=== PATIENT | female | born 1955 | race Caucasian/White ===

== ENCOUNTER 2019-01-30 21:20 | Emergency (ER) | payer MEDICARE, MEDICAID, SELFPAY ==
[2019-01-30 21:21] VITALS: BP 103/55; PULSE 100; RESP 16; TEMP 36.2; O2SAT 99; BMI 27.4
--- NOTE | 2019-01-30 21:40 | RAD_ITS ---
STUDY: X-RAY - RIGHT FOOT CLINICAL: Female, 63 years old. Pain TECHNIQUE: 3 view(s) of the foot. COMPARISON: None. FINDINGS: Normal talus, calcaneus, and tarsal bones. Normal visualized subtalar, talonavicular, tarsal and tarsometatarsal articulations. Surgical fusion at the calcaneocuboid articulation Normal metatarsi. Normal metatarsophalangeal joint of the great toe. Normal tibial and fibular sesamoid bones. Normal interphalangeal joint of the great toe. Normal phalanges of the great toe. Normal second through fifth metatarsophalangeal joints. Normal interphalangeal joints and phalanges of the lesser toes. Mild dorsal soft tissue edema. RAD/Foot min 3 Views IMPRESSION: No acute bony injury of the foot. Electronically Signed: Charles Aviles DO at 21:57 EDT Tel [phone], Service support ,
--- NOTE | 2019-01-30 22:24 | ED.VIS.GEN ---
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 - Past Medical History (1) Atrial fibrillation Status: Chronic (2) Hypothyroidism Status: Chronic Past Medical History - Allergies and Home Meds Allergies/Adverse Reactions: Allergies Penicillins Allergy (Verified 01/30/19 21:31) Unknown Sulfa (Sulfonamide Antibiotics) Allergy (Verified 01/30/19 21:31) Unknown Primary Care Physician: Richard Maynard DO [Primary Care Provider] - Smoking Status: Never smoker Review of Systems ROS: Unable to Obtain Musculoskeletal: Reports: Extremity Pain Skin: Reports: Wounds Hematologic: Reports: Easy bruising, Easy bleeding Physical Exam Vital Signs/Narrative: Vital Signs Temp Pulse Resp BP Pulse Ox 01/30/19 21:21 97.2 F L 100 16 103/55 L 99 Inital Vital Signs reviewed: Yes General: Well nourished, Well developed, No Acute Distress Head: Normocephalic, Atraumatic Extremities: Tenderness - Right fifth toe. No deformity. Rest of foot atraumatic and nontender. 2+/4 dorsalis pedis pulse. Skin: Trauma - Ecchymotic right fifth toe. No lacerations or bleeding. Neurological: Alert, Cranial nerves II-XII grossly intact, Normal Strength, Normal Sensation Diagnostic/Tx/Re-eval Clinical Impression(s) from Imaging Studies Foot X-Ray 01/30/19 21:40 IMPRESSION: No acute bony injury of the foot. Electronically Signed: Charles Aviles DO at 21:57 EDT Tel [phone], Service support , - Medical Decision Making X-ray shows no acute fracture. Likely minor trauma, she is on Eliquis, making it easier for her to bruise. Reassured and discharged home with supportive care instructions. ED Disposition - Plan for ED Patient: Disposition: Home or Assisted Living Diagnosis: Contusion of toe of right foot Instructions: ED Contusion Foot Referrals: Richard Maynard DO [Primary Care Provider] - As Needed
--- NOTE | 2019-01-30 22:28 | ED.DCSUM_ITS ---
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 manager contract states it was seen this morning and normal, but this evening staff saw it and it was black and blue on her right fifth toe so they present for evaluation. - Past Medical History (1) Atrial fibrillation Status: Chronic (2) Hypothyroidism Status: Chronic Past Medical History - Allergies and Home Meds Allergies/Adverse Reactions: Allergies Penicillins Allergy (Verified 01/30/19 21:31) Unknown Sulfa (Sulfonamide Antibiotics) Allergy (Verified 01/30/19 21:31) Unknown Primary Care Physician: Richard Maynard DO [Primary Care Provider] - Smoking Status: Never smoker Review of Systems ROS: Unable to Obtain Musculoskeletal: Reports: Extremity Pain Skin: Reports: Wounds Hematologic: Reports: Easy bruising, Easy bleeding Physical Exam Vital Signs/Narrative: Vital Signs Temp Pulse Resp BP Pulse Ox 01/30/19 21:21 97.2 F L 100 16 103/55 L 99 Inital Vital Signs reviewed: Yes General: Well nourished, Well developed, No Acute Distress Head: Normocephalic, Atraumatic Extremities: Tenderness - Right fifth toe. No deformity. Rest of foot atraumatic and nontender. 2+/4 dorsalis pedis pulse. Skin: Trauma - Ecchymotic right fifth toe. No lacerations or bleeding. Neurological: Alert, Cranial nerves II-XII grossly intact, Normal Strength, Normal Sensation Diagnostic/Tx/Re-eval Clinical Impression(s) from Imaging Studies Foot X-Ray 01/30/19 21:40 IMPRESSION: No acute bony injury of the foot. Electronically Signed: Charles Aviles DO at 21:57 EDT Tel [phone], Service support , - Medical Decision Making X-ray shows no acute fracture. Likely minor trauma, she is on Eliquis, making it easier for her to bruise. Reassured and discharged home with supportive care instructions. ED Disposition - Plan for ED Patient: Disposition: Home or Assisted Living Diagnosis: Contusion of toe of right foot Instructions: ED Contusion Foot Referrals: Richard Maynard DO [Primary Care Provider] - As Needed
[2019-01-30 22:35] VITALS: RESP 16
--- NOTE | 2019-01-30 22:36 | ED.RN ---
REVIEWED D/C INSTRUCTIONS, FOLLOW UP CARE, AND S/S THAT WOULD WARRANT A RETURN TO THE ED WITH PT'S CAREGIVER. CAREGIVER VERBALIZED AN UNDERSTANDING AND DENIES FURTHER QUESTIONS FOR THIS RN. PT SKIN P/W/D, RESP EVEN AND UNLABORED, NO DISTRESS NOTED. PT ASSISTED OUT OF ED IN PERSONAL WHEELCHAIR.
== END 2019-01-30 22:37 | disposition home or self-care (01) ==
PROVIDERS: Emergency Provider Emergency Medicine; Family Provider Family Medicine; PCP Preventive Medicine Occupational Medicine
DX: S90.121A Contusion of right lesser toe(s) without damage to nail, initial encounter (principal); X58.XXXA Exposure to other specified factors, initial encounter; Y93.9 Activity, unspecified; Y92.9 Unspecified place or not applicable; F79 Unspecified intellectual disabilities; I48.91 Unspecified atrial fibrillation; E03.9 Hypothyroidism, unspecified; Z79.01 Long term (current) use of anticoagulants; Z79.899 Other long term (current) drug therapy
CPT/HCPCS: 73630; 99282

== ENCOUNTER → 2019-04-25 | Outpatient (CLI) | payer MEDICARE, MEDICAID, SELFPAY ==
[2019-02-28 07:43] VITALS: BMI 22.6
--- NOTE | 2019-04-25 14:27 | BI_ITS ---
MAMMOGRAPHY - BILATERAL SCREENING REASON FOR EXAM: Female, 63 years old. Routine annual screening examination. PERTINENT HISTORY: Non-contributory. TECHNIQUE: Digital bilateral breast sander (3D mammographic acquisition) in the CC and MLO projections. 2-D mediolateral oblique (MLO) and craniocaudad (CC) views of both breasts were obtained. CAD: Full Field Digital Mammography with Computer Added Detection was performed. COMPARISON: Comparison is made with prior study dated March 19, 2017 and November 24, 2013. FINDINGS: Breast Composition: There are scattered areas of fibroglandular density. There are no dominant masses or suspicious calcifications. No other significant abnormalities are identified. There has been no significant change since the prior study. BI/SCREEN MAMM (CAD) W/SANDER BILAT IMPRESSION: Stable bilateral screening mammogram. Yearly follow-up mammogram recommended. (A) ASSESSMENT CATEGORY: BIRADS Category 1: Negative. A letter regarding these results will be sent to the patient by the facility within 30 days. Approximately 10% of breast cancers are not detected by mammography. A normal mammogram should not delay biopsy of a clinically suspicious abnormality. [id number] Electronically Signed: Sg Garza, at 10:20 EDT , Service support ,
--- NOTE | 2019-04-25 14:29 | BD_ITS ---
STUDY: DUAL ENERGY X-RAY ABSORPTIOMETRY / DXA REASON FOR EXAM: Female, 63 years old. The patient is postmenopausal. Loss of height TECHNIQUE: Bone Mineral Density (BMD) measurements of lumbar spine and bilateral hips were obtained. COMPARISON: Comparison is made with prior study dated October 06, 2012. FINDINGS: Lumbar Spine (L1-L4): g/cm2 (1.011) / T-score (-1.4) / Z-score (-0.1) Findings are suggestive of osteopenia with a low fracture risk. Left Femur Total: g/cm2 (0.748) / T-score (-2.1) / Z-score (-1.0) Left Femoral Neck: g/cm2 (0.791) / T-score (-1.8) / Z-score (-0.5) Right Femur Total: g/cm2 (0.748) / T-score (-2.1) / Z-score (-1.0) Right Femoral Neck: g/cm2 (0.757) / T-score (-2.0) / Z-score (-0.7) The T-Scores on the most recent prior examination were: Lumbar Spine (L1-L4): There has been worsening of bone density since the previous examination. Left Femur Total: which represents a worsening of 8.8%. Right Femur Total: which represents a worsening of 3.2%. BD/Dexa Bone Density Study IMPRESSION: The patient is considered osteopenic as outlined below according to World Dario Organization (WHO) criteria with a high fracture risk. There has been worsening of bone density since the previous examination. Reference Information: The T-score is the number of standard deviations above or below the standard which is normal for young adults at their peak bone mineral density. The World Health Organization (WHO) interprets the T-scores as follows: Above -1 Normal bone density Between -1 and -2.5 Osteopenia Equal to / or below -2.5 Osteoporosis As a practical clinical guideline, osteopenia may be graded as follows: Mild -1 through -1.5 Moderate -1.6 through -2.0 Severe -2.1 through -2.4 The Z-score is the number of standard deviations above or below age-matched controls. A Z-score of less than -1.5 would be considered abnormal. References: 1. NIH Osteoporosis and Related Bone Diseases http://www.osteo.org 2. International Society for Clinical Densitometry http://www.iscd.org 3. National Osteoporosis Foundation http://www.nof.org Electronically Signed: Sg Garza, at 15:20 EDT , Service support ,
== END | disposition home or self-care (01) ==
PROVIDERS: Family Provider Family Medicine; PCP Preventive Medicine Occupational Medicine; Visit Provider Preventive Medicine Occupational Medicine
DX: Z12.31 Encounter for screening mammogram for malignant neoplasm of breast (principal); Z78.0 Asymptomatic menopausal state
CPT/HCPCS: 77063; 77067; 77080

== ENCOUNTER → 2021-03-12 15:30 | Outpatient (CLI) | payer MEDICARE, MEDICAID, SELFPAY ==
[2020-03-05 09:09] VITALS: BMI 22.6
[2021-03-12 17:37] LABS: Hematocrit 42.2 % (37-47); Hemoglobin 13.3 g/dL (12.0-15.0); Mean Corp Hgb Conc 31.5 g/dL (32-36); Mean Corpuscular Volume 91.9 fL (81-99); Mean Platelet Vol. 11.2 fl (6.2-12.0); Platelet Count 239 K/mm3 (150-450); RBC Distribution Width CV 13.4 % (11.6-14.6); RBC Distribution Width SD 46.1 fl (35.1-43.9); Red Blood Count 4.59 M/mm3 (4.2-5.4); White Blood Count 7.4 K/mm3 (4.4-11.0)
[2021-03-12 17:54] LABS: Vitamin D,25 Hydroxy 43.4 ng/mL
[2021-03-12 18:02] LABS: Anion Gap 6 (5-15); BUN 14 mg/dL (7-18); BUN/Creat Ratio 20.6 RATIO (10-20); Calcium,Total 8.7 mg/dL (8.5-10.1); Chloride 108 mmol/L (98-107); Creatinine, Serum 0.68 mg/dL (0.55-1.02); EST Glomerular Filtration Rate 93 mL/min (>60); Est Glom Filt Rate - Afr Amer 112 mL/min (>60); Glucose 86 mg/dL (74-106); Potassium 4.5 mmol/L (3.5-5.1); Sodium Level 141 mmol/L (136-145); Thyroid Stim Hormone (TSH) 0.13 uIU/mL (0.358-3.74)
== END ==
PROVIDERS: PCP Preventive Medicine Occupational Medicine; Referring Provider Preventive Medicine Occupational Medicine; Visit Provider Preventive Medicine Occupational Medicine
DX: I48.91 Unspecified atrial fibrillation (principal); E03.9 Hypothyroidism, unspecified; E55.9 Vitamin D deficiency, unspecified
CPT/HCPCS: 36415; 80048; 82306; 84443; 85027

== ENCOUNTER → 2022-04-13 | Outpatient (CLI) | payer MEDICARE, MEDICAID, OTHER, SELFPAY ==
[2022-04-13 18:39] LABS: ALB/GLOB Ratio 0.9 RATIO (0.9-2.4); AST(SGOT) 21 U/L (15-37); Alanine Aminotransfer ALT/SGPT 18 U/L (13-56); Albumin, Serum 3.4 g/dL (3.2-5.0); Alkaline Phosphatase 101 U/L (45-117); Anion Gap 7 (5-15); BUN 17 mg/dL (7-18); BUN/Creat Ratio 24.4 RATIO (10-20); Calcium,Total 9.1 mg/dL (8.5-10.1); Chloride 106 mmol/L (98-107); Cholesterol 149 mg/dL (200); EST Glomerular Filtration Rate 90 mL/min (>60); Est Glom Filt Rate - Afr Amer 109 mL/min (>60); Globulin 3.8 g/dL (2.2-4.2); Glucose 82 mg/dL (74-106); High Density Lipoprotein 65 mg/dL; Potassium 4.1 mmol/L (3.5-5.1); Protein, Total 7.2 g/dL (6.4-8.2); Sodium Level 140 mmol/L (136-145); Thyroid Stim Hormone (TSH) 2.15 uIU/mL (0.358-3.74); Triglycerides 109 mg/dL; Very Low Density Lipoprotein 22 mg/dL (5-40)
== END | disposition home or self-care (01) ==
PROVIDERS: PCP Preventive Medicine Occupational Medicine; Visit Provider Internal Medicine Cardiovascular Disease
DX: I48.11 Longstanding persistent atrial fibrillation (principal); E03.9 Hypothyroidism, unspecified; E78.00 Pure hypercholesterolemia, unspecified
CPT/HCPCS: 36415; 80053; 80061; 84443

== ENCOUNTER → 2022-04-27 | Outpatient (CLI) | payer MEDICARE, MEDICAID, OTHER, SELFPAY ==
--- NOTE | 2022-04-27 13:45 | ECHOD_ITS ---
Reason For Study: AFIB/FLUTTER Procedure This was a 2D Doppler, Color Flow transthoracic echocardiogram. The study was technically difficult. Exam performed in department. Left Ventricle Normal LV size. Left ventricular systolic function is normal. The estimated ejection fraction is 60 %. Unable to assess diastolic dysfunction due to arrhythmia. No regional wall motion abnormalities noted. Right Ventricle Normal RV size. Normal systolic function. Atria Normal left atrium. Normal right atrium. Mitral Valve Normal mitral valve. Tricuspid Valve Normal tricuspid valve. Aortic Valve Trisinus/trileaflet aortic valve. Pulmonic Valve Normal pulmonic valve. Great Vessels Normal aortic root. The pulmonary artery is normal size. Normal inferior vena cava. Pericardium/Pleural No pericardial effusion. MMode/2D Measurements & Calculations LVIDd: 4.3 cm IVSd: 0.92 cm Ao root diam: 3.4 cm LVIDs: 3.2 cm LVPWd: 0.96 cm LA dimension: 3.8 cm RVDd: 2.4 cm FS: 24.5 % LAV(MOD-bp): 43.7 ml LA A4 area: 15.3 cm2 RA A4 area: 13.5 cm2 LAV(MOD-bp) Indexed: 30.0 ml/m2 LAV(MOD-sp2): 48.8 ml LAV(MOD-sp4): 37.3 ml Doppler Measurements & Calculations MV E max dorys: 107.0 cm/sec Ao V2 max: 117.7 cm/sec LV V1 max: 59.1 cm/sec Ao max P.5 mmHg LV V1 max P.4 mmHg PA V2 max: 143.4 cm/sec ECHO/Echo Complete Interpretation Summary Normal LV size. Left ventricular systolic function is normal. The estimated ejection fraction is 60 %. Unable to assess diastolic dysfunction due to arrhythmia. Ordering Physician: Raghav Pitts Referring Physician: Richard Grijalva Performed By: Rachell Kingston, YESENIA, RVT
== END | disposition home or self-care (01) ==
LOC: CVS 13:43
PROVIDERS: PCP Preventive Medicine Occupational Medicine; Visit Provider Internal Medicine Cardiovascular Disease
DX: I48.11 Longstanding persistent atrial fibrillation (principal)
CPT/HCPCS: 93306

== ENCOUNTER → 2022-05-19 | Outpatient (CLI) | payer MEDICARE, MEDICAID, OTHER, SELFPAY ==
--- NOTE | 2022-05-19 12:00 | PCM.PN.BLA ---
Progress Note Procedure cancelled. Patient unable to hold still for the procedure. Patient to return to her PCP for alternatives.
== END | disposition home or self-care (01) ==
LOC: BIRAD 11:14
PROVIDERS: PCP Preventive Medicine Occupational Medicine; Visit Provider Surgery
DX: R92.8 Other abnormal and inconclusive findings on diagnostic imaging of breast (principal)

== ENCOUNTER 2022-08-25 11:06 | Inpatient (IN) | payer MEDICARE, OTHER, MEDICAID, SELFPAY ==
[2022-08-25] VITALS (11 sets, daily range): BP systolic 108–137; BP diastolic 65–96; PULSE 91–160; RESP 13–18; TEMP 36.4–36.9; O2SAT 95–100; BMI 20.7; BMI 18.3
--- NOTE | 2022-08-25 12:04 | CT_ITS ---
STUDY: CT BRAIN WITHOUT CONTRAST REASON FOR EXAM: Female, 67 years old. History of fall. Patient has a history of cerebral palsy. Patient is nonverbal. RADIATION DOSAGE (If Supplied By Facility): CTDIvol = ( 44.99 ) mGy, DLP = ( 846.73 ) mGycm TECHNIQUE: Transaxial CT imaging of the brain was performed without administration of intravenous contrast material. Individualized dose optimization techniques were used for this CT. COMPARISON: No relevant priors. FINDINGS: Normal soft tissue structures. There is hyperostosis frontalis internus. There is mild cerebral atrophy with widening of the extra-axial spaces and ventricular dilatation. Normal white matter tracts of the cerebral hemispheres. Normal basal ganglia and thalami. Normal brainstem. Normal cerebellum. There is no intracranial hemorrhage. There are no findings of an acute ischemic infarction. Normal visualized paranasal sinuses. CT/Brain/Head without Contrast IMPRESSION: Chronic involutional changes of the brain. Electronically Signed: Sg Garza MD at 13:03 EST ,
--- NOTE | 2022-08-25 12:04 | CT_ITS ---
STUDY: CT CERVICAL SPINE WITHOUT CONTRAST REASON FOR EXAM: Female, 67 years old. Neck pain following a fall. RADIATION DOSAGE (If Supplied By Facility): CTDIvol = ( 12.66 ) mGy, DLP = ( 263.16 ) mGycm TECHNIQUE: High resolution transaxial imaging was performed without contrast material. Sagittal and coronal images were reconstructed. Individualized dose optimization techniques were used for this CT. COMPARISON: None FINDINGS: Normal craniovertebral junction. Normal anterior atlantoaxial articulation. Normal odontoid process. Normal cervical lordosis. Normal vertebral bodies and posterior osseous elements. C2-3: Normal endplates. Normal disc height and morphology. Normal central canal and intervertebral neuroforamina. C3-4: Facet joint osteoarthritis and hypertrophy. No significant neural foraminal stenosis seen. C4-5: Facet joint osteoarthritis and hypertrophy on the right side. Mild degree of right neural foraminal stenosis. C5-6: Moderate degree of disc space narrowing and spondylosis. C6-7: Mild degree of disc space narrowing and spondylosis. C7-T1: Normal endplates. Normal disc height and morphology. Normal central canal and intervertebral neuroforamina. Calcification of the carotid bifurcations bilaterally. CT/Spine Cervical without Contras IMPRESSION: Multilevel degenerative changes, as described above. Calcification of the carotid bifurcations bilaterally. Electronically Signed: Sg Garza MD at 13:05 EST ,
--- NOTE | 2022-08-25 12:13 | ED.VIS.FALL ---
HPI <SUSAN Lares - Last Filed: 08/25/22 15:25> HPI - Fall History of Present Illness Chief Complaint: Fall Narrative Narrative: Patient presents today after falling on the floor. She is brought here today by the group director where she resides and is unable to provide me any details about what happened due to being mentally handicapped. The broadcast operations manager states she was only on the floor for a minute and is unsure if she hit her head. She states the patient did not lose consciousness and was able to walk around afterwards. Patient is on blood thinners and last took them this morning. [facility] <SUSAN Lares - Last Filed: 08/25/22 15:25> [facility] Medical History (Updated 08/25/22 @ 15:25 by SUSAN Lares) Cataract Cerebral palsy Developmental disability Glaucoma Hypothyroidism Longstanding persistent atrial fibrillation Schizophrenia Home Medications acetaminophen 500 mg tablet 500 - 1,000 mg PO Q6H PRN PRN Pain 4 days 10/16/14 [Rx Last Taken Unknown] levothyroxine 88 mcg tablet 88 mcg PO DAILY thyroid 10/16/14 [History Last Taken 08/25/22] lorazepam 0.5 mg tablet 0.5 mg PO TID mood 03/11/18 [History Last Taken 08/25/22] cholecalciferol (vitamin D3) 25 mcg (1,000 unit) capsule 1,000 unit PO QDAY supplement 03/17/18 [History Last Taken 08/25/22] multivitamin (Daily Multi-Vitamin tablet) 1 tab PO QAM supplement 03/17/18 [History Last Taken 08/25/22] polyethylene glycol 3350 8.5 gram oral powder packet 17 g PO QDAY constipation 03/17/18 [History Last Taken 08/24/22] vitamin A 2,400 mcg capsule 8,000 unit PO QDAY supplement 03/17/18 [History Last Taken 08/25/22] alendronate 35 mg tablet 35 mg PO QWEEK bone health 03/05/20 [History Last Taken 08/19/22] carbamide peroxide 6.5 % ear drops (Debrox) 5 drp otic (ear) .QOD ears 03/05/20 [History Last Taken 08/24/22] risperidone 0.5 mg tablet 0.5 mg PO TID mood 03/05/20 [History Last Taken 08/24/22] fluvoxamine 50 mg tablet 50 mg PO TID mood 04/11/21 [History Last Taken 08/25/22] brinzolamide 1 %-brimonidine 0.2 % eye drops,suspension (Simbrinza) 1 drp ophthalmic (eye) TID eye 04/13/22 [History Last Taken 08/25/22] prednisolone acetate 1 % eye drops,suspension 1 drp ophthalmic (eye) BID eyes 04/13/22 [History Last Taken 08/24/22] apixaban 5 mg tablet 5 mg PO BID a fib 08/25/22 [History Last Taken 08/25/22] Allergy/AdvReac Type Severity Reaction Status Date / Time Penicillins Allergy Unknown Verified 04/13/22 12:47 Sulfa (Sulfonamide Allergy Unknown Verified 04/13/22 12:47 Antibiotics) Family History (Updated 08/25/22 @ 14:[address] Cheryl Juarez MD) Father Cancer Mother Heart disease Surgical History (Updated 08/25/22 @ 15:[address] Cheryl Juarez MD) History of Achilles tendon repair History of cataract surgery (02/2022) Social History (Updated 08/25/22 @ 14:[address] Cheryl Juarez MD) household members: other details: [employer]. Smoking Status: Never smoker alcohol intake: never substance use type: does not use ROS <SUSAN Lares - Last Filed: 08/25/22 15:25> ROS ED Review of Systems ROS Unobtainable: due to mental condition Constitutional Constitutional ED: Denies chills or fever(s) ENT ENT ED: Denies rhinorrhea or sore throat Respiratory/Chest Respiratory/Chest: Denies cough or dyspnea Gastrointestinal Gastrointestinal: Denies nausea or vomiting Musculoskeletal Musculoskeletal: Denies back pain or neck pain Integumentary Denies Abrasions or rash Neurologic Neurologic: Denies weakness EXAM <SUSAN Lares - Last Filed: 08/25/22 15:25> Physical Exam Const Vital Signs: 08/25/22 11:08 08/25/22 11:13 08/25/22 14:05 Temperature 97.5 F L Temperature Source Oral Pulse Rate 91 107 H Respiratory Rate 18 13 Respiratory Effort Normal Respiratory Depth Normal Respiratory Pattern Normal Blood Pressure 118/87 H 108/67 Blood Pressure Mean 97 80 Pulse Ox 98 98 Oxygen Delivery Method Room Air Room Air Room Air Positive well nourished and well developed General Appearance ED: well developed HEENT Reports normocephalic atraumatic; Negative for contusion, hematoma or tenderness Eyes PERRL and EOMs intact bilaterally Eyes Narrative: Patient is blind in her left eye. Neck full ROM and supple General: Negative for tenderness Chest Wall inspection of chest normal and palpation of chest normal Resp normal respiratory effort, no retractions and clear to auscultation bilaterally Cardio regular rate, regular rhythm and no murmurs GI non-tender, non-distended and no masses Back/Spine Back/Spine Narrative: Patient has full range of motion in her back and neck. General Back: Negative for erythema, ecchymosis, swelling or tenderness Neuro moves all extremities, no focal motor deficits and no sensory deficits noted Sensorium / Orientation: alert Motor Exam: Negative for general weakness Psych Attitude: No agitated Mood & Affect: Negative for anxious or tearful Skin Lesions: no lesions Rashes: no rashes Trauma: Negative for abrasion <Pelon Daly MD - Last Filed: 08/25/22 14:35> Physical Exam Const Vital Signs: 08/25/22 11:08 08/25/22 11:13 08/25/22 14:05 Temperature 97.5 F L Temperature Source Oral Pulse Rate 91 107 H Respiratory Rate 18 13 Respiratory Effort Normal Respiratory Depth Normal Respiratory Pattern Normal Blood Pressure 118/87 H 108/67 Blood Pressure Mean 97 80 Pulse Ox 98 98 Oxygen Delivery Method Room Air Room Air Room Air [facility] <SUSAN Lares - Last Filed: 08/25/22 15:25> [facility] Narrative Medical decision making narrative: CT of the brain and C-spine has been obtained. X-rays of the hips bilaterally have been obtained. Patient is lying comfortably in the bed, her vital signs are within normal limits and have remained stable. Radiography Diagnostic Testing: Clinical Impression(s) from Imaging Studies Brain CT 08/25/22 12:04 IMPRESSION: Chronic involutional changes of the brain. Electronically Signed: Sg Garza MD at 13:03 EST , Cervical Spine CT 08/25/22 12:04 IMPRESSION: Multilevel degenerative changes, as described above. Calcification of the carotid bifurcations bilaterally. Electronically Signed: Sg Garza MD at 13:05 EST , Hip/Pelvis X-Ray 08/25/22 12:45 IMPRESSION: There is a comminuted nondisplaced intertrochanteric fracture of the proximal left femur with cephalic migration of the distal fracture fragment. Electronically Signed: Sg Garza MD at 13:06 EST , CT of the brain and cervical spine negative for any acute processes. comminuted nondisplaced intertrochanteric fracture of the proximal left femur with cephalic migration of the distal fracture fragment. I agree with radiologist impressions. These have also been reviewed by attending ED physician. EKG Initial EKG: Attestation: I personally reviewed and interpreted this EKG as follows: Comments: 156 bpm. Atrial fibrillation with RVR. This EKG has also been reviewed by attending ED physician. No ST elevation, no signs of cardiac ischemia. <Pelon Daly MD - Last Filed: 08/25/22 14:35> [facility] MDM Narrative Medical decision making narrative: CT of the brain and C-spine has been obtained. X-rays of the hips bilaterally have been obtained. Patient is lying comfortably in the bed, her vital signs are within normal limits and have remained stable. ER physician interpretation of x-ray shows a comminuted fracture that is intertrochanteric. EKG interpreted by ED physician shows atrial fibrillation with rapid ventricular response at [address] changes. No STEMI. She was administered Lopressor. She last took her apixaban this morning. Given her comminuted left hip fracture, patient was discussed with Dr. Roman who would like her placed in Massey's traction. He would also like her admitted to internal medicine. Medical screening labs were obtained and are pending. Patient was discussed with Dr. Juarez for admission to the PCU given her atrial fibrillation with rapid ventricular response. Disposition is admit in stable condition. I have personally performed a face to face assessment of the patient and have reviewed the NAV Note. I performed a substantive portion of the visit including all aspects of the following. My gilman findings include: History is found on floor after suspected fall. History and physical limited secondary to patient's IDD Exam is GCS 15. ABCs intact. Mild tenderness to palpation left hip, positive pain with rolling of left femur. Medical Decision Making check CT brain. Check CT C-spine. X-rays of the left hip and pelvis interpreted by myself shows a comminuted nondisplaced intertrochanteric fracture of the proximal left femur. Discussed with orthopedics. Discussed with hospitalist. Presurgical screening labs. Admit. Other additions or changes: [None] Radiography Diagnostic Testing: Clinical Impression(s) from Imaging Studies Brain CT 08/25/22 12:04 IMPRESSION: Chronic involutional changes of the brain. Electronically Signed: Sg Garza MD at 13:03 EST , Cervical Spine CT 08/25/22 12:04 IMPRESSION: Multilevel degenerative changes, as described above. Calcification of the carotid bifurcations bilaterally. Electronically Signed: Sg Garza MD at 13:05 EST , Hip/Pelvis X-Ray 08/25/22 12:45 IMPRESSION: There is a comminuted nondisplaced intertrochanteric fracture of the proximal left femur with cephalic migration of the distal fracture fragment. Electronically Signed: Sg Garza MD at 13:06 EST , Discharge Plan Dx/Rx/DC Orders Clinical Impression: Atrial fibrillation with RVR, Hip fracture, Developmental disability Disposition Disposition: Acute Care Hospital [facility] Discharge Date/Time: 08/25/22 15:06
--- NOTE | 2022-08-25 12:45 | RAD_ITS ---
STUDY: X-RAY - PELVIS AND BILATERAL HIPS REASON FOR EXAM: Female, 67 years old. Left hip pain following a fall. TECHNIQUE: AP view of the pelvis.? 2 views of the right hip, and 2 views of the left hip were obtained. COMPARISON: None. FINDINGS: There is a non-specific bowel gas pattern. There are multiple calcified phleboliths. Normal bilateral iliac wings, sacroiliac joints and visualized sacrum. Normal bilateral superior and inferior pubic rami. Normal pubic symphysis. Normal bilateral ischial tuberosities. Normal visualized right femoral head. Normal right acetabulum. There is mild articular joint space narrowing of the right hip. There is a comminuted nondisplaced intertrochanteric fracture of the proximal left femur with cephalic migration of the distal fracture fragment. Normal left acetabulum. There is mild articular joint space narrowing of the left hip. RAD/Hips B/L min 2 views w/ Pelvis IMPRESSION: There is a comminuted nondisplaced intertrochanteric fracture of the proximal left femur with cephalic migration of the distal fracture fragment. Electronically Signed: Sg Garza MD at 13:06 EST ,
--- NOTE | 2022-08-25 14:07 | RAD_ITS ---
STUDY: X-RAY - LEFT FEMUR REASON FOR STUDY: Female, 67 years old. Fracture. TECHNIQUE: AP and lateral view(s) of the femur. COMPARISON: Pelvis and bilateral hips, August 25, 2022. FINDINGS: Again seen is a displaced intertrochanteric fracture of the left femur unchanged from the earlier examination. There is no dislocation. The femur is otherwise intact. Mild degenerative changes of the knee. Normal visualized soft tissue structure. RAD/Femur Min 2 Views IMPRESSION: No change in position of the intertrochanteric fracture when compared to an earlier study. Electronically Signed: Tyrel Presley DO at 18:58 EST ,
--- NOTE | 2022-08-25 14:12 | PCM.HP.STD ---
HPI - General General Date of Admission: 08/25/22 Date of Service: 08/25/22 Chief Complaint: Fall, L hip pain HPI Narrative The patient is a 67 y/o M w/ PMHx: Schizophrenia, Chronic atrial fibrillation, Hypothyroidism, Cerebral palsy with developmental debility who presents to the [facility] ED on 08/25/22 with history of onset mechanical fall at her [place] [facility] with ongoing L hip pain and debility prompting eventual ED transition. From discussion with family she is able to feed herself and eats minced food and normal texture liquids. The family also notes that when she has had surgery prior or has been in pain her heart rate has raised notably. Work-up in the ED included T97.5, heart rate 91, BP 118/87, respiratory rate 18, 98% on room air, CT with chronic involutional change of the brain, CT cervical spine with multilevel degenerative changes with calcification of the carotid bifurcations bilaterally, Plain film pelvis and bilateral hips with a comminuted nondisplaced intertrochanteric fracture of the proximal left femur with cephalic migration of the distal fracture fragment, EKG with atrial fibrillation with RVR. Pending CBC, CMP, coags as discussed with ED staff. In the ED patient HR upon evaluation notably elevated 140-180s, requested morphine 2 mg IV x 1 be administered as well as lopressor 5 mg IV x 1 and her HR decreased to 90-105 thus suspect likely pain component but patient unable to relay her pain complicating her presentation. ED discussed case with orthopedic surgery Dr. Roman who given the type of fracture would preferentially like to take her to the OR in the morning given concerns and understands that she did receive 08/25/2020 2 AM dosing of her Eliquis which family did again confirmed. [facility] Medical History (Updated 08/25/22 @ 15:[address] Cheryl Juarez MD) Cataract Cerebral palsy Developmental disability Glaucoma Hypothyroidism Longstanding persistent atrial fibrillation Schizophrenia Home Medications acetaminophen 500 mg tablet 500 - 1,000 mg PO Q6H PRN PRN Pain 4 days 10/16/14 [Rx Last Taken Unknown] levothyroxine 88 mcg tablet 88 mcg PO DAILY thyroid 10/16/14 [History Last Taken 08/25/22] lorazepam 0.5 mg tablet 0.5 mg PO TID mood 03/11/18 [History Last Taken 08/25/22] cholecalciferol (vitamin D3) 25 mcg (1,000 unit) capsule 1,000 unit PO QDAY supplement 03/17/18 [History Last Taken 08/25/22] multivitamin (Daily Multi-Vitamin tablet) 1 tab PO QAM supplement 03/17/18 [History Last Taken 08/25/22] polyethylene glycol 3350 8.5 gram oral powder packet 17 g PO QDAY constipation 03/17/18 [History Last Taken 08/24/22] vitamin A 2,400 mcg capsule 8,000 unit PO QDAY supplement 03/17/18 [History Last Taken 08/25/22] alendronate 35 mg tablet 35 mg PO QWEEK bone health 03/05/20 [History Last Taken 08/19/22] carbamide peroxide 6.5 % ear drops (Debrox) 5 drp otic (ear) .QOD ears 03/05/20 [History Last Taken 08/24/22] risperidone 0.5 mg tablet 0.5 mg PO TID mood 03/05/20 [History Last Taken 08/24/22] fluvoxamine 50 mg tablet 50 mg PO TID mood 04/11/21 [History Last Taken 08/25/22] brinzolamide 1 %-brimonidine 0.2 % eye drops,suspension (Simbrinza) 1 drp ophthalmic (eye) TID eye 04/13/22 [History Last Taken 08/25/22] prednisolone acetate 1 % eye drops,suspension 1 drp ophthalmic (eye) BID eyes 04/13/22 [History Last Taken 08/24/22] apixaban 5 mg tablet 5 mg PO BID a fib 08/25/22 [History Last Taken 08/25/22] Allergy/AdvReac Type Severity Reaction Status Date / Time Penicillins Allergy Unknown Verified 04/13/22 12:47 Sulfa (Sulfonamide Allergy Unknown Verified 04/13/22 12:47 Antibiotics) Family History (Updated 08/25/22 @ 14:[address] Cheryl Juarez MD) Father Cancer Mother Heart disease Surgical History (Updated 08/25/22 @ 15:[address] Cheryl Juarez MD) History of Achilles tendon repair History of cataract surgery (02/2022) Social History (Updated 08/25/22 @ 14:[address] Cheryl Juarez MD) household members: other details: jail. Smoking Status: Never smoker alcohol intake: never substance use type: does not use ROS Review of Systems ROS Unobtainable: due to mental condition and due to mental status Vital Signs Vital Signs Vital Signs: 08/25/22 11:08 08/25/22 11:13 Temperature 97.5 F L Temperature Source Oral Pulse Rate 91 Respiratory Rate 18 Respiratory Effort Normal Respiratory Depth Normal Respiratory Pattern Normal Blood Pressure 118/87 H Blood Pressure Mean 97 Pulse Ox 98 Oxygen Delivery Method Room Air Room Air Weight Weight: 124 lb 12.506 oz Body Mass Index (BMI) 20.7 Physical Exam Narrative Physical Examination: General: Patient awake, appears alert but difficult assessment given underlying cerebral palsy with debility, moving her tongue and sticking in and out and moving her upper extremities, nonverbal currently, unable to answer orientation questions. Skin: Normal color, normal turgor, no icterus, no cyanosis except for occasional staged ecchymoses. HEENT: AT/NC, EOM unable to be assessed well given acute presentation and underlying mental debility, PERRLA, dry MM, no carotid bruits or JVD noted. Lungs: Mildly diminished, greater bases, decreased effort but unable to follow exam requested by, no rales, ronchi or wheezing. Heart: Irregular irregular; no gallop, rub audible. Abdomen: Soft, thin habitus, NTTP, ND, distant normal BS, no HSM. Extremities: No cyanosis, no clubbing, left lower extremity with significant upper thigh swelling status post fall with left hip fracture, complicated, peripheral pulses intact Neurological: Patient awake, appears alert but difficult assessment given underlying cerebral palsy with debility, moving her tongue and sticking in and out and moving her upper extremities, nonverbal currently, unable to answer orientation questions, cognitive decreased baseline with underlying CP with debility/MRDD; pupils equally reactive to light and accommodation, cranial nerves difficult to assess but appear grossly normal, moving extremities except expected limitation left lower extremity given fall with fracture, some contractures noted to the feet and hand regions, strength accordingly severely globally decreased. Psychiatric: Affect appears flat, complicated given underlying MRDD CP status, does have underlying anxiety and depression as well as schizophrenia, do suspect patient is in pain and she responded so well to more seen but outwardly does not appear distressed, no acute evidence of depressive or anxiety feelings. Results Lab / Micro Data Result Diagrams: 08/25/22 14:30 08/25/22 14:[address] 08/25/22 12:04 IMPRESSION: Chronic involutional changes of the brain. Electronically Signed: Sg Garza MD at 13:03 EST , Cervical Spine CT 08/25/22 12:04 IMPRESSION: Multilevel degenerative changes, as described above. Calcification of the carotid bifurcations bilaterally. Electronically Signed: Sg Garza MD at 13:05 EST , Hip/Pelvis X-Ray 08/25/22 12:45 IMPRESSION: There is a comminuted nondisplaced intertrochanteric fracture of the proximal left femur with cephalic migration of the distal fracture fragment. Electronically Signed: Sg Garza MD at 13:06 EST , Assessment & Plan Assessment/Plan (1) Hip fracture: PLAN: Plan The patient is a 67 y/o M w/ PMHx: Schizophrenia, Chronic atrial fibrillation, Hypothyroidism, Cerebral palsy with developmental debility who presents to the [facility] ED on 08/25/22 with history of onset mechanical fall at her [place] [facility] with ongoing L hip pain and debility prompting eventual ED transition. #1. General debility, L hip pain s/p mechanical fall w/ comminuted nondisplaced intertrochanteric fracture proximal left femur with cephalic migration distal fracture fragment: Plain film pelvis and bilateral hips with a comminuted nondisplaced intertrochanteric fracture of the proximal left femur with cephalic migration of the distal fracture fragment. Orthopedic surgery consulted from ED. Will admit to PCU given #2 although did significantly improved with minimal pain regimen and Lopressor x1 thus suspect more pain related, maintain NPO per bone order set protocol, continue gentle IVFs, brown placement, monitor I/Os, frequent positioning, fall precautions, pain, anti-emetic regimen. PT/OT following operative intervention. CM consulted for discharge planning. Per NSQIP given patient age, appropriate renal function, activity level, chronically debilitated state would certainly be at least moderate risk however patient has had recent cardiology evaluation with no concerns at that time as well as an unremarkable echocardiogram. Patient did present as noted with atrial fibrillation with RVR however suspect this was pain related as it very quickly subsided with low-dose morphine 2 mg IV x1 and Lopressor 5 IV x1 which family confirmed has occurred before with pain and surgical intervention. We will continue to closely monitor and if patient remains appropriate as far as her rate is concerned then would plan to progress to the OR in the a.m. per discussion with orthopedic surgery as patient is high risk given type of fracture and family understands that there certainly is a risk given she would only be 24 hours out from last dose of apixaban but that the benefit would outweigh the risk which they are amenable to. If patient does unfortunately have recurrent atrial fibrillation with RVR or requires a drip then would request cardiology evaluation. #2. Chronic atrial fibrillation with RVR: Suspect its primarily pain related, rate in the ED had been significantly elevated 1 40-1 80s during evaluation and her EKG demonstrated atrial fibrillation with RVR however she very quickly responded to low-dose 2 mg morphine x1 and Lopressor 5 mg IV x1 with heart rate improving to 90-105. Family does confirm that she in the past has had significant tachycardia associated with pain and surgical interventions. TSH, magnesium level requested. Recent echocardiogram and visit with cardiology with no discerns noted at that time. 04/27/2022 echo with normal LV size, normal LV systolic function, EF 60%, performed while patient in atrial fibrillation. #3. Cerebral palsy with developmental debility: Complicates presentation, maintain on fall and aspiration precautions, as discussed with family patient does use minced texture diet and regular liquids when she is appropriate for oral intake as currently with pain and required positioning unsafe oral intake until improved, continue patient Ativan as well as chronic bowel regimen. PT and OT as well as case management will be consulted to assist with transition. #4. Schizophrenia/Depression and anxiety: We will psych regimen including fluvoxamine, Ativan, risperidone. #5. Hypothyroidism: We will continue patient on levothyroxine regimen, TSH requested given significant A. fib RVR upon presentation but again as noted suspect likely pain as this improved quickly. #6. DVT prophylaxis: SCDs, holding apixaban as noted above. #7. CODE status: Patient JOSE DE JESUS is the patient's legal guardian Monica Robbins and living will is currently in place per her report. Discussed CODE status at length including difference between FULL code, DNR-CCA and DNR-CC status. Following discussions about the differences in these status, requested Full Code noting that because her age is not significantly advanced. Advanced Care Planning Face to Face Time: 16 minutes. Charges/Coding Visit Charges Inpatient E&M: 93343 Init Hosp L3 Procedures Hospitalists Procedures: 07071 Advncd Care Plan 30 Min
[2022-08-25] MEDS: Metoprolol Tartrate 5 MG/5 ML Vial IV (14:26)
[2022-08-25] MEDS: Morphine 2 MG/ML Syringe IV ×3 (14:36→20:09)
--- NOTE | 2022-08-25 14:40 | NURSING ---
PCU WHITE HIP FRACTURE
[2022-08-25 14:45] LABS: Absolute Lymphocyte Count 0.77 X10^3/uL (0.83-4.51); Absolute Neutrophil Count 16.5 X10^3/uL (2.0-7.7); Basophil# 0.06 X10^3/uL; Basophil% 0.3 % (0-1); Eosinophil# 0.01 X10^3/uL; Eosinophils% 0.1 % (0-5); Hematocrit 36.8 % (37-47); Hemoglobin 11.9 g/dL (12.0-15.0); Lymphocyte # 0.77 X10^3/ul (0.83-4.51); Mean Corp Hgb Conc 32.3 g/dL (32-36); Mean Corpuscular Hgb 29.6 pg (27.0-32.0); Mean Corpuscular Volume 91.5 fL (81-99); Mean Platelet Vol. 10.7 fl (6.2-12.0); Monocyte# 2.08 X10^3/uL; Monocyte% 10.7 % (0-10); NRBC Flagged by Analyzer 0 % (0-5); Neutrophil # 16.46 X10^3/uL (2.7-7.7); Neutrophil % 84.4 % (47-70); POSITIVE DIFFERENTIAL YES; Platelet Count 292 K/mm3 (150-450); RBC Distribution Width CV 13.6 % (11.6-14.6); RBC Distribution Width SD 45.8 fl (35.1-43.9); Red Blood Count 4.02 M/mm3 (4.2-5.4); White Blood Count 19.5 K/mm3 (4.4-11.0)
[2022-08-25 14:46] LABS: Differential Indicated SCAN CRITERIA MET
[2022-08-25 15:01] LABS: ALB/GLOB Ratio 0.9 RATIO (0.9-2.4); AST(SGOT) 19 U/L (15-37); Alanine Aminotransfer ALT/SGPT 20 U/L (13-56); Albumin, Serum 3.5 g/dL (3.2-5.0); Alkaline Phosphatase 81 U/L (45-117); Anion Gap 4 (5-15); BUN 18 mg/dL (7-18); BUN/Creat Ratio 27.2 RATIO (10-20); Chloride 104 mmol/L (98-107); Creatinine, Serum 0.66 mg/dL (0.55-1.02); EST Glomerular Filtration Rate 95 mL/min (>60); Est Glom Filt Rate - Afr Amer 115 mL/min (>60); Estimated Creatinine Clearance 75.93 ml/min; Globulin 3.7 g/dL (2.2-4.2); Glucose 130 mg/dL (74-106); Magnesium 2.6 mg/dL (1.6-2.6); Protein, Total 7.2 g/dL (6.4-8.2); Sodium Level 139 mmol/L (136-145)
[2022-08-25] MEDS: 0.9% Normal Saline 1,000 ML 100 ML IV (15:20)
--- NOTE | 2022-08-25 16:31 | CON.PCM_ITS ---
Assessment & Plan Assessment/Plan (1) Atrial fibrillation with RVR: (2) Hip fracture: PLAN: Plan Comminuted left intertrochanteric hip fracture shortened and displaced Placed 7 pounds Massey's traction x-ray entire left femur for planned cephalomedullary fixation Considering half-life Eliquis 6 to 12 hours we will find out when exactly her a.m. dose was and we will proceed accordingly either tomorrow or the following day. She is tentatively scheduled for surgery 08/26/2022 at 2:30 PM. HPI Consult Data Date of Consult: 08/25/22 HPI Narrative HPI Narrative: FIDENCIO SANDHU, is a 67 F cerebral palsy patient with history of atrial fibrillation on Eliquis 5 mg twice daily who does live at a nursing home and does walk independently she is nonverbal and had a ground-level fall in the kitchen that was unwitnessed immediately had pain in left hip which was brought to the emergency room and x-rays demonstrated a comminuted left intertrochanteric fracture displaced. Last dose of Eliquis was early 11:29 AM we are in the process of calling to find out exact time. [facility] Medical History (Updated 08/25/22 @ 15:25 by SUSAN Lares) Cataract Cerebral palsy Developmental disability Glaucoma Hypothyroidism Longstanding persistent atrial fibrillation Schizophrenia Home Medications acetaminophen 500 mg tablet 500 - 1,000 mg PO Q6H PRN PRN Pain 4 days 10/16/14 [Rx Last Taken Unknown] levothyroxine 88 mcg tablet 88 mcg PO DAILY thyroid 10/16/14 [History Last Taken 08/25/22] lorazepam 0.5 mg tablet 0.5 mg PO TID mood 03/11/18 [History Last Taken 08/25/22] cholecalciferol (vitamin D3) 25 mcg (1,000 unit) capsule 1,000 unit PO QDAY supplement 03/17/18 [History Last Taken 08/25/22] multivitamin (Daily Multi-Vitamin tablet) 1 tab PO QAM supplement 03/17/18 [History Last Taken 08/25/22] polyethylene glycol 3350 8.5 gram oral powder packet 17 g PO QDAY constipation 03/17/18 [History Last Taken 08/24/22] vitamin A 2,400 mcg capsule 8,000 unit PO QDAY supplement 03/17/18 [History Last Taken 08/25/22] alendronate 35 mg tablet 35 mg PO QWEEK bone health 03/05/20 [History Last Taken 08/19/22] risperidone 0.5 mg tablet 0.5 mg PO TID mood 03/05/20 [History Last Taken 08/24/22] fluvoxamine 50 mg tablet 50 mg PO TID mood 04/11/21 [History Last Taken 08/25/22] prednisolone acetate 1 % eye drops,suspension 1 drp ophthalmic (eye) BID eyes 04/13/22 [History Last Taken 08/24/22] apixaban 5 mg tablet 5 mg PO BID a fib 08/25/22 [History Last Taken 08/25/22] Allergy/AdvReac Type Severity Reaction Status Date / Time Penicillins Allergy Unknown Verified 04/13/22 12:47 Sulfa (Sulfonamide Allergy Unknown Verified 04/13/22 12:47 Antibiotics) Family History (Updated 08/25/22 @ 14:[address] Cheryl Juarez MD) Father Cancer Mother Heart disease Surgical History (Updated 08/25/22 @ 15:[address] Cheryl Juarez MD) History of Achilles tendon repair History of cataract surgery (02/2022) Social History (Updated 08/25/22 @ 14:[address] Cheryl Juarez MD) household members: other details: [facility]. Smoking Status: Never smoker alcohol intake: never substance use type: does not use Physical Exam Const Negative for healthy appearing Constitutional Narrative: Nonverbal, appears comfortable as long as we do not move her. Unable to follow commands. Extremity Extremity Narrative: 1 out of 4 pedal pulses direct mild swelling over the hip no ecchymosis compartments soft Lab / Micro Data Result Diagrams: 08/25/22 14:30 08/25/22 14:30 Labs: Laboratory Results - last 24 hr 08/25/22 14:30: WBC 19.5 H, RBC 4.02 L, Hgb 11.9 L, Hct 36.8 L, MCV 91.5, MCH 29.6, MCHC 32.3, RDW Std Deviation 45.8 H, RDW Coeff of Zoila 13.6, Plt Count 292, MPV 10.7, Immature Gran % (Auto) 0.500, Neut % (Auto) 84.4 H, Lymph % (Auto) 4.0 L, [place] % (Auto) 10.7 H, Eos % (Auto) 0.1, Baso % (Auto) 0.3, Absolute Neuts (auto) 16.5 H, Absolute Lymphs (auto) 0.77 L, Nucleated RBC % 0, Differential Comment COMMENT, Diff Path Review May 08/25/22 14:30: Sodium 139, Potassium 4.0, Chloride 104, Carbon Dioxide 31.0, Anion Gap 4 L, BUN 18, Creatinine 0.66, Estim Creat Clear Calc 75.93, Est GFR (MDRD) Af Amer 115, Est GFR (MDRD) Non-Af 95, BUN/Creatinine Ratio 27.2 H, Glucose 130 H, Calcium 9.0, Magnesium 2.6, Total Bilirubin 0.40, AST 19, ALT 20, Alkaline Phosphatase 81, Total Protein 7.2, Albumin 3.5, Globulin 3.7, Albumin/Globulin Ratio 0.[address] 08/25/22 12:04 IMPRESSION: Chronic involutional changes of the brain. Electronically Signed: Sg Garza MD at 13:03 EST , Cervical Spine CT 08/25/22 12:04 IMPRESSION: Multilevel degenerative changes, as described above. Calcification of the carotid bifurcations bilaterally. Electronically Signed: Sg Garza MD at 13:05 EST , Hip/Pelvis X-Ray 08/25/22 12:45 IMPRESSION: There is a comminuted nondisplaced intertrochanteric fracture of the proximal left femur with cephalic migration of the distal fracture fragment. Electronically Signed: Sg Garza MD at 13:06 EST ,
--- NOTE | 2022-08-25 18:20 | RAD_ITS ---
STUDY: X-RAY CHEST REASON FOR EXAM: Female, 67 years old. Medical clearance. TECHNIQUE: Single AP portable view of the chest. COMPARISON: None. FINDINGS: The lungs are clear and expanded. There is no demonstrated pleural abnormality. Normal size heart. Normal mediastinum and kannan. Normal visualized pulmonary arteries. There is atherosclerotic calcification of the aortic arch with tortuosity. Normal visualized thoracic spine. Normal visualized ribs, clavicles, and shoulders. There is no demonstrated abnormality of the visualized soft tissue structures of the upper abdomen. RAD/Chest 1 View (Portable) IMPRESSION: No acute cardiopulmonary disease. Electronically Signed: Tyrel Presley DO at 18:57 EST ,
[2022-08-25] MEDS: fluvoxaMINE Maleate 50 MG Tablet PO (22:21)
[2022-08-25] MEDS: prednisoLONE eye drops (5 mL) 1 DROP OPTH.BTL 1 DRP LEFT EYE (22:21)
[2022-08-25] MEDS: MELATONIN 3 MG TABLET PO (22:22)
[2022-08-25] MEDS: LORazepam 0.5 MG Tablet PO (22:22)
[2022-08-25] MEDS: RisperiDONE 0.5 MG Tablet PO (22:26)
[2022-08-25] MEDS: Senna/Docusate Sodium 1 Tablet 2 TABLET PO (22:26)
[2022-08-26] VITALS (20 sets, daily range): BP systolic 90–144; BP diastolic 51–95; PULSE 79–146; RESP 14–18; TEMP 36.6–37.5; O2SAT 94–98; BMI 19.3
[2022-08-26] MEDS: Morphine 4 MG/ML Syringe IV
--- NOTE | 2022-08-26 01:12 | NURSING ---
dr camp notified of the pts afib rvr, cardizem ordered. hr 130-170s
[2022-08-26] MEDS: dilTIAZem 25 MG/5 ML Vial 10 MG IV BOLUS (01:24)
[2022-08-26] MEDS: 0.9% Normal Saline 1,000 ML 100 ML IV ×3 (01:24→16:50)
--- NOTE | 2022-08-26 01:31 | NURSING ---
cardizem effective, hr now 79 remains in afib
[2022-08-26] MEDS: Morphine 2 MG/ML Syringe IV ×2 (04:19→09:23)
[2022-08-26 05:26] LABS: Absolute Lymphocyte Count 0.95 X10^3/uL (0.83-4.51); Absolute Neutrophil Count 6.4 X10^3/uL (2.0-7.7); Basophil# 0.03 X10^3/uL; Basophil% 0.3 % (0-1); Hematocrit 30.1 % (37-47); Hemoglobin 9.5 g/dL (12.0-15.0); Lymphocyte # 0.95 X10^3/ul (0.83-4.51); Lymphocyte % 9.7 % (19-41); Mean Corp Hgb Conc 31.6 g/dL (32-36); Mean Corpuscular Hgb 28.7 pg (27.0-32.0); Mean Corpuscular Volume 90.9 fL (81-99); Mean Platelet Vol. 10.1 fl (6.2-12.0); Monocyte# 2.33 X10^3/uL; Monocyte% 23.8 % (0-10); NRBC Flagged by Analyzer 0 % (0-5); Neutrophil # 6.44 X10^3/uL (2.7-7.7); Neutrophil % 65.9 % (47-70); POSITIVE DIFFERENTIAL YES; Platelet Count 229 K/mm3 (150-450); RBC Distribution Width CV 13.7 % (11.6-14.6); RBC Distribution Width SD 46.3 fl (35.1-43.9); Red Blood Count 3.31 M/mm3 (4.2-5.4); White Blood Count 9.8 K/mm3 (4.4-11.0)
[2022-08-26 05:45] LABS: Differential Indicated SCAN CRITERIA MET
[2022-08-26] MEDS: Levothyroxine 88 MCG Tablet PO (06:02)
[2022-08-26] MEDS: fluvoxaMINE Maleate 50 MG Tablet PO ×2 (06:02→22:07)
[2022-08-26] MEDS: RisperiDONE 0.5 MG Tablet PO ×2 (06:02→22:07)
[2022-08-26] MEDS: LORazepam 0.5 MG Tablet PO ×3 (06:02→22:12)
[2022-08-26 06:09] LABS: AST(SGOT) 28 U/L (15-37); Alanine Aminotransfer ALT/SGPT 19 U/L (13-56); Albumin, Serum 2.9 g/dL (3.2-5.0); Alkaline Phosphatase 63 U/L (45-117); Anion Gap 5 (5-15); BUN 18 mg/dL (7-18); BUN/Creat Ratio 37.1 RATIO (10-20); Calcium,Total 8.1 mg/dL (8.5-10.1); Chloride 109 mmol/L (98-107); Creatinine, Serum 0.48 mg/dL (0.55-1.02); EST Glomerular Filtration Rate 136 mL/min (>60); Est Glom Filt Rate - Afr Amer 165 mL/min (>60); Estimated Creatinine Clearance 92.42 ml/min; Glucose 118 mg/dL (74-106); Potassium 4.2 mmol/L (3.5-5.1); Protein, Total 5.9 g/dL (6.4-8.2); Sodium Level 140 mmol/L (136-145); Thyroid Stim Hormone (TSH) 2.75 uIU/mL (0.358-3.74)
--- NOTE | 2022-08-26 09:37 | NURSING ---
hr up to 187 on monitor. pt awake and restless now in bed appears more painful. pt alert and vitals taken. morphine given and ekg called. dr. diaz will be updated
[2022-08-26] MEDS: Metoprolol Tartrate 25 MG Tablet PO ×2 (10:18→12:14)
[2022-08-26] MEDS: prednisoLONE eye drops (5 mL) 1 DROP OPTH.BTL 1 DRP LEFT EYE ×2 (10:19→22:07)
--- NOTE | 2022-08-26 10:19 | CASEMGMT ---
ANTON called Monica who is listed as patient's legal guardian on patient's demographics sheet. Monica confirmed she is patient's guardian. ANTON asked Monica if she could bring in a copy of the documents and she said she could when she comes in today. ANTON thanked her and mentioned to her that SW will assist with discharge planning. Monica feels that the [facility] will be [facility] to care for patient. ANTON let her know we can see how she does with therapy. Sagrario Yarbrough SECONDARY SCHOOL TEACHERArun BRADY
--- NOTE | 2022-08-26 12:14 | CHAPLAIN ---
Type of Pastoral Visit _x__ Initial Visit ___ Follow-up Visit ___ On-call Visit ___ General Patient Visit ___ Spiritual Assessment ___ Family Conference ___ Bereavement ___ Rapid Response ___ Code Blue ___ Other (describe below) Pastoral Care Referral From ___ Patient ___ Family ___ Nurse ___ Physician ___ Taker Off ___ Tire Setter _x__ Other (describe below) Sacrament/Intervention ___ Active listening ___ Anointing ___ Congregation ___ Bereavement ___ Communion ___ Angelica exploration ___ ___ Life review ___ Prayer ___ Reconciliation ___ Sacrament of Sick ___ Supportive presence ___ Wedding ___ Other (describe below) Pastoral Comments patient is sleeping and does not awaken to her name; left a calling card at bedside
[2022-08-26 12:20] LABS: Pathologist Review Reviewed
--- NOTE | 2022-08-26 12:40 | PCM.PN.HOSP ---
Subjective Subjective Patient was seen and examined today, she is lethargic and awakens to painful stimuli for this examiner, she does not carry on a conversation. Patient's heart rate has been a little bit on the high side today with pulse rates in the 120s and 130s at times, I have elected to place her on oral metoprolol, I gave her dose of 25 mg of metoprolol earlier this morning and repeated the dose about half an hour ago. Patient is due to have surgery for repair of the left intertrochanteric hip fracture. Objective Data Objective Data Vital Signs: Vital Signs Temp Pulse Resp BP Pulse Ox O2 Del Method 97.8 F 103 H 16 103/60 98 Room Air 08/26/22 12:31 08/26/22 12:31 08/26/22 12:31 08/26/22 12:31 08/26/22 12:31 08/26/22 12:31 Oxygen Delivery Method Room Air Weight: 52.6 kg Body Mass Index (BMI) 19.3 Intake & Output: Intake and Output for Last 24 Hours 08/24/22 08/25/22 08/26/22 23:59 23:59 23:59 Intake Total 2088.33 / 2088.33 Output Total 350 / 350 800 / 800 Balance -350 / -300 1288.33 / 1288.33 Lab / Micro Data Result Diagrams: 08/26/22 05:17 08/26/22 05:17 Labs: Laboratory Results - last 24 hr 08/25/22 14:30: WBC 19.5 H, RBC 4.02 L, Hgb 11.9 L, Hct 36.8 L, MCV 91.5, MCH 29.6, MCHC 32.3, RDW Std Deviation 45.8 H, RDW Coeff of Zoila 13.6, Plt Count 292, MPV 10.7, Immature Gran % (Auto) 0.500, Neut % (Auto) 84.4 H, Lymph % (Auto) 4.0 L, [place] % (Auto) 10.7 H, Eos % (Auto) 0.1, Baso % (Auto) 0.3, Absolute Neuts (auto) 16.5 H, Absolute Lymphs (auto) 0.77 L, Nucleated RBC % 0, Differential Comment COMMENT, Diff Path Review Reviewed 08/25/22 14:30: Sodium 139, Potassium 4.0, Chloride 104, Carbon Dioxide 31.0, Anion Gap 4 L, BUN 18, Creatinine 0.66, Estim Creat Clear Calc 75.93, Est GFR (MDRD) Af Amer 115, Est GFR (MDRD) Non-Af 95, BUN/Creatinine Ratio 27.2 H, Glucose 130 H, Calcium 9.0, Magnesium 2.6, Total Bilirubin 0.40, AST 19, ALT 20, Alkaline Phosphatase 81, Total Protein 7.2, Albumin 3.5, Globulin 3.7, Albumin/Globulin Ratio 0.9 08/25/22 14:30: Blood Type TNP, Antibody Screen TNP 08/25/22 14:30: Blood Type O POSITIVE, Antibody Screen NEGATIVE 08/26/22 05:17: WBC 9.8, RBC 3.31 L, Hgb 9.5 L, Hct 30.1 L, MCV 90.9, MCH 28.7, MCHC 31.6 L, RDW Std Deviation 46.3 H, RDW Coeff of Zoila 13.7, Plt Count 229, MPV 10.1, Immature Gran % (Auto) 0.300, Neut % (Auto) 65.9, Lymph % (Auto) 9.7 L, [place] % (Auto) 23.8 H, Eos % (Auto) 0.0, Baso % (Auto) 0.3, Absolute Neuts (auto) 6.4, Absolute Lymphs (auto) 0.95, Nucleated RBC % 0 08/26/22 05:17: Sodium 140, Potassium 4.2, Chloride 109 H, Carbon Dioxide 26.0, Anion Gap 5, BUN 18, Creatinine 0.48 L, Estim Creat Clear Calc 92.42, Est GFR (MDRD) Af Amer 165, Est GFR (MDRD) Non-Af 136, BUN/Creatinine Ratio 37.1 H, Glucose 118 H, Calcium 8.1 L, Total Bilirubin 0.60, AST 28, ALT 19, Alkaline Phosphatase 63, Total Protein 5.9 L, Albumin 2.9 L, Globulin 3.0, Albumin/Globulin Ratio 1.0, TSH 2.75 Radiography Diagnostic Testing: Radiology Impression Brain CT 08/25/22 12:04 IMPRESSION: Chronic involutional changes of the brain. Electronically Signed: Sg Garza MD at 13:03 EST , Cervical Spine CT 08/25/22 12:04 IMPRESSION: Multilevel degenerative changes, as described above. Calcification of the carotid bifurcations bilaterally. Electronically Signed: Sg Garza MD at 13:05 EST , Hip/Pelvis X-Ray 08/25/22 12:45 IMPRESSION: There is a comminuted nondisplaced intertrochanteric fracture of the proximal left femur with cephalic migration of the distal fracture fragment. Electronically Signed: Sg Garza MD at 13:06 EST , Femur X-Ray 08/25/22 14:07 IMPRESSION: No change in position of the intertrochanteric fracture when compared to an earlier study. Electronically Signed: Tyrel Presley DO at 18:58 EST Reading Location ID and State: [facility] / [place] Tel [phone], Service support , Chest X-Ray 08/25/22 18:20 IMPRESSION: No acute cardiopulmonary disease. Electronically Signed: Tyrel Presley DO at 18:57 EST , Physical Exam Const no apparent distress Constitutional Narrative: Patient is somnolent and lethargic, she responds to painful stimuli but does not carry on a conversation with this examiner HEENT normocephalic, head/scalp atraumatic and moist oral mucous membranes Eyes PERRL, EOMs intact bilaterally and conjunctivae normal Neck supple, no JVD, thyroid normal and no carotid bruits General: trachea midline Resp normal respiratory effort, no retractions, no use of accessory muscles and clear to auscultation bilaterally Auscultation: Negative for rales, rhonchi or wheezes Cardio S1 normal heart sound, S2 normal heart sound, no murmurs, no rub and no gallops Cardio Narrative: Heart rate and rhythm is irregular GI normal to inspection, nondistended, normoactive bowel sounds, soft to palpation, non-tender and non-distended Extremity no clubbing, cyanosis or edema Skin no rashes or lesions noted General Skin Exam: no breakdown Neuro CN's II-XII intact bilaterally Psych Psych Narrative: Patient has evidence of cognitive impairment Assessment & Plan Assessment/Plan (1) Hip fracture: PLAN: Plan 1. Left intertrochanteric hip fracture secondary to osteoporosis-patient will undergo surgery today for repair of the fracture, PT and OT will continue to see the patient, she may have to go to an extended care facility for inpatient rehab services. Patient currently lives in a [place] [facility]. Patient appears stable for surgery at this time. #2 developmental disability-chronic cognitive impairment-complicates care, recovery, management, and prognosis #3 hypothyroidism-patient is on Synthroid #4 permanent atrial fibrillation-again I have placed the patient on rate control medications, she is already on Eliquis which is being held because of her surgery. #5 osteoporosis-patient is currently on Fosamax and calcium Charges/Coding Visit Charges Inpatient E&M: 94802 Subs Hosp L2
--- NOTE | 2022-08-26 13:32 | NURSING ---
aunt here to visit and surgery transport here to take down to or. pt hr down to 95 now. traction removed to fit pt in evelvators for transfer. iv application security specialist atb sent with pt. chart with surgery techs. pt off unit with aunt and number left on surgery checklist if any questions.
[2022-08-26] MEDS: Cefazolin 2 GM in 0.9% Normal Saline 100 ML IV (15:05)
--- NOTE | 2022-08-26 15:35 | RAD_ITS ---
INDICATION: Hip fracture fixation EXAMINATION/TECHNIQUE: X-RAY - LEFT XR Hip Unilateral with Pelvis when performed; 1 View 4 VIEWS COMPARISON: 08/25/2022 FINDINGS: 4 intraoperative fluoroscopic spot films show placement of intramedullary nail with fixation of the intertrochanteric left femur in near anatomic alignment. Total fluoroscopic time 77.3 seconds RAD/Hip 1 view with Pelvis IMPRESSION: Status post ORIF left intratrochanteric femur fracture. Electronically Signed: Tez Negrete MD at 17:40 EST ,
[2022-08-26] MEDS: Lidocaine 2% /Epi 1:100 (20ml) 20 ML VIAL (16:44)
--- NOTE | 2022-08-26 17:02 | OP.PCM_ITS ---
Operative Report Date of Procedure: 08/26/22 Preoperative diagnosis: [Left] hip [intertrochanteric femur fracture with subtrochanteric extension comminution of greater and lesser trochanter] Postoperative diagnosis: Same Procedure: Cephalo-medullary fixation [left] hip Implants: Synthes long nail [11 mmx 360], 85 mm helical blade, 44 mm screw Anesthesia: General EBL: 75 Complications: None Condition: Stable to PACU Indication for procedure: 67-year-old female with cerebral palsy patient who is a community ambulator with walker who had a ground-level fall in her kitchen unwitnessed she is nonverbal she was found by her caregiver. fracture demonstrated [intertrochanteric femur fracture with subtrochanteric extension significant comminution], risk benefits and alternatives were reviewed including risk of bleeding infection nerve, artery, bone, tissue damage, blood clot, RSD need for further surgery and continued pain. Procedure: Patient met in the preoperative holding area once again the operative extremity was identified by both patient and physician and was marked. Patient was met by anesthesia and IV was started she was brought back to the to the operating room anesthesia was started. She was then positioned on the fracture table all bony prominences were well-padded. She was then positioned with adduction internal rotation and traction and fluoroscopy was brought in to ensure that an adequate reduction could be performed. Patient was then prepped and draped in usual sterile fashion and timeout was called to ensure the proper patient procedure and extremity were being contemplated. Fluoroscopy was used to dhara the tip of the greater trochanter and a 3 fingerbreadth incision was made 2 finger breaths proximal to the tip of the greater trochanter. Was carried carried down through the skin and subcutaneous tissue as well as the gluteal fascia. A guide pin was then inserted through the tip of the greater trochanter directed towards the level of lesser trochanter this was checked in both AP and lateral projections. An opening reamer was performed. A guide pin was bent and placed down the femoral canal to the level of the superior patella then measured this and placed the corresponding length nail after flexible reamers were used to achieve cortical chatter and achieving 1.5 mm greater than the nail was chosen . following this was the insertion of the nail the appropriate height jig was used and a triple trocar sleeve was advanced to the skin and a stab incision was made at the trocar was inserted to the level of the bone and a guidepin was placed into the femoral neck and head checked on both AP and lateral projections. This was then measured and appropriately sized helical blade was inserted the nail was locked proximally to allow dynamic compression, the fracture was compressed and a locking screw was placed distally using perfect quechan technique. This was then drilled and measured under fluoroscopy and the appropriate size screw was inserted. Final AP and lateral projections were saved to the PACS system of the entire construct. the wounds were thoroughly irrigated the fascia was closed with #1 [id number] Vicryls followed by 2-0 Vicryl in the subcutaneous tissues followed by jose in the skin. 0.5% Marcaine with epinephrine was injected into the subcutaneous tissues dressing was applied form of Xeroform 4 x 4 ABD and Ioban tape. Patient tolerated procedure well there is no intraoperative complications she was brought back to the PACU in stable condition.
[2022-08-26] MEDS: Lactated Ringers 1,000 ML 125 ML IV (18:47)
[2022-08-26] MEDS: Metoprolol Tartrate 50 MG Tablet PO (18:47)
[2022-08-26] MEDS: Senna/Docusate Sodium 1 Tablet 2 TABLET PO (22:07)
[2022-08-26] MEDS: oxyCODONE 5 MG Tablet PO (22:12)
[2022-08-27] VITALS (13 sets, daily range): BP systolic 85–119; BP diastolic 51–66; PULSE 106–159; RESP 14–18; TEMP 36.7–37; O2SAT 96–98
[2022-08-27] MEDS: Lactated Ringers 1,000 ML 125 ML IV (02:29)
[2022-08-27] MEDS: Morphine 4 MG/ML Syringe IV ×2 (02:34→05:35)
[2022-08-27] MEDS: Levothyroxine 88 MCG Tablet PO (05:40)
[2022-08-27] MEDS: RisperiDONE 0.5 MG Tablet PO ×3 (05:40→22:04)
[2022-08-27] MEDS: fluvoxaMINE Maleate 50 MG Tablet PO ×3 (05:40→22:03)
[2022-08-27] MEDS: LORazepam 0.5 MG Tablet PO ×2 (05:40→22:00)
[2022-08-27] MEDS: Lactated Ringers 1,000 ML 999 ML IV (06:28)
[2022-08-27 06:54] LABS: Hematocrit 23.6 % (37-47); Hemoglobin 7.4 g/dL (12.0-15.0); Mean Corp Hgb Conc 31.4 g/dL (32-36); Mean Corpuscular Hgb 29.4 pg (27.0-32.0); Mean Corpuscular Volume 93.7 fL (81-99); Mean Platelet Vol. 11.1 fl (6.2-12.0); Platelet Count 175 K/mm3 (150-450); RBC Distribution Width CV 13.9 % (11.6-14.6); RBC Distribution Width SD 47.5 fl (35.1-43.9); Red Blood Count 2.52 M/mm3 (4.2-5.4); White Blood Count 10.1 K/mm3 (4.4-11.0)
[2022-08-27 07:12] LABS: Anion Gap 4 (5-15); BUN 14 mg/dL (7-18); BUN/Creat Ratio 35.2 RATIO (10-20); Calcium,Total 7.8 mg/dL (8.5-10.1); Chloride 110 mmol/L (98-107); EST Glomerular Filtration Rate 171 mL/min (>60); Est Glom Filt Rate - Afr Amer 207 mL/min (>60); Estimated Creatinine Clearance 120.64 ml/min; Glucose 89 mg/dL (74-106); Potassium 3.7 mmol/L (3.5-5.1); Sodium Level 139 mmol/L (136-145)
--- NOTE | 2022-08-27 08:12 | PCM.PN.ORT ---
Subjective Subjective Patient seen and examined. Unchanged from baseline Objective Data Objective Data Vital Signs: Vital Signs Temp Pulse Resp BP Pulse Ox O2 Del Method 98.2 F 155 H 18 85/66 L 97 Room Air 08/27/22 05:13 08/27/22 07:00 08/27/22 05:13 08/27/22 05:51 08/27/22 07:03 08/27/22 07:03 Oxygen Delivery Method Room Air Weight: 120 lb 2.431 oz Body Mass Index (BMI) 19.3 Intake & Output: Intake and Output for Last 24 Hours 08/25/22 08/26/22 08/27/22 23:59 23:59 23:59 Intake Total 3425.00 / 3425.00 2520.42 / 2520.42 Output Total 350 / 350 1150 / 1150 200 / 200 Balance -350 / -300 2275.00 / 2275.00 2320.42 / 2320.42 Lab / Micro Data Result Diagrams: 08/27/22 06:15 08/27/22 06:15 Labs: Laboratory Results - last 24 hr 08/25/22 14:30: Diff Path Review Reviewed 08/27/22 06:15: WBC 10.1, RBC 2.52 L, Hgb 7.4 L, Hct 23.6 L, MCV 93.7, MCH 29.4, MCHC 31.4 L, RDW Std Deviation 47.5 H, RDW Coeff of Zoila 13.9, Plt Count 175, MPV 11.1 08/27/22 06:15: Sodium 139, Potassium 3.7, Chloride 110 H, Carbon Dioxide 25.0, Anion Gap 4 L, BUN 14, Creatinine 0.40 L, Estim Creat Clear Calc 120.64, Est GFR (MDRD) Af Amer 207, Est GFR (MDRD) Non-Af 171, BUN/Creatinine Ratio 35.2 H, Glucose 89, Calcium 7.8 L Radiography Diagnostic Testing: Radiology Impression Hip/Pelvis X-Ray 08/26/22 15:35 IMPRESSION: Status post ORIF left intratrochanteric femur fracture. Electronically Signed: Tez Negrete MD at 17:40 EST , Physical Exam Const no apparent distress General Appearance: Negative for cooperative Extremity Extremity Narrative: Left hip dressing is clean dry and intact. Compartments soft. Palpable pedal pulses. Patient unable to comply with neurologic testing. Assessment & Plan Assessment/Plan (1) Hip fracture: PLAN: Plan Postop day #1 left hip long cephalomedullary fixation for comminuted intertrochanteric fracture Of Eliquis this afternoon PT OT weightbearing as tolerated Dressing should be left on until 08/31/2022 then may be removed prior to first shower if unable to shower patient should at this point have incision cleaned daily with antibacterial soap and warm water and have a dry dressing placed daily until 2-week follow-up for staple removal. Follow-up 2 weeks for wound check and staple removal.
[2022-08-27] MEDS: oxyCODONE 5 MG Tablet PO (08:42)
[2022-08-27] MEDS: Metoprolol Tartrate 50 MG Tablet PO ×2 (08:42→14:39)
[2022-08-27] MEDS: Senna/Docusate Sodium 1 Tablet 2 TABLET PO ×2 (10:43→22:02)
[2022-08-27] MEDS: prednisoLONE eye drops (5 mL) 1 DROP OPTH.BTL 1 DRP LEFT EYE ×2 (10:43→21:59)
[2022-08-27] MEDS: Polyethylene Glycol 3350 17 GM PACKET PO (10:45)
--- NOTE | 2022-08-27 10:57 | CASEMGMT ---
ANTON called Melly, one of patient's caregivers listed on her demographics sheet. Melly said they are more concerned with patient's incision than they are her ability to get around. They would prefer patient go to [facility] TCU or rehab rather than a halfway. They are able to help patient and they feel patient will do more for them than she will for a halfway. ANTON let her know SW can see what is available in TCU. Sagrario Yarbrough MACHINING MANAGER CAITLYN
--- NOTE | 2022-08-27 12:11 | CHAPLAIN ---
Type of Pastoral Visit _x__ Initial Visit ___ Follow-up Visit ___ On-call Visit ___ General Patient Visit ___ Spiritual Assessment ___ Family Conference ___ Bereavement ___ Rapid Response ___ Code Blue ___ Other (describe below) Pastoral Care Referral From ___ Patient ___ Family ___ Nurse ___ Physician ___ Blood Bank Laboratory Technician ___ Truck Car And Bus Cleaner __x_ Other (describe below) Sacrament/Intervention ___ Active listening ___ Anointing ___ Faith ___ Bereavement ___ Communion ___ Angelica exploration ___ ___ Life review _x__ Prayer ___ Reconciliation ___ Sacrament of Sick _x__ Supportive presence ___ Wedding ___ Other (describe below) Pastoral Comments patient only opens eyes during this visit; caregiver is in the room and answers questions and gives brief summary of pt needs; offer of support and presence; caregiver states a prayer would be fine;
--- NOTE | 2022-08-27 13:10 | CASEMGMT ---
ANTON spoke with Helga two of patient's caregivers who have known patient for over 30 years. They said patient cannot go home in her current state. Patient received Oxycodone and she is out of it. They ask that patient not get strong pain meds like this on day of d/c. They still plan on taking patient home with home health. Sagrario Yarbrough SENIOR TECHNICAL ANALYST CAITLYN
--- NOTE | 2022-08-27 14:09 | PN.HOSP_ITS ---
Subjective Subjective Seen and examined today, patient's caregivers at her assisted requested the patient be taken off oxycodone-they stated the patient did not tolerate medication well in the past, I have stopped the medication as she received Tylenol for pain. Patient still has significant tachycardia-she remains in A. fib, I decided to increase her beta-adarsh, give her an extra dose this afternoon. Her caregivers at the assisted requested the patient go there rather than to a prison facility, they stated that due to the patient's developmental disability, she would not do well at a [facility]-an environment that she is not familiar with. I do not have a problem with this. Objective Data Objective Data Vital Signs: Vital Signs Temp Pulse Resp BP Pulse Ox O2 Del Method 98.2 F 126 H 18 119/51 L 97 Room Air 08/27/22 05:13 08/27/22 14:06 08/27/22 05:13 08/27/22 08:42 08/27/22 07:03 08/27/22 07:03 Oxygen Delivery Method Room Air Weight: 54.5 kg Body Mass Index (BMI) 19.3 Intake & Output: Intake and Output for Last 24 Hours 08/25/22 08/26/22 08/27/22 23:59 23:59 23:59 Intake Total 3425.00 / 3425.00 2905.84 / 2905.84 Output Total 350 / 350 1150 / 1150 200 / 200 Balance -350 / -300 2275.00 / 2275.00 2705.84 / 2705.84 Lab / Micro Data Result Diagrams: 08/27/22 06:15 08/27/22 06:15 Labs: Laboratory Results - last 24 hr 08/27/22 06:15: WBC 10.1, RBC 2.52 L, Hgb 7.4 L, Hct 23.6 L, MCV 93.7, MCH 29.4, MCHC 31.4 L, RDW Std Deviation 47.5 H, RDW Coeff of Zoila 13.9, Plt Count 175, MPV 11.1 08/27/22 06:15: Sodium 139, Potassium 3.7, Chloride 110 H, Carbon Dioxide 25.0, Anion Gap 4 L, BUN 14, Creatinine 0.40 L, Estim Creat Clear Calc 120.64, Est GFR (MDRD) Af Amer 207, Est GFR (MDRD) Non-Af 171, BUN/Creatinine Ratio 35.2 H, Glucose 89, Calcium 7.8 L Radiography Diagnostic Testing: Radiology Impression Hip/Pelvis X-Ray 08/26/22 15:35 IMPRESSION: Status post ORIF left intratrochanteric femur fracture. Electronically Signed: Tez Negrete MD at 17:40 EST Reading Location ID and State: [facility] / [place] Tel , Service support , Physical Exam Const Constitutional Narrative: Patient is somnolent, she resists efforts to listen to her heart and lungs by pushing this examiner back with her hand, she is nonverbal HEENT normocephalic, head/scalp atraumatic and moist oral mucous membranes Eyes PERRL, EOMs intact bilaterally and conjunctivae normal Neck supple, no JVD and thyroid normal General: trachea midline Resp normal respiratory effort, no retractions, no use of accessory muscles and clear to auscultation bilaterally Auscultation: Negative for rales, rhonchi or wheezes Cardio regular rate, regular rhythm, S1 normal heart sound, S2 normal heart sound, no murmurs, no rub and no gallops GI normal to inspection, nondistended, normoactive bowel sounds, soft to palpation, non-tender and non-distended Extremity no clubbing, cyanosis or edema Skin no rashes or lesions noted General Skin Exam: no breakdown Neuro CN's II-XII intact bilaterally Neuro Narrative: Patient is somnolent, she resists efforts to perform physical exam Psych Psych Narrative: Patient is somnolent, she appears mildly agitated when examined Assessment & Plan Assessment/Plan (1) Hip fracture: PLAN: Plan 1. Left intertrochanteric hip fracture secondary to osteoporosis-postop day #1 insertion of left hip cephalo- medullary nail, continue PT and OT, patient's pain medications will be discontinued due to concerns of lethargy with these medications. #2 developmental disability-chronic cognitive impairment-complicates care, recovery, management, and prognosis #3 hypothyroidism-patient is on Synthroid #4 permanent atrial fibrillation-again I have adjusted the patient's rate control medication (metoprolol) #5 osteoporosis-patient is currently on Fosamax and calcium Charges/Coding Visit Charges Inpatient E&M: 13684 Subs Hosp L2
[2022-08-27] MEDS: Lactated Ringers 1,000 ML 75 ML IV (14:39)
[2022-08-27] MEDS: Acetaminophen 325 MG Tablet 650 MG PO ×2 (14:41→22:02)
[2022-08-27] MEDS: APIXABAN 5 MG TABLET PO ×2 (14:48→22:01)
[2022-08-28] VITALS (19 sets, daily range): BP systolic 81–116; BP diastolic 47–61; PULSE 102–130; RESP 14–18; TEMP 36.6–37.6; O2SAT 98–100
[2022-08-28] MEDS: Lactated Ringers 1,000 ML 75 ML IV (04:07)
[2022-08-28] MEDS: RisperiDONE 0.5 MG Tablet PO ×3 (05:43→22:37)
[2022-08-28] MEDS: Acetaminophen 325 MG Tablet 650 MG PO ×2 (05:43→10:15)
[2022-08-28] MEDS: LORazepam 0.5 MG Tablet PO ×3 (05:43→23:04)
[2022-08-28] MEDS: fluvoxaMINE Maleate 50 MG Tablet PO ×3 (05:43→22:36)
[2022-08-28] MEDS: Levothyroxine 88 MCG Tablet PO (05:43)
[2022-08-28 07:06] LABS: Hematocrit 21.2 % (37-47); Hemoglobin 6.7 g/dL (12.0-15.0); Mean Corp Hgb Conc 31.6 g/dL (32-36); Mean Corpuscular Hgb 29.5 pg (27.0-32.0); Mean Corpuscular Volume 93.4 fL (81-99); Mean Platelet Vol. 11.2 fl (6.2-12.0); Platelet Count 148 K/mm3 (150-450); RBC Distribution Width CV 13.7 % (11.6-14.6); RBC Distribution Width SD 46.9 fl (35.1-43.9); Red Blood Count 2.27 M/mm3 (4.2-5.4); White Blood Count 7.9 K/mm3 (4.4-11.0)
[2022-08-28] MEDS: APIXABAN 5 MG TABLET PO ×2 (10:09→22:36)
[2022-08-28] MEDS: Polyethylene Glycol 3350 17 GM PACKET PO (10:10)
[2022-08-28] MEDS: prednisoLONE eye drops (5 mL) 1 DROP OPTH.BTL 1 DRP LEFT EYE ×2 (10:10→22:37)
[2022-08-28] MEDS: Metoprolol Tartrate 25 MG Tablet 75 MG PO ×2 (10:10→22:37)
[2022-08-28] MEDS: Senna/Docusate Sodium 1 Tablet 2 TABLET PO ×2 (10:11→22:37)
--- NOTE | 2022-08-28 12:13 | CASEMGMT ---
ANTON called patient's caregiver Melly. Melly said patient's other caregiver Lesia was present when therapy worked with patient. Patient was much more awake today and things went better. Melly said Speech therapy is supposed to see patient. Therapy asked that Lesia come back again tomorrow around 1130 for therapy. Melly said they would need a script for a walker and a wheelchair. ANTON asked her about home health and if they would like a list of agencies. Melly said they have no preference, whomever will take patient is fine. Melly was fine with [facility]. ANTON did make a referral to Brianda at [facility]. ANTON also called patient's guardian, but she was unavailable until after 2p. ANTON will try her again later. Sagrario Yarbrough RECORDING CLERK CAITLYN
--- NOTE | 2022-08-28 14:26 | CASEMGMT ---
ANTON spoke with patient's guardian and she was in agreement with [facility] and was fine with [facility] for equipment. She declined a list for either. ANTON let her know SW will get things arranged for patient for possible discharge tomorrow. ANTON had made a referral to [facility] and they can take patient. ANTON called Melly, one of patient's caregivers and she is aware [facility] can take patient. Wander was fine with [facility] also. She preferred to fill the script for the wheelchair and they will just take the prescription for the wheeled walker. ANTON spoke with RN MONICA Gonzalez and she is assisting SW with obtaining the wheelchair. Plan: Home with [facility] Retirement, PT, and OT as well as a wheelchair from [facility]. Sagrario BRADY
--- NOTE | 2022-08-28 15:39 | PCM.PN.HOSP ---
Subjective Subjective Patient was seen and examined today, she is still lethargic, hemoglobin this morning was 6.7-I ordered 3 units of packed red blood cells to be transfused. Again, patient's detention caregivers wants to take the patient home after her hospitalization rather than the patient going to rehab facility. Objective Data Objective Data Vital Signs: Vital Signs Temp Pulse Resp BP Pulse Ox O2 Del Method 98.1 F 103 H 16 90/51 L 98 Room Air 08/28/22 14:40 08/28/22 14:40 08/28/22 14:40 08/28/22 14:40 08/28/22 14:40 08/28/22 14:40 Oxygen Delivery Method Room Air Weight: 56 kg Body Mass Index (BMI) 19.3 Intake & Output: Intake and Output for Last 24 Hours 08/26/22 08/27/22 08/28/22 23:59 23:59 23:59 Intake Total 3425.00 / 3425.00 3363.59 / 3363.59 1815 / 1815 Output Total 1150 / 1150 1350 / 1350 200 / 200 Balance 2275.00 / 2275.00 / 59 1615 / 1615 Lab / Micro Data Result Diagrams: 08/28/22 05:45 08/27/22 06:15 Labs: Laboratory Results - last 24 hr 08/28/22 05:45: WBC 7.9, RBC 2.27 L, Hgb 6.7 L, Hct 21.2 L, MCV 93.4, MCH 29.5, MCHC 31.6 L, RDW Std Deviation 46.9 H, RDW Coeff of Zoila 13.7, Plt Count 148 L, MPV 11.2 08/28/22 09:50: Blood Type O POSITIVE, Antibody Screen NEGATIVE, Crossmatch See Detail Physical Exam Narrative no apparent distress Constitutional Narrative: Patient is somnolent and lethargic, she responds to painful stimuli but does not carry on a conversation with this examiner HEENT normocephalic, head/scalp atraumatic and moist oral mucous membranes Eyes PERRL, EOMs intact bilaterally and conjunctivae normal Neck supple, no JVD, thyroid normal and no carotid bruits General: trachea midline Resp normal respiratory effort, no retractions, no use of accessory muscles and clear to auscultation bilaterally Auscultation: Negative for rales, rhonchi or wheezes Cardio S1 normal heart sound, S2 normal heart sound, no murmurs, no rub and no gallops Cardio Narrative: Heart rate and rhythm is irregular GI normal to inspection, nondistended, normoactive bowel sounds, soft to palpation, non-tender and non-distended Extremity no clubbing, cyanosis or edema Skin no rashes or lesions noted General Skin Exam: no breakdown Neuro CN's II-XII intact bilaterally Psych Psych Narrative: Patient has evidence of cognitive impairment Assessment & Plan Assessment/Plan (1) Hip fracture: PLAN: Plan 1. Left intertrochanteric hip fracture secondary to osteoporosis-postop day #2 insertion of left hip cephalo- medullary nail, continue PT and OT #2 developmental disability-chronic cognitive impairment-complicates care, recovery, management, and prognosis #3 hypothyroidism-patient is on Synthroid #4 permanent atrial fibrillation-patient's rate appears under better control at this time #5 osteoporosis-patient is currently on Fosamax and calcium #6 acute on chronic anemia-has an expected consequence of left hip fracture, patient will receive 3 units of packed red blood cells, H&H will be rechecked tonight and CBC will be rechecked tomorrow Charges/Coding Visit Charges Inpatient E&M: 12775 Subs Hosp L2
--- NOTE | 2022-08-28 16:57 | CASEMGMT ---
LILLIAN CM NOTE: Per Judy @ [facility], transport chair has been delivered to pt's room. Alex FERRERAN RN CM
[2022-08-28] MEDS: 0.9% Saline Lock 10 ML Syringe IV (22:53)
[2022-08-29] VITALS (8 sets, daily range): BP systolic 83–122; BP diastolic 43–65; PULSE 98–148; RESP 16–18; TEMP 36.6–37.2; O2SAT 95–100
[2022-08-29] MEDS: Lactated Ringers 1,000 ML 75 ML IV (01:52)
[2022-08-29] MEDS: LORazepam 0.5 MG Tablet PO ×2 (05:37→14:23)
[2022-08-29] MEDS: RisperiDONE 0.5 MG Tablet PO ×2 (05:38→14:24)
[2022-08-29] MEDS: fluvoxaMINE Maleate 50 MG Tablet PO ×2 (05:38→14:23)
[2022-08-29] MEDS: Levothyroxine 88 MCG Tablet PO (05:39)
[2022-08-29 06:55] LABS: Hematocrit 31.6 % (37-47); Hemoglobin 10.4 g/dL (12.0-15.0); Mean Corp Hgb Conc 32.9 g/dL (32-36); Mean Corpuscular Hgb 29.2 pg (27.0-32.0); Mean Corpuscular Volume 88.8 fL (81-99); Mean Platelet Vol. 10.9 fl (6.2-12.0); Platelet Count 170 K/mm3 (150-450); RBC Distribution Width SD 45.4 fl (35.1-43.9); Red Blood Count 3.56 M/mm3 (4.2-5.4); White Blood Count 10.5 K/mm3 (4.4-11.0)
--- NOTE | 2022-08-29 07:37 | NURSING ---
Documentation reviewed with Nora SNYDER.
[2022-08-29] MEDS: APIXABAN 5 MG TABLET PO (09:59)
[2022-08-29] MEDS: Metoprolol Tartrate 25 MG Tablet 75 MG PO (09:59)
[2022-08-29] MEDS: prednisoLONE eye drops (5 mL) 1 DROP OPTH.BTL 1 DRP LEFT EYE (10:00)
[2022-08-29] MEDS: Polyethylene Glycol 3350 17 GM PACKET PO (10:00)
[2022-08-29] MEDS: Senna/Docusate Sodium 1 Tablet 2 TABLET PO (10:01)
--- NOTE | 2022-08-29 11:44 | DCINST_ITS ---
Discharge Instructions Diet Discharge Diet: - (minced and moist meats, no straws, feeding assistance, oral care after meals) Activity Discharge Activity: Return to Normal Activity Weight Bearing Status: Weight bearing as tolerated Dressing / Incision Call your doctor if your incision/area has: - (Dressing should be left on until 08/31/2022 then may be removed prior to first shower, if unable to shower, patient should at this point have incision clean daily with antibacterial soap and water and have a dry dressing placed daily until 2-week follow-up for staple removal) Follow Up Care Test Results: Test results from this visit will be discussed in further detail at your follow- up appointment, if applicable. Discharge Plan Admission Admit Date/Time: 08/25/22 14:12 Primary Reason for Your Visit: Left hip fracture Attending Provider: Kamari Elias Primary Care Provider: Richard Maynard Consulting Providers: Aguila Roman ; Cheryl Juarez Discharge Orders/Prescriptions Prescriptions: New Eliquis 5 mg Tablet 5 mg PO BID Qty: 15 0RF Rx Instructions: use for two weeks, then stop metoprolol tartrate 100 mg tablet 100 mg PO BID Qty: 60 0RF Continued multivitamin [Daily Multi-Vitamin] tablet 1 tab PO QAM polyethylene glycol 3350 8.5 gram oral powder packet 8.5 gram powder in packet 17 g PO QDAY vitamin A 8,000 unit capsule 8,000 unit PO QDAY cholecalciferol (vitamin D3) 1,000 unit capsule 1,000 unit PO QDAY lorazepam 0.5 mg tablet 0.5 mg PO TID risperidone 0.5 mg tablet 0.5 mg PO TID alendronate 35 mg tablet 35 mg PO QWEEK prednisolone acetate 1 % drops,suspension 1 drp ophthalmic (eye) BID levothyroxine 88 MCG tablet 88 mcg PO DAILY acetaminophen 500 MG tablet 500 - 1,000 mg PO Q6H PRN PRN (Reason: Pain) 4 Days 0RF Rx Instructions: fluvoxamine 50 mg tablet 50 mg PO TID apixaban 5 mg tablet 5 mg PO BID Referrals / Follow Up: Aguila Roman DO [Med Staff - Active Staff] - See Referral Note (in two weeks- call for appointment) Richard Maynard DO [Primary Care Provider] - See Referral Note (within 2-3 weeks) Disposition Disposition (needs filled in before D/C Order can be placed): Home, Self Care
--- NOTE | 2022-08-29 11:53 | PCM.DC.SUM ---
Providers Date of Admission: 08/25/22 Date of Discharge: 08/29/22 Primary Care Physician: Dr. Richard Maynard DO Consultations 08/25/22 15:04 Consult: Orthopedics Routine Consulting Provider: Aguila Roman Reason for Consult: Fall, L hip fracture EMERGENT Consult: No MD Notified: Yes Date Notified: 08/25/22 Time Notified: 14:14 Method of Notification: ED Physician Initiated Reason For Visit: L HIP FRACTURE, FALL Diagnosis Discharge Diagnosis (1) Hip fracture: Status: Acute Code(s): S72.009A - Fracture of unspecified part of neck of unspecified femur, initial encounter for closed fracture Plan 1. Left intertrochanteric hip fracture secondary to osteoporosis-postop day #2 insertion of left hip cephalo- medullary nail, continue PT and OT #2 developmental disability-chronic cognitive impairment-complicates care, recovery, management, and prognosis #3 hypothyroidism-patient is on Synthroid #4 permanent atrial fibrillation-patient's rate appears under better control at this time #5 osteoporosis-patient is currently on Fosamax and calcium #6 acute on chronic anemia-has an expected consequence of left hip fracture-requiring blood transfusion, patient will receive 3 units of packed red blood cells, H&H will be rechecked tonight and CBC will be rechecked tomorrow Medications at Discharge Home Medications acetaminophen 500 mg tablet 500 - 1,000 mg PO Q6H PRN PRN Pain 4 days 10/16/14 levothyroxine 88 mcg tablet 88 mcg PO DAILY thyroid 10/16/14 lorazepam 0.5 mg tablet 0.5 mg PO TID mood 03/11/18 cholecalciferol (vitamin D3) 25 mcg (1,000 unit) capsule 1,000 unit PO QDAY supplement 03/17/18 multivitamin (Daily Multi-Vitamin tablet) 1 tab PO QAM supplement 03/17/18 polyethylene glycol 3350 8.5 gram oral powder packet 17 g PO QDAY constipation 03/17/18 vitamin A 2,400 mcg capsule 8,000 unit PO QDAY supplement 03/17/18 alendronate 35 mg tablet 35 mg PO QWEEK bone health 03/05/20 risperidone 0.5 mg tablet 0.5 mg PO TID mood 03/05/20 fluvoxamine 50 mg tablet 50 mg PO TID mood 07/16/21 prednisolone acetate 1 % eye drops,suspension 1 drp ophthalmic (eye) BID eyes 04/13/22 apixaban 5 mg tablet 5 mg PO BID a fib 08/25/22 apixaban 5 mg tablet (Eliquis) 5 mg PO BID #15 tabs 08/29/22 metoprolol tartrate 100 mg tablet 100 mg PO BID #60 tabs 08/29/22 Hospital Course Operations - (Left hip cephalo- medullary nail insertion) Procedures Blood transfusion Summary of Care Provided Minutes Spent on Discharge: 31 Hospital Course: This 67-year-old white female was seen in the emergency room at [facility] after sustaining a fall at the [facility] where she resides. Patient has developmental disability and [facility] Imaging studies in the emergency room showed a comminuted nondisplaced intertrochanteric fracture of the proximal left femur, CT of the brain was performed which showed no acute process, cervical spine CT showed no acute process. Labs revealed a hemoglobin of 11.9, patient's chemistry panel was unremarkable. Patient was admitted to PCU, she was seen in consultation by orthopedic surgery, she underwent insertion of a left hip cephalo- medullary nail, there were no complications during her surgery. Postop the patient had an increased heart rate and was placed on rate limiting medications for rate control. She was also noted to be anemic and was given 2 units of packed red blood cells. Patient was seen by PT and OT, conversations were carried out with the patient's caretakers at the [facility] and they felt that the patient would do better with physical therapy if she went back to the [facility] rather than to a prison facility. On 08/29/2022, patient was seen and examined:no apparent distress Constitutional Narrative: Patient is somnolent and lethargic, she responds to painful stimuli but does not carry on a conversation with this examiner HEENT normocephalic, head/scalp atraumatic and moist oral mucous membranes Eyes PERRL, EOMs intact bilaterally and conjunctivae normal Neck supple, no JVD, thyroid normal and no carotid bruits General: trachea midline Resp normal respiratory effort, no retractions, no use of accessory muscles and clear to auscultation bilaterally Auscultation: Negative for rales, rhonchi or wheezes Cardio S1 normal heart sound, S2 normal heart sound, no murmurs, no rub and no gallops Cardio Narrative: Heart rate and rhythm is irregular GI normal to inspection, nondistended, normoactive bowel sounds, soft to palpation, non-tender and non-distended Extremity no clubbing, cyanosis or edema Skin no rashes or lesions noted General Skin Exam: no breakdown Neuro CN's II-XII intact bilaterally Psych Psych Narrative: Patient has evidence of cognitive impairment Patient was discharged in stable condition on 08/29/2022 Weight / BMI Weight Weight: 60.9 kg Body Mass Index (BMI) 19.3 ABG / Lab / Microbiology Data Result Diagrams: 08/29/22 06:31 08/27/22 06:15 Laboratory: Laboratory Results - last 24 hr 08/28/22 09:50: Blood Type O POSITIVE, Antibody Screen NEGATIVE, Crossmatch See Detail 08/29/22 06:31: WBC 10.5, RBC 3.56 L, Hgb 10.4 L, Hct 31.6 L, MCV 88.8, MCH 29.2, MCHC 32.9, RDW Std Deviation 45.4 H, RDW Coeff of Zoila 14.0, Plt Count 170, MPV 10.9 D/C Instructions Discharge Diet: - (minced and moist meats, no straws, feeding assistance, oral care after meals) Weight Bearing Status: Weight bearing as tolerated Call your doctor if your incision/area has: - (Dressing should be left on until 08/31/2022 then may be removed prior to first shower, if unable to shower, patient should at this point have incision clean daily with antibacterial soap and water and have a dry dressing placed daily until 2-week follow-up for staple removal) Meaningful Use Info Meaningful Use Diagnoses (Choose all that apply): None applicable Discharge Plan Admission Admit Date/Time: 08/25/22 14:12 Primary Reason for Your Visit: Left hip fracture Attending Provider: Kamari Elias Primary Care Provider: Richard Maynard Consulting Providers: Aguila Roman ; Cheryl Juarez Discharge Orders/Prescriptions Prescriptions: New Eliquis 5 mg Tablet 5 mg PO BID Qty: 15 0RF Rx Instructions: use for two weeks, then stop metoprolol tartrate 100 mg tablet 100 mg PO BID Qty: 60 0RF Continued multivitamin [Daily Multi-Vitamin] tablet 1 tab PO QAM polyethylene glycol 3350 8.5 gram oral powder packet 8.5 gram powder in packet 17 g PO QDAY vitamin A 8,000 unit capsule 8,000 unit PO QDAY cholecalciferol (vitamin D3) 1,000 unit capsule 1,000 unit PO QDAY lorazepam 0.5 mg tablet 0.5 mg PO TID risperidone 0.5 mg tablet 0.5 mg PO TID alendronate 35 mg tablet 35 mg PO QWEEK prednisolone acetate 1 % drops,suspension 1 drp ophthalmic (eye) BID levothyroxine 88 MCG tablet 88 mcg PO DAILY acetaminophen 500 MG tablet 500 - 1,000 mg PO Q6H PRN PRN (Reason: Pain) 4 Days 0RF Rx Instructions: fluvoxamine 50 mg tablet 50 mg PO TID apixaban 5 mg tablet 5 mg PO BID Referrals / Follow Up: Aguila Roman DO [Med Staff - Active Staff] - See Referral Note (in two weeks-call for appointment) Richard Maynard DO [Primary Care Provider] - See Referral Note (within 2-3 weeks) Disposition Disposition (needs filled in before D/C Order can be placed): Home, Self Care Charges/Coding Visit Charges Inpatient E&M: [id number] Disch Hosp
--- NOTE | 2022-08-29 19:27 | NURSING ---
1800 victorina here from [facility]. assisted pt in dressing. pt up to [facility] with assist x2. victorina reports. i hope she can do it with one person coral thats all i have at the home. all belongings sent with pt to home. dc instructions gone over and given with no questions.
== END 2022-08-29 18:10 | disposition home health service (06) | DRG 481 ==
LOC: ED 14:33 → PCU 15:33
PROVIDERS: Orthopaedic Surgery; Physician Assistant; Admitting Provider Family Medicine; Emergency Provider Emergency Medicine; PCP Preventive Medicine Occupational Medicine; Visit Provider Internal Medicine
PROC: 0QS706Z Reposition Left Upper Femur with Intramedullary Internal Fixation Device, Open Approach (ICD-10-PCS; principal; 2022-08-26 14:25)
DX: M80.852A Other osteoporosis with current pathological fracture, left femur, initial encounter for fracture (principal); I48.11 Longstanding persistent atrial fibrillation; G80.9 Cerebral palsy, unspecified; E03.9 Hypothyroidism, unspecified; D64.89 Other specified anemias; F20.9 Schizophrenia, unspecified; W19.XXXA Unspecified fall, initial encounter; F41.8 Other specified anxiety disorders; Z79.01 Long term (current) use of anticoagulants; Z79.83 Long term (current) use of bisphosphonates; Z79.890 Hormone replacement therapy; Z79.899 Other long term (current) drug therapy; F79 Unspecified intellectual disabilities; Y92.000 Kitchen of unspecified non-institutional (private) residence as the place of occurrence of the external cause
CPT/HCPCS: 36415; 70450; 71045; 72125; 73501; 73521; 73552; 76000; 80048; 80053; 83735; 84443; 85025; 85027; 86850; 86900; 86901; 86920; 86922; 92610; 93005; 97110; 97162; 97166; 97530; 97535; 97802; 99285; C1776; J7030; J7040; J7120; P9016; A4216; J2405

== ENCOUNTER 2023-10-13 11:18 | Emergency (ER) | payer MEDICARE, OTHER, MEDICAID, SELFPAY ==
[2023-10-13 11:19] VITALS: BP 109/68; PULSE 92; RESP 18; TEMP 35.6; O2SAT 98
--- NOTE | 2023-10-13 13:09 | ED.RN ---
PHONE CONSENT OBTAINED BY KELSEY RN AND Azeb FLORES RN FROM [facility] AT [phone]
--- OUTSIDE RECORDS SUMMARY | 2023-10-13 13:16 | XMS RPT_ITS | CCD ---
Author Name Unknown Address [address] [facility] [address] [place] [address] Organization [facility] Care Team Providers Care Refuse Collector Supervisor Name Role Phone Eri SNYDER, Marjorie Green Unavailable Unavailable Kendell Jefferson Unavailable Unavailable Callie Medina CMA K Unavailable Unavailable Coni Jc Unavailable Marjorie Hwang RN Unavailable Unavailable Marjorie Hwang RN Unavailable Unavailable Unavailable Primary Care Provider [facility] Dionne Maynard Primary Care Provider DIONNE MAYNARD DO Primary Care Physician Dionne Maynard Primary Care Provider Dionne Maynard DO Primary Care Provider DIONNE MAYNARD DO Attending Unavailable DIONNE MAYNARD DO Primary Care Unavailable DIONNE MAYNARD DO Primary Care Unavailable DIONNE MAYNARD DO Attending Unavailable ANTHONY MARQUEZ Attending Unavailable ANTHONY MARQUEZ Referring Unavailable DIONNE MAYNARD Primary Care Unavailable ANTHONY MARQUEZ Attending Unavailable DIONNE MAYNARD Primary Care Unavailable Allergies Allergy Classification Reported Allergen(s) Allergy Type Date of Onset Reaction(s) Facility (6 sources) penicillin g drug allergy 7 [facility] Work Phone: (6 sources) Sulfonamides (Antibiotic) drug allergy 7 [facility] Work Phone: (12 sources) Penicillins; Translations: [penicillins] Propensity to adverse reactions 5 Unknown [facility] Work Phone: (18 sources) Sulfonamides (Antibiotic); Translations: [sulfa drugs] Propensity to adverse reactions 5 Unknown [facility] Work Phone: (6 sources) Penicillins Propensity to adverse reactions 5 [facility] Work Phone: Medications Current Medications Medication Drug Class(es) Dates Sig (Normalized) Sig (Original) acetaminophen 500 mg oral tablet (19 sources) Start: 01-29-2017 Tylenol Extra Strength 500 mg oral tablet Dose : 1,000 mg = 2 tab(s), Oral, q4h, PRN as needed for pain, # 120 tab(s), 0 Refill(s) Start Date: 09/01/19 Status: Ordered Completed/Discontinued Medications Medication Drug Class(es) Dates Sig (Normalized) Sig (Original) acetaZOLAMIDE 250 mg oral tablet (7 sources) Carbonic Anhydrase Inhibitor Start: 02-10-2022 End: 03-05-2022 take 1 tablet by mouth three times daily acetaZOLAMIDE (DIAMOX) 250 mg tablet Take 1 tablet by mouth three times daily. 4 tablet 1 03/05/2022 Active Problems Active Problems Problem Classification Problem Date Documented Da te Episodic/Chronic Allergic reactions (1 source) Inflammatory dermatosis; Translations: [Dermatitis, unspecified] Episodic Anxiety disorders (12 sources) Mixed anxiety and depressive disorder; Translations: [Anxiety disorder, unspecified] Onset: 02-18-2022 Chronic Cardiac dysrhythmias (20 sources) Atrial fibrillation; Translations: [Unspecified atrial fibrillation] Onset: 03-02-2018 03-16-2017 Chronic Cataract (17 sources) Nuclear senile cataract; Translations: [Age-related nuclear cataract, right eye] Onset: 02-18-2022 Chronic Genitourinary symptoms and ill-defined conditions (15 sources) Urinary incontinence; Translations: [Unspecified urinary incontinence] Onset: 05-27-2010 05-27-2010 Chronic Glaucoma (19 sources) Acute angle-closure glaucoma of right eye; Translations: [Acute angle-closure glaucoma, right eye] Onset: 02-18-2022 Chronic Inflammation; infection of eye (except that caused by tuberculosis or sexually transmitteddisease) (3 sources) Bilateral chronic conjunctivitis of eyes 09-04-2020 Chronic Inflammation; infection of eye (except that caused by tuberculosis or sexually transmitteddisease) (3 sources) Eczematous dermatitis of eyelid 03-04-2020 Episodic Nutritional deficiencies (3 sources) Vitamin D deficiency 09-01-2019 Chronic Nutritional deficiencies (3 sources) Vitamin A deficiency 09-01-2019 Episodic Other aftercare (3 sources) Surgical follow-up; Translations: [Encounter for follow-up examination after completed treatment for conditions other than malignant neoplasm] Episodic Other aftercare (1 source) Patient encounter status; Translations: [long-term (current) use of antithrombotics/anti platelets] Episodic Other bone disease and musculoskeletal deformities (3 sources) Osteopenia 03-11-2022 Episodic Other inflammatory condition of skin (3 sources) Psoriasis 09-01-2019 Chronic Other injuries and conditions due to external causes (1 source) H/O: hip fracture 09-09-2022 Episodic Other screening for suspected conditions (not mental disorders or infectious disease) (2 sources) Mammography abnormal; Translations: [Other abnormal and inconclusive findings on diagnostic imaging of breast] Episodic Other upper respiratory disease (3 sources) Seasonal allergy 02-05-2022 Chronic Paralysis (12 sources) Cerebral palsy; Translations: [Cerebral palsy, unspecified] Onset: 02-18-2022 Chronic Schizophrenia and other psychotic disorders (15 sources) Schizophrenia; Translations: [Schizophrenia, unspecified] Onset: 02-18-2022 Chronic Thyroid disorders (20 sources) Hypothyroidism; Translations: [Hypothyroidism, unspecified] 03-16-2017 Chronic Unclassified (3 sources) Intellectual disability 08-29-2019 Unclassified (3 sources) Patient encounter status 03-11-2022 Unclassified (1 source) History of repair of hip joint 09-01-2022 Past or Other Problems Problem Classification Problem Date Documented Date Episodic/Chronic Other screening for suspected conditions (not mental disorders or infectious disease) (3 sources) Electrocardiogram abnormal; Translations: [Abnormal electrocardiogram [ECG] [EKG]] Onset: 03-22-2017 03-22-2017 Episodic Results Test Name Value Interpretation Reference Range Facil ity Vital Signs Date Time Vital Sign Value Performing Clinician Facility 04-29-2022 15:19-0400 Body height 162.6 cm Brinda Garcia MD Work Phone: [facility] 04-29-2022 15:19-0400 Body temperature 97.7 [degF] Brinda Garcia MD Work Phone: [facility] 04-29-2022 15:19-0400 Body weight 48.44 kg Brinda Garcia MD Work Phone: [facility] 04-29-2022 15:19-0400 Diastolic blood pressure 68 mm[Hg] Brinda Garcia MD Work Phone: [facility] 04-29-2022 15:19-0400 Heart rate 95 /min Brinda Garcia MD Work Phone: [facility] 04-29-2022 15:19-0400 SaO2% (BldA) [Mass fraction] 97 % Brinda Garcia MD Work Phone: [facility] 04-29-2022 15:19-0400 Systolic blood pressure 100 mm[Hg] Brinda Garcia MD Work Phone: [facility] 02-18-2022 13:33-0400 Body temperature 97.81 [degF] Pacc 1 Work Phone: [facility] 02-18-2022 13:33-0400 Body weight 47.17 kg Pacc 1 Work Phone: [facility] 02-18-2022 13:33-0400 Diastolic blood pressure 54 mm[Hg] Pacc 1 Work Phone: [facility] 02-18-2022 13:33-0400 Heart rate 77 /min Pacc 1 Work Phone: [facility] 02-18-2022 13:33-0400 Respiratory rate 14 /min Pacc 1 Work Phone: [facility] 02-18-2022 13:33-0400 SaO2% (BldA) [Mass fraction] 100 % Pacc 1 Work Phone: [facility] 02-18-2022 13:33-0400 Systolic blood pressure 84 mm[Hg] Pacc 1 Work Phone: [facility] 03-17-2017 15:03-0400 BMI (Body Mass Index) 23 kg/m2 [facility] Work Phone: 03-17-2017 15:03-0400 BP Diastolic 60 mm[Hg] [facility] Work Phone: 03-17-2017 15:03-0400 BP Systolic 100 mm[Hg] [facility] Work Phone: 03-17-2017 15:03-0400 Height 162.56 cm [facility] Work Phone: 03-17-2017 15:03-0400 Pulse (Heart Rate) 84 /min [facility] Work Phone: 03-17-2017 15:03-0400 Respiratory Rate 20 /min [facility] Work Phone: 03-17-2017 15:03-0400 Weight 60.78 kg [facility] Work Phone: Encounters Encounter Date Encounter Type Care Provider Facility Start: 10-06-2023 End: 10-06-2023 ambulatory ANTHONY MARQUEZ Facility:[facility] Start: 09-29-2023 ambulatory DIONNE MAYNARD DO Facil ity:B Start: 04-14-2023 End: 04-15-2023 ambulatory [facility] Facility:B Start: 04-14-2023 End: 04-14-2023 Patient encounter procedure DIONNE MAYNARD DO [facility] Start: 04-02-2023 End: 04-02-2023 ambulatory ANTHONY MARQUEZ Facility:[facility] Start: 04-02-2023 End: 04-02-2023 Patient encounter procedure Anthony Marquez MD Work Phone: Ophthalmology Procedures Date Procedure Procedure Detail Performing Clinician Start: 02-10-2022 Ophthalmic ultrasoun d dx b-scan w/wo a-scan Thomas Cook MD Work Phone: Start: 02-10-2022 IOL BIOMETRY W/ IOL CALC OU (BOTH EYES) Thomas Cook MD Work Phone: Start: 03-17-2017 End: 04-27-2017 Echocardiography Raghav Pitts MD Start: 03-17-2017 End: 03-17-2017 Follow Up Appt 1 year Raghav Pitts MD Start: 03-17-2017 End: 03-17-2017 MMM Raghav Pitts MD Structure of yue s tendon (body structure) DIONNE MAYNARD DO Plan of Treatment Date Care Activity Detail Author Start: 05-28-2023 Influenza vaccination INFLUENZA (#1) [facility] Start: 09-27-2022 ADVANCE DIRECTIVE DISCUSSION ADVANCE DIRECTIVE DISCUSSION [facility] Start: 2022 BONE DENSITY BONE DENSITY [facility] Start: 2022 PNEUMOCOCCAL: 65+ (1 - PCV) PNEUMOCOCCAL: 65+ (1 - PCV) [facility] Start: 05-28-2022 Influenza vaccination [facility] Start: 01-21-2022 COVID-19 VACCINE (4 - Booster for Moderna series) COVID-19 VACCINE (4 - Booster for Moderna series) [facility] Start: 11-17-2021 COVID-19 VACCINE (4 - Booster for Moderna series) COVID-19 VACCINE (4 - Booster for Moderna series) [facility] Start: 03-17-2018 End: 03-17-2018 Appointment Appointment [facility] Work Phone: Start: 03-17-2017 End: 03-17-2017 Appointment Appointment [facility] Work Phone: Start: 03-17-2017 End: 03-17-2017 Echocardiography Echocardiogram (complete) [facility] Work Phone: Start: 03-17-2017 End: 03-17-2017 Follow Up Appt 1 year Follow Up Appt 1 year [facility] Work Phone: Start: 03-17-2017 End: 03-17-2017 MMM [facility] Work Phone: Start: 2007 SHINGRIX VACCINE (1 of 2) SHINGRIX VACCINE (1 of 2) [facility] Start: 2002 COLOGUARD (FIT-DNA) COLOGUARD (FIT-DNA) [facility] Start: 2002 Colonoscopy COLONOSCOPY [facility] Start: 2002 COLORECTAL CANCER SCREENING COLORECTAL CANCER SCREENING [facility] Start: [address] COLONOGRAPHY [facility] Start: 2002 DIABETES SCREEN DIABETES SCREEN [facility] Start: 2002 FECAL OCCULT BLOOD FECAL OCCULT BLOOD [facility] Start: 2002 LIPID SCREEN LIPID SCREEN [facility] Start: 2002 SIGMOIDOSCOPY SIGMOIDOSCOPY [facility] Start: 1997 Mammography MAMMOGRAM [facility] Start: 1987 HPV TESTING HPV TESTING [facility] Start: 1978 PAP TESTING PAP TESTING [facility] Start: 1976 Urine microalbumin profile DTAP,TDAP,TD (1 - Tdap) [facility] Start: 1975 ANNUAL PCP TEAM CHRONIC DISEASE VISIT ANNUAL PCP TEAM CHRONIC DISEASE VISIT [facility] Start: 1975 HEPATITIS C SCREENING HEPATITIS C SCREENING [facility] Start: 1975 HIV SCREENING HIV SCREENING [facility] Start: 1969 Adult depression screening assessment DEPRESSION SCREENING [facility] Immunizations Immunization Date Immunization Notes Care Provider Fa cilidebbie 09-22-2021 SARS-CoV-2 (COVID-19 ) mRNA-1273 vaccine DIONNE MAYNARD DO [facility] [place] 12-04-2020 SARS-CoV-2 (COVID-19 ) mRNA-1273 vaccine DIONNE MAYNARD DO [facility] [place] Payers Date Payer Category Payer Unknown FOR LIFE [id number] 2020-Present [phone] [address] [place] [address] Indemnity [id number] 2019 Unknown FOR LIFE [id number] 2019-Present [phone] [address] [place] [address] Indemnity [id number] 2018 Medicaid MEDICAID [facility] MEDICAID [id number] 2018-Present [phone] [address] [place] [address] Medicaid [id number] 2018 Medicaid MEDICAID [facility] MEDICAID [id number] 2018-Present [phone] [address] [place] [address] Medicaid [id number] 2018 Medicaid [id number] 2017 [employer] ([employer]O and others) [id number] 1977 Medicare MEDICARE MEDICAR E A AND B [id number] 1977-Present [phone] [address] [address] [place] [address] Medicare [id number] 1977 Medicare MEDICARE MEDICAR E A AND B [id number] 1977-Present [phone] [place] [address] Medicare [id number] 1977 Medicare [id number] 1955 Unknown [id number] 1957 Unknown [id number] Social History Date Type Detail Facility Start: 08-16-2018 End: 08-29-2019 Tobacco smoking status CTIS Never smoked tobacco [facility] Work Phone: Start: 02-10-2022 End: 04-02-2023 Alcohol intake Current non-drinker of alcohol (finding) [facility] Start: 1955 Sex Assigned At Not on file C [facility] Start: 01-30-2022 End: 05-25-2022 Exposure to SARS-CoV-2 (event) Not sure [facility] Sex Assigned At Female [facility] Start: 08-16-2018 Tobacco use and exposure Smokeless tobacco non-user [facility] Medical Equipment Procedure Code Equipment Code Equipment Origin al Text Equipment Identifier Dates Lens Iol 0d +27 Belén Uv Abs - [id number] Start: 03-06-2022 Clinical Notes 02-10-2022 to 10-06-2023 Patient InstructionsAnthony Marquez MD - 04/02/2023 2:39 PM EDTPatient Kaci Marquez MD - 05/25/2022 11:39 AM EDTPatient Kaci Marquez MD - 05/04/2022 11:31 AM EDTPatient InstructionsLaboratory Note Date & Type Note Facility 10-06-2023 Note HNO ID: [id number] Author: ANTHONY MARQUEZ MD Service: ? Author Type: Physician Type: Progress Notes Filed: 10/06/2023 14:09 Note Text: MARCELINO White (aunt) Tmax 54(acute angle closure), 51(in chronic angle closure) Pachy -, - Past Ocular Surgical/Laser History OD: 03/06/22 CEIOL + goniosynechiolysis + KDB + Dextenza for PACG OS: - Medication Intolerance/Inefficacy/Barriers Timolol, Simbrinza (dermatitis) Now on no drops HVF unable due to mental status OCT RNFL/GCL - cannot position or follow directions to image OD - OS - B-Scan 02/10/22 1. Dense anterior lens echo Both eyes 2. Mild Vitreous opacities Left eye >Right eye 3. No Retinal detachment / Retinal tear 4. Macula flat 5. Peripapillary thickening Right eye PACG both eyes severe -non-verbal patient limited by developmental disability and cerebral palsy -seen at [facility], unable to perform LPI due to cooperation/positioning at slit lamp -IOP responded very nicely to max drops +DMX -s/p CEIOL + goniosynechiolysis + KDB + Dextenza right eye 03/06/22 -long discussion regarding whether or not to operate on left eye, caregiver reports that she had very poor vision left eye years even before onset of cataract. Caregiver / POA will think about phacoemulsification + KDB left eye and let me know - will treat for comfort left eye, able to function well with right eye vision - follow 1 year, dilate CACG OS Mature Cataract OS -caregivers are unsure of visual potential in this eye but they think patient was primarily using OD -comfort given history of low vision History of hyphema left eye With keratitic precipitates no Anterior chamber cell -with neovascularization of the iris -unknown vision potential, no blink to light and apparent afferent pupillary defect Dry eye syndrome, both eyes - AT QID PRN - warm compresses and lid scrubs I have confirmed and edited as necessary the relevant ophthalmic history, ROS, and the neuro exam findings as obtained by others. I have seen and examined Millicent Valiente. I have discussed the case and the management of this patient's care with the Resident/Fellow, if applicable. I also have reviewed and agree with the assessment and plan as stated above and agree with all of its relevant components. Anthony Marquez MD [facility] 04-02-2023 Note HNO ID: [id number] Author: Anthony Marquez MD Service: ? Author Type: Physician Type: Progress Notes Filed: 04/02/2023 2:41 PM Note Text: MARCELINO White (aunt) Tmax 54(acute angle closure), 51(in chronic angle closure) Pachy -, - Past Ocular Surgical/Laser History OD: 03/06/22 CEIOL + goniosynechiolysis + KDB + Dextenza for PACG OS: - Medication Intolerance/Inefficacy/Barriers Timolol, Simbrinza (dermatitis) Now on no drops HVF unable due to mental status OCT RNFL/GCL - cannot position or follow directions to image OD - OS - B-Scan 02/10/22 1. Dense anterior lens echo Both eyes 2. Mild Vitreous opacities Left eye >Right eye 3. No Retinal detachment / Retinal tear 4. Macula flat 5. Peripapillary thickening Right eye PACG both eyes severe -non-verbal patient limited by developmental disability and cerebral palsy -seen at [facility], unable to perform LPI due to cooperation/positioning at slit lamp -IOP responded very nicely to max drops +DMX -s/p CEIOL + goniosynechiolysis + KDB + Dextenza right eye 03/06/22 -dermatitis resolved after stopping simbrinza -long discussion regarding whether or not to operate on left eye, caregiver reports that she had very poor vision left eye years even before onset of cataract. Caregiver / POA will think about phacoemulsification + KDB left eye and let me know - will treat for comfort left eye for now, able to function well with right eye vision - great intraocular pressure without drops! - follow 6 months, dilate CACG OS Mature Cataract OS -caregivers are unsure of visual potential in this eye but they think patient was primarily using OD -comfort given history of low vision History of hyphema left eye With keratitic precipitates no Anterior chamber cell -with neovascularization of the iris -unknown vision potential, no blink to light and apparent afferent pupillary defect I have confirmed and edited as necessary the relevant ophthalmic history, ROS, and the neuro exam findings as obtained by others. I have seen and examined Millicent Valiente. I have discussed the case and the management of this patient's care with the Resident/Fellow, if applicable. I also have reviewed and agree with the assessment and plan as stated above and agree with all of its relevant components. Anthony Marquez MD [facility] 04-02-2023 Instructions Anthony Marquez MD - 04/02/2023 2:41 PM EDT You will be dilated on your next visit. This will likely make your vision blurry for several hours, and you should strongly consider bringing a milk truck driver. documented in this encounter [facility] 04-02-2023 History of Present illness Narrative MARCELINO White (aunt) Tmax 54(acute angle closure), 51(in chronic angle closure) Pachy -, - Past Ocular Surgical/Laser History OD: 03/06/22 CEIOL + goniosynechiolysis + KDB + Dextenza for PACG OS: - Medication Intolerance/Inefficacy/Barriers Timolol, Simbrinza (dermatitis) Now on no drops HVF unable due to mental status OCT RNFL/GCL - cannot position or follow directions to image OD - OS - B-Scan 02/10/22 1. Dense anterior lens echo Both eyes 2. Mild Vitreous opacities Left eye >Right eye 3. No Retinal detachment / Retinal tear 4. Macula flat 5. Peripapillary thickening Right eye PACG both eyes severe -non-verbal patient limited by developmental disability and cerebral palsy -seen at [facility], unable to perform LPI due to cooperation/positioning at slit lamp -IOP responded very nicely to max drops +DMX -s/p CEIOL + goniosynechiolysis + KDB + Dextenza right eye 03/06/22 -dermatitis resolved after stopping simbrinza -long discussion regarding whether or not to operate on left eye, caregiver reports that she had very poor vision left eye years even before onset of cataract. Caregiver / POA will think about phacoemulsification + KDB left eye and let me know - will treat for comfort left eye for now, able to function well with right eye vision - great intraocular pressure without drops! - follow 6 months, dilate CACG OS Mature Cataract OS -caregivers are unsure of visual potential in this eye but they think patient was primarily using OD -comfort given history of low vision History of hyphema left eye With keratitic precipitates no Anterior chamber cell -with neovascularization of the iris -unknown vision potential, no blink to light and apparent afferent pupillary defect I have confirmed and edited as necessary the relevant ophthalmic history, ROS, and the neuro exam findings as obtained by others. I have seen and examined [facility]. I have discussed the case and the management of this patient's care with the Resident/Fellow, if applicable. I also have reviewed and agree with the assessment and plan as stated above and agree with all of its relevant components. Anthony Marquez MD documented in this encounter [facility] 05-25-2022 Instructions Anthony Marquez MD - 05/25/2022 11:51 AM EDT You will be dilated on your next visit. This will likely make your vision blurry for several hours, and you should strongly consider bringing a milk truck driver. documented in this encounter [facility] 05-25-2022 History of Present illness Narrative POA Jocy White (aunt) Tmax 54(acute angle closure), 51(in chronic angle closure) Pachy -, - Past Ocular Surgical/Laser History OD: 03/06/22 CEIOL + goniosynechiolysis + KDB + Dextenza for PACG OS: - Medication Intolerance/Inefficacy/Barriers Timolol, Simbrinza (dermatitis) Now on Predforte 0/2 Next on Predforte 0/1 HVF - OD: - OS: - OCT RNFL/GCL - OD - OS - B-Scan 02/10/22 1. Dense anterior lens echo Both eyes 2. Mild Vitreous opacities Left eye >Right eye 3. No Retinal detachment / Retinal tear 4. Macula flat 5. Peripapillary thickening Right eye PACG both eyes severe -non-verbal patient limited by developmental disability and cerebral palsy -seen at [facility], unable to perform LPI due to cooperation/positioning at slit lamp -IOP responded very nicely to max drops +DMX -s/p CEIOL + goniosynechiolysis + KDB + Dextenza right eye 03/06/22 -dermatitis resolved after stopping simbrinza -long discussion regarding whether or not to operate on left eye, caregiver reports that she had very poor vision left eye years even before onset of cataract. Caregiver / POA will think about phacoemulsification + KDB left eye and let me know - will treat for comfort left eye for now, able to function well with right eye vision CACG OS Mature Cataract OS -caregivers are unsure of visual potential in this eye but they think patient was primarily using OD -IOP responded very nicely to drops -has dermaitis today still despite stopping timolol, stop simbrinza -comfort given history of low vision History of hyphema left eye With keratitic precipitates no Anterior chamber cell -with neovascularization of the iris -unknown vision potential, no blink to light and apparent afferent pupillary defect -continue Predforte once a day I have confirmed and edited as necessary the relevant ophthalmic history, ROS, and the neuro exam findings as obtained by others. I have seen and examined Millicent Valiente. I have discussed the case and the management of this patient's care with the Resident/Fellow, if applicable. I also have reviewed and agree with the assessment and plan as stated above and agree with all of its relevant components. Anthony Marquez MD documented in this encounter [facility] 05-04-2022 Instructions Anthony Marquez MD - 05/04/2022 11:39 AM EDT Medication Eye # times daily Simbrinza (light green cap) STOP 2x daily Prednisolone (pink or white cap) LEFT 2x daily *please remember to wait at least 3 minutes between different drops in the same eye. documented in this encounter [facility] 05-04-2022 History of Present illness Narrative MARCELINO White (aunt) Tmax 54(acute angle closure), 51(in chronic angle closure) Pachy -, - Past Ocular Surgical/Laser History OD: 03/06/22 CEIOL + goniosynechiolysis + KDB + Dextenza for PACG OS: - Medication Intolerance/Inefficacy/Barriers - Now on simbrinza 0/2, Predforte 1/0 Next on Predforte 0/2 HVF - OD: - OS: - OCT RNFL/GCL - OD - OS - B-Scan 02/10/22 1. Dense anterior lens echo Both eyes 2. Mild Vitreous opacities Left eye >Right eye 3. No Retinal detachment / Retinal tear 4. Macula flat 5. Peripapillary thickening Right eye PACG OD Cataract OD -non-verbal patient limited by developmental disability and cerebral palsy -seen at [facility], unable to perform LPI due to cooperation/positioning at slit lamp -IOP responded very nicely to max drops +DMX -s/p CEIOL + goniosynechiolysis + KDB + Dextenza right eye 03/06/22 - stop Predforte right eye, start Predforte twice a day left eye - follow 2 weeks CACG OS Mature Cataract OS -caregivers are unsure of visual potential in this eye but they think patient was primarily using OD -IOP responded very nicely to drops -has dermaitis today still despite stopping timolol, stop simbrinza -comfort given history of low vision History of hyphema left eye With keratitic precipitates' today, no Anterior chamber cell -with neovascularization of the iris -unknown vision potential, no blink to light and apparent afferent pupillary defect -start Predforte twice a day I have confirmed and edited as necessary the relevant ophthalmic history, ROS, and the neuro exam findings as obtained by others. I have seen and examined Millicent Valiente. I have discussed the case and the management of this patient's care with the Resident/Fellow, if applicable. I also have reviewed and agree with the assessment and plan as stated above and agree with all of its relevant components. Anthony Marquez MD documented in this encounter [facility] 04-30-2022 History of Present illness Narrative HISTORY AND PHYSICAL Millicent Valiente 1955 REFERRING PHYSICIAN: Dionne Maynard DO CHIEF COMPLAINT: Consult (abnormal mammogram) HPI: The patient is a 66 year old female presents with abnormal left breast radiographs. 04/13/2022 Mammograms report - 2.8 cm area of left breast with punctate calcifications at 3:00 middle depth of left breast. She has cerebral palsy and is non verbal. She is here with her POA - her aunt, and a product trainer. Her sister had breast cancer. Her aunt had breast cancer. No ovarian cancer known in family. She has had no previous breast surgeries. She has had previous examinations with no findings of breast masses or nipple discharge. She will need to hold eliquis for three days prior to procedure. She is on Eliquis for chronic atrial fibrillation. Her product trainer states that a recent ECHO was OK . She did not bring any films to review - from [facility] Her gynecological history as follows: menarche onset not known, nulliparous, no exogenous hormones PAST MEDICAL HISTORY Diagnosis Date Cerebral palsy (HCC) Developmental disability Hypothyroidism Longstanding persistent atrial fibrillation (HCC) Schizophrenia (HCC) Trochanteric fracture of right femur (HCC) Unspecified hypothyroidism PAST SURGICAL HISTORY Procedure Laterality Date CATARACT EXTRACTION W/ INTRAOCULAR LENS IMPLANT HX Right 03/06/2022 CEIOL + goniosynechiolysis + KDB + Dextenza OD 03/06/22 NONE Glaucoma surgery Foot surgery in youth Tonsillectomy Current Outpatient Medications Medication Sig brinzolamide-brimonidine (SIMBRINZA) 1%-0.2 % Ophth Susp Use 1 Drop in the left eye twice daily. prednisoLONE acetate (PRED FORTE, ECONOPRED PLUS) 1 % ophthalmic suspension Use 1 Drop in the right eye once daily. alendronate (FOSAMAX) 35 mg tablet Take by mouth. multivitamin with folic acid (DAILY-BRETT, WITH FOLIC ACID,) 400 mcg Take 1 tablet by mouth once daily. carbamide peroxide (DEBROX) 6.5 % otic solution Use 4 Drops in both ears twice daily. polyethylene glycol 3350 8.5 gram pwpk Take by mouth once daily. acetaminophen (TYLENOL EXTRA STRENGTH) 500 mg tablet Take 500 mg by mouth every 8 hours as needed. ibuprofen (MOTRIN) 200 mg tablet Take 2 tablets by mouth every 6 hours as needed for Pain (1-2 tabs q6hrs as needed for pain). fluvoxaMINE (LUVOX) 50 mg tablet FLUVOXAMINE MALEATE 50 MG TABS apixaban (ELIQUIS) 5 mg (74 tabs) DsPk Take by mouth. LORazepam (ATIVAN) 0.5 mg tab Take by mouth three times daily as needed. Vitamin A 8,000 unit capsule Take 8,000 Units by mouth once daily. Cholecalciferol, Vitamin D3, (VITAMIN D) 1,000 unit cap Take 1,000 Units by mouth once daily. docusate sodium(DOK 250 MG CAP) two times daily LEVOXYL 88 MCG TAB Take one(1) tablet daily. FLUVOXAMINE 50 MG TAB Take one(1) tablet two(2) times daily. RISPERDAL 0.25 MG TAB Take 0.5 mg by mouth. MULTIVITAMIN TAB Take one(1) tablet daily. ALLERGIES: Penicillins and Sulfa (Sulfonamide Antibiotics) PERSONAL HISTORY: Social History Tobacco Use Smoking status: Never Smoker Smokeless tobacco: Never Used Vaping Use Vaping Use: Never used Substance Use Topics Alcohol use: No Drug use: Never FAMILY HISTORY Problem Relation Age of Onset Glaucoma Mother Alzheimer's Disease Mother Cancer Maternal Aunt The review of systems data was entered by the nurse and reviewed by me Nursing Notes: Monica Grayson RN 04/29/2022 3:22 PM Signed REVIEW OF SYSTEMS: General: The patient denies fatigue, denies weight loss, denies weight gain, denies feeling hot, and denies feelings of cold. Eyes: The patient NOTES glaucoma, denies eye injury/surgery, does not wear glasses or contacts. Ear/Nose/Throat: The patient NOTES allergies, denies hayfever, denies ear infections, and denies bloody noses. Cardiovascular: The patient denies chest pain, denies heart disease, denies high blood pressure,denies cardiac stent, denies prior heart attack, NOTES irregular heart beat, denies high cholesterol, denies poor circulation, denies heart failure, other cardiac issues, denies claudication, denies cold feet, denies peripheral arterial stent. Respiratory: The patient denies tuberculosis, denies pneumonia, denies frequent cough, denies pulmonary embolism, denies shortness of breath, and denies coughing up blood. Gastrointestinal: The patient denies difficulty swallowing, denies acid reflux, denies ulcers, denies vomiting, denies jaundice/hepatitis, denies gallbladder problems, denies black or tarry stools, denies hemorrhoids, denies bleeding from rectum, denies diverticulitis, denies constipation, denies diarrhea, denies loss of stool control, and denies hernias. Kidney/Bladder: The patient denies kidney stones, denies urine infections, and denies bloody urine. Skin: The patient denies a history of skin cancer, denies bleeding/changing moles, and denies a history of skin rash. Neurologic: The patient denies a history of epilepsy/convulsions, denies headaches, denies head/spinal injuries, and denies stroke/TIA. Psychiatric: The patient NOTES psychiatric medications, denies depression, and denies voices, denies substance abuse. Endocrine: The patient NOTES thyroid disorders, denies diabetes, and denies hormonal problems. Hematologic: The patient denies a history of bruising, denies bleeding, and denies anemia, denies blood clots. Infections: The patient denies a history of measles and mumps, denies rheumatic fever, and denies sexually transmitted diseases. Musculoskeletal: The patient denies back pain/injury, denies back problems, denies sciatica, denies knee/foot trouble, denies arthritis, or denies gout. When was patient's last Mammogram screening? 2021 Last Colonoscopy: NONE Monica Grayson RN PHYSICAL EXAMINATION: General: The patient is 66 year old female, well nourished, well hydrated in no acute distress. The patient is oriented to time, place, and person. VITALS: Blood pressure 100/68, pulse 95, temperature 36.5 C (97.7 F), height 162.6 cm (5' 4 ), weight 48.4 kg (106 lb 12.8 oz), SpO2 97 %. Body mass index is 18.33 kg/m . Head - Normocephalic. Recent eye surgery with slight erythema. . Neck - supple with no jugular venous distention noted. Trachea is midline. No thyroid enlargement or thyroid nodules detected. No masses noted. Chest/breast - no asymmetry of breasts noted, no suspicious skin lesions noted, no nipple discharge and both nipples everted, no breast masses noted Lungs - clear to auscultation. Normal breath sounds. No rales/rhonchi/wheezing noted. No labored breathing noted, such as retractions. No cough heard. Heart - normal S1 and S2 auscultated. No rubs/clicks/murmurs noted. Regular rate. Abdomen - soft and benign. Extremities - no calf tenderness noted. No pitting edema noted. Skin - normal skin integrity. Lymph - no cervical adenopathy detected, no supraclavicular adenopathy detected, no axillary adenopathy detected Neurological - gait normal, no focal deficits noted Psych - calm and appropriate Assessment IMPRESSION: abnormal left breast radiographs PLAN: I have discussed the above with the patient. I have offered left stereotactic breast biopsy I have explained the procedure to the patient. I have counseled the patient as to the risks of the procedure, including but not limited to: infection, bleeding, injury to any blood vessels/nerves, scar tissue, wound infections, complications of anesthesia, etc. - the patient's caretakers understand. I have told them that she will need to be off Eliquis for three days prior to procedure. They acknowledge this. I have also told them that if patient cannot hold still for the procedure, then she may require an open biopsy via wire localization. They understand. The patient wishes to proceed. I have answered all questions to the patient s satisfaction and the patient has no further questions. I have confirmed and edited as necessary, the PFSH and ROS obtained by others. Consultation requested by Dr. Dionne Maynard for an opinion regarding patient's abnormal mammograms. My final recommendations will be communicated back to the requesting physician by way of shared Medical record or letter to requesting physician via US mail. . Diagnoses: (R92.8) Abnormal mammogram (primary encounter diagnosis) (Z79.02) long term (current) use of antithrombotics/antiplatelets Return to Clinic: The patient will be scheduled for left stereotactic breast biopsy at [facility]. Medical Decision Making: Problems: Moderate: New problem with uncertain prognosis Data: Unique test result(s) reviewed: 1 Risk: Low: Low risk from testing/treatment Medical Decision Making Level: 3 - Low Brinda Garcia MD documented in this encounter [facility] 04-29-2022 Nurse Note REVIEW OF SYSTEMS: General: The patient denies fatigue, denies weight loss, denies weight gain, denies feeling hot, and denies feelings of cold. Eyes: The patient NOTES glaucoma, denies eye injury/surgery, does not wear glasses or contacts. Ear/Nose/Throat: The patient NOTES allergies, denies hayfever, denies ear infections, and denies bloody noses. Cardiovascular: The patient denies chest pain, denies heart disease, denies high blood pressure,denies cardiac stent, denies prior heart attack, NOTES irregular heart beat, denies high cholesterol, denies poor circulation, denies heart failure, other cardiac issues, denies claudication, denies cold feet, denies peripheral arterial stent. Respiratory: The patient denies tuberculosis, denies pneumonia, denies frequent cough, denies pulmonary embolism, denies shortness of breath, and denies coughing up blood. Gastrointestinal: The patient denies difficulty swallowing, denies acid reflux, denies ulcers, denies vomiting, denies jaundice/hepatitis, denies gallbladder problems, denies black or tarry stools, denies hemorrhoids, denies bleeding from rectum, denies diverticulitis, denies constipation, denies diarrhea, denies loss of stool control, and denies hernias. Kidney/Bladder: The patient denies kidney stones, denies urine infections, and denies bloody urine. Skin: The patient denies a history of skin cancer, denies bleeding/changing moles, and denies a history of skin rash. Neurologic: The patient denies a history of epilepsy/convulsions, denies headaches, denies head/spinal injuries, and denies stroke/TIA. Psychiatric: The patient NOTES psychiatric medications, denies depression, and denies voices, denies substance abuse. Endocrine: The patient NOTES thyroid disorders, denies diabetes, and denies hormonal problems. Hematologic: The patient denies a history of bruising, denies bleeding, and denies anemia, denies blood clots. Infections: The patient denies a history of measles and mumps, denies rheumatic fever, and denies sexually transmitted diseases. Musculoskeletal: The patient denies back pain/injury, denies back problems, denies sciatica, denies knee/foot trouble, denies arthritis, or denies gout. When was patient's last Mammogram screening? 2021 Last Colonoscopy: NONE Monica Grayson RN documented in this encounter [facility] 04-17-2022 Note ORIGINAL FROM: [facility] [id number] [place], [place] [address] PROCEDURE FOR: MILLICENT VALIENTE [address] [place] [id number] Home: PID#: [id number] Exam#: [id number] : 1955 Age: 66 TO: DIONNE MAYNARD DO [address] [facility] [address] [place], [place] [address] Fax: NO FAX EXAMINATION: DIAGNOSTIC DIGITAL LEFT BREAST MAMMOGRAM WITH TOMOSYNTHESIS, 04/17/2022 2:06 pm TECHNIQUE: Diagnostic mammography of the left breast was performed with tomosynthesis. 2D standard and 3D tomosynthesis combination imaging performed through the left breast. Computer aided detection was utilized in the interpretation of this exam. Current study was also evaluated with a Computer Aided Detection (CAD) system. COMPARISON: Prior mammography dated 04/13/2022, 04/25/2019. HISTORY: ORDERING SYSTEM PROVIDED HISTORY: Reason for Exam: call back abnormal mammogram FINDINGS: BREAST DENSITY: Scattered fibroglandular tissue On magnification views there continues to be a 1.6 cm region of punctate calcifications within the left breast with a linear distribution seen at the 4 o'clock position. IMPRESSION: Persistence of a 1.6 cm region of punctate calcifications within the left breast without underlying mass lesion. A stereotactic biopsy is recommended BIRADS: BIRADS - CATEGORY 4 Suspicious Abnormality. Biopsy should be considered at this time. OVERALL ASSESSMENT - SUSPICIOUS A letter of notification will be sent to the patient regarding the results. A career services representative from the radiology department will be contacting your office and assisting the patient in getting appropriate follow-up. Interpreted by: Sandeep Larson MD Preliminary Report By: Sandeep Larson MD Electronically signed By Sandeep Larson MD Dictated Date: 04/17/2022 3:24:02 PM Prelim Date: 04/17/2022 3:36:15 PM Sign Date: 04/17/2022 3:36:15 PM Ordering Provider: DIONNE MAYNARD Rip/Mould Operator: HALINA Hall)(M) letter sent: Biopsy Recommended BI-RADS 4 and 5 Mammogram BI-RADS: 4 Suspicious for malignancy [facility] 04-17-2022 Note ORIGINAL FROM: [facility] [address] [place], [place] [address] PROCEDURE FOR: MILLICENT VALIENTE [address] [place] [id number] Home: PID#: [id number] Exam#: [id number] : 1955 Age: 66 TO: DIONNE MAYNARD DO [address] [facility] [address] [place], [place] [address] Fax: NO FAX EXAMINATION: DIAGNOSTIC DIGITAL LEFT BREAST MAMMOGRAM WITH TOMOSYNTHESIS, 04/17/2022 2:06 pm TECHNIQUE: Diagnostic mammography of the left breast was performed with tomosynthesis. 2D standard and 3D tomosynthesis combination imaging performed through the left breast. Computer aided detection was utilized in the interpretation of this exam. Current study was also evaluated with a Computer Aided Detection (CAD) system. COMPARISON: Prior mammography dated 04/13/2022, 04/25/2019. HISTORY: ORDERING SYSTEM PROVIDED HISTORY: Reason for Exam: call back abnormal mammogram FINDINGS: BREAST DENSITY: Scattered fibroglandular tissue On magnification views there continues to be a 1.6 cm region of punctate calcifications within the left breast with a linear distribution seen at the 4 o'clock position. IMPRESSION: Persistence of a 1.6 cm region of punctate calcifications within the left breast without underlying mass lesion. A stereotactic biopsy is recommended BIRADS: BIRADS - CATEGORY 4 Suspicious Abnormality. Biopsy should be considered at this time. OVERALL ASSESSMENT - SUSPICIOUS A letter of notification will be sent to the patient regarding the results. A career services representative from the radiology department will be contacting your office and assisting the patient in getting appropriate follow-up. Interpreted by: Sandeep Larson MD Preliminary Report By: Sandeep Larson MD Electronically signed By Sandeep Larson MD Dictated Date: 04/17/2022 3:24:02 PM Prelim Date: 04/17/2022 3:36:15 PM Sign Date: 04/17/2022 3:36:15 PM Ordering Provider: DIONNE MAYNARD Rip/Mould Operator: HALINA SAUCEDO (Lissy)(M) letter sent: Biopsy Recommended BI-RADS 4 and 5 Mammogram BI-RADS: 4 Suspicious for malignancy [facility] 04-13-2022 Note ORIGINAL EXAMINATION: BONE DENSITOMETRY04/13/2022 2:25 pm TECHNIQUE: Dual energy bone densitometry lumbar spine and left hip. COMPARISON: None HISTORY: Reason for Exam: History of osteopenia, on alendronate therapy Osteoporosis screening. FINDINGS: Total bone mineral density of the L1-L4 is 0.849 grams per square centimeters, and T-score being -1.8, indicating that this patient has osteopenia. Bone mineral density of the left femoral neck is 0.636 grams per square centimeters, and T-score being -1.9, indicating that this patient has osteopenia. Total bone mineral density of the left hip is 0.696 grams per square centimeters, and T-score being -2.0, indicating that this patient has osteopenia. IMPRESSION: Osteopenia. Interpreted by: Tristin Chen MD Preliminary Report By: Tristin Chen MD Electronically signed By Tristin Chen MD Dictated Date: 04/13/2022 2:49:05 PM Prelim Date: 04/13/2022 2:49:55 PM Sign Date: 04/13/2022 2:49:55 PM Ordering Provider: [facility] 04-13-2022 Note ORIGINAL EXAMINATION: BONE DENSITOMETRY04/13/2022 2:25 pm TECHNIQUE: Dual energy bone densitometry lumbar spine and left hip. COMPARISON: None HISTORY: Reason for Exam: History of osteopenia, on alendronate therapy Osteoporosis screening. FINDINGS: Total bone mineral density of the L1-L4 is 0.849 grams per square centimeters, and T-score being -1.8, indicating that this patient has osteopenia. Bone mineral density of the left femoral neck is 0.636 grams per square centimeters, and T-score being -1.9, indicating that this patient has osteopenia. Total bone mineral density of the left hip is 0.696 grams per square centimeters, and T-score being -2.0, indicating that this patient has osteopenia. IMPRESSION: Osteopenia. Interpreted by: Tristin Chen MD Preliminary Report By: Tristin Chen MD Electronically signed By Tristin Chen MD Dictated Date: 04/13/2022 2:49:05 PM Prelim Date: 04/13/2022 2:49:55 PM Sign Date: 04/13/2022 2:49:55 PM Ordering Provider: [facility] 04-07-2022 Miscellaneous Notes original script was wrong eye should be left eye twice daily documented in this encounter [facility] 04-07-2022 History of Present illness Narrative POA Buellah Ulman (aunt) Tmax 54(acute angle closure), 51(in chronic angle closure) Pachy -, - Past Ocular Surgical/Laser History OD: 03/06/22 CEIOL + goniosynechiolysis + KDB + Dextenza for PACG OS: - Medication Intolerance/Inefficacy/Barriers - Current Medications Betimol BID OS (start 02/10/22) Simbrinza TID OS (start 02/10/22) Prednisolone 1x/day right eye Next on simbrinza 0/2, Predforte 1/0 HVF - OD: - OS: - OCT RNFL/GCL - OD - OS - B-Scan 02/10/22 1. Dense anterior lens echo Both eyes 2. Mild Vitreous opacities Left eye >Right eye 3. No Retinal detachment / Retinal tear 4. Macula flat 5. Peripapillary thickening Right eye PACG OD Cataract OD -non-verbal patient limited by developmental disability and cerebral palsy -seen at [facility], unable to perform LPI due to cooperation/positioning at slit lamp -IOP responded very nicely to max drops +DMX -s/p CEIOL + goniosynechiolysis + KDB + Dextenza right eye 03/06/22 - POM1, hypotony but maintaining Anterior chamber and no choroidals, some D folds, keep Predforte once a day for now; decrease simbrinza to twice a day left eye - caregiver reports that she can see again to feed herself! And did some coloring yesterday! -return 1 month CACG OS Mature Cataract OS -caregivers are unsure of visual potential in this eye but they think patient was primarily using OD -IOP responded very nicely to drops -has dermaitis today, will stop timolol for now to see if it improves -comfort given history of low vision Hyphema OS -with neovascularization of the iris -unknown vision potential, no blink to light and apparent afferent pupillary defect -would not operate on for now -may need FINANCE CLERK for comfort, will reassess I have confirmed and edited as necessary the relevant ophthalmic history, ROS, and the neuro exam findings as obtained by others. I have seen and examined Millicent Valiente. I have discussed the case and the management of this patient's care with the Resident/Fellow, if applicable. I also have reviewed and agree with the assessment and plan as stated above and agree with all of its relevant components. Anthony Marquez MD documented in this encounter [facility] 03-05-2022 Miscellaneous Notes Pharmacy is accurate... pt. is scheduled for surgery tomorrow. documented in this encounter [facility] 02-19-2022 Miscellaneous Notes Called patient, spoke with caregiver, Gaby, made aware of order. Requested that impok message be sent as well. Verbalizes understanding. Kathleen Moreno LPN ----- Message from Raegan Malone APRN.JUNIOR QA ANALYST sent at 02/19/2022 12:44 PM EDT ----- Regarding: RE: Pre-op eliquis Okay thank you. I will have my nurses call and have her hold 3 days prior to surgery. ----- Message ----- From: Anthony Marquez MD Sent: 02/18/2022 2:49 PM EDT To: Raegan Malone APRN.CNP Subject: RE: Pre-op eliquis Hold eliquis if possible ----- Message ----- From: Raegan Malone APRN.JUNIOR QA ANALYST Sent: 02/18/2022 2:41 PM EDT To: Anthony Marquez MD Subject: Pre-op eliquis Pt is scheduled for a aqueous shunt and cataract surgery 03/06/2022 at [facility]. She takes eliquis for persistent afib. Would you want her to hold this or continue for upcoming surgery. documented in this encounter [facility] 02-18-2022 Miscellaneous Notes Telephone consent obtained today from Shanon Robbins, patients aunt and power of estate planning attorney. Devika Morel MD Glaucoma Fellow PGY5 Ophthalmology documented in this encounter [facility] 02-18-2022 History and physical note HISTORY AND PHYSICAL EXAMINATION SERVICE DATE: 02/18/2022 SERVICE TIME: 1:48 PM PRIMARY CARE PHYSICIAN: No primary care provider on file. REASON FOR VISIT: Millicent Valiente is a 66 year old female who is scheduled for Procedure(s): AQUEOUS SHUNT TO EXTRAOCULAR EQUATORIAL PLATE RESERVOIR EXTERNAL APPROACH W/GRAFT (Right) PHACOEMULSIFICATION CATARACT IMPLANT INTRAOCULAR LENS W/O ENDOSCOPIC CYCLOPHOTOCOAGULATION (Right) OPHTHALMIC BIOMETRY BY PARTIAL COHERENCE INTERFEROMETRY W/INTRAOCULAR LENS POWER CALCULATION (Right) INSJ RX ELUTING IMPLT PUNCTAL DILAT LAC CANAL EA (Right) GONIOTOMY (Right) at the request of Dr. Anthony Marquez for consultation. My final recommendation will be communicated back to the requesting physician by way of shared medical record or letter. Subjective The patient has the following: ACTIVE PROBLEM LIST Unspecified Hypothyroidism Unspecified Urinary Incontinence Atrial Fibrillation (Hcc) Cerebral Palsy (Hcc) Anxiety and Depression Schizophrenia (Hcc) Cataract Bilateral Chronic Angle-Closure Glaucoma, Indeterminate Stage COVID-19 Immunization Status Overdue - COVID-19 VACCINE (4 - Booster for Moderna series) Overdue since 01/21/2022 09/22/2021 Imm Admin: COVID-19 vaccine, full dose (MODERNA) 12/04/2020 Imm Admin: COVID-19 vaccine, full dose (MODERNA) 11/07/2020 Imm Admin: COVID-19 vaccine, full dose (MODERNA) CHIEF COMPLAINT: Pre-op exam HPI: CL is a 66 yo seen for PAC due to scheduled above surgery because of glaucoma. 02/10/2022 Dr. Alma White (aunt) Tmax 54(acute angle closure), 51(in chronic angle closure) Pachy -, - Past Ocular Surgical/Laser History OD: - OS: - Medication Intolerance/Inefficacy/Barriers - Current Medications Betimol (start today 02/10/22) Simbrinza (start today 02/10/22) DMX (500 mg IV this AM) HVF - OD: - OS: - OCT RNFL/GCL - OD - OS - B-Scan 02/10/22 1. Dense anterior lens echo Both eyes 2. Mild Vitreous opacities Left eye >Right eye 3. No Retinal detachment / Retinal tear 4. Macula flat 5. Peripapillary thickening Right eye PACG OD Cataract OD -non-verbal patient limited by developmental disability and cerebral palsy -seen at [facility], unable to perform LPI due to cooperation/positioning at slit lamp -IOP responded very nicely to max drops +DMX -recommend phaco but would hold off on performing urgently at this time to allow cornea to recover -calcs done, aim plano, AL 22 -preop Mannitol, Healon 5 -rec CEIOL + goniotomy +/- Ahmed + Dextenza right eye depending on angle anatomy that requires better gonioscopy at time of exam under anesthesia CACG OS Mature Cataract OS -caregivers are unsure of visual potential in this eye but they think patient was primarily using OD -IOP responded very nicely to max drops + DMX -with hyphema, suspect prior NVI -recommend phaco/ahmed simultaneous to above but guarded limited vision potential -calcs done, aim plano -preop Mannitol, Healon 5 Hyphema OS -with neovascularization of the iris -unknown vision potential, no blink to light and apparent afferent pupillary defect -would not operate on for now -may need FINANCE CLERK for comfort, will reassess Cataract Presurgical Documentation Cataract: Right eye (OD) Patient reported symptoms: Associated symptoms Positive for: Eye Redness, eye discharge Current Visual Acuity: Right Eye Distance SC BTL limited by non-verbal Left Eye Distance SC no BTL. limited by non-verbal Glare Testing: Visual Function: Millicent Valiente states that the decline in vision from the cataract impedes the ability to read as well as other activities of daily living. Millicent Valiente has confirmed that she is no longer able to function adequately on a day-to-day basis because of her current visual condition. Further, it is my medical opinion that the cataract is the primary cause, or at least a significantly contributory cause of her visual dysfunction. With uncomplicated cataract surgery and lens implantation, it is my expectation that her visual function and quality of life will improve, significantly. REVIEW OF SYSTEMS: General: No weight loss, malaise or fevers. Neurological: +cerebral palsy +non-verbal. No history of TIA's, stroke, BEHAVIORAL SCIENTIST tumor, impaired sensorium, hemiplegia, paraplegia or quadraplegia. No neurological symptoms or problems. Respiratory: No history of current cough or dyspnea, or pneumonia in the past 6 weeks. No history of respiratory/pulmonary symptoms or problems. Cardiovascular: Positive for: anticoagulation therapy (on rx) and atrial fibrillation (following [facility]) Negative for: arrhythmia, CAD, chest pain, CHF, congenital heart defect, DVT/PE, hyperlipidemia, hypertension, recent TN, murmur/valvular heart disease, open heart surgery and valve surgery. GI: No history of GI symptoms or problems. No history of esophageal varices, recent ascites, or ETOH greater than 2 drinks per day. : Positive for: urinary incontinence. Negative for: nephrolithiasis, renal failure and urinary tract infection. PLASTIC AND RECONSTRUCTIVE SURGEON: Negative for abnormal vaginal bleeding, abnormal vaginal discharge. Endocrine: Positive for: hypothyroidism (on rx). Negative for: diabetes mellitus. Hematology: Positive for: bruises/bleeds easily and chronic anti-coagulation/platelet meds. Patient is on anti-coagulation/platelet medication(s): DOAC. Negative for: anemia and transfusion of at least 4 units within 72 hours prior to surgery. Oncology: No history of CA metastasis, chemo within 30 days, or radiotherapy within 90 days. No history of oncological symptoms or problems. Psych: +schizophrenia, on rx Positive for: anxiety (on rx) and depression (on rx). Musculoskeletal: Negative for joint pain or swelling, back pain or muscle pain. Skin: +eczema. Negative for lesions, rash and itching. PAST MEDICAL HISTORY Diagnosis Date Cerebral palsy (HCC) Developmental disability Hypothyroidism Longstanding persistent atrial fibrillation (HCC) Schizophrenia (HCC) Trochanteric fracture of right femur (HCC) Unspecified hypothyroidism PAST SURGICAL HISTORY Procedure Laterality Date NONE FAMILY HISTORY Problem Relation Age of Onset Glaucoma Mother Alzheimer's Disease Mother Cancer Maternal Aunt Social History Tobacco Use Smoking status: Never Smoker Smokeless tobacco: Never Used Vaping Use Vaping Use: Never used Substance Use Topics Alcohol use: No Drug use: Never Prior to Admission medications as of 02/18/22 1344 Medication Sig Last Dose Taking alendronate (FOSAMAX) 35 mg tablet Take by mouth. Taking Yes timolol hemihydrate (BETIMOL) 0.5 % ophthalmic solution 1 Drop twice daily. Taking Yes multivitamin with folic acid (DAILY-BRETT, WITH FOLIC ACID,) 400 mcg Take 1 tablet by mouth once daily. Taking Yes carbamide peroxide (DEBROX) 6.5 % otic solution Use 4 Drops in both ears twice daily. Taking Yes polyethylene glycol 3350 8.5 gram pwpk Take by mouth once daily. Taking Yes brinzolamide-brimonidine (SIMBRINZA) 1%-0.2 % Ophth Susp Use 1 Drop in eyes. Taking Yes acetaminophen (TYLENOL EXTRA STRENGTH) 500 mg tablet Take 500 mg by mouth every 8 hours as needed. Taking Yes acetaZOLAMIDE (DIAMOX) 250 mg tablet Take 1 tablet by mouth three times daily. Taking Yes ibuprofen (MOTRIN) 200 mg tablet Take 2 tablets by mouth every 6 hours as needed for Pain (1-2 tabs q6hrs as needed for pain). Taking Yes fluvoxaMINE (LUVOX) 50 mg tablet FLUVOXAMINE MALEATE 50 MG TABS Taking Yes apixaban (ELIQUIS) 5 mg (74 tabs) DsPk Take by mouth. Taking Yes LORazepam (ATIVAN) 0.5 mg tab Take by mouth three times daily as needed. Taking Yes Vitamin A 8,000 unit capsule Take 8,000 Units by mouth once daily. Taking Yes Cholecalciferol, Vitamin D3, (VITAMIN D) 1,000 unit cap Take 1,000 Units by mouth once daily. Taking Yes docusate sodium(DOK 250 MG CAP) two times daily Taking Yes LEVOXYL 88 MCG TAB Take one(1) tablet daily. Taking Yes FLUVOXAMINE 50 MG TAB Take one(1) tablet two(2) times daily. Taking Yes RISPERDAL 0.25 MG TAB Take 0.5 mg by mouth. Taking Yes MULTIVITAMIN TAB Take one(1) tablet daily. Taking Yes Medication Comments documented by DEEPAK La on 02/10/2022 at 0815. Meds reviewed in ED, patient is non-verbal and verified current med list is not available ALLERGIES Allergen Reactions Penicillins Sulfa (Sulfonamide * Objective PHYSICAL EXAM: General: healthy appearance. +non-verbal, alert. Skin: normal color, no rash or lesions. HEENT: EOM intact and pupils equal round. Pertinent negatives noted - no carotid bruit. Cardiovascular: regular rate and rhythm, normal S1 and S2, no rub, murmurs, or gallop. Respiratory: normal breath sounds, no wheezes or crackles. No chest wall deformity or tenderness. Abdomen: soft. Pertinent negatives noted - not tender. Extremities: no deformity, no edema or tenderness, no joint swelling or clubbing. Neurological: normal cognition and motor skills. Gait normal. No weakness or sensory deficit. PAIN ASSESSMENT: VITALS: BP 84/54 Pulse 77 Temp (Src) 97.8 (Temporal) Resp 14 Wt 104 lb (47.2kg) SpO2 100% Diagnostic tests reviewed for today's visit: Lab Value Units Date High Low HB No results within date range. HCT No results within date range. WBC No results within date range. PLT No results within date range. NA No results within date range. K No results within date range. GLUC No results within date range. BUN No results within date range. CREAT No results within date range. PTSEC No results within date range. INR No results within date range. APTT No results within date range. ALT No results within date range. AST No results within date range. TBILI No results within date range. TSH No results within date range. Lab Value Units Date High Low HCGQT No results within date range. UHCG No results within date range. HCG, BODY* No results within date range. Lab Value Units Date High Low ABORHD No results within date range. ABSCREEN No results within date range. No results found for: HBA1C No results found for this or any previous visit (from the past 8760 hour(s)). No results found for this or any previous visit (from the past 16965 hour(s)). Assessment HYPOTHYROIDISM NOS Assessment: stable on rx Unspecified Urinary Incontinence Assessment: chronic, caregivers provide rafia-hygiene Atrial fibrillation (HCC) Assessment: chronic, on Eliquis, following [facility], last OV 03/2021. Last records requested Cerebral palsy (HCC) Assessment: chronic, non-verbal, here with caregiver Anxiety and depression Assessment: stable on rx Schizophrenia (HCC) Assessment: stable on rx per caregiver Holder Activity Status Index: METS: Walk indoors, such as around the house (1.75 METs) Do light work around the house, such as dusting or washing dishes (2.70 METs) DASI Score: 4.45 Patient denies any chest pain or undue shortness of breath with the above physical activity. Patient is partially dependent. Clinical Frailty Scale: 5. Mildly frail STOP-Bang Score: Patient over 50 years old Denies snoring loudly Denies feeling tired, fatigued, or sleepy during the daytime Has not been observed to stop breathing or choking/gasping during sleep Denies having high blood pressure BMI less than or equal to 35 kg/m^2 Does not have a large neck Non-male patient STOP-Bang Score: 1 [id number] Score: Age: <65 Sex: female CHF history: No Hypertension history: No Stroke/TIA/thromboembolism history: No Vascular disease history: No Diabetes history: No [id number] Score: 1 ARISCAT Score: Age: 51-80 Preoperative SpO2: >=96% Respiratory infection in the last month: No Preoperative anemia: No Surgical incision: peripheral Duration of surgery: <2 hrs Emergency procedure: No ARISCAT Score: 3 ASA Class: 3 ANESTHESIA FINDINGS: Intubation History: No history of difficult intubation Significant Anesthesia Considerations: none Airway History: No history of difficult airway I - PHYSICAL EVALUATION AIRWAY Tracheostomy tube not present TM distance: >3 FB. Neck ROM: full ROM without neurological symptoms. Short neck: no. Thick neck: no Additional comments: Unable to assess airway due to pt being uncooperative. DENTAL Dentures, upper: partial. II - ANESTHESIA PLAN ASA Score: 3 Anesthetic Plan: other Anesthetic plan additional comments: *PACC/TCI - anesthesia choice. Informed Consent Anesthetic risks, benefits, alternatives, personnel and consent discussed: yes. Patient / Responsible Democrat agrees to proceed: yes Patient / Surrogate agrees to blood products: blood products not planned Prepared for Surgery: optimally prepared for surgery. CONSULTS: Patient does not require consults for optimization at this time Planned Anesthetic: other anesthesia choice The Following Tests/Procedures Have Been Initiated: Orders Placed This Encounter alendronate (FOSAMAX) 35 mg tablet Sig: Take by mouth. timolol hemihydrate (BETIMOL) 0.5 % ophthalmic solution Si Drop twice daily. multivitamin with folic acid (DAILY-BRETT, WITH FOLIC ACID,) 400 mcg Sig: Take 1 tablet by mouth once daily. carbamide peroxide (DEBROX) 6.5 % otic solution Sig: Use 4 Drops in both ears twice daily. polyethylene glycol 3350 8.5 gram pwpk Sig: Take by mouth once daily. brinzolamide-brimonidine (SIMBRINZA) 1%-0.2 % Ophth Susp Sig: Use 1 Drop in eyes. acetaminophen (TYLENOL EXTRA STRENGTH) 500 mg tablet Sig: Take 500 mg by mouth every 8 hours as needed. Instructions Given to Patient: Instructions located in the after visit summary. Patient given verbal and written preop instructions and voices comprehension and compliance. SIGNATURE: Raegan Malone APRN.CNP PATIENT NAME: Millicent Valiente DATE: February 18, 2022 TIME: 1:48 PM PAGER/CONTACT #: documented in this encounter [facility] 02-18-2022 Instructions Raegan Malone APRN.CNP - 02/18/2022 1:44 PM EDT PATIENT PREOPERATIVE INSTRUCTIONS Anthony Marquez MD has scheduled you for your procedure at this surgery center: [facility]: [phone] --[facility] [place] [place] [id number]. Please read below carefully for your personalized instructions. Dietary Restrictions: - No solid food after midnight. - You may have 12 ounces of clear liquids (water, clear juices such as apple juice or gatorade, carbonated beverages, clear tea, black coffee, jello) until 2 hours before scheduled arrival at facility. No red/purple coloring and no creamer/sugar Medications: Unless instructed differently below, stay on all of your medications until your surgery. Approved medications to take the morning of surgery with a sip of water: Luvox, Levoxyl, Ativan, Risperdol If you start any new medications after today's visit, please contact the surgeon's office. Blood Thinning Medications: - Stop NSAIDS (Ibuprofen, Advil, Aleve, Motrin, Celebrex, Mobic, etc.) 7 days before surgery, as directed by your surgeon. - Stop Aspirin 7 days before surgery, as directed by your surgeon. - Stop Vitamin E, ALL multi-vitamins, herbals and dietary supplements 7 days before surgery. - You may take Tylenol (Acetaminophen) or any of your pain medications that do not contain aspirin or NSAIDS as needed. Important Reminders: - If you use CPAP/BIPAP, bring the machine with you to the surgery center. - If you are prescribed inhalers for breathing, continue using them. - Candy, mints, and tobacco products are NOT permitted the morning of surgery. - Hearing aids, dentures and glasses may be worn the morning of surgery. - NO jewelry, body piercings, makeup, hairpins or contacts are to be worn the day of surgery. If you develop symptoms such as a fever, cold, or flu, or have other changes to your health within TWO DAYS of scheduled surgery or the morning of surgery, please contact the surgery center above. Personal Belongings: -Please have photo ID and insurance cards. -If you do not have a copy of advance directives on file with us, please bring a copy with you on the day of surgery. - Leave ALL valuables and money at home or with family members. For Outpatient Procedures: - YOU MUST HAVE A RESPONSIBLE JEWELRY SALES ASSOCIATE TAKE YOU HOME. A METAL MIXER OR ELECTRICIAN RECTIFIER MAINTENANCE CANNOT BE MADE A RESPONSIBLE JEWELRY SALES ASSOCIATE. - We recommend that a responsible person stays with you overnight to take care of you. - You cannot stay in a hotel alone after outpatient surgery. You will not be permitted to have your surgery, if you do not have someone to take care of you. Arrival Time for Surgery: - The Surgery Center or hospital where you are having surgery will call the afternoon before surgery (or Wednesday for Wednesday surgery) with a scheduled arrival time. - If you have not heard by 4 pm, please contact the surgery center above. Please be aware that emergency situations arise, which may delay or change your surgical time. If this happens, we will notify you as soon as possible and regret any inconvenience. If you already have an Advance Directive, please fax a copy to [phone] or email to for it to be added to your chart. If you do not have an Advance Directive, you can find the appropriate form and more information at [email or web address]. We recommend that you complete the Advance Directive form found on the website and bring it with you the day of your surgery. It can be witnessed and scanned into your chart that day. Raegan Malone APRN.CNP documented in this encounter [facility] 02-10-2022 History of Present illness Narrative I had telephone encounter today with Kaylatonya Itzel who had confirmed for me that she is power of estate planning attorney for Millicent Penaloza. I explained patients condition as outlined in the note dated today authored by Dr. Marquez. I explained the plan to perform cataract surgery right eye and potentially additional glaucoma surgery if it is deemed necessary after intraoperative exam under anesthesia. I discussed risks including need for additional surgery, infection, bleeding, pain, loss of vision, or loss of eye. Jocy Robbins gave me her verbal understanding. I will plan to call again with a witness to review again the above and obtain a telephone consent document for Millicent Penaloza' planned surgery. Devika Morel MD Glaucoma Fellow PGY5 Ophthalmology POA Jocy White (aunt) Tmax 54(acute angle closure), 51(in chronic angle closure) Pachy -, - Past Ocular Surgical/Laser History OD: - OS: - Medication Intolerance/Inefficacy/Barriers - Current Medications Betimol (start today 02/10/22) Simbrinza (start today 02/10/22) DMX (500 mg IV this AM) HVF - OD: - OS: - OCT RNFL/GCL - OD - OS - B-Scan 02/10/22 1. Dense anterior lens echo Both eyes 2. Mild Vitreous opacities Left eye >Right eye 3. No Retinal detachment / Retinal tear 4. Macula flat 5. Peripapillary thickening Right eye PACG OD Cataract OD -non-verbal patient limited by developmental disability and cerebral palsy -seen at [facility], unable to perform LPI due to cooperation/positioning at slit lamp -IOP responded very nicely to max drops +DMX -recommend phaco but would hold off on performing urgently at this time to allow cornea to recover -calcs done, aim plano, AL 22 -preop Mannitol, Healon 5 -rec CEIOL + goniotomy +/- Ahmed + Dextenza right eye depending on angle anatomy that requires better gonioscopy at time of exam under anesthesia CACG OS Mature Cataract OS -caregivers are unsure of visual potential in this eye but they think patient was primarily using OD -IOP responded very nicely to max drops + DMX -with hyphema, suspect prior NVI -recommend phaco/ahmed simultaneous to above but guarded limited vision potential -calcs done, aim plano -preop Mannitol, Healon 5 Hyphema OS -with neovascularization of the iris -unknown vision potential, no blink to light and apparent afferent pupillary defect -would not operate on for now -may need FINANCE CLERK for comfort, will reassess Cataract Presurgical Documentation Cataract: Right eye (OD) Patient reported symptoms: Associated symptoms Positive for: Eye Redness, eye discharge Current Visual Acuity: Right Eye Distance SC BTL limited by non-verbal Left Eye Distance SC no BTL. limited by non-verbal Glare Testing: Visual Function: Millicent Valiente states that the decline in vision from the cataract impedes the ability to read as well as other activities of daily living. Millicent Valiente has confirmed that she is no longer able to function adequately on a day-to-day basis because of her current visual condition. Further, it is my medical opinion that the cataract is the primary cause, or at least a significantly contributory cause of her visual dysfunction. With uncomplicated cataract surgery and lens implantation, it is my expectation that her visual function and quality of life will improve, significantly. The risks, benefits, alternatives, personnel and complications of cataract surgery with lens implantation were discussed with Millicent Valiente in detail. she appeared to understand and asked that I proceed with plans for surgery. I have confirmed and edited as necessary the relevant ophthalmic history, ROS, and the neuro exam findings as obtained by others. I have seen and examined Millicent Valiente. I have discussed the case and the management of this patient's care with the Resident/Fellow, if applicable. I also have reviewed and agree with the assessment and plan as stated above and agree with all of its relevant components. Anthony Marquez MD documented in this encounter [facility] 02-10-2022 History of Present illness Narrative MARCELINO White (aunt) Tmax 54(acute angle closure), 51(in chronic angle closure) Pachy -, - Past Ocular Surgical/Laser History OD: - OS: - Medication Intolerance/Inefficacy/Barriers - Current Medications Betimol (start today 02/10/22) Simbrinza (start today 02/10/22) DMX (500 mg IV this AM) HVF - OD: - OS: - OCT RNFL/GCL - OD - OS - B-Scan 02/10/22 1. Dense anterior lens echo Both eyes 2. Mild Vitreous opacities Left eye >Right eye 3. No Retinal detachment / Retinal tear 4. Macula flat 5. Peripapillary thickening Right eye PACG OD Cataract OD -non-verbal patient limited by developmental disability and cerebral palsy -seen at [facility], unable to perform LPI due to cooperation/positioning at slit lamp -IOP responded very nicely to max drops +DMX -recommend phaco but would hold off on performing urgently at this time to allow cornea to recover -calcs done, aim plano, AL 22 -preop Mannitol, Healon 5 -rec CEIOL + goniotomy +/- Ahmed + Dextenza right eye depending on angle anatomy that requires better gonioscopy at time of exam under anesthesia CACG OS Mature Cataract OS -caregivers are unsure of visual potential in this eye but they think patient was primarily using OD -IOP responded very nicely to max drops + DMX -with hyphema, suspect prior NVI -recommend phaco/ahmed simultaneous to above but guarded limited vision potential -calcs done, aim plano -preop Mannitol, Healon 5 Hyphema OS -with neovascularization of the iris -unknown vision potential, no blink to light and apparent afferent pupillary defect -would not operate on for now -may need [facility] for comfort, will reassess Cataract Presurgical Documentation Cataract: Right eye (OD) Patient reported symptoms: Current Visual Acuity: Glare Testing: Visual Function: Millicent Valiente states that the decline in vision from the cataract impedes the ability to read as well as other activities of daily living. Millicent Valiente has confirmed that she is no longer able to function adequately on a day-to-day basis because of her current visual condition. Further, it is my medical opinion that the cataract is the primary cause, or at least a significantly contributory cause of her visual dysfunction. With uncomplicated cataract surgery and lens implantation, it is my expectation that her visual function and quality of life will improve, significantly. The risks, benefits, alternatives, personnel and complications of cataract surgery with lens implantation were discussed with Millicent Valiente in detail. she appeared to understand and asked that I proceed with plans for surgery. I have confirmed and edited as necessary the relevant ophthalmic history, ROS, and the neuro exam findings as obtained by others. I have seen and examined Millicent Valiente. I have discussed the case and the management of this patient's care with the Resident/Fellow, if applicable. I also have reviewed and agree with the assessment and plan as stated above and agree with all of its relevant components. Anthony Marquez MD documented in this encounter [facility] 02-10-2022 Instructions Devika Morel MD - 02/10/2022 10:17 AM EDT Images from the original note were not included. February 10, 2022 Medication Eye # times daily Betimol Both 2 Simbrinza Both 2 Diamox (acetazolamide) Oral 250 mg, 3x/day *please remember to wait at least 5 minutes between different drops in the same eye. Cataract surgery with intraocular lens implant, goniotomy, dextenza and possibly glaucoma tube shunt Call Kinga Denise (surgery center administrator): [phone] Dr. Anthony Marquez's office: [phone] if you have any questions. Dextenza is a preservative-free and dissolvable medicine insert that is placed in the tear duct of your eyelid at time of surgery. This medicine pillet will slowly dispense topical steroid onto your eye every time you blink over the span of 1 month after surgery. It will completely dissolve on itself own by the end of the month, and does not require any additional procedure to remove. This reduces the number of eye drops you will need to apply manually after surgery. What is an Ahmed tube-shunt? An Ahmed tube-shunt is a glaucoma drainage device that is surgically implanted to lower the pressure within the eye (intraocular pressure) for the treatment of glaucoma. It consists of a tube attached to a plate (Figure 1), which allows fluid to drain from the inside of the eye. The tube and plate are covered by your own tissues and by a donor tissue. The tube is permanent and successfully lowers the eye pressure in most people who have one. Figure 1. Ahmed Tube-shunt Why is this device implanted? A glaucoma tube-shunt is implanted when glaucoma eye drops and laser treatments have failed to effectively lower the intraocular pressure. The main goal of the implant is to allow fluid to leave the eye so that the intraocular pressure will decrease and, therefore, prevent further vision loss from glaucoma. How is the procedure done? Before the day of surgery You will have a brief physical examination that may include an electrocardiogram (a heart tracing) and blood work. This will be scheduled for you. If you are having cataract surgery at the same time, measurements of your eyes will be taken for calculating the correct power lens implant. Preparing for surgery On the day of surgery you will go to the surgical suite on the first floor of [place] [id number]. You will check in at the desk and the nurses will take you into the pre-op area. The nurse will begin an intravenous (IV) line in one of your veins. Some medication is given through the IV that will make you feel quite relaxed. You will be given both eye drops, local numbing medicine and relaxation medicine through your IV. These medicines will keep you comfortable but awake during the procedure, so you may hear talking among the surgeon and the OR staff. You will be encouraged to let us know if you are feeling anxiety, pain, or any other discomfort so we can work to keep you comfortable. In rare cases, we may put you totally asleep (general anesthesia) if you have claustrophobia or are very nervous about being awake during surgery. Usually, being awake is preferable because it is less stressful for the body than general anesthesia and the recovery is much quicker. Once the eye is numb, the entire area around the eye is carefully cleaned with a special soap. Drapes are placed over your face leaving the operative eye exposed (you won t be able to see much out of that eye due to the numbing medicine). Plenty of oxygen will be flowing underneath the drape and the anesthesiologist will be constantly monitoring the amount of air that you have to breathe, as well as your heart rhythm and blood pressure. If you are on blood thinners, it is generally ok to continue taking these medications, but do let your eye surgeon know. Although blood thinners can raise the risk of bleeding during or after surgery, in general we ask you stay on them to avoid blood clots that could cause you to have a heart attack or stroke. The surgery The operation is done with you lying on your back. We are looking through a microscope that is suspended over your face. The figure below shows a sketch of a tube surgery. We use a special eyelid clip to help you hold your eyelids open. We then make an incision in the conjunctiva, a clear, thin tissue that coats the surface of the white of the eye. Figure 2 A) The tube-shunt is placed under the surface tissue of the eye (conjunctiva). It is sutured into place. B) A patch graft of human sclera or cornea covers the tube. This may be visible as a fleshy or white fullness once the blood clears. The plate is fastened to the sclera, which is the white of the eye (Figure 2A). The tube is inserted in front of the iris, which is the colored part of the eye. A small piece of donor cornea (clear) or sclera (white) is then placed over the tube (Figure 2B). We use this tissue because it is very tough and very well tolerated. The conjunctiva is then put back into place to cover everything. How long is the surgery? The surgery usually takes about 40 to 60 min. When the surgery is completed we will placed some ointment in the eye and may put a patch over the eye. What do I do after surgery? If you have a patch there is nothing for you to do the day of surgery except continue any medications in your other (non-operative) eye. You should leave the patch in place. We want you to maintain a fairly normal level of activity but refrain from bending with your head below your heart, lifting more than 10-15 lbs., or straining. If you tend to be constipated it is good to take a stool softener to keep from straining on the toilet. Most eyes are very comfortable after surgery. Slight scratching from the sutures is common, but these sutures will dissolve. If you have discomfort you should take acetaminophen (Tylenol) and non-steroidal anti-inflammatory (NSAIDS) pain medicines such as ibuprofen or Aleve. What to expect after implant surgery An Ahmed implant has a valve to limit the outflow of fluid from the eye. It can, therefore, avoid the problems of having the eye pressure too low in the eye. The Ahmed often works immediately so your current glaucoma medications would be discontinued right after surgery. As a fibrous capsule forms around its plate, the pressure can rise, typically at about four to six weeks. At that time, additional glaucoma eye drops are usually add to help the tube implant lower the eye pressure. Postoperatively, you normally can't the tube in your eye when looking into the mirror because it is small and clear. We can see it easily during your examination (Figure 4). FIGURE 4. Tube in front of the iris inside the eye You may, however, notice a small white or clear fullness underneath your eyelid after the blood and inflammation have cleared (Figure 5). This is the donor tissue that is overlying your tube. FIGURE 5. Tissue covering tube The day after surgery On the morning after the surgery we will remove your patch, check your vision, check your pressure, and tube implant. You should expect your vision to be somewhat blurry for a while after surgery. We will then begin you on steroid and antibiotic eye drops, listed below. Medications Typically you will be given prednisolone acetate to be used 4 times a day while you are awake. This is a steroid drop that helps to prevent the eye from scarring shut the new drainage bleb that was just created. This will be gradually weaned as the eye heals. It is best to pick this medication up before surgery; the prescription should have been sent to your pharmacy. An antibiotic drop such as ofloxacin, is also used four times a day when you are awake. Typically this drop will be stopped after 7 days. We will give you this medication on the day of surgery. Eye protection The surgery is delicate, so you need to be gentle with the eye for the first few week or two. We want you to keep your eye protected at all times during the first week after surgery. You can wear glasses or sunglasses during the daytime and wear the metal shield that we provide at bedtime. Postoperative concerns We will be seeing you every one to two weeks for the first six weeks after surgery. We are happy to see you between appointments if you feel that sometime may be wrong with your eye. Please call us or send us an email if you feel that you are having a problem. What do the postoperative visits consist of? We measure your vision and eye pressure and make sure the eye is healing appropriately. We will discuss any adjustments in your medications. The eye pressure may be good, too high, or too low right after surgery. Over time we try to coax the healing process to produce a well-controlled eye pressure for you. What if the tube surgery fails? Some patients feel that surgery is the last resort and that, if it fails, they are out of options. This is certainly not true. Other glaucoma surgeries are available that can work even after tube implant fails. Are there any long-term lifestyle adjustments? Most people after a tube shunt lead a life that is no different than it was before the surgery. However, there are a few things for you to be aware of over the ferry terminal agent. First, and most important, people with tube implants should always avoid eye rubbing as it can cause the implant to damage the eye. If you ever get an eye infection or redness, discharge, or pain in the eye, it is important for you to be examined very soon by an eye doctor. Swimming Patients who have tube surgeries should not swim with their eyes open under water. Water in lakes and pools is not especially clean, and if you get an infection in your eye it can be very serious. Contact lenses We discourage people with tube implants from wearing contact lenses, especially soft contact lenses, after tube shunt placement. For people who need contact lenses, rigid gas permeable lenses are an option and should be fitted by an insulation manager with a knowledge of fitting contact lenses in eyes with tube implants. Are there any other complications? The most common problem is eye pressure not as low as we want it to be. Although high eye pressure commonly improves during the healing process, sometimes it can stay high. Much less commonly, the pressure go too low and stay too low. If the pressure stays too high, or if it is low causing blurring of the vision, additional measures will be required to increase the pressure. There is an increased risk of developing a cataract in the eye after surgery if you haven t already had cataract surgery. There is a small risk of damage to the cornea after years of having a tube, but often this can be caught early and repaired. After any eye surgery the eyelid can become droopier, or you may experience double vision. Serious complications are uncommon and consist of bleeding and infection. documented in this encounter [facility] 02-10-2022 Miscellaneous Notes Addended by: SORIN CLARK on: 02/10/2022 07:02 AM Modules accepted: Orders documented in this encounter [facility] Evaluation + Plan note Future Appointments Appointment Date:09/09/2022 02:00:00 PM Scheduled Provider:DIONNE MAYNARD DO Location:[facility] Appointment Type:PC OV Future Scheduled TestsBasic Metabolic Panel 03/11/22Thyroid Stimulating Hormone 03/11/22Thyroid Stimulating Hormone 04/25/21Complete Blood Count 03/11/22Vitamin D Level 03/11/22Vitamin A Level 03/11/22 [facility] Evaluation + Plan note Future Appointments Appointment Date:09/15/2023 02:30:00 PM Scheduled Provider:DIONNE MAYNARD DO Location:[facility] Appointment Type:PC OV Follow Up Future Scheduled TestsBasic Metabolic Panel 03/17/23Thyroid Stimulating Hormone 03/17/23Vitamin D Level 03/17/23Vitamin A Level 03/17/23 [facility] Diagnosis Nuclear sclerotic cataract of both eyes- Primary Senile nuclear sclerosis Total, mature senile cataract Total or mature senile cataract documented in this encounter [facility] note* Diagnosis Nuclear senile cataract of both eyes- Primary Bilateral chronic primary angle-closure glaucoma, indeterminate stage documented in this encounter [facility] note* Diagnosis Pre-operative examination- Primary Preoperative examination, unspecified Cataract, unspecified cataract type, unspecified laterality Bilateral chronic angle-closure glaucoma, indeterminate stage Chronic angle-closure glaucoma Unspecified hypothyroidism Urinary incontinence, unspecified type Atrial fibrillation, unspecified type (HCC) Cerebral palsy, unspecified type (HCC) Anxiety and depression Dysthymic disorder Schizophrenia, unspecified type (HCC) Bilateral chronic primary angle-closure glaucoma, indeterminate stage Nuclear senile cataract of both eyes documented in this encounter [facility] note* Diagnosis Postoperative follow-up- Primary Follow-up examination, following unspecified surgery documented in this encounter [facility] note* Diagnosis Abnormal mammogram- Primary Abnormal mammogram, unspecified long-term (current) use of antithrombotics/antiplatelets documented in this encounter [facility] note* Diagnosis Postoperative follow-up- Primary Follow-up examination, following unspecified surgery documented in this encounter [facility] note* Diagnosis Dermatitis- Primary Contact dermatitis and other eczema, due to unspecified cause Postoperative follow-up Follow-up examination, following unspecified surgery Bilateral chronic primary angle-closure glaucoma, indeterminate stage documented in this encounter [facility] note* Diagnosis Chronic primary angle-closure glaucoma of both eyes, severe stage- Primary documented in this encounter [facility] Narrative No data available for this section [facility] Discharge instructions No data available for this section [facility] Progress note No data available for this section [facility] Advance Directives No Advanced Directives Records FoundDocuments on File Type Date Recorded 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 Advance Directive(s) 02/10/2022 12:51 AM Documents on File Type Date Recorded 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 Advance Directive(s) 02/19/2022 12:02 PM Advance Directive(s) 02/10/2022 12:51 AM Summary Purpose Family History No Family History Records Found Additional Source Comments Source Comments (unrecognize d section and content) In the event this informatio n is protected by the Federal Confidentiality of Alcohol and Drug Abuse Patient Records regulations: The Federal rules restrict any use of the information to criminally investigate or prosecute any alcohol or drug abuse patient.[facility] the event this information is protected by the Federal Confidentiality of Alcohol and Drug Abuse Patient Records regulations: The Federal rules restrict any use of the information to criminally investigate or prosecute any alcohol or drug abuse patient.[facility] the event this information is protected by the Federal Confidentiality of Alcohol and Drug Abuse Patient Records regulations: The Federal rules restrict any use of the information to criminally investigate or prosecute any alcohol or drug abuse patient.[facility] the event this information is protected by the Federal Confidentiality of Alcohol and Drug Abuse Patient Records regulations: The Federal rules restrict any use of the information to criminally investigate or prosecute any alcohol or drug abuse patient.[facility] the event this information is protected by the Federal Confidentiality of Alcohol and Drug Abuse Patient Records regulations: The Federal rules restrict any use of the information to criminally investigate or prosecute any alcohol or drug abuse patient.[facility] the event this information is protected by the Federal Confidentiality of Alcohol and Drug Abuse Patient Records regulations: The Federal rules restrict any use of the information to criminally investigate or prosecute any alcohol or drug abuse patient.[facility] the event this information is protected by the Federal Confidentiality of Alcohol and Drug Abuse Patient Records regulations: The Federal rules restrict any use of the information to criminally investigate or prosecute any alcohol or drug abuse patient.[facility] the event this information is protected by the Federal Confidentiality of Alcohol and Drug Abuse Patient Records regulations: The Federal rules restrict any use of the information to criminally investigate or prosecute any alcohol or drug abuse patient.[facility] the event this information is protected by the Federal Confidentiality of Alcohol and Drug Abuse Patient Records regulations: The Federal rules restrict any use of the information to criminally investigate or prosecute any alcohol or drug abuse patient.[facility] the event this information is protected by the Federal Confidentiality of Alcohol and Drug Abuse Patient Records regulations: The Federal rules restrict any use of the information to criminally investigate or prosecute any alcohol or drug abuse patient.[facility] the event this information is protected by the Federal Confidentiality of Alcohol and Drug Abuse Patient Records regulations: The Federal rules restrict any use of the information to criminally investigate or prosecute any alcohol or drug abuse patient.[facility] the event this information is protected by the Federal Confidentiality of Alcohol and Drug Abuse Patient Records regulations: The Federal rules restrict any use of the information to criminally investigate or prosecute any alcohol or drug abuse patient.[facility] the event this information is protected by the Federal Confidentiality of Alcohol and Drug Abuse Patient Records regulations: The Federal rules restrict any use of the information to criminally investigate or prosecute any alcohol or drug abuse patient.[facility] the event this information is protected by the Federal Confidentiality of Alcohol and Drug Abuse Patient Records regulations: The Federal rules restrict any use of the information to criminally investigate or prosecute any alcohol or drug abuse patient.[facility] Reason for Visit (unrecogniz ed section and content) Reason Comments Glaucoma Evaluation patient coming from ED with elevated IOP Reason Comments 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 Reason Comments Orders Reason Onset Date Comments Refill Request 03/05/2022 Refill Request 03/06/2022 Refill Request 03/10/2022 Reason Comments Post-op (Ophthalmology) Right Eye Reason Onset Date Comments Refill Request 04/07/2022 Reason Comments Consult abnormal mammogram Reason Comments Red Eye Left Eye Reason Comments Follow Up For Surgery Of Eye Reason Comments 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 Care Teams (unrecognized sec tion and content) Refuse Collector Supervisor Relationship Specialty Start Date End Date Dionne Maynard [address] [place] [id number] PCP - General Family Practice 02/19/22 Refuse Collector Supervisor Relationship Specialty Start Date End Date Dionne Maynard [address] [place] [address] PCP - General Family Practice 02/19/22 Refuse Collector Supervisor Relationship Specialty Start Date End Date Dionne Maynard [address] [place] [address] PCP - General Family Practice 02/19/22 Refuse Collector Supervisor Relationship Specialty Start Date End Date Dionne Maynard [facility] [place] [address] PCP - General Family Practice 02/19/22 Refuse Collector Supervisor Relationship Specialty Start Date End Date Dionne Maynard [address] [place] [id number] PCP - General Family Practice 02/19/22 Refuse Collector Supervisor Relationship Specialty Start Date End Date Aleyda, Dionne Fareed [address] [place] [id number] PCP - General Family Practice 02/19/22 Refuse Collector Supervisor Relationship Specialty Start Date End Date Dionne Maynard DO PCP - General Family Medicine 02/19/22 Care Team (unrecognized sect ion and content) Care Team Personnel Name: DIONNE MAYNARD DO Position: P4 Physician - Primary Care Med Service: Active Provider Member Role: Primary Care Physician Address: Address: [address] [place] [address] Care Team Related Persons Name: GABY DELGADILLO Care Team Personnel Name: DIONNE MAYNARD DO Position: P4 Physician - Primary Care Med Service: Active Provider Member Role: Primary Care Physician Address: Address: [address] [place] [address] Care Team Related Persons Name: GABY DELGADILLO INFORMATION SOURCE (unrecogn ized section and content) DATE CREATED AUTHOR AUTHOR'S JOE ATION 10/08/2023 [facility] FOR RECORDS PERTAINING TO PATIENTS WHO ARE OR HAVE BEEN ENROLLED IN A CHEMICAL DEPENDENCY/SUBSTANCEABUSE PROGRAM, SOME INFORMATION MAY BE OMITTED. This clinical summary was aggregated from multiple sources. Caution should be exercised in using it in the provision of clinical care. This summary normalizes information from multiple sources, and as a consequence, information in this document may materially change the coding, format and clinical context of patient data. In addition, data may be omitted in some cases. CLINICAL DECISIONS SHOULD BE BASED ON THE PRIMARY CLINICAL RECORDS. [employer] provides no warranty or guarantee of the accuracy or completeness of information in this document.
--- NOTE | 2023-10-14 21:43 | EX.ED.DYSGE1 ---
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 Chavez. Dr Chavez Saw and evaluated this patient in the office this morning, patient was sent to the ER for a second opinion. ER physician Dr. Lyn took the phone call from Dr. Chavez. Patient caregiver is at bedside, she knows patient very well. Patient caregiver has been with this patient for many years. Patient caregiver stated that they were in the podiatry office today, for reevaluation, patient had a small scab to her right dorsal second toe, PIP joint, it was picked off, and patient is in the office for normal evaluation. Patient right foot looks much better in the ER today than it did this morning in the podiatry office. Patient is nonverbal at baseline. Patient has no fever or chills, nausea, vomiting, no infectious symptoms. A scab was picked off the PIP joint of the right second toe, no signs of infection. Patient caregiver stated they had a x-ray and Dr. Chavez office, the intake coordinator was uncertain if there may be a skin infection or not, No obvious bone infection, the right second toe is curled under itself, so patient was sent to the ER. Caregiver states the redness is significantly improved now than what it was in the podiatry office. Patient normally has red coloration to the dorsal aspect of her feet every morning, and caregiver believes this is what Dr. Chavez was seen in the office and was confused about normal redness versus infection. Patient was waiting in the ER for a lengthy amount of time secondary to other critical patients, patient caregiver very understanding. Patient's right foot looks much better than it did in the office this morning, and caregiver believes the redness to the dorsal aspect of the right foot was a normal redness the patient has every day, but it did look slightly more red on the right foot compared to left in the office today. Patient has no grimace or pain in the caregiver is aware of. No streaking, no other acute complaints. There is minimal redness of the dorsal aspect of bilateral feet at this time. The coloration of the right foot was toxic at 5-10 minutes and discussed with caregiver on the proper action needed in the ER during HPI. PFSH PFSH Medical History Atrial fibrillation with RVR Cataract Cerebral palsy Developmental disability Glaucoma Hypothyroidism Longstanding persistent atrial fibrillation Schizophrenia Home Medications acetaminophen 500 mg tablet 500 - 1,000 mg (1 - 2 x 500 mg) PO Q6H PRN PRN Pain 4 days 10/16/14 [Rx Last Taken Unknown] levothyroxine 88 mcg tablet 88 mcg PO DAILY thyroid 10/16/14 [History Last Taken 08/25/22] lorazepam 0.5 mg tablet 0.5 mg PO TID mood 03/11/18 [History Last Taken 08/25/22] cholecalciferol (vitamin D3) 25 mcg (1,000 unit) capsule 1,000 unit PO QDAY supplement 03/17/18 [History Last Taken 08/25/22] multivitamin (Daily Multi-Vitamin tablet) 1 tab PO QAM supplement 03/17/18 [History Last Taken 08/25/22] polyethylene glycol 3350 8.5 gram oral powder packet 17 g PO QDAY constipation 03/17/18 [History Last Taken 08/24/22] vitamin A 2,400 mcg capsule 8,000 unit PO QDAY supplement 03/17/18 [History Last Taken 08/25/22] alendronate 35 mg tablet 35 mg PO QWEEK bone health 03/05/20 [History Last Taken 08/19/22] risperidone 0.5 mg tablet 0.5 mg PO TID mood 03/05/20 [History Last Taken 08/24/22] fluvoxamine 50 mg tablet 50 mg PO TID mood 04/11/21 [History Last Taken 08/25/22] triamcinolone acetonide 0.025 % topical cream 1 applic topical BID PRN 12/30/22 [History Last Taken Unknown] metoprolol succinate 25 mg tablet,extended release 24 hr 12.5 mg (1/2 x 25 mg) PO DAILY #30 tabs 01/11/23 [Rx Last Taken Unknown] apixaban 5 mg tablet 5 mg PO BID a fib #60 tabs 09/06/23 [Rx Last Taken Unknown] cephalexin 500 mg capsule 500 mg PO 3XD 7 days #14 CAPSULES 10/13/23 [Rx Last Taken Unknown] mupirocin 2 % topical ointment 1 applic topical TID 14 days #1 tube 10/13/23 [Rx Last Taken Unknown] Allergy/AdvReac Type Severity Reaction Status Date / Time Penicillins Allergy Unknown Verified 10/13/23 11:19 Sulfa (Sulfonamide Allergy Unknown Verified 10/13/23 11:19 Antibiotics) Family History Father Cancer Mother Heart disease Surgical History History of Achilles tendon repair History of cataract surgery (02/2022) Social History household members: other details: [employer]. Smoking Status: Never smoker alcohol intake: never substance use type: does not use what type of physical activity do you participate in: other details: senior chair exercises ROS ROS ED ROS Narrative Limited review of systems, review of systems obtained from caregiver at bedside. See HPI for pertinent positives. EXAM Physical Exam Narrative Exam Narrative: vital signs reviewed and patient is not hypoxic. General: The patient appears well and in no apparent distress. Patient is resting comfortably on cart. Not toxic, lethargic, or listless. Patient is nonverbal at baseline. Caregiver does the talking for the patient, she is smiling, looks very pleasant. Skin: Warm, dry, no pallor noted. There is no rash noted. Patient has a minimal redness/pinkish color to the dorsal aspect of the right foot compared to left foot. Patient caregiver at bedside states this is significantly improved compared to this morning. No red streaking, no other acute signs of infection. No infection noted to the right second toe. Head: Normocephalic, atraumatic Eye: Normal conjunctiva, no drainage, EOMI. PERRL. Ears, Nose, Mouth, and Throat: oral mucosa is moist. Poor dentition, this is baseline, no other intraoral pathology that is new. Cardiovascular: Regular Rate and Rhythm, no murmurs, gallops, or rubs Respiratory: Patient is in no distress, no accessory muscle use, lungs are clear to auscultation, no wheezing, rales or rhonchi Musculoskeletal: The patient has full range of motion of all extremities and joints with no difficulty Patient has full range of motion of all right 5 toes, especially right second toe with passive range of motion with no grimace noted the patient's face, she smiled throughout the entire exam. No crepitus to the right foot dorsal or plantar aspect. There is approximately Irregular 3 cm area of very faint redness/pinkish coloration, very similar to left foot, skin marker was made to dhara the borders.Patient has no motor, no sensory deficits. Neurological: A&O, At baseline, patient is nonverbal, no new neurological deficits. Psychiatric: Cooperative MDM MDM MDM Narrative Medical decision making narrative: Last time was spent during exam and treatment plan and options. There is no acute indication for CT of the right foot, education in performing bone scan or MRI of the right foot to rule out osteal mellitus was discussed with caregiver as well. Patient has already had a x-ray and podiatry office that showed no obvious acute findings. The redness has significant improved to the dorsal aspect of the right foot per caregiver compared to this morning and podiatry office. Patient most likely does not need any type of antibiotics at this time, however with patient's presentation to podiatry office, patient being sent to the ER for second opinion/reevaluation, patient will be placed on Keflex and Bactroban prophylactically to air on the side of caution. Patient caregiver agrees to this. There is no acute indication for admission. No acute indication for lab tests or imaging at this time. Patient will follow up with podiatry next week for reevaluation. Discharge Plan Triage Chief Complaint: Wound ED Provider: Aiden Anderson Dx/Rx/DC Orders Clinical Impression: Cellulitis of right foot Instructions: Cellulitis Dc Prescriptions: New cephalexin [cephalexin] 500 mg capsule 500 mg PO 3XD 7 Days Qty: 14 0RF mupirocin [mupirocin] 2 % ointment 1 applic topical TID 14 Days Qty: 1 0RF No Action multivitamin [Daily Multi-Vitamin] tablet 1 tab PO QAM polyethylene glycol 3350 8.5 gram oral powder packet 8.5 gram powder in packet 17 g PO QDAY vitamin A 8,000 unit capsule 8,000 unit PO QDAY cholecalciferol (vitamin D3) 1,000 unit capsule 1,000 unit PO QDAY lorazepam 0.5 mg tablet 0.5 mg PO TID risperidone 0.5 mg tablet 0.5 mg PO TID alendronate 35 mg tablet 35 mg PO QWEEK triamcinolone acetonide 0.025 % cream 1 applic topical BID PRN levothyroxine 88 MCG tablet 88 mcg PO DAILY acetaminophen 500 MG tablet 500 - 1,000 mg PO Q6H PRN PRN (Reason: Pain) 4 Days 0RF Rx Instructions: fluvoxamine 50 mg tablet 50 mg PO TID metoprolol succinate 25 mg tablet extended release 24 hr 12.5 mg PO DAILY Qty: 30 11RF apixaban 5 mg tablet 5 mg PO BID Qty: 60 11RF Primary Care Provider: Richard Maynard Referrals: Aiden Chavez DPM [Med Staff - Active Staff] - Richard Maynard DO [Primary Care Provider] - Activity Restrictions/Additional Instructions: If the redness is 2 finger widths outside the line that we jolly on patient's foot, return to ER for further testing. Take antibiotic pill and use the ointment. Finish all of the antibiotic pills, use the ointment for the next 2 weeks if redness persists. Follow-up with Dr. Chavez if any other acute concerns. THank you for your time and patience today. Disposition Disposition: Home, Self Care Discharge Date/Time: 10/13/23 14:43 Capacity Legal Process Supervisor Reflex Medical hold order details:: IF a medical hold is selected below, a suggested order for a MEDICAL HOLD will reflex upon signing the document. Next of kin: [place] law dictates a PRIORITY LIST for identifying legal decision-maker/legal next of kin in the following order (LNOK): 1st: The patient?s legal guardian, if any 2nd: The patient's spouse (if status is questionable, consult Risk Management) 3rd: The patient?s adult child(vikas) (majority, if multiple children) 4th: The patient?s parents 5th: The patient?s adult siblings (majority, if multiple children siblings)
== END 2023-10-13 14:43 | disposition home or self-care (01) ==
PROVIDERS: Emergency Provider Emergency Medicine; PCP Preventive Medicine Occupational Medicine; Visit Provider Emergency Medicine
DX: L03.115 Cellulitis of right lower limb (principal); F20.9 Schizophrenia, unspecified; I48.19 Other persistent atrial fibrillation; E03.9 Hypothyroidism, unspecified; Z79.899 Other long term (current) drug therapy; Z79.01 Long term (current) use of anticoagulants
CPT/HCPCS: 99282

== ENCOUNTER 2023-11-20 11:40 | Emergency (ER) | payer MEDICARE, OTHER, MEDICAID, SELFPAY ==
[2023-11-20 11:40] VITALS: BP 92/60; PULSE 102; RESP 16; TEMP 36.9; O2SAT 100
--- NOTE | 2023-11-20 11:54 | RAD_ITS ---
HISTORY: Pain. TECHNIQUE: XR Femur Min 2 Views. COMPARISON: None. FINDINGS: BONES : No acute fracture identified. Greater trochanter osteophyte noted. JOINTS: No dislocation. Degenerative change of the hip in the. RAD/Femur Min 2 Views IMPRESSION: No acute fracture or dislocation identified in the right femur. Electronically Signed: Valarie Rowell MD at 12:46 EST ,
--- NOTE | 2023-11-20 11:54 | RAD_ITS ---
HISTORY: Pain. TECHNIQUE: XR Tibia/Fibula 2 Views. COMPARISON: None. FINDINGS: BONES : No acute fracture identified. Mild osteopenia. Fixation hardware in the hindfoot with subtalar fusion. JOINTS: No dislocation. Mild degenerative change. RAD/Tibia & Fibula 2 Views IMPRESSION: No acute fracture or dislocation identified in the right leg. Electronically Signed: Valarie Rowell MD at 12:48 EST ,
--- NOTE | 2023-11-20 11:54 | RAD_ITS ---
HISTORY: Pain. TECHNIQUE: XR Foot Min 3 Views. COMPARISON: None. FINDINGS: BONES : No acute fracture identified. Generalized osteopenia. JOINTS: No dislocation. Calcaneal cuboid fusion hardware with subtalar and calcaneal cuboid fusion. Degenerative change. Chronic medial deviation of the first distal phalanx and flexion of the second through fifth toes. Chronic pes cavus. SOFT TISSUES: Soft tissue swelling of the ankle and hindfoot. RAD/Foot min 3 Views IMPRESSION: Soft tissue swelling of the right foot. No acute osseous abnormality identified. Electronically Signed: Valarie Rowell MD at 12:49 EST ,
--- NOTE | 2023-11-20 11:55 | ED.VIS.LOWEX ---
HPI History of Present Illness Chief Complaint: Lower Extremity Injury Narrative Narrative: 68-year-old female past medical history of developmental delay, presents with her caregiver because of right leg pain. Her history and physical is limited secondary to her chronic condition. She does have history of bilateral hip fractures with reported right hip replacement. Care worker states that patient has been refusing to bear weight on her right leg for the past 4 days. It started Wednesday evening. She does tend to walk on her toes a little bit, but they think that she is having pain when she tries to get up and transfer to her chair. She has had previous toes that were infected on her right, but is not having any fever or drainage currently. They present her for evaluation of reported pain in her right leg. No recent reported trauma or falls. [facility] Medical History Atrial fibrillation with RVR Cataract Cerebral palsy Developmental disability Glaucoma Hypothyroidism Longstanding persistent atrial fibrillation Schizophrenia Home Medications acetaminophen 500 mg tablet 500 - 1,000 mg (1 - 2 x 500 mg) PO Q6H PRN PRN Pain 4 days 10/16/14 [Rx Last Taken Unknown] levothyroxine 88 mcg tablet 88 mcg PO .mon- sat thyroid 10/16/14 [History Last Taken 08/25/22] lorazepam 0.5 mg tablet 0.5 mg PO Q12H mood 03/11/18 [History Last Taken 08/25/22] cholecalciferol (vitamin D3) 25 mcg (1,000 unit) capsule 1,000 unit PO QDAY supplement 03/17/18 [History Last Taken 08/25/22] multivitamin (Daily Multi-Vitamin tablet) 1 tab PO QAM supplement 03/17/18 [History Last Taken 08/25/22] polyethylene glycol 3350 8.5 gram oral powder packet 17 g PO QDAY constipation 03/17/18 [History Last Taken 08/24/22] vitamin A 2,400 mcg capsule 8,000 unit PO QDAY supplement 03/17/18 [History Last Taken 08/25/22] alendronate 35 mg tablet 35 mg PO QWEEK bone health 03/05/20 [History Last Taken 08/19/22] risperidone 0.5 mg tablet 0.5 mg PO TID mood 03/05/20 [History Last Taken 08/24/22] fluvoxamine 50 mg tablet 50 mg PO TID mood 04/11/21 [History Last Taken 08/25/22] triamcinolone acetonide 0.025 % topical cream 1 applic topical BID PRN exzema 12/30/22 [History Last Taken Unknown] metoprolol succinate 25 mg tablet,extended release 24 hr 12.5 mg (1/2 x 25 mg) PO DAILY #30 tabs 01/11/23 [Rx Last Taken Unknown] apixaban 5 mg tablet 5 mg PO BID a fib #60 tabs 09/06/23 [Rx Last Taken Unknown] carbamide peroxide 6.5 % ear drops (Debrox) 4 drp EACH EAR .Q24hr 11/20/23 [History Last Taken Unknown] Allergy/AdvReac Type Severity Reaction Status Date / Time Penicillins Allergy Unknown Verified 11/20/23 11:40 Sulfa (Sulfonamide Allergy Unknown Verified 11/20/23 11:40 Antibiotics) Family History Father Cancer Mother Heart disease Surgical History History of Achilles tendon repair History of cataract surgery (02/2022) Social History household members: other details: [facility]. Smoking Status: Never smoker alcohol intake: never substance use type: does not use what type of physical activity do you participate in: other details: senior chair exercises ROS ROS ED ROS Narrative Limited secondary to patient's developmental delay/disability. Obtained through caregiver. Constitutional: No fever, no chills. Musculoskeletal: Right leg pain, refusal to bear weight on right leg. EXAM Physical Exam Narrative Exam Narrative: Afebrile. Vital signs noted. HEENT: Atraumatic. PERRL, EOMI. Neck soft and supple. No point tenderness or step off. Cardiovascular: Regular rate and rhythm with intermittent tachycardia no murmurs, rubs, or gallops appreciated. Respiratory: No tachypnea. Lungs clear to auscultation bilaterally. Gastrointestinal: Abdomen soft, nontender, with normoactive bowel sounds. No rebound or guarding. Neurological: Awake. Alert. Nonverbal at baseline. Skin: No rash. Normal color. No pallor. Musculoskeletal: No pedal edema. Positive contractures of bilateral feet. Const Vital Signs: 11/20/23 11:40 Temperature 98.4 F Temperature Source Temporal Pulse Rate 102 H Respiratory Rate 16 Blood Pressure 92/60 Blood Pressure Mean 70 Pulse Ox 100 Oxygen Delivery Method Room Air MDM MDM MDM Narrative Medical decision making narrative: Concern is for occult fracture versus contusion of foot as she tends to walk on her toes. X-rays were obtained of the right lower extremity including femur, tibia and fibula, and foot. I offered Tylenol for the patient, but caregiver refused. She states its only when the patient tries to bear weight that she is refusing. X-rays obtained were interpreted by myself independently, I see no evidence of fracture or dislocation in 2 views of the right femur. I also see no evidence of fracture in 2 views of the right tibia/fibula. 3 views of the x-rays show some soft tissue swelling that I think is more consistent with contusion but no evidence of an acute fracture. I reviewed the radiology reports which confirmed my independent interpretations. At this point in time, caregiver was reassured. She will be given Tylenol as needed and can be weightbearing as tolerated. I do not feel that she requires observation. Return instructions reviewed. Disposition is discharged home in stable condition. Radiography Diagnostic Testing: Clinical Impression(s) from Imaging Studies Femur X-Ray 11/20/23 11:54 IMPRESSION: No acute fracture or dislocation identified in the right femur. Electronically Signed: Valarie Rowell MD at 12:46 EST , Foot X-Ray 11/20/23 11:54 IMPRESSION: Soft tissue swelling of the right foot. No acute osseous abnormality identified. Electronically Signed: Valarie Rowell MD at 12:49 EST , Tibia/Fibula X-Ray 11/20/23 11:54 IMPRESSION: No acute fracture or dislocation identified in the right leg. Electronically Signed: Valarie Rowell MD at 12:48 EST , Discharge Plan Triage Chief Complaint: Lower Extremity Injury ED Provider: Pelon Daly Dx/Rx/DC Orders Clinical Impression: Foot swelling, Pain of right leg Instructions: ED Foot Contusion, ED Pain, Acute, Uncertain Cause Prescriptions: No Action multivitamin [Daily Multi-Vitamin] tablet 1 tab PO QAM polyethylene glycol 3350 8.5 gram oral powder packet 8.5 gram powder in packet 17 g PO QDAY vitamin A 8,000 unit capsule 8,000 unit PO QDAY cholecalciferol (vitamin D3) 1,000 unit capsule 1,000 unit PO QDAY lorazepam 0.5 mg tablet 0.5 mg PO Q12H risperidone 0.5 mg tablet 0.5 mg PO TID alendronate 35 mg tablet 35 mg PO QWEEK triamcinolone acetonide 0.025 % cream 1 applic topical BID PRN (Reason: exzema) levothyroxine 88 MCG tablet 88 mcg PO .mon- sat acetaminophen 500 MG tablet 500 - 1,000 mg PO Q6H PRN PRN (Reason: Pain) 4 Days 0RF Rx Instructions: fluvoxamine 50 mg tablet 50 mg PO TID Debrox 6.5 % drops 4 drp EACH EAR .Q24hr Rx Instructions: 4 drps into Each EAR; metoprolol succinate 25 mg tablet extended release 24 hr 12.5 mg PO DAILY Qty: 30 11RF apixaban 5 mg tablet 5 mg PO BID Qty: 60 11RF Primary Care Provider: Richard Maynard Referrals: Richard Maynard DO [Primary Care Provider] - As soon as possible Activity Restrictions/Additional Instructions: Tylenol as needed for pain. X-rays of the right leg were negative for fracture or dislocation today. Weightbearing as tolerated. Disposition Disposition: Home, Self Care
--- OUTSIDE RECORDS SUMMARY | 2023-11-20 12:47 | XMS RPT_ITS | CCD ---
Author Name Unknown Address [address] [facility] [address] [place] [address] Organization [facility] Care Team Providers Care Magnetic Prospecting Supervisor Name Role Phone Eri SNYDER, Marjorie Green Unavailable Unavailable Kendell Jefferson Unavailable Unavailable Callie Medina CMA K Unavailable Unavailable Coni Jc Y Unavailable Eri SNYDER, Marjorie Green Unavailable Unavailable Marjorie Hwang RN Unavailable Unavailable Unavailable Primary Care Provider Unavailabl e Dionne Maynard Primary Care Provider DIONNE MAYNARD DO Primary Care Physician Dionne Maynard Primary Care Provider Dionne Maynard DO Primary Care Provider ANTHONY MARQUEZ Attending Unavailable ANTHONY MARQUEZ Referring Unavailable DIONNE MAYNARD Primary Care Unavailable ANTHONY MARQUEZ Attending Unavailable DIONNE MAYNARD Primary Care Unavailable DIONNE MAYNARD DO Primary Care Unavailable DIONNE MAYNARD DO Attending Unavailable DIONNE MAYNARD DO Attending Unavailable DIONNE MAYNARD DO Primary Care Unavailable Allergies Allergy Classification Reported Allergen(s) Allergy Type Date of Onset Reaction(s) Facility (6 sources) penicillin g drug allergy 7 [facility] Work Phone: (6 sources) Sulfonamides (Antibiotic) drug allergy 7 [facility] Work Phone: (13 sources) Penicillins; Translations: [penicillins] Propensity to adverse reactions 5 Unknown [facility] Work Phone: (18 sources) Sulfonamides (Antibiotic); Translations: [sulfa drugs] Propensity to adverse reactions 5 Unknown [facility] Work Phone: (6 sources) Penicillins Propensity to adverse reactions 5 [facility] Work Phone: (1 source) Sulfonamide; Translations: [sulfa drugs] Drug allergy Unknown [facility] Medications Current Medications Medication Drug Class(es) Dates [...] urinary incontinence] Onset: 05-27-2010 05-27-2010 Chronic Glaucoma (20 sources) Acute angle-closure glaucoma of right eye; Translations: [Acute angle-closure glaucoma, right eye] Onset: 02-18-2022 Chronic Inflammation; infection of eye (except that caused by tuberculosis or sexually transmitteddisease) (4 sources) Bilateral chronic conjunctivitis of eyes 09-04-2020 Chronic Inflammation; infection of eye (except that caused by tuberculosis or sexually transmitteddisease) (4 sources) Eczematous dermatitis of eyelid 03-04-2020 Episodic Nutritional deficiencies (4 sources) Vitamin D deficiency 09-01-2019 Chronic Nutritional deficiencies (4 sources) Vitamin A deficiency 09-01-2019 Episodic Other aftercare (3 sources) Surgical follow-up; Translations: [Encounter for follow-up examination after completed treatment for conditions other than malignant neoplasm] Episodic Other aftercare (1 source) Patient encounter status; Translations: [snf (current) use of antithrombotics/anti platelets] Episodic Other bone disease and musculoskeletal deformities (4 sources) Osteopenia 03-11-2022 Episodic Other inflammatory condition of skin (4 sources) Psoriasis 09-01-2019 Chronic Other injuries and conditions due to external causes (2 sources) H/O: hip fracture 09-09-2022 Episodic Other screening for suspected conditions (not mental disorders or infectious disease) (3 sources) Mammography abnormal; Translations: [Other abnormal and inconclusive findings on diagnostic imaging of breast] Episodic Other upper respiratory disease (4 sources) Seasonal allergy 02-05-2022 Chronic Paralysis (12 sources) Cerebral palsy; Translations: [Cerebral palsy, unspecified] Onset: 02-18-2022 Chronic Schizophrenia and other psychotic disorders (16 sources) Schizophrenia; Translations: [Schizophrenia, unspecified] Onset: 02-18-2022 Chronic Thyroid disorders (20 sources) Hypothyroidism; Translations: [Hypothyroidism, unspecified] 03-16-2017 Chronic Unclassified (4 sources) Intellectual disability 08-29-2019 Unclassified (4 sources) Patient encounter status 03-11-2022 Unclassified (2 sources) History of repair of hip joint 09-01-2022 [...] 04-29-2022 15:19-0400 Body height 162.6 cm Brinda Garcai MD Work Phone: [facility] 04-29-2022 15:19-0400 Body temperature 97.7 [degF] Brinda Garcia MD Work Phone: [facility] 04-29-2022 15:19-0400 Body weight 48.44 kg Brinda Garcia MD Work Phone: [facility] 04-29-2022 15:19-0400 Diastolic blood pressure 68 mm[Hg] Brinda Garcia MD Work Phone: [facility] 04-29-2022 15:19-0400 Heart rate 95 /min Brinda Garcia MD Work Phone: [facility] 04-29-2022 15:19-0400 SaO2% (BldA) [Mass fraction] 97 % Brinda Garcia MD Work Phone: [facility] 04-29-2022 15:19-0400 Systolic blood pressure 100 mm[Hg] Brinda Garcia MD Work Phone: [facility] 02-18-2022 13:33-0400 Body temperature 97.81 [degF] Pacc 1 Work Phone: [facility] 02-18-2022 13:33-0400 Body weight 47.17 kg Pacc 1 Work Phone: [facility] 02-18-2022 13:33-0400 Diastolic blood pressure 54 mm[Hg] Pacc 1 Work Phone: [facility] 02-18-2022 13:33-0400 Heart rate 77 /min Pacc 1 Work Phone: [facility] 02-18-2022 13:33-0400 Respiratory rate 14 /min Pacc 1 Work Phone: [facility] 02-18-2022 13:33-0400 SaO2% (BldA) [Mass fraction] 100 % Pacc 1 Work Phone: [facility] 02-18-2022 13:33-0400 Systolic blood pressure 84 mm[Hg] Pacc 1 Work Phone: [facility] 03-17-2017 15:03-0400 BMI (Body Mass Index) 23 kg/m2 Coni Jc [facility] Work Phone: 03-17-2017 15:03-0400 BP [...] Date Encounter Type Care Provider Facility Start: 10-12-2023 End: 10-13-2023 ambulatory DIONNE MAYNARD DO Facility:B Start: 10-12-2023 End: 10-12-2023 Patient encounter procedure DIONNE MAYNARD DO [facility] Start: 10-06-2023 End: 10-06-2023 ambulatory ANTHONY MARQUEZ Facility:[facility] Start: 04-14-2023 End: 04-15-2023 ambulatory DIONNE MAYNARD DO Facility:[facility] Start: 04-14-2023 End: 04-14-2023 Patient encounter procedure DIONNE MAYNARD DO [facility] Start: 04-02-2023 End: 04-02-2023 ambulatory ANTHONY MARQUEZ Facility:[facility] Start: 04-02-2023 End: 04-02-2023 Patient encounter [...] Author Start: 05-28-2023 Influenza vaccination INFLUENZA (#1) [facility] Start: 09-27-2022 ADVANCE DIRECTIVE DISCUSSION ADVANCE DIRECTIVE DISCUSSION [facility] Start: 2022 BONE DENSITY BONE DENSITY [facility] Start: 2022 PNEUMOCOCCAL: 65+ (1 - PCV) PNEUMOCOCCAL: 65+ (1 - PCV) [facility] Start: 05-28-2022 Influenza vaccination [facility] Start: 01-21-2022 COVID-19 VACCINE (4 - Booster for Moderna series) COVID-19 VACCINE (4 - Booster for Moderna series) [facility] Start: 11-17-2021 COVID-19 VACCINE (4 - Booster for Moderna series) COVID-19 VACCINE (4 - Booster for Moderna series) [facility] Start: 03-17-2018 End: 03-17-2018 Appointment Appointment [facility] Work Phone: Start: 03-17-2017 End: 03-17-2017 Appointment Appointment [facility] Work Phone: Start: 03-17-2017 End: 03-17-2017 Echocardiography Echocardiogram (complete) [facility] Work Phone: Start: 03-17-2017 End: 03-17-2017 Follow Up Appt 1 year Follow Up Appt 1 year [facility] Work Phone: Start: 03-17-2017 End: 03-17-2017 MMM MMM [facility] Work Phone: Start: 2007 SHINGRIX VACCINE (1 of 2) SHINGRIX VACCINE (1 of 2) [facility] Start: 2002 COLOGUARD (FIT-DNA) COLOGUARD (FIT-DNA) [facility] Start: 2002 Colonoscopy COLONOSCOPY [facility] Start: 2002 COLORECTAL CANCER SCREENING COLORECTAL CANCER SCREENING [facility] Start: [address] COLONOGRAPHY [facility] Start: 2002 DIABETES SCREEN DIABETES SCREEN [facility] Start: 2002 FECAL OCCULT BLOOD FECAL OCCULT BLOOD [facility] Start: 2002 LIPID SCREEN LIPID SCREEN [facility] Start: 2002 SIGMOIDOSCOPY SIGMOIDOSCOPY [facility] Start: 1997 Mammography MAMMOGRAM [facility] Start: 1987 HPV TESTING HPV TESTING [facility] Start: 1978 PAP TESTING PAP TESTING [facility] Start: 1976 Urine microalbumin profile DTAP,TDAP,TD (1 - Tdap) [facility] Start: 1975 ANNUAL PCP TEAM CHRONIC DISEASE VISIT ANNUAL PCP TEAM CHRONIC DISEASE VISIT [facility] Start: 1975 HEPATITIS C SCREENING HEPATITIS C SCREENING [facility] Start: 1975 HIV SCREENING HIV SCREENING [facility] Start: 1969 Adult depression screening assessment DEPRESSION SCREENING [facility] Immunizations Immunization Date Immunization Notes Care Provider Fa cili 09-15-2023 influenza, high dose seasonal, preservative-free; Translations: [Fluad Quadrivalent PF ] DIONNE MAYNARD DO [facility] [place] 09-22-2021 SARS-CoV-2 (COVID-19 ) [id number] vaccine DIONNE MAYNARD DO [facility] [place] 12-04-2020 SARS-CoV-2 (COVID-19 ) [id number] vaccine DIONNE MAYNARD DO [facility] Payers Date Payer Category Payer Unknown FOR LIFE [id number] 2020-Present [phone] [address] [place] [address] Indemnity [id number] 2019 Unknown FOR LIFE [id number] 2019-Present [phone] [address] [place] [address] Indemnity [id number] 2018 Medicaid MEDICAID [facility] MEDICAID [id number] 2018-Present [phone] [address] [place] [address] Medicaid [id number] 2018 Medicaid MEDICAID [facility] MEDICAID [id number] 2018-Present [phone] [address] [place] [address] Medicaid [id number] 2018 Medicaid [id number] 2017 [employer] [employer] ( and others) [id number] 1977 Medicare MEDICARE MEDICAR E A AND B [id number] 1977-Present [phone] [place] [address] Medicare [id number] 1977 Medicare MEDICARE MEDICAR E A AND B [id number] 1977-Present [phone] [place] [address] Medicare [id number] 1977 Medicare [id number] 1955 Unknown [id number] 1955 Unknown [id number] Social History Date Type Detail Facility Start: 08-16-2018 End: 08-29-2019 Tobacco smoking status NHIS Never smoked tobacco [facility] Work Phone: Start: 02-10-2022 End: 04-02-2023 Alcohol intake Current non-drinker of alcohol (finding) [facility] Start: 1955 Sex Assigned At Not on file [facility] Start: 01-30-2022 End: 05-25-2022 Exposure to SARS-CoV-2 (event) Not sure [facility] Sex Assigned At Female [facility] Start: 08-16-2018 Tobacco use and exposure Smokeless tobacco non-user [facility] Medical Equipment Procedure Code Equipment Code Equipment Origin al Text Equipment Identifier Dates Lens Iol 0d +27 Belén Uv Abs - [id number] Start: 03-06-2022 Clinical Notes 02-10-2022 to 10-06-2023 Patient InstructionsAnthony Marquez MD - 04/02/2023 2:39 PM EDTPatient Kaci Marquez MD - 05/25/2022 11:39 AM EDTPatient Kaci Marquez MD - 05/04/2022 11:31 AM EDTPatient InstructionsLaboratory Note Date & Type Note Facility 10-06-2023 Note HNO ID: [id number] Author: ANTHONY MARQUEZ MD Service: ? Author [...] developmental disability and cerebral palsy -seen at [facility], unable to perform LPI due to [...] by others. I have seen and examined Millicenteb Valiente. I have discussed the case and the management of this patient's care with the Resident/Fellow, if applicable. I also have reviewed and agree with the assessment and plan as stated above and agree with all of its relevant components. Anthony Marquez MD [facility] 04-02-2023 Note HNO ID: [id number] Author: Anthony Marquez MD Service: ? Author [...] developmental disability and cerebral palsy -seen at [facility], unable to perform LPI due to [...] of its relevant components. Anthony Marquez MD [facility] 04-02-2023 Instructions Anthony Marquez MD - 04/02/2023 2:41 PM EDT You will be dilated on your next visit. This will likely make your vision blurry for several hours, and you should strongly consider bringing a warehouse delivery driver. documented in this encounter [facility] 04-02-2023 History of Present illness Narrative POA Jocy [...] developmental disability and cerebral palsy -seen at [facility], unable to perform LPI due to [...] Anthony Marquez MD documented in this encounter [facility] 05-25-2022 Instructions Anthony Marquez MD - 05/25/2022 11:51 AM EDT You will be dilated on your next visit. This will likely make your vision blurry for several hours, and you should strongly consider bringing a warehouse delivery driver. documented in this encounter [facility] 05-25-2022 History of Present illness Narrative POA [...] developmental disability and cerebral palsy -seen at [facility], unable to perform LPI due to [...] Anthony Marquez MD documented in this encounter [facility] 05-04-2022 Instructions Anthony Marquez MD - 05/04/2022 11:39 AM EDT Medication Eye # times daily Simbrinza (light green cap) STOP 2x daily Prednisolone (pink or white cap) LEFT 2x daily *please remember to wait at least 3 minutes between different drops in the same eye. documented in this encounter [facility] 05-04-2022 History of Present illness Narrative MARCELINO [...] developmental disability and cerebral palsy -seen at [facility], unable to perform LPI due to [...] Anthony Marquez MD documented in this encounter [facility] 04-30-2022 History of Present illness Narrative HISTORY [...] her POA - her aunt, and a putty tinter maker. Her sister had breast cancer. Her aunt had breast cancer. No ovarian cancer known in family. She has had no previous breast surgeries. She has had previous examinations with no findings of breast masses or nipple discharge. She will need to hold eliquis for three days prior to procedure. She is on Eliquis for chronic atrial fibrillation. Her putty tinter maker states that a recent ECHO was OK . She did not bring any films to review - from [facility] Her gynecological history as follows: [...] entered by the nurse and reviewed by id Nursing Notes: Monica Grayson RN 04/29/2022 3:22 [...] (R92.8) Abnormal mammogram (primary encounter diagnosis) (Z79.02) snf (current) use of antithrombotics/antiplatelets Return to Clinic: The patient will be scheduled for left stereotactic breast biopsy at [facility]. Medical Decision Making: Problems: Moderate: New problem with uncertain prognosis Data: Unique test result(s) reviewed: 1 Risk: Low: Low risk from testing/treatment Medical Decision Making Level: 3 - Low Brinda Garcia MD documented in this encounter [facility] 04-29-2022 Nurse Note REVIEW OF SYSTEMS: General: [...] Monica Grayson RN documented in this encounter [facility] 04-17-2022 Note ORIGINAL FROM: [address]ARU[address] [place], [place] [address] PROCEDURE FOR: MILLICENT VALIENTE [address] [place] [address] Home: PID#: [id number] Exam#: [id number] : 1955 Age: 66 TO: DIONNE MAYNARD DO [address] [facility] [address] [place], [place] [address] Fax: NO FAX EXAMINATION: DIAGNOSTIC DIGITAL LEFT [...] to the patient regarding the results. A pharmacy services representative from the radiology department will be contacting your office and assisting the patient in getting appropriate follow-up. Interpreted by: Sandeep Larson MD Preliminary Report By: Sandeep Larson MD Electronically signed By Sandeep Larson MD Dictated Date: 04/17/2022 3:24:02 PM Prelim Date: 04/17/2022 3:36:15 PM Sign Date: 04/17/2022 3:36:15 PM Ordering Provider: DIONNE MAYNARD Hardware Engineering Manager: HALINA Hall)(M) letter sent: Biopsy Recommended BI-RADS 4 and 5 Mammogram BI-RADS: 4 Suspicious for malignancy [facility] 04-17-2022 Note ORIGINAL FROM: [address], [place] [address] PROCEDURE FOR: MILLICENT VALIENTE [address] [place] [address] Home: PID#: [id number] Exam#: [id number] : 1955 Age: 66 TO: DIONNE MAYNARD DO [address] [facility] [address] [place], [place] [address] Fax: NO FAX EXAMINATION: DIAGNOSTIC DIGITAL LEFT [...] to the patient regarding the results. A pharmacy services representative from the radiology department will be contacting your office and assisting the patient in getting appropriate follow-up. Interpreted by: Sandeep Larson MD Preliminary Report By: Sandeep Larson MD Electronically signed By Sandeep Larson MD Dictated Date: 04/17/2022 3:24:02 PM Prelim Date: 04/17/2022 3:36:15 PM Sign Date: 04/17/2022 3:36:15 PM Ordering Provider: DIONNE MAYNARD Hardware Engineering Manager: HALINA ACOSTA RT (R)(M) letter sent: Biopsy Recommended BI-RADS 4 and 5 Mammogram BI-RADS: 4 Suspicious for malignancy [facility] 04-13-2022 Note ORIGINAL EXAMINATION: BONE DENSITOMETRY04/13/2022 2:25 [...] Sign Date: 04/13/2022 2:49:55 PM Ordering Provider: DIONNE MAYNARD [facility] 04-13-2022 Note ORIGINAL EXAMINATION: BONE DENSITOMETRY04/13/2022 2:25 [...] Sign Date: 04/13/2022 2:49:55 PM Ordering Provider: DIONNE ALEYDA [facility] 04-07-2022 Miscellaneous Notes original script was wrong eye should be left eye twice daily documented in this encounter [facility] 04-07-2022 History of Present illness Narrative MARCELINO White [...] developmental disability and cerebral palsy -seen at [facility], unable to perform LPI due to [...] not operate on for now -may need CASH MANAGEMENT SPECIALIST for comfort, will reassess I have confirmed [...] Anthony Marquez MD documented in this encounter [facility] 03-05-2022 Miscellaneous Notes Pharmacy is accurate... pt. is scheduled for surgery tomorrow. documented in this encounter [facility] 02-19-2022 Miscellaneous Notes Called patient, spoke with caregiver, Gaby, made aware of order. Requested that GetBulb message be sent as well. Verbalizes understanding. Kathleen Moreno LPN ----- Message from Raegan Malone APRN.CNP sent at 02/19/2022 12:44 PM EDT ----- Regarding: RE: Pre-op eliquis Okay thank you. I will have my nurses call and have her hold 3 days prior to surgery. ----- Message ----- From: Anthony Marquez MD Sent: 02/18/2022 2:49 PM EDT To: Raegan Malone APRN.CNP Subject: RE: Pre-op eliquis Hold eliquis if possible ----- Message ----- From: Raegan Malone APRN.CNP Sent: 02/18/2022 2:41 PM EDT To: Anthony Marquez MD Subject: Pre-op rose Pt is scheduled for a aqueous shunt and cataract surgery 03/06/2022 at [facility]. She takes eliquis for persistent afib. Would you want her to hold this or continue for upcoming surgery. documented in this encounter [facility] 02-18-2022 Miscellaneous Notes Telephone consent obtained today from Shanon Robbins, patients aunt and power of deputy commonwealth's attorney. Devika Morel MD Glaucoma Fellow PGY5 Ophthalmology documented in this encounter [facility] 02-18-2022 History and physical note HISTORY AND [...] surgery because of glaucoma. 02/10/2022 Dr. Alma BENSON Jocy White (aunt) Tmax 54(acute angle closure), [...] developmental disability and cerebral palsy -seen at [facility], unable to perform LPI due to cooperation/positioning at slit lamp -IOP responded very nicely to max drops +DMX -recommend phaco but would hold off on performing urgently at this time to allow cornea to recover -calcs done, [place] woodard 22 -preop Mannitol, Healon 5 -rec CEIOL [...] not operate on for now -may need CASH MANAGEMENT SPECIALIST for comfort, will reassess Cataract Presurgical Documentation [...] palsy +non-verbal. No history of TIA's, stroke, AUTOMATIC CHIEF tumor, impaired sensorium, hemiplegia, paraplegia or quadraplegia. No neurological symptoms or problems. Respiratory: No history of current cough or dyspnea, or pneumonia in the past 6 weeks. No history of respiratory/pulmonary symptoms or problems. Cardiovascular: Positive for: anticoagulation therapy (on rx) and atrial fibrillation (following [facility]) Negative for: arrhythmia, CAD, chest pain, CHF, congenital heart defect, DVT/PE, hyperlipidemia, hypertension, recent AL, murmur/valvular heart disease, open heart surgery and valve surgery. GI: No history of GI symptoms or problems. No history of esophageal varices, recent ascites, or ETOH greater than 2 drinks per day. : Positive for: urinary incontinence. Negative for: nephrolithiasis, renal failure and urinary tract infection. OVEN DUMPER: Negative for abnormal vaginal bleeding, abnormal vaginal [...] or any previous visit (from the past 45059 hour(s)). Assessment HYPOTHYROIDISM NOS Assessment: stable on [...] large neck Non-male patient STOP-Bang Score: 1 [id number] Score: Age: <65 Sex: female CHF history: No Hypertension history: No Stroke/TIA/thromboembolism history: No Vascular disease history: No Diabetes history: No [id number] Score: 1 ARISCAT Score: Age: 51-80 Preoperative [...] and consent discussed: yes. Patient / Responsible Alliance Party agrees to proceed: yes Patient / Surrogate [...] PM PAGER/CONTACT #: documented in this encounter [facility] 02-18-2022 Instructions Raegan Malone APRN.CNP - 02/18/2022 1:44 PM EDT PATIENT PREOPERATIVE INSTRUCTIONS Anthony Marquez MD has scheduled you for your procedure at this surgery center: [facility]: [phone] --[facility], [address] [place] [id number]. Please read below carefully for your personalized [...] Procedures: - YOU MUST HAVE A RESPONSIBLE STEEL GRINDER TAKE YOU HOME. A OFFICE PROFESSIONAL OR CUSTOMER SALES SPECIALIST CANNOT BE MADE A RESPONSIBLE STEEL GRINDER. - We recommend that a responsible person [...] Advance Directive, please fax a copy to [phone] or email to for it to be [...] Raegan Malone APRN.CNP documented in this encounter [facility] 02-10-2022 History of Present illness Narrative I had telephone encounter today with Jocy Robbins who had confirmed for me that she is power of deputy commonwealth's attorney for [facility]. I explained patients condition as outlined in [...] and obtain a telephone consent document for [facility]' planned surgery. Devika Morel MD Glaucoma Fellow PGY5 Ophthalmology MARCELINO White (aunt) Tmax 54(acute angle closure), [...] developmental disability and cerebral palsy -seen at [facility], unable to perform LPI due to cooperation/positioning at slit lamp -IOP responded very nicely to max drops +DMX -recommend phaco but would hold off on performing urgently at this time to allow cornea to recover -calcs done, roma planGEORGIA barillas 22 -preop Mannitol, Healon 5 -rec CEIOL [...] not operate on for now -may need CASH MANAGEMENT SPECIALIST for comfort, will reassess Cataract Presurgical Documentation [...] Anthony Marquez MD documented in this encounter [facility] 02-10-2022 History of Present illness Narrative MARCELINO [...] developmental disability and cerebral palsy -seen at [facility], unable to perform LPI due to cooperation/positioning at slit lamp -IOP responded very nicely to max drops +DMX -recommend phaco but would hold off on performing urgently at this time to allow cornea to recover -calcs done, aim [place] 22 -preop Mannitol, Healon 5 -rec [...] not operate on for now -may need CASH MANAGEMENT SPECIALIST for comfort, will reassess Cataract Presurgical Documentation [...] Anthony Marquez MD documented in this encounter [facility] 02-10-2022 Instructions Devika Morel MD - 02/10/2022 [...] possibly glaucoma tube shunt Call Kinga Denise (glassware selector): [phone] Dr. Anthony Marquez's office: [phone] if you have any questions. [employer] is [...] surgical suite on the first floor of [place] [id number]. You will check in at the desk [...] you to be aware of over the exterminator helper. First, and most important, people with tube [...] option and should be fitted by an light rail transit operator with a knowledge of fitting contact lenses [...] bleeding and infection. documented in this encounter [facility] 02-10-2022 Miscellaneous Notes Addended by: SORIN CLARK on: 02/10/2022 07:02 AM Modules accepted: Orders documented in this encounter [facility] Evaluation + Plan note Future Appointments Appointment Date:09/09/2022 02:00:00 PM Scheduled Provider:DIONNE MAYNARD DO Location:[facility] Appointment Type: OV Future Scheduled TestsBasic Metabolic Panel 03/11/22Thyroid Stimulating Hormone 03/11/22Thyroid Stimulating Hormone 04/25/21Complete Blood Count 03/11/22Vitamin D Level 03/11/22Vitamin A Level 03/11/22 [facility] Evaluation + Plan note Future Appointments Appointment Date:09/15/2023 02:30:00 PM Scheduled Provider:DIONNE MAYNARD DO Location:[facility] Appointment Type: OV Follow Up Future Scheduled TestsBasic Metabolic Panel 03/17/23Thyroid Stimulating Hormone 03/17/23Vitamin D Level 03/17/23Vitamin A Level 03/17/23 [facility] Evaluation + Plan note Future Appointments Appointment Date:03/15/2024 02:00:00 PM Scheduled Provider:DIONNE MAYNARD DO Location:[facility] Appointment Type:PC OV Future Scheduled TestsVitamin A, Serum 09/15/23Basic Metabolic Panel 03/17/23Thyroid Stimulating Hormone 03/17/23Thyroid Stimulating Hormone 09/15/23Complete Blood Count 09/15/23Vitamin D Level 03/17/23Vitamin D Level 09/15/23Vitamin A Level 03/17/23Complete Metabolic Panel 09/15/23 [facility] [place] [facility] Diagnosis Nuclear sclerotic cataract of both eyes- Primary Senile nuclear sclerosis Total, mature senile cataract Total or mature senile cataract documented in this encounter [facility] note* Diagnosis Nuclear senile cataract of both eyes- Primary Bilateral chronic primary angle-closure glaucoma, indeterminate stage documented in this encounter [facility] note* Diagnosis Pre-operative examination- Primary Preoperative examination, [...] of both eyes documented in this encounter [facility] note* Diagnosis Postoperative follow-up- Primary Follow-up examination, following unspecified surgery documented in this encounter [facility] note* Diagnosis Abnormal mammogram- Primary Abnormal mammogram, unspecified snf (current) use of antithrombotics/antiplatelets [facility] [place] [facility]* Diagnosis Postoperative follow-up- Primary Follow-up examination, following unspecified surgery documented in this encounter [facility] note* Diagnosis Dermatitis- Primary Contact dermatitis and other eczema, due to unspecified cause Postoperative follow-up Follow-up examination, following unspecified surgery Bilateral chronic primary angle-closure glaucoma, indeterminate stage [facility] [place] [facility] Diagnosis Chronic primary angle-closure glaucoma of both eyes, severe stage- Primary documented in this encounter [facility] course Narrative No data available for this section [facility] Hospital Discharge instructions No data available for this section [facility] Progress note No data available for this section [facility] Advance Directives No Advanced Directives Records FoundDocuments on File Type Date Recorded 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 Expl 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 Advance Directive(s) 02/10/2022 12:51 AM Documents on File Type Date Recorded 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 Expl anation Advance Directive(s) 02/19/2022 12:02 PM [...] or prosecute any alcohol or drug abuse patient.[facility] the event this information is protected by the Federal Confidentiality of Alcohol and Drug Abuse Patient Records regulations: The Federal rules restrict any use of the information to criminally investigate or prosecute any alcohol or drug abuse patient.[facility] the event this information is protected by the Federal Confidentiality of Alcohol and Drug Abuse Patient Records regulations: The Federal rules restrict any use of the information to criminally investigate or prosecute any alcohol or drug abuse patient.[facility] the event this information is protected by the Federal Confidentiality of Alcohol and Drug Abuse Patient Records regulations: The Federal rules restrict any use of the information to criminally investigate or prosecute any alcohol or drug abuse patient.[facility] the event this information is protected by the Federal Confidentiality of Alcohol and Drug Abuse Patient Records regulations: The Federal rules restrict any use of the information to criminally investigate or prosecute any alcohol or drug abuse patient.[facility] the event this information is protected by the Federal Confidentiality of Alcohol and Drug Abuse Patient Records regulations: The Federal rules restrict any use of the information to criminally investigate or prosecute any alcohol or drug abuse patient.[facility] the event this information is protected by the Federal Confidentiality of Alcohol and Drug Abuse Patient Records regulations: The Federal rules restrict any use of the information to criminally investigate or prosecute any alcohol or drug abuse patient.[facility] the event this information is protected by the Federal Confidentiality of Alcohol and Drug Abuse Patient Records regulations: The Federal rules restrict any use of the information to criminally investigate or prosecute any alcohol or drug abuse patient.[facility] the event this information is protected by the Federal Confidentiality of Alcohol and Drug Abuse Patient Records regulations: The Federal rules restrict any use of the information to criminally investigate or prosecute any alcohol or drug abuse patient.[facility] the event this information is protected by the Federal Confidentiality of Alcohol and Drug Abuse Patient Records regulations: The Federal rules restrict any use of the information to criminally investigate or prosecute any alcohol or drug abuse patient.[facility] the event this information is protected by the Federal Confidentiality of Alcohol and Drug Abuse Patient Records regulations: The Federal rules restrict any use of the information to criminally investigate or prosecute any alcohol or drug abuse patient.[facility] the event this information is protected by the Federal Confidentiality of Alcohol and Drug Abuse Patient Records regulations: The Federal rules restrict any use of the information to criminally investigate or prosecute any alcohol or drug abuse patient.[facility] the event this information is protected by the Federal Confidentiality of Alcohol and Drug Abuse Patient Records regulations: The Federal rules restrict any use of the information to criminally investigate or prosecute any alcohol or drug abuse patient.[facility] the event this information is protected by the Federal Confidentiality of Alcohol and Drug Abuse Patient Records regulations: The Federal rules restrict any use of the information to criminally investigate or prosecute any alcohol or drug abuse patient.[facility] Reason for Visit (unrecogniz ed section and content) Reason Comments Glaucoma Evaluation patient coming from ED with elevated IOP Reason Comments Consult Reason Comments Sizer Hand - Other Reason Comments Orders Reason Onset [...] Care Teams (unrecognized sec tion and content) Magnetic Prospecting Supervisor Relationship Specialty Start Date End Date Aleyda Dionne Fareed [address] [place] [id number] PCP - General Family Practice 02/19/22 Magnetic Prospecting Supervisor Relationship Specialty Start Date End Date Aleyda, Dionne Fareed [address] [place] [id number] PCP - General Family Practice 02/19/22 Magnetic Prospecting Supervisor Relationship Specialty Start Date End Date Aleyda, Dionne Fareed [address] [place] [id number] PCP - General Family Practice 02/19/22 Magnetic Prospecting Supervisor Relationship Specialty Start Date End Date Aleyda Dionne Fareed [address] [place] [id number] PCP - General Family Practice 02/19/22 Magnetic Prospecting Supervisor Relationship Specialty Start Date End Date Aleyda, Dionne Fareed [address] [place] [id number] PCP - General Family Practice 02/19/22 Magnetic Prospecting Supervisor Relationship Specialty Start Date End Date Aleyda Dionne Fareed [address] [place] [id number] PCP - General Family Practice 02/19/22 Magnetic Prospecting Supervisor Relationship Specialty Start Date End Date Dionne Maynard DO PCP - General Family Medicine 02/19/22 Care Team (unrecognized sect ion and content) Care Team Personnel Name: DIONNE MAYNARD DO Position: P4 Physician - Primary Care Med Service: Active Provider Member Role: Primary Care Physician Address: Address: [place] [address]- [place] Care Team Related Persons Name: GABY DELGADILLO Care Team Personnel Name: DIONNE AMYNARD Position: P4 Physician - Primary Care Med Service: Active Provider Member Role: Primary Care Physician Address: Address: [address] [place] [address]- Care Team Related Persons Name: GABY DELGADILLO INFORMATION SOURCE (unrecogn ized section and content) DATE CREATED AUTHOR AUTHOR'S ORGANIZ ATION 10/15/2023 [facility] ([place] FOR RECORDS PERTAINING TO PATIENTS WHO ARE [...] BE BASED ON THE PRIMARY CLINICAL RECORDS. [employer] provides no warranty or guarantee of the accuracy or completeness of information in this document.
== END 2023-11-20 13:19 | disposition home or self-care (01) ==
PROVIDERS: Emergency Provider Emergency Medicine; PCP Preventive Medicine Occupational Medicine; Visit Provider Emergency Medicine
DX: M79.89 Other specified soft tissue disorders (principal); F20.9 Schizophrenia, unspecified; I48.11 Longstanding persistent atrial fibrillation; R62.50 Unspecified lack of expected normal physiological development in childhood; M79.604 Pain in right leg; Z96.641 Presence of right artificial hip joint; E03.9 Hypothyroidism, unspecified; Z79.01 Long term (current) use of anticoagulants; Z79.899 Other long term (current) drug therapy
CPT/HCPCS: 73552; 73590; 73630; 99282

== ENCOUNTER 2025-04-06 20:22 | Emergency (ER) | payer MEDICARE, MEDICAID, SELFPAY ==
[2025-04-06 20:23] VITALS: BP 113/92; PULSE 107; RESP 16; TEMP 36.5; O2SAT 98; BMI 23.3
--- NOTE | 2025-04-06 20:47 | EDS_ITS ---
HPI History of Present Illness Chief Complaint: Foreign Body Informant: other ([facility] staff) Onset/Context/Timing Onset: Today Context: Sudden Onset Timing: Intermittent Narrative Narrative: Patient presents with choking episode that occurred today. Patient was eating dinner when she choked on a piece of meat. Patient received the Heimlich maneuver and a piece of meat was expressed. Patient was breathing better after this. Caregiver is concerned patient may have had an aspiration. Caregiver states that the patient has not tried to eat or drink anything since the incident. Caregiver denies any shortness of breath. Caregiver denies any fevers or chills. Patient is nonverbal and is a poor informant. [facility] Medical History Atrial fibrillation with RVR Glaucoma Cataract Developmental disability Longstanding persistent atrial fibrillation Schizophrenia Cerebral palsy Hypothyroidism Home Medications ?Medication ?Instructions ?Recorded ?Last Taken ?Type acetaminophen 500 mg tablet 500 - 1,000 mg (1 - 2 x 50 0 mg) PO 10/16/14 Unknown Rx Q6H PRN PRN Pain 4 days lorazepam 0.5 mg tablet 0.5 mg PO Q12H mood 03/11/18 08/25/22 History cholecalciferol (vitamin D3) 25 1,000 unit PO QDAY sup plement 03/17/18 08/25/22 History mcg (1,000 unit) capsule multivitamin (Daily Multi-Vitamin 1 tab PO QAM supplem ent 03/17/18 08/25/22 History tablet) polyethylene glycol 3350 8.5 gram 17 g PO QDAY constip ation 03/17/18 08/24/22 History oral powder packet vitamin A 2,400 mcg capsule 8,000 unit PO QDAY supplem ent 03/17/18 08/25/22 History risperidone 0.5 mg tablet 0.5 mg PO TID mood 03/05/20 08/24/22 History fluvoxamine 50 mg tablet 50 mg PO TID mood 04/11/21 1 10/25/21 History triamcinolone acetonide 0.025 % 1 applic topical BID P RN exzema 12/30/22 Unknown History topical cream carbamide peroxide 6.5 % ear drops 4 drp EACH EAR QDAY PRN 09/05/24 Unknown History (Debrox) denosumab 60 mg/mL subcutaneous 60 mg subcut [id number] 09/05/24 Unknown History syringe (Prolia) levothyroxine 100 mcg tablet 100 mcg PO QDAY 09/05/24 Unknown History metoprolol succinate 25 mg 12.5 mg (1/2 x 25 mg) PO DA HARVEY PRN 09/05/24 Unknown Rx tablet,extended release 24 hr elevated heart rate #14 tabs apixaban 5 mg tablet 5 mg PO BID a fib #180 tabs 02/26/25 Unknown Rx metoprolol succinate 25 mg 12.5 mg (1/2 x 25 mg) PO DA HARVEY 03/27/25 Unknown Rx tablet,extended release 24 hr #180 tabs Allergy/AdvReac Type Severity Reaction Status Date / Time Penicillins Allergy Unknown Verified 04/06/25 20:26 Sulfa (Sulfonamide Allergy Unknown Verified 04/06/25 20:26 Antibiotics) Family History Father Cancer Mother Heart disease Surgical History History of cataract surgery (02/2022) History of Achilles tendon repair Social History household members: other details: [facility]. Smoking Status: Never smoker alcohol intake: never substance use type: does not use what type of physical activity do you participate in: other details: senior chair exercises ROS ROS ED Review of Systems ROS Unobtainable: due to mental condition and due to mental status EXAM Physical Exam Const Vital Signs: 04/06/25 20:23 04/06/25 20:29 Temperature 97.7 F L Temperature Source Oral Pulse Rate 107 H Respiratory Rate 16 Respiratory Effort Non-Labored Respiratory Pattern Normal Blood Pressure 113/92 H Blood Pressure Mean 99 Pulse Ox 98 Oxygen Delivery Method Room Air Positive well nourished and well developed General Appearance ED: well developed and NAD HEENT Reports moist mucous membranes Neck supple and no JVD Resp normal respiratory effort and clear to auscultation bilaterally Cardio regular rate and regular rhythm GI non-distended Palpation: soft Neuro CN's II-XII intact bilaterally Sensorium / Orientation: alert Motor Exam: strength 5/5 throughout MDM MDM MDM Narrative Medical decision making narrative: Differential diagnosis includes choking episode, aspiration pneumonia, and rib fracture. Chest x-ray will be obtained to assess for aspiration pneumonia and rib fracture. Radiography Chest X-Ray - ED: 1 View, Read by ED Physician, Read by Radiologist and No Acute Disease Diagnostic Testing: Clinical Impression(s) from Imaging Studies Chest X-Ray 04/06/25 20:55 IMPRESSION: No acute cardiopulmonary abnormality. Reading Location: [facility] Portable 1 view chest x-ray was obtained. On my independent interpretation, lung swenson are clear. There is normal cardiac silhouette. Bony thorax is normal. There is no acute process noted. Radiologist also interpreted the x- ray and agrees.. Treatment and Re-Evaluation :: Caregivers were advised the patient's findings. Patient was allowed to take her home medications which were scheduled at 8 PM. Caregivers were instructed to follow-up with the patient's primary care physician in 5 to 7 days. Caregivers were instructed to return if worse in any way. Caregivers understood and were agreeable with the plan. All questions were answered. Discharge Plan Triage Chief Complaint: Foreign Body ED Provider: Darryl Aguirre Dx/Rx/DC Orders Clinical Impression: Choking episode, Developmental disability Prescriptions: No Action multivitamin [Daily Multi-Vitamin] tablet 1 tab PO QAM polyethylene glycol 3350 8.5 gram powder in packet 17 g PO QDAY vitamin A 8,000 unit capsule 8,000 unit PO QDAY cholecalciferol (vitamin D3) 1,000 unit capsule 1,000 unit PO QDAY lorazepam 0.5 mg tablet 0.5 mg PO Q12H risperidone 0.5 mg tablet 0.5 mg PO TID triamcinolone acetonide 0.025 % cream 1 applic topical BID PRN (Reason: exzema) levothyroxine 100 mcg tablet 100 mcg PO QDAY Prolia 60 mg/mL syringe 60 mg subcut [id number] metoprolol succinate 25 mg tablet extended release 24 hr 12.5 mg PO DAILY PRN (Reason: elevated heart rate) Qty: 14 0RF Rx Instructions: 12.5mg PO PRN if heart rate remains above 100 BPM acetaminophen 500 MG tablet 500 - 1,000 mg PO Q6H PRN PRN (Reason: Pain) 4 Days 0RF Rx Instructions: fluvoxamine 50 mg tablet 50 mg PO TID Debrox 6.5 % drops 4 drp EACH EAR QDAY PRN Rx Instructions: 4 drps into Each EAR; apixaban 5 mg tablet 5 mg PO BID Qty: 180 3RF metoprolol succinate 25 mg tablet extended release 24 hr 12.5 mg PO DAILY Qty: 180 3RF Primary Care Provider: KEREN MENDES Referrals: KEREN MENDES, OIL RAG WASHER-C [Primary Care Provider] - 5-7 Days Print Language: Angolan Disposition Disposition: Home, Self Care
--- OUTSIDE RECORDS SUMMARY | 2025-04-06 20:48 | XMS RPT_ITS | CCD ---
Author Organization [facility]ini[facility] Care Team Providers Care Boom Conveyor Operator Name Role Phone Marjorie Hwang RN Unavailable Unavailable TonyisKendell Y Unavailable Unavailable Bally SEMICONDUCTOR PACKAGES SEALER, Callie K Unavailable Unavailable Jc, Coni Y Unavailable Marjorie Hwang RN Unavailable Unavailable Marjorie Hwang RN Unavailable Unavailable Unavailable Primary Care Provider Unavailabl e Dionne Borrero Primary Care Provider DIONNE BORRERO DO Primary Care Physician Dr. Dionne Borrero Primary Care Provider Dr. Dionne Borrero Referring Provider [phone] Dr. Raghav Pitts Attending Provider Dionne Borrero Primary Care Provider Dr. Dionne Borrero Primary Care Provider MD Pelon Daly Emergency Provider [phone] Cheryl Juarez Admit Provider Dr. Cheryl Juarez Other Provider Dr. Aguila Roman Attending Provider Dr. Aguila Roman Other Provider Dr. Kamari Elias Other Provider Dr. Kamari Elias Attending Provider Dionne Borrero DO Primary Care Provider [phone] Dr. Dionne Borrero Primary Care Provider Dr. Dionne Borrero Referring Provider [phone] Rodney NEGRETE, AISHWARYA Mancia Attending Provider GISSELL DO, DIONNE Attending Unavailable GISSELL DO, DIONNE Primary Care Unavailable GISSELL DO, DIONNE Attending Unavailable GISSELL DO, DIONNE Primary Care Unavailable GISSELL DO, DIONNE Attending Unavailable GISSELL DO, DIONNE Primary Care Unavailable GISSELL DO, DIONNE Attending Unavailable GISSELL DO, DIONNE Primary Care Unavailable Unavailable Primary Care Provider Unavailabl e Gissell, Dionne Primary Care Unavailable Gissell, Dionne Referring Unavailable Rodney CARPET BINDER, Blanche Attending Unavailable Gissell, Dionne Primary Care Unavailable Aiden Anderson Attending Unavailable Gissell, Dionne Primary Care Unavailable Pelon Daly Attending Unavailable Gissell, Idonne Referring Unavailable Rodney CARPET BINDER, Blanche Attending Unavailable Gissell, Dionne Primary Care Unavailable Gissell, Dionne Referring Unavailable Gissell, Dionne Primary Care Unavailable Celestino CARPET BINDER, Dwight Patterson Attending Unavailable Gissell DO, Dionne F Primary Care Provider ANTHONY MARQUEZ Referring Unavailable ANTHONY MARQUEZ Attending Unavailable GISSELLDIONNE MAC F Primary Care Unavailable GISSELL DO, DIONNE Attending Unavailable GISSELL DO, DIONNE Primary Care Unavailable Allergies Allergy Classification Reported Allergen(s) Allergy Type Date of Onset Reaction(s) Facility (6 sources) penicillin g drug allergy 7 [facility] Work Phone: (6 sources) Sulfonamides (Antibiotic) drug allergy 7 [facility] Work Phone: (20 sources) Penicillins; Translations: [penicillins] Propensity to adverse reactions 5 Unknown [facility] Work Phone: (20 sources) Sulfonamides (Antibiotic); Translations: [sulfa drugs] Propensity to adverse reactions 5 Unknown [facility] Work Phone: (9 sources) Penicillins Propensity to adverse reactions 5 [facility] Work Phone: (5 sources) Penicillins Allergy to substance 2 Unknown [facility] (5 sources) Sulfonamides (Antibiotic) Allergy to substance 2 Unknown [facility] (5 sources) Sulfonamide; Translations: [sulfa drugs] Drug allergy Unknown [facility] (1 source) Penicillins Drug allergy (disorder) 4 [facility] Repository (1 source) Sulfonamides (Antibiotic) Drug allergy (disorder) 4 [facility] Medications Current Medications Medication Drug Class(es) Dates Sig (Normalized) Sig (Original) acetaminophen 500 mg oral tablet (20 sources) Start: 01-29-2017 Tylenol Extra Strength 500 mg oral tablet Dose : 1,000 mg = 2 tab(s), Oral, q4h, PRN as needed for pain, # 120 tab(s), 0 Refill(s) Start Date: 09/01/19 Status: Ordered Start: 10-16-2014 take 500-1000 mg by mouth every six hours as needed Acetaminophen Active 500 - 1000 MG PO EVERY 6 HOURS NEEDED October 16, 2014 12:00am Comment on above: Take 500 mg by mouth every 8 hours as needed. benoxinate hydrochloride 4 mg/ml / fluorescein sodium 3 mg/ml ophthalmic solution (3 sources) Diagnostic Dye Start: 11-22-2024 End: 11-23-2024 fluorescein-benoxi zhen 0.3-0.4 % 1 Drop (FLURESS) Start: 05-25-2022 End: 05-25-2022 fluorescein-benoxinate 0.25- 0.4 % 1 Drop (FLURESS) Start: 04-07-2022 End: 04-07-2022 fluorescein-benoxinate 0.25- 0.4 % 1 Drop (FLURESS) brimonidine tartrate 2 mg/ml / brinzolamide 10 mg/ml ophthalmic suspension (16 sources) Carbonic Anhydrase Inhibitor, alpha-Adrenergic Agonist Start: 04-13-2022 Brinzolamide-Brimonidine (Simbrinza) 1-0.2 % drops,suspension Active 1 DRP OPHTHALMIC THREE TIMES A DAY April 12, 2022 11:00pm Start: 04-07-2022 End: 05-25-2022 take 1 drop(s) into the eye(s) twice daily brinzolamide-brimonidine (SIMBRINZA) 1%-0.2 % Ophth Susp Use 1 Drop in the left eye twice daily. 8 mL 4 04/08/2022 05/25/2022 Discontinued (Course of therapy completed) Start: 03-12-2022 End: 04-07-2022 take 1 drop(s) into the eye(s) three times daily brinzolamide-brimonidine (SIMBRINZA) 1%-0.2 % Ophth Susp Use 1 Drop in the left eye three times daily. 8 mL 3 03/12/2022 04/07/2022 Discontinued brinzolamide-pollo monidine (SIMBRINZA) 1%-0.2 % Ophth Susp Use 1 Drop in eyes. 0 Active Comment on above: Use 1 Drop in eyes. Use 1 Drop in the ri ght eye twice daily. Use 1 Drop in the le ft eye three times daily. Use 1 Drop in the le ft eye twice daily. calcium carbonate 1250 mg / cholecalciferol 0.01 mg oral tablet (3 sources) Vitamin D Start: 4 End: 6 take 1 tablet by mouth twice daily calcium (as carbonate)-vitamin D 500 mg-10 mcg (400 intl units) oral tablet Dose = 1 tab(s), Oral, BID, # 200 tab(s), 3 Refill(s), Pharmacy: [facility], Osteoporosis of lower leg, 162, cm, 09/13/24 14:08:00 EST, Height, kg, 09/13/24 14:08:00 EST, Dosing Weight Start Date: 10/09/24 Stop Date: 11/13/25 Status: Ordered Quantity: 200.0 Unit: tab(s) Repeat number: 4 Indication: Age-related osteoporosis without current pathological fracture carbamide peroxide 65 mg/ml otic solution (20 sources) Start: 4 Carbamide Peroxide (Debrox) 6.5 % drops Active 4 DRP EACH EAR .Q24hr November 20, 2023 12:00am 4 drps into Each EAR; Start: 10-27-2023 Debrox 6.5% ot ic solution Dose = 4 drop(s), Ear, both, Every other day, PRN cerumen buildup, # 30 mL, 5 Refill(s), Pharmacy: [facility], 162, cm, 09/15/23 14:36:00 EST, Height, kg, 09/15/23 14:36:00 EST, Dosing Weight Start Date: 10/27/23 Status: Ordered Quantity: 30.0 Unit: mL Repeat number: 6 Start: 10-08-2021 Debrox 6.5% ot ic solution Dose = 4 drop(s), Ear, both, BID, may repeat every 2 weeks as needed, # 30 mL, 5 Refill(s), Pharmacy: [facility] - [id number], 162, cm, 09/10/21 13:56:00 EST, Height, kg, 09/10/21 13:56:00 EST, Dosing Weight Start Date: 10/08/21 Status: Ordered Start: 03-05-2020 Carbamide Ronnie xide (Debrox) 6.5 % drops Active 5 DRP OTIC .QOD March 05, 2020 8:14am Start: 03-17-2018 End: 03-05-2020 Carbamide Peroxide (Debrox) 6.5 % drops Discontinued 5 DRP OTIC daily March 16, 2018 11:00pm March 05, 2020 8:17am carbamide peroxi de (DEBROX) 6.5 % otic solution Use 4 Drops in both ears twice daily. Active Comment on above: Use 4 Drops in both ears twice daily. cholecalciferol 0.025 mg oral capsule (20 sources) Vitamin D Start: 03-17-20 take 1000 [IU] by mouth once daily Cholecalciferol (Vitamin D3) Active 1000 UNIT PO daily March 16, 2018 11:00pm Comment on above: Take 1,000 Units by mouth once daily. Daily Jasmine oral tablet (8 sources) Start: 09-13-20 take 1 tablet by mouth once daily Daily Jasmine oral tablet See Instructions, TAKE 1 TABLET BY MOUTH DAILY, # 28 tab(s), 11 Refill(s), Pharmacy: [facility], 162, cm, 09/13/24 14:08:00 EST, Height, kg, 09/13/24 14:08:00 EST, Dosing Weight Start Date: 09/13/24 Status: Ordered Quantity: 28.0 Unit: tab(s) Repeat number: 12 Start: 10-11-2023 take 1 tablet by daija th once daily Daily Jasmine oral tablet See Instructions, TAKE 1 TABLET BY MOUTH DAILY, # 28 tab(s), 11 Refill(s), Pharmacy: [facility], 162, cm, 09/15/23 14:36:00 EST, Height, kg, 09/15/23 14:36:00 EST, Dosing Weight Start Date: 10/11/23 Status: Ordered Start: 11-11-2022 take 1 tablet by daija th once daily Daily Jasmine oral tablet See Instructions, TAKE 1 TABLET BY MOUTH DAILY, # 28 tab(s), 11 Refill(s), Pharmacy: [facility], 162, cm, 06/11/22 15:06:00 EDT, Height, kg, 06/11/22 15:06:00 EDT, Dosing Weight Start Date: 11/11/22 Status: Ordered Start: 12-16-2021 take 1 tablet by daija once daily Daily Jasmine oral tablet See Instructions, TAKE 1 TABLET BY MOUTH DAILY, # 28 tab(s), 11 Refill(s), Pharmacy: [facility], 162, cm, 09/10/21 13:56:00 EST, Height, kg, 09/10/21 13:56:00 EST, Dosing Weight Start Date: 12/16/21 Status: Ordered desonide 0.5 mg/ml topical cream (9 sources) Corticosteroid Start: 03-17-2018 Desonide Activ e 1 APPLIC TOPICAL daily March 17, 2018 12:00am Start: 03-16-2017 DESONIDE 0.05 % OINT apply small amount to ears as needed when dry and crusty for 7 days DESONIDE [id number] Callie Medina [facility] fluvoxaMINE maleate 50 mg oral tablet (20 sources) Serotonin Reuptake Inhibitor Start: 03-16-2017 fluvoxaMINE 50 mg or al tablet Dose : 50 mg = 1 tab(s), Oral, TID, # 30 tab(s), 0 Refill(s) Start Date: 09/01/19 Status: Ordered Quantity: 30.0 Unit: tab(s) Repeat number: 1 Start: 03-16-2017 fluvoxaMINE 50 mg oral tablet Dose : 50 mg = 1 tab(s), Oral, TID, # 30 tab(s), 0 Refill(s) Start Date: 09/01/19 Status: Ordered Start: 03-16-2017 take 2 tablets by mo orh once daily in the morning FLUVOXAMINE MALEATE 50 MG TABS take 2 po every day in am and in pm FLUVOXAMINE MALEATE [id number] Callie Medina CMA Start: 10-16-2014 End: 04-11-2021 take 100 mg by mouth twice daily Fluvoxamine Discontinued 100 MG PO TWICE A DAY October 16, 2014 12:00am April 11, 2021 10:43am Start: 09-01-2005 FLUVOXAMINE 50 MG TAB Take one(1) tablet two(2) times daily. 0 09/01/2005 Active Comment on above: Take one(1) tablet t wo(2) times daily. FLUVOXAMINE MALEATE 50 MG TABS ibuprofen 200 mg oral capsule (20 sources) Nonsteroidal Anti-inflammatory Drug Start: 09-09-2022 ibuprofen 200 mg oral capsule Dose : 400 mg = 2 cap(s), Oral, q6hr, PRN for pain, 0 Refill(s) Start Date: 09/09/22 Status: Ordered Repeat number: 1 Start: 11-06-2020 take 2 tablets by mo uth every six hours as needed ibuprofen (MOTRIN) 200 mg tablet Take 2 tablets by mouth every 6 hours as needed for Pain (1-2 tabs q6hrs as needed for pain). 100 tablet 11/06/2020 Active Comment on above: Take 2 tablets by mo uth every 6 hours as needed for Pain (1-2 tabs q6hrs as needed for pain). levothyroxine sodium 0.1 mg oral tablet (20 sources) l-Thyroxine Start: 08-14-2024 levothyroxine 100 mcg (0.1 mg) oral tablet Dose : 100 mcg = 1 tab(s), Oral, qDay, on an empty stomach, # 90 tab(s), 3 Refill(s), Pharmacy: [facility], Hypothyroidism, 162, cm, 03/15/24 13:59:00 EDT, Height, kg, 03/15/24 13:59:00 EDT, Dosing Weight Start Date: 08/14/24 Status: Ordered Quantity: 90.0 Unit: tab(s) Repeat number: 4 Indication: Hypothyroidism, unspecified Start: 04-24-2024 levothyroxine 88 mcg (0.088 mg) oral tablet See Instructions, Take 1 tab PO on Wednesday through Wednesday and skip the Wednesday dose., # 90 tab(s), 3 Refill(s), Pharmacy: [facility], 162, cm, 03/15/24 13:59:00 EDT, Height, kg, 03/15/24 13:59:00 EDT, Dosing Weight Start Date: 04/24/24 Status: Ordered Start: 03-29-2023 levothyroxine 88 mcg (0.088 mg) oral tablet See Instructions, Take 1 tab PO on Wednesday through Wednesday and skip the Wednesday dose., # 90 tab(s), 3 Refill(s), Pharmacy: [facility], 162, cm, 03/17/23 14:05:00 EDT, Height, kg, 03/17/23 14:05:00 EDT, Dosing Weight Start Date: 03/29/23 Status: Ordered Start: 03-11-2022 levothyroxine 88 mcg (0.088 mg) oral tablet See Instructions, Take 1 tab PO on Wednesday through Wednesday and skip the Wednesday dose., # 90 tab(s), 3 Refill(s), Pharmacy: [facility], 152, cm, 03/11/22 14:18:00 EDT, Height, kg, 03/11/22 14:18:00 EDT, Dosing Weight Start Date: 03/11/22 Status: Ordered Start: 11-27-2016 End: 12-27-2016 take 1 tablet by mouth once daily LEVO-T 88 MCG TABS 1 po daily LEVOTHYROXINE SODIUM [id number] Callie Medina CMA Start: 09-23-2005 End: 12-27-2016 LEVOXYL 88 MCG TAB Indicatio ns: Unspecified hypothyroidism Take one(1) tablet daily. 30 11 09/23/2005 Active Comment on above: Take one(1) tablet d aily. LORazepam 0.5 mg oral tablet (20 sources) Benzodiazepine Start: 03-11-2018 LORazepam 0.5 mg oral tablet Dose : 0.25 mg = 0.5 tab(s), Oral, TID, 0 Refill(s) Start Date: 09/01/19 Status: Ordered Repeat number: 1 Start: 03-11-2018 take 0.5 mg by mouth every twelve hours Lorazepam Active 0.5 MG PO Q12H March 10, 2018 11:00pm Start: 03-11-2018 take 0.5 mg by mouth twice daily Lorazepam Active 0.5 MG PO TWICE A DAY March 11, 2018 12:00am Start: 01-29-2017 take 1 tablet by daija th twice daily LORAZEPAM 0.5 MG TABS 1 po bid LORAZEPAM [id number] Callie Medina SEMICONDU[employer] PACKAGES SEALER Comment on above: Take by mouth three times daily as needed. 24 hr metoprolol succinate 25 mg extended release oral tablet (19 sources) beta-Adrenergic Ernestine Start: 12-30-2022 End: 01-11-2023 take 12.5 mg by mouth once daily Metoprolol Succinate Active 12.5 MG PO DAILY January 11, 2023 2:33pm Start: 10-09-2022 Metoprolol Suc cinate ER 25 mg oral TABLET extended release Dose : 12.5 mg = 0.5 tab(s), Oral, qDay, # 30 tab(s), 0 Refill(s) Start Date: 10/09/22 Status: Ordered Quantity: 30.0 Unit: tab(s) Repeat number: 1 Start: 10-07-2022 End: 10-07-2022 take 12.5 mg by mouth twice daily Metoprolol Tartrate Discontinued 12.5 MG PO TWICE A DAY October 07, 2022 1:06pm October 07, 2022 4:36pm Start: 10-07-2022 End: 12-30-2022 take 25 mg by mouth once daily Metoprolol Succinate Di scontinued 25 MG PO DAILY October 07, 2022 12:00am December 30, 2022 12:32pm Start: 09-08-2022 End: 10-07-2022 take 50 mg by mouth twice daily Metoprolol Tartrate Discontinued 50 MG PO TWICE A DAY September 08, 2022 9:07am October 07, 2022 1:08pm Start: 08-29-2022 End: 09-08-2022 take 100 mg by mouth twice daily Metoprolol Tartrate Discontinued 100 MG PO TWICE A DAY 60 August 29, 2022 12:00am September 08, 2022 9:08am Multivitamin (Daily Multi-Vitamin) tablet (7 sources) Start: 03-17-2018 take 1 tablet by mouth once daily in the morning Multivitamin (Daily Multi-Vitamin) tablet Active 1 TABLET PO EVERY MORNING March 16, 2018 11:00pm Start: 03-17-2018 take 1 tablet by daija th once daily in the morning Multivitamin (Daily Multi-Vitamin) tablet Active 1 TABLET PO EVERY MORNING March 17, 2018 12:00am MULTIVITAMIN TAB (18 sources) Start: 09-01-2005 MULTIVITAMIN T AB Take one(1) tablet daily. 0 09/01/2005 Active Comment on above: Take one(1) tablet d aily. multivitamin with folic acid (THERA, ONE DAILY) 400 mcg (5 sources) take 1 tablet by mouth once daily multivitamin with folic acid (THERA, ONE DAILY) 400 mcg Take 1 tablet by mouth once daily. Active take 1 tablet by mouth once mandi y multivitamin with folic acid (THERA, ONE DAILY) 400 mcg Take 1 tablet by mouth once daily. 0 Active Comment on above: Take 1 tablet by daija th once daily. [id number] oral powder for reconstitution (4 sources) Start: 4 take 8.5 doses by mouth once daily [id number] oral powder for reconstitution Dose : 8.5 gram(s) =, Oral, qDay, # 527 gram(s), 5 Refill(s), Pharmacy: [facility], 162, cm, 11/22/23 14:20:00 EST, Height, kg, 11/22/23 14:20:00 EST, Dosing Weight Start Date: 12/17/23 Status: Ordered Quantity: 527.0 Unit: g Repeat number: 6 Start: 12-17-2023 take 8.5 doses by mo [facility] once daily [id number] oral powder for reconstitution Dose : 8.5 gram(s) =, Oral, qDay, # 527 gram(s), 5 Refill(s), Pharmacy: [facility], 162, cm, 11/22/23 14:20:00 EST, Height, kg, 11/22/23 14:20:00 EST, Dosing Weight Start Date: 12/17/23 Status: Ordered phenylephrine hydrochloride 25 mg/ml ophthalmic solution (1 source) alpha-1 Adrenergic Agonist Start: 11-22-2024 End: 11-23-2024 PHENYLephrine 2.5 % 1 Drop (AK-DILATE, BEAR-SYNEPHRINE) polyethylene glycol 3350 21146 mg powder for oral solution (20 sources) Osmotic Laxative Start: 03-17-2018 End: 11-06-2023 take 17 g by mouth once daily polyethylene glycol 3350 8.5 gram oral powder packet Active 17 GM PO daily March 16, 2018 11:00pm Start: 01-29-2017 POLYETHYLENE G LYCOL 3350 POWD 17 gm POLYETHYLENE GLYCOL [id number] [facility] Comment on above: Take by mouth once d aily. prednisoLONE acetate 10 mg/ml ophthalmic suspension (20 sources) Corticosteroid Start: 09-09-2022 prednisoLONE acetate 1% ophthalmic suspension Dose = 1 drop(s), Eyes, both, QID, # 10 mL, 0 Refill(s) Start Date: 09/09/22 Status: Ordered Quantity: 10.0 Unit: mL Repeat number: 1 Start: 05-25-2022 prednisoLONE a cetate (PRED FORTE, ECONOPRED PLUS) 1 % ophthalmic suspension Use 1 Drop in the left eye once daily. 10 mL 1 05/25/2022 Active Start: 05-25-2022 prednisoLONE a cetate (PRED FORTE, ECONOPRED PLUS) 1 % ophthalmic suspension Use 1 Drop in the left eye once daily. 10 mL 1 05/25/2022 Active Start: 05-04-2022 End: 05-25-2022 prednisoLONE acetate (PRED F ORTE, ECONOPRED PLUS) 1 % ophthalmic suspension Use 1 Drop in the left eye twice daily. 10 mL 1 05/04/2022 05/25/2022 Discontinued Start: 04-13-2022 End: 10-07-2022 Prednisolone Acetate Discont inued 1 DRP OPHTHALMIC TWICE A DAY April 12, 2022 11:00pm October 07, 2022 1:08pm Start: 04-07-2022 End: 05-04-2022 prednisoLONE acetate (PRED F ORTE, ECONOPRED PLUS) 1 % ophthalmic suspension Use 1 Drop in the right eye once daily. 10 mL 3 04/07/2022 05/04/2022 Discontinued (Course of therapy completed) End: 04-07-2022 prednisoLONE acetate (PRED F ORTE, ECONOPRED PLUS) 1 % ophthalmic suspension Use 1 Drop in the right eye every 4 hours while awake. 0 04/07/2022 Discontinued Comment on above: Use 1 Drop in the ri ght eye once daily. Use 1 Drop in the ri ght eye every 4 hours while awake. Use 1 Drop in the le ft eye twice daily. Use 1 Drop in the le ft eye once daily. proparacaine hydrochloride 5 mg/ml ophthalmic solution (2 sources) Local Anesthetic Start: 11-22-2024 End: 11-23-2024 proparacaine 0.5 % 1 Drop (ALCAINE) Start: 04-07-2022 End: 04-07-2022 proparacaine 0.5 % 1 Drop (A LCAINE) risperiDONE 0.5 mg oral tablet (20 sources) Atypical Antipsychotic Start: 09-01-2019 risperi DONE 0.5 mg oral tablet Dose : 0.5 mg = 1 tab(s), Oral, TID, # 90 tab(s), 0 Refill(s) Start Date: 09/01/19 Status: Ordered Quantity: 90.0 Unit: tab(s) Repeat number: 1 Start: 01-29-2017 take 1 tablet by daija once daily RISPERDAL 0.5 MG TABS 1 po 4x daily RISPERIDONE [id number] Callie Deshawn B[address] [facility] Start: 10-16-2014 End: 03-05-2020 take 0.5 mg by mouth twice daily Risperidone Discontinued 0.5 MG PO TWICE A DAY October 16, 2014 12:00am March 05, 2020 8:15am Start: 09-01-2005 RISPERDAL 0.25 MG TAB Take 0.5 mg by mouth. 0 09/01/2005 Active Start: 09-01-2005 RISPERDAL 0.25 MG TAB Take one(1) tablet three times daily. 0 09/01/2005 Active Comment on above: Take one(1) tablet t hree times daily. Take 0.5 mg by mouth . sodium bicarbonate 325 mg oral tablet (2 sources) Start: 09-09-2022 sodium bicarbonate 325 mg oral tablet Dose : 325 mg = 1 tab(s), Oral, PRN for indigestion, # 30 tab(s), 0 Refill(s) Start Date: 09/09/22 Status: Ordered triamcinolone acetonide 0.25 mg/ml topical cream (13 sources) Corticosteroid Start: 12-30-2022 Triamcinolone Acetonide Active 1 APPLIC TOPICAL TWICE A DAY December 29, 2022 11:00pm Start: 10-08-2021 triamcinolone 0.025% topical ointment Apply 1 nav, Topical, BID, # 60 gram(s), 5 Refill(s), Pharmacy: [facility] - [id number], Ointment, 162, cm, 09/10/21 13:56:00 EST, Height, 50.7, kg, 09/10/21 13:56:00 EST, Dosing Weight Start Date: 10/08/21 Status: Ordered Quantity: 60.0 Unit: g Repeat number: 6 Start: 01-30-2019 Triamcinolone Acetonide Active 1 APPLIC TOPICAL TWICE A DAY January 30, 2019 12:00am tropicamide 10 mg/ml ophthalmic solution (2 sources) Anticholinergic Start: 11-22-2024 End: 11-23-2024 tropicamide 1 % 1 Drop (MYDRIACYL) Start: 04-07-2022 End: 04-07-2022 tropicamide 1 % 1 Drop (MYDR IACYL) vitamin a 2.4 mg oral capsule (20 sources) Vitamin A Start: 09-13-2024 take 1 capsule by mouth once daily vitamin A 8000 units oral capsule See Instructions, TAKE 1 CAPSULE BY MOUTH DAILY, # 28 cap(s), 11 Refill(s), Pharmacy: [facility], 162, cm, 09/13/24 14:08:00 EST, Height, kg, 09/13/24 14:08:00 EST, Dosing Weight Start Date: 09/13/24 Status: Ordered Quantity: 28.0 Unit: cap(s) Repeat number: 12 Start: 10-11-2023 take 1 capsule by [facility] once daily vitamin A 8000 units oral capsule See Instructions, TAKE 1 CAPSULE BY MOUTH DAILY, # 28 cap(s), 11 Refill(s), Pharmacy: [facility], 162, cm, 09/15/23 14:36:00 EST, Height, kg, 09/15/23 14:36:00 EST, Dosing Weight Start Date: 10/11/23 Status: Ordered Start: 03-17-2018 take 1 capsule by [facility] once daily vitamin A 8000 units oral capsule See Instructions, TAKE 1 CAPSULE BY MOUTH DAILY, # 28 cap(s), 11 Refill(s), Pharmacy: [facility], 162, cm, 09/15/23 14:36:00 EST, Height, kg, 09/15/23 14:36:00 EST, Dosing Weight Start Date: 10/11/23 Status: Ordered Comment on above: Take 8,000 Units by mouth once daily. Vitamin D3 25 mcg (1000 intl units) oral capsule (8 sources) Start: 12-14-2023 take 1 capsule by mouth once daily Vitamin D3 25 mcg (1000 intl units) oral capsule See Instructions, TAKE 1 CAPSULE BY MOUTH DAILY, # 30 cap(s), 11 Refill(s), Pharmacy: [facility], 162, cm, 11/22/23 14:20:00 EST, Height, kg, 11/22/23 14:20:00 EST, Dosing Weight Start Date: 12/14/23 Status: Ordered Quantity: 30.0 Unit: cap(s) Repeat number: 12 Start: 12-14-2023 take 1 capsule by [facility] once daily Vitamin D3 25 mcg (1000 intl units) oral capsule See Instructions, TAKE 1 CAPSULE BY MOUTH DAILY, # 30 cap(s), 11 Refill(s), Pharmacy: [facility], 162, cm, 11/22/23 14:20:00 EST, Height, kg, 11/22/23 14:20:00 EST, Dosing Weight Start Date: 12/14/23 Status: Ordered Start: 11-17-2022 take 1 capsule by [facility] once daily Vitamin D3 25 mcg (1000 intl units) oral capsule See Instructions, TAKE 1 CAPSULE BY MOUTH DAILY, # 30 cap(s), 11 Refill(s), Pharmacy: [facility], 162, cm, 11/14/22 7:59:00 EST, Height, kg, 11/14/22 7:59:00 EST, Dosing Weight Start Date: 11/17/22 Status: Ordered Start: 12-16-2021 take 1 capsule by [facility] once daily Vitamin D3 25 mcg (1000 intl units) oral capsule See Instructions, TAKE 1 CAPSULE BY MOUTH DAILY, # 28 cap(s), 11 Refill(s), Pharmacy: [facility], 162, cm, 09/10/21 13:56:00 EST, Height, kg, 09/10/21 13:56:00 EST, Dosing Weight Start Date: 12/16/21 Status: Ordered Completed/Discontinued Medications Medication Drug Class(es) Dates Sig (Normalized) Sig (Original) acetaZOLAMIDE 250 mg oral tablet (7 sources) Carbonic Anhydrase Inhibitor Start: 02-10-2022 End: 03-05-2022 take 1 tablet by mouth three times daily acetaZOLAMIDE (DIAMOX) 250 mg tablet Take 1 tablet by mouth three times daily. 4 tablet 1 03/05/2022 Active Comment on above: Take 1 tablet by daija th three times daily. alendronic acid 35 mg oral tablet (20 sources) Bisphosphonate Start: 03-05-2020 take 6-8 [oz_av] by mouth once daily alendronate 35 mg oral tablet Dose : 35 mg = 1 tab(s), Oral, qWeek, with 6-8 oz plain water, at least 30 minutes before first food, beverage, or medication of the day, # 4 tab(s), 11 Refill(s), Pharmacy: [facility], Osteopenia, 162, cm, 11/22/23 14:20:00 EST, Height, kg, 11/22/23 14:20:00 EST, Dosing Weight Start Date: 02/02/24 Status: Ordered Start: 03-05-2020 take 35 mg by mouth every week Alendronate Active 35 MG PO EVERY WEEK March 04, 2020 11:00pm Comment on above: Take by mouth. apixaban 5 mg oral tablet (20 sources) Factor Xa Inhibitor Start: 02-11-2022 End: 04-13-2022 take 1 tablet by mouth twice daily Apixaban (Eliquis) 2.5 mg tablet Discontinued 2.5 MG PO TWICE A DAY April 12, 2022 11:00pm April 13, 2022 2:38pm Start: 03-11-2018 End: 09-06-2023 Eliquis 5 mg oral tablet Dos e : 5 mg = 1 tab(s), Oral, BID, 0 Refill(s), 50 Start Date: 10/09/22 Status: Ordered Repeat number: 1 Start: 03-16-2017 take 1 tablet by daija th twice daily ELIQUIS 5 MG TABS 1 tab po twice daily APIXABAN [id number] Callie Medina [employer] apixaban (ELIQUI S) 5 mg (74 tabs) Take by mouth. Active apixaban (ELIQUI S) 5 mg (74 tabs) Take by mouth. 0 Active apixaban (ELIQUI S) 5 mg (74 tabs) DsPk Take by mouth. 0 Active Comment on above: Take by mouth. cephalexin 500 mg oral capsule (2 sources) Cephalosporin Antibacterial Start: 4 End: 4 take 500 mg by mouth three times daily Cephalexin Discontinued 500 MG PO 3 times daily 14 October 13, 2023 12:00am November 20, 2023 12:18pm clindamycin 150 mg oral capsule (7 sources) Lincosamide Antibacterial Start: 5 End: 8 take 300 mg by mouth three times daily Clindamycin Hcl Discontinued 300 MG PO THREE TIMES A DAY October 16, 2014 12:00am March 17, 2018 12:18pm 1 ml denosumab 60 mg/ml prefilled syringe (3 sources) RANK Ligand Inhibitor Start: 5 Prolia 60 mg/mL subcutaneous solution Dose : 60 mg = 1 mL, Subcutaneous, q6mo, Diagnosis: M81.0, # 1 mL, 0 Refill(s), Osteoporosis of lower leg Start Date: 11/14/24 Status: Ordered Quantity: 1.0 Unit: mL Repeat number: 1 Indication: Age-related osteoporosis without current pathological fracture Start: 04-26-2024 Prolia 60 mg/m L subcutaneous solution Dose : 60 mg = 1 mL, Subcutaneous, q6mo, Diagnosis: M81.0, # 1 mL, 0 Refill(s), Osteoporosis of lower leg Start Date: 04/26/24 Status: Ordered docusate sodium 100 mg oral capsule (20 sources) Start: 10-16-2014 End: 03-17-2018 take 200 mg by mouth once daily as needed Docusate Sodium Discontinued 200 MG PO DAILY NEEDED October 16, 2014 12:00am March 17, 2018 12:18pm Start: 05-27-2010 docusate sodiu m(DOK 250 MG CAP) two times daily 0 05/27/2010 Active Comment on above: two times daily MULTIPLE VITAMINS-MINERALS (2 sources) Start: 01-30-20 17 MULTIVITAMIN ADULT TABS MULTIPLE VITAMINS-MINERALS [id number] Callie Medina [facility] MULTIPLE VITAMINS-MINERALS (4 sources) Start: 01-30-20 MULTIVITAMIN ADULT TABS MULTIPLE VITAMINS-MINERALS [id number] Callie Medina [facility] multivitamin with folic acid (DAILY-JASMINE, WITH FOLIC ACID,) 400 mcg (8 sources) take 1 tablet by mouth once daily multivitamin with folic acid (DAILY-JASMINE, WITH FOLIC ACID,) 400 mcg Take 1 tablet by mouth once daily. 0 Active Comment on above: Take 1 tablet by daija once daily. mupirocin 0.02 mg/mg topical ointment (11 sources) RNA Synthetase Inhibitor Antibacterial Start: 10-13-19 End: 11-20-19 Mupirocin Discontinued 1 APPLIC TOPICAL THREE TIMES A DAY 1 October 13, 2023 12:00am November 20, 2023 12:18pm Start: 03-17-2018 Mupirocin Acti ve 1 APPLIC TOPICAL TWICE A DAY March 17, 2018 12:00am Start: 01-29-2017 BACTROBAN 2 % OINT MUPIROCIN [id number] Callie Medina [facility] Start: 01-29-2017 BACTROBAN 2 % OINT MUPIROCIN [id number] Callie Medina [facility] 12 hr timolol 5 mg/ml ophthalmic solution (6 sources) beta-Adrenergic Ernestine Start: 03-12-2022 End: 04-07-2022 timolol maleate (TIMOPTIC) 0.5 % ophthalmic solution Use 1 Drop in the left eye twice daily. 10 mL 3 03/12/2022 04/07/2022 Discontinued (Course of therapy completed) take 1 drop(s) into the eye(s) twice daily timolol hemihydrate (BETIMOL) 0.5 % ophthalmic solution 1 Drop twice daily. 0 Active Comment on above: 1 Drop twice daily. Use 1 Drop in the le ft eye twice daily. VITAMIN D3 25 MCG (1,000 UNIT) CAPSULE (5 sources) Start: 09-15-2023 VITAMIN D3 25 MCG (1,000 UNIT) CAPSULE VITAMIN D3 25 MCG (1,000 UNIT) CAPSULE, 1, Oral, Daily, 0 Refill(s), 46.8 Start Date: 09/15/23 Status: Ordered Repeat number: 1 Start: 09-15-2023 VITAMIN D3 25 MCG (1,000 UNIT) CAPSULE VITAMIN D3 25 MCG (1,000 UNIT) CAPSULE, 1, Oral, Daily, 0 Refill(s), 46.8 Start Date: 09/15/23 Status: Ordered Problems Active Problems Problem Classification Problem Date Documented Date Episodic/Chronic Allergic reactions (1 source) Inflammatory dermatosis; Translations: [Dermatitis, unspecified] Episodic Anxiety disorders (14 sources) Mixed anxiety and depressive disorder; Translations: [Anxiety disorder, unspecified] Onset: 2 Chronic Cardiac dysrhythmias (20 sources) Atrial fibrillation; Translations: [Unspecified atrial fibrillation] Onset: 8 03-16-2017 Chronic Cataract (19 sources) Nuclear senile cataract; Translations: [Age-related nuclear cataract, right eye] Onset: 2 Chronic Developmental disorders (4 sources) Developmental disorder; Translations: [Unspecified disorder of psychological development] Chronic Fracture of neck of femur (hip) (6 sources) Fracture of bone of hip region; Translations: [Fracture of unspecified part of neck of unspecified femur, initial encounter for closed fracture] Episodic Genitourinary symptoms and ill-defined conditions (19 sources) Urinary incontinence; Translations: [Unspecified urinary incontinence] Onset: 0 05-27-2010 Chronic Glaucoma (20 sources) Acute angle-closure glaucoma of right eye; Translations: [Acute angle-closure glaucoma, right eye] Onset: 2 Chronic Inflammation; infection of eye (except that caused by tuberculosis or sexually transmitteddisease) (8 sources) Bilateral chronic conjunctivitis of eyes 09-04-2020 Chronic Inflammation; infection of eye (except that caused by tuberculosis or sexually transmitteddisease) (8 sources) Eczematous dermatitis of eyelid 03-04-2020 Episodic Nutritional deficiencies (8 sources) Vitamin D deficiency 09-01-2019 Chronic Nutritional deficiencies (8 sources) Vitamin A deficiency 09-01-2019 Episodic Other aftercare (3 sources) Surgical follow-up; Translations: [Encounter for follow-up examination after completed treatment for conditions other than malignant neoplasm] Episodic Other aftercare (1 source) Patient encounter status; Translations: [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 of antithrombotics/antipla telets] Episodic Other bone disease and musculoskeletal deformities (4 sources) Osteopenia 03-11-2022 Episodic Other bone disease and musculoskeletal deformities (1 source) Disorder of bone 03-15-2024 Episodic Other connective tissue disease (1 source) Foot swelling; Translations: [Other specified soft tissue disorders] 11-20-2023 Episodic Other connective tissue disease (1 source) Pain in right lower limb; Translations: [Pain in right leg] 11-20-2023 Episodic Other inflammatory condition of skin (8 sources) Psoriasis 09-01-2019 Chronic Other injuries and conditions due to external causes (8 sources) H/O: hip fracture; Translations: [Personal history of (healed) traumatic fracture] 09-09-2022 Episodic Other injuries and conditions due to external causes (1 source) Injury of left foot; Translations: [Unspecified injury of left foot, initial encounter] 04-09-2021 Episodic Other non-traumatic joint disorders (3 sources) Disorder of lower leg 04-26-2024 Episodic Other screening for suspected conditions (not mental disorders or infectious disease) (10 sources) Electrocardiogram abnormal; Translations: [Abnormal electrocardiogram [ECG] [EKG]] Onset: 7 03-22-2017 Episodic Other screening for suspected conditions (not mental disorders or infectious disease) (9 sources) Mammography abnormal; Translations: [Other abnormal and inconclusive findings on diagnostic imaging of breast] Onset: 4 Episodic Other upper respiratory disease (8 sources) Seasonal allergy 02-05-2022 Chronic Paralysis (14 sources) Cerebral palsy; Translations: [Cerebral palsy, unspecified] Onset: 2 Chronic Residual codes; unclassified (7 sources) History of operation on musculoskeletal system; Translations: [Other specified postprocedural states] 02-23-2019 Episodic Schizophrenia and other psychotic disorders (20 sources) Schizophrenia; Translations: [Schizophrenia, unspecified] Onset: 2 Chronic Superficial injury; contusion (7 sources) Contusion of right toe; Translations: [Contusion of right lesser toe(s) without damage to nail, initial encounter] 01-31-2019 Episodic Thyroid disorders (20 sources) Hypothyroidism; Translations: [Hypothyroidism, unspecified] 03-16-2017 Chronic Unclassified (8 sources) Intellectual disability 08-29-2019 Unclassified (8 sources) Patient encounter status 03-11-2022 Unclassified (6 sources) History of repair of hip joint 09-01-2022 Unclassified (1 source) Longstanding persistent atrial fibrillation; Translations: [Longstanding persistent atrial fibrillation] Onset: 3 Past or Other Problems Problem Classification Problem Date Documented Da te Episodic/Chronic Other connective tissue disease (1 source) Other specified soft tissue disorders; Translations: [Other specified soft tissue disorders] Onset: 11-25-2023 Episodic Skin and subcutaneous tissue infections (3 sources) Cellulitis of right foot; Translations: [Cellulitis of right lower limb] Onset: 10-18-2023 10-13-2023 Episodic Results Test Name Value Interpretation Reference Range Facility Cardiology Visit Reporton Cardiology Visit Report [facility] [address] [place] [address] OFFICE VISIT Date of Service: 09/05/24 MR#: [id number] Acct: [id number] Name: MILLICENT SANDHU Rep #: [id number] 05 : 1955 Provider: AISHWARYA christian Age/Sex: 69/F Location: [facility] Status: Signed HPI HPI History of Present Illness Details: MILLICENT SANDHU, is a 69 F who presents for a cardiovascular follow-up office visit.??? She does have a history of atrial fibrillation and MRDD.??? She is accompanied by her caregiver. In July of 2022, she fell and fractured her left hip. Her caregiver states that her Eliquis was held at that time during surgery, and was resumed. Prior to evaluation, she stepped on the scale and when she stepped off of the scale she had balance issues and was lowered to the ground. She landed on her knees that caused minor bruising. She denies chest, arm, jaw, or neck discomfort. She denies palpitations. She denies bilateral lower extremity edema. She denies claudication. She denies shortness of breath with activity, shortness of breath at rest, orthopnea, or PND. She denies chronic cough. She denies significant, sudden weight gain. She denies lightheadedness, dizziness, near-syncope, or syncope. She denies blood in urine, blood in stool, or epistaxis. He denies fever with chills. She denies myalgia. She denies fatigue. Her exercise level has remained stable. She acknowledges balance related issues. Her caregiver denies any known cardiac issues. 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 Education Required: No Accompanied by: Caregiver Allergies Penicillins Allergy (Verified 09/05/24 13:40) Unknown Sulfa (Sulfonamide Antibiotics) Allergy (Verified 09/05/24 13:40) Unknown Medications ???Medication ???Instructions ???Recorded ???Confirmed ???Type acetaminophen 500 mg tablet 500 - 1,000 mg (1 - 2 x 500 mg) PO 10/16/14 09/05/24 Rx Q6H PRN PRN Pain 4 days lorazepam 0.5 mg tablet 0.5 mg PO Q12H mood 03/11/18 09/05/24 History cholecalciferol (vitamin D3) 25 1,000 unit PO QDAY supplement 03/17/18 09/05/24 History mcg (1,000 unit) capsule multivitamin (Daily Multi-Vitamin 1 tab PO QAM supplement 03/17/18 09/05/24 History tablet) polyethylene glycol 3350 8.5 gram 17 g PO QDAY constipation 03/17/18 09/05/24 History oral powder packet vitamin A 2,400 mcg capsule 8,000 unit PO QDAY supplement 03/17/18 09/05/24 History risperidone 0.5 mg tablet 0.5 mg PO TID mood 03/05/20 09/05/24 History fluvoxamine 50 mg tablet 50 mg PO TID mood 04/11/21 09/05/24 History triamcinolone acetonide 0.025 % 1 applic topical BID PRN exzema 12/30/22 09/05/24 History topical cream apixaban 5 mg tablet 5 mg PO BID a fib #180 tabs 03/20/24 09/05/24 Rx metoprolol succinate 25 mg 12.5 mg (1/2 x 25 mg) PO DAILY 03/20/24 09/05/24 Rx tablet,extended release 24 hr #180 tabs carbamide peroxide 6.5 % ear drops 4 drp EACH EAR QDAY PRN 09/05/24 09/05/24 History (Debrox) denosumab 60 mg/mL subcutaneous 60 mg subcut [id number] 09/05/24 09/05/24 History syringe (Prolia) levothyroxine 100 mcg tablet 100 mcg PO QDAY 09/05/24 09/05/24 History metoprolol succinate 25 mg 12.5 mg (1/2 x 25 mg) PO DAILY PRN 09/05/24 09/05/24 Rx tablet,extended release 24 hr elevated heart rate #14 tabs Ejection fraction %: 60 Have you fallen in the past year?: Yes Nurse's Note: Patient was guided to her knees by caregiver when stepping off of scale. Bruising noted to left knee. PFSH Medical History Atrial fibrillation with RVR Glaucoma Cataract Developmental disability Longstanding persistent atrial fibrillation Schizophrenia Cerebral palsy Hypothyroidism Surgical History History of cataract surgery (02/2022) History of Achilles tendon repair Family History Father Cancer Mother Heart disease Social History household members: other details: half-way. Smoking Status: Never smoker alcohol intake: never substance use type: does not use what type of physical activity do you participate in: other details: senior chair exercises ROS Const Const: Negative for fatigue or weakness Eyes Eyes: Negative for change in vision ENT ENT: Positive for balance problems; Negative for dizziness Cardio Chest Pain: No Palpitations: No Edema: None Muscle aches with walking: None Resp (more content not included)... Normal [facility] VITAon 06-04-2024 Vitamin A Lvl 46.0 UG/DL Normal 22.0-69.5 [facility] Comment on above: Result Comment: Refe rence intervals for vitamin A determined from [facility] internal studies. Individuals with vitamin A less than 20 ug/dL are considered vitamin A deficient and those with serum concentrations less than 10 ug/dL are considered severely deficient. This test was developed and its performance characteristics [facility]. It has not been cleared or approved by the Food and Drug Administration. Performed At: [facility] [id number] Cheo Aldana MD Ph:[phone] Performed By: #### 0 [id number] #### [address] [address] .Auto Diffon 05-25-2024 Basophil, Absolute 0.1 10 3/mcL Normal 0.0-0.2 [facility] ([place]) Comment on above: Performed By: #### C MP, CBC, TSH, VIDH, GFR, ADIFF, ANEU #### [address] [address] Basophils/100 WBC (Bld) 2.1 % Normal 0.0-2.5 [facility] ([place]) Comment on above: Performed By: #### C MP, CBC, TSH, VIDH, GFR, ADIFF, ANEU #### [address] [address] Eosinophil, Absolute 0.1 10 3/mcL Normal 0.0-0.4 [facility] ([place]) Comment on above: Performed By: #### C MP, CBC, TSH, VIDH, GFR, ADIFF, ANEU #### [address] [address] Eosinophils/100 WBC (Bld) 1.9 % Normal 0.0-7.0 [facility] ([place]) Comment on above: Performed By: #### C MP, CBC, TSH, VIDH, GFR, ADIFF, ANEU #### [address] [address] Lymphocyte, Absolute 1.0 10 3/mcL Normal 0.8-3.9 [facility] ([place]) Comment on above: Performed By: #### C MP, CBC, TSH, VIDH, GFR, ADIFF, ANEU #### [address] [address] Lymphocytes/100 WBC (Bld) 21.9 % Normal 10.0-50.0 [facility] ([place]) Comment on above: Performed By: #### C MP, CBC, TSH, VIDH, GFR, ADIFF, ANEU #### [address] [address] Monocyte, Absolute 0.8 10 3/mcL Normal 0.2-1.0 [facility] ([place]) Comment on above: Performed By: #### C MP, CBC, TSH, VIDH, GFR, ADIFF, ANEU #### [address] [address] Monocytes/100 WBC (Bld) 16.8 % High 1.7-13.0 [facility] ([place]) Comment on above: Performed By: #### C MP, CBC, TSH, VIDH, GFR, ADIFF, ANEU #### [address] [address] Neutrophils/100 WBC (Bld) 57.3 % Normal 37.0-80.0 [facility] ([place]) Comment on above: Performed By: #### C MP, CBC, TSH, VIDH, GFR, ADIFF, ANEU #### [address] [address] .GFRon 05-25-2024 GFR 124 ml/min/1.73sqm Normal [facility] ([place]) Comment on above: Result Comment: GFR Population mean for , Non- Americans Ages 20-29 = 116 mL/min/1.73 sq.m. Ages 30-39 = 107 mL/min/1.73 sq.m. Ages 40-49 = 99 mL/min/1.73 sq.m. Ages 50-59 = 93 mL/min/1.73 sq.m. Ages 60-69 = 85 mL/min/1.73 sq.m. Ages 70+ = 75 mL/min/1.73 sq.m. Chronic Kidney Disease: Less than 60 mL/min/1.73 square meters End Stage Renal Disease: Less than 15 mL/min/1.73 square meters Performed By: #### A DIFF, GFR, ANEU, VIDH, CBC, TSH, BMP #### [address] [address] GFR Non- 102 ml/min/1.73sqm [facility] Comment on above: Result Comment: GFR Population mean for , Non- Americans Ages 20-29 = 116 mL/min/1.73 sq.m. Ages 30-39 = 107 mL/min/1.73 sq.m. Ages 40-49 = 99 mL/min/1.73 sq.m. Ages 50-59 = 93 mL/min/1.73 sq.m. Ages 60-69 = 85 mL/min/1.73 sq.m. Ages 70+ = 75 mL/min/1.73 sq.m. Chronic Kidney Disease: Less than 60 mL/min/1.73 square meters End Stage Renal Disease: Less than 15 mL/min/1.73 square meters Performed By: #### A DIFF, GFR, ANEU, VIDH, CBC, TSH, BMP #### [address] [address] .NEUABSon 05-25-2024 Neutrophil, Absolute 2.7 10 3/mcL Low 2.9-6.2 [facility] ([place]) Comment on above: Performed By: #### C MP, CBC, TSH, VIDH, GFR, ADIFF, ANEU #### [address] [address] CBCon 05-25-2024 Erythrocyte distribution width (RBC) [Ratio] 16.6 % High 11.5-14.5 [facility] ([place]) Comment on above: Performed By: #### C MP, CBC, TSH, VIDH, GFR, ADIFF, ANEU #### [address] [address] Hematocrit (Bld) [Volume fraction] 38.5 % Normal 37.0-47.0 [facility] ([place]) Comment on above: Performed By: #### C MP, CBC, TSH, VIDH, GFR, ADIFF, ANEU #### [address] [address] Hgb 12.8 G/dL Normal 12.0-16.0 [facility] ([place]) Comment on above: Performed By: #### C MP, CBC, TSH, VIDH, GFR, ADIFF, ANEU #### [address] [address] MCH (RBC) [Entitic mass] 29.1 pg Normal 27.0-31.2 [facility] ([place]) Comment on above: Performed By: #### C MP, CBC, TSH, VIDH, GFR, ADIFF, ANEU #### [address] [address] MCHC 33.3 G/dL Normal 33.0-37.0 [facility] ([place]) Comment on above: Performed By: #### C MP, CBC, TSH, VIDH, GFR, ADIFF, ANEU #### [address] [address] MCV (RBC) [Entitic vol] 87.3 fL Normal 80.0-94.0 [facility] ([place]) Comment on above: Performed By: #### C MP, CBC, TSH, VIDH, GFR, ADIFF, ANEU #### [address] [address] Platelet 220 10 3/mcL Normal 130-400 [facility] ([place] Comment on above: Performed By: #### C MP, CBC, TSH, VIDH, GFR, ADIFF, ANEU #### [address] [address] Platelet mean volume (Bld) [Entitic vol] 8.7 fL Normal 7.4-10.4 [facility] Comment on above: Performed By: #### C MP, CBC, TSH, VIDH, GFR, ADIFF, ANEU #### [address] [address] RBC 4.41 10 6/mcL Normal 4.20-5.40 [facility] ([place]) Comment on above: Performed By: #### C MP, CBC, TSH, VIDH, GFR, ADIFF, ANEU #### [address] [address] WBC 4.7 10 3/mcL Normal 4.6-10.8 [facility] Comment on above: Performed By: #### C MP, CBC, TSH, VIDH, GFR, ADIFF, ANEU #### [address] [address] CMPon 05-25-2024 Albumin Level 3.6 G/dL Normal 3.4-4.8 [facility] ([place]) Comment on above: Performed By: #### A DIFF, GFR, ANEU, VIDH, CBC, TSH, BMP #### [address] [address] Albumin/Globulin [Mass ratio] 0.9 {ratio} Low 1.1-2.5 [facility] ([place]) Comment on above: Performed By: #### A DIFF, GFR, ANEU, VIDH, CBC, TSH, BMP #### [address] [address] ALP [Catalytic activity/Vol] 131 U/L Normal 40-135 [facility] ([place]) Comment on above: Performed By: #### A DIFF, GFR, ANEU, VIDH, CBC, TSH, BMP #### [address] [address] ALT [Catalytic activity/Vol] 32 U/L Normal 14-59 [facility] ([place]) Comment on above: Performed By: #### A DIFF, GFR, ANEU, VIDH, CBC, TSH, BMP #### [address] [address] AST [Catalytic activity/Vol] 33 U/L Normal 10-40 [facility] ([place]) Comment on above: Performed By: #### A DIFF, GFR, ANEU, VIDH, CBC, TSH, BMP #### [address] [address] Bili Total 0.3 mg/dL Normal 0.2-1.0 [facility] ([place]) Comment on above: Result Comment: Use of this assay is not recommended for patients undergoing treatment with eltrombopag due to the potential for falsely elevated results. Performed By: #### A DIFF, GFR, ANEU, VIDH, CBC, TSH, BMP #### [address] [address] BUN/Creatinine Ratio 25 ratio Normal 7-27 [facility] ([place]) Comment on above: Performed By: #### A DIFF, GFR, ANEU, VIDH, CBC, TSH, BMP #### [address] [address] Calcium [Mass/Vol] 9.6 mg/dL Normal 8.4-10.2 [facility] ([place]) Comment on above: Performed By: #### A DIFF, GFR, ANEU, VIDH, CBC, TSH, BMP #### [address] [address] Chloride [Moles/Vol] 99 mmol/L Normal 98-107 [facility] ([place]) Comment on above: Performed By: #### A DIFF, GFR, ANEU, VIDH, CBC, TSH, BMP #### [address] [address] CO2 [Moles/Vol] 32 mmol/L High 23-31 [facility] ([place]) Comment on above: Performed By: #### A DIFF, GFR, ANEU, VIDH, CBC, TSH, BMP #### [address] [address] Creatinine [Mass/Vol] 0.59 mg/dL Normal 0.55-1.02 [facility] ([place]) Comment on above: Result Comment: Test ing performed on Siemens Dimension EXL analyzer using a modified kinetic Abiodun technique. Performed By: #### A DIFF, GFR, ANEU, VIDH, CBC, TSH, BMP #### [address] [address] Electrolyte Balance 4.0 mEq/L Normal 4.0-15.0 [facility] ([place]) Comment on above: Performed By: #### A DIFF, GFR, ANEU, VIDH, CBC, TSH, BMP #### [address] [address] Globulin 3.8 G/dL Normal [facility] ([place]) Comment on above: Performed By: #### A DIFF, GFR, ANEU, VIDH, CBC, TSH, BMP #### [address] [address] Glucose [Mass/Vol] 66 mg/dL Low 80-115 [facility] ([place]) Comment on above: Performed By: #### A DIFF, GFR, ANEU, VIDH, CBC, TSH, BMP #### [address] [address] Potassium [Moles/Vol] 4.6 mmol/L Normal 3.5-5.1 [facility] ([place]) Comment on above: Performed By: #### A DIFF, GFR, ANEU, VIDH, CBC, TSH, BMP #### [address] [address] Sodium [Moles/Vol] 135 mmol/L Low 136-145 [facility] ([place]) Comment on above: Performed By: #### A DIFF, GFR, ANEU, VIDH, CBC, TSH, BMP #### [address] [address] Total Protein 7.4 G/dL Normal 6.4-8.2 [facility] ([place]) Comment on above: Performed By: #### A DIFF, GFR, ANEU, VIDH, CBC, TSH, BMP #### [address] [address] Urea nitrogen [Mass/Vol] 15 mg/dL Normal 7-18 [facility] ([place]) Comment on above: Performed By: #### A DIFF, GFR, ANEU, VIDH, CBC, TSH, BMP #### [address] [address] LABORATORYOrdered By: SYSTEM SYSTEM on 05-25-2024 25-hydroxyvitamin D3 [Mass/Vol] 65.2 ng/mL Invalid Interpretation Code AO ADM SS Comment on above: Interpretive Data: I nterpretive Values Based on Total 25(OH) Vitamin D: Deficient <20 ng/mL Insufficient 20 - <30 ng/mL Sufficient 30-100 ng/mL Albumin BCP dye [Mass/Vol] 3.6 G/dL Normal 3.4 - 4.8 G/dL AO ADM SS Albumin/Globulin [Mass ratio] 0.9 {ratio} Low 1.1 - 2.5 ratio AO ADM SS ALP [Catalytic activity/Vol] 131 U/L Normal 40 - 135 U/L AO ADM SS ALT With P-5'-P [Catalytic activity/Vol] 32 U/L Normal 14 - 59 U/L AO ADM SS AST With P-5'-P [Catalytic activity/Vol] 33 U/L Normal 10 - 40 U/L AO ADM SS Basophil, Absolute 0.1 103/mcL Normal 0.0 - 0.2 10^3/mcL AO Workflow SS Basophils/100 WBC (Bld) 2.1 % Normal 0.0 - 2.5 % AO Workflow SS Bilirubin [Mass/Vol] 0.3 mg/dL Normal 0.2 - 1 .0 mg/dL AO ADM SS Comment on above: Interpretive Data: U se of this assay is not recommended for patients undergoing treatment with eltrombopag due to the potential for falsely elevated results. Calcium [Mass/Vol] 9.6 mg/dL Normal 8.4 - 10. 2 mg/dL AO ADM SS Chloride [Moles/Vol] 99 mmol/L Normal 98 - 10 7 mmol/L AO ADM SS CO2 [Moles/Vol] 32 mmol/L High 23 - 31 mmol/L AO ADM SS Creatinine [Mass/Vol] 0.59 mg/dL Normal 0.55 - 1.02 mg/dL AO ADM SS Comment on above: Interpretive Data: T esting performed on Siemens Dimension EXL analyzer using a modified kinetic Abiodun technique. Electrolyte Balance 4.0 mEq/L Normal 4.0 - 15 .0 mEq/L AO ADM SS Eosinophil, Absolute 0.1 103/mcL Normal 0.0 - 0 .4 10^3/mcL AO Workflow SS Eosinophils/100 WBC (Bld) 1.9 % Normal 0.0 - 7.0 % AO Workflow SS Erythrocyte distribution width (RBC) [Ratio] 16.6 % High 11.5 - 14.5 % AO Workflow SS GFR/1.73 sq M.predicted among blacks MDRD (S/P/Bld) [Vol rate/Area] 124 ml/min/1.73sqm Invalid Interpretation Code AO Chemistry S Comment on above: Interpretive Data: GFR Population mean for , Non- Americans Ages 20-29 = 116 mL/min/1.73 sq.m. Ages 30-39 = 107 mL/min/1.73 sq.m. Ages 40-49 = 99 mL/min/1.73 sq.m. Ages 50-59 = 93 mL/min/1.73 sq.m. Ages 60-69 = 85 mL/min/1.73 sq.m. Ages 70+ = 75 mL/min/1.73 sq.m. Chronic Kidney Disease: Less than 60 mL/min/1.73 square meters End Stage Renal Disease: Less than 15 mL/min/1.73 square meters GFR/1.73 sq M.predicted among non-blacks MDRD (S/P/Bld) [Vol rate/Area] 102 ml/min/1.73sqm Invalid Interpretation Code AO Chemistry S Comment on above: Interpretive Data: GFR Population mean for , Non- Americans Ages 20-29 = 116 mL/min/1.73 sq.m. Ages 30-39 = 107 mL/min/1.73 sq.m. Ages 40-49 = 99 mL/min/1.73 sq.m. Ages 50-59 = 93 mL/min/1.73 sq.m. Ages 60-69 = 85 mL/min/1.73 sq.m. Ages 70+ = 75 mL/min/1.73 sq.m. Chronic Kidney Disease: Less than 60 mL/min/1.73 square meters End Stage Renal Disease: Less than 15 mL/min/1.73 square meters Globulin 3.8 G/dL Invalid Interpretation Code AO ADM SS Glucose [Mass/Vol] 66 mg/dL Low 80 - 115 mg/dL AO ADM SS Hematocrit (Bld) [Volume fraction] 38.5 % Normal 37.0 - 47.0 % AO Workflow SS Hemoglobin (Bld) [Mass/Vol] 12.8 G/dL Normal 12.0 - 16.0 G/dL AO Workflow SS Lymphocyte, Absolute 1.0 103/mcL Normal 0.8 - 3 .9 10^3/mcL AO Workflow SS Lymphocytes/100 WBC (Bld) 21.9 % Normal 10.0 - 50.0 % AO Workflow SS MCH (RBC) [Entitic mass] 29.1 pg Normal 27.0 - 31.2 pg AO Workflow SS MCHC 33.3 G/dL Normal 33.0 - 37.0 G/dL AO Workflow SS MCV (RBC) [Entitic vol] 87.3 fL Normal 80.0 - 94.0 fL AO Workflow SS Monocyte, Absolute 0.8 103/mcL Normal 0.2 - 1.0 10^3/mcL AO Workflow SS Monocytes/100 WBC (Bld) 16.8 % High 1.7 - 13.0 % AO Workflow SS Neutrophil, Absolute 2.7 103/mcL Low 2.9 - 6 .2 10^3/mcL AO Workflow SS Neutrophils/100 WBC (Bld) 57.3 % Normal 37.0 - 80.0 % AO Workflow SS Platelet mean volume (Bld) [Entitic vol] 8.7 fL Normal 7.4 - 10.4 fL AO Workflow SS Platelets (Bld) [#/Vol] 220 103/mcL Normal 130 - 400 10^3/mcL AO Workflow SS Potassium [Moles/Vol] 4.6 mmol/L Normal 3.5 - 5.1 mmol/L AO ADM SS Protein [Mass/Vol] 7.4 G/dL Normal 6.4 - 8.2 G/dL AO ADM SS RBC (Bld) [#/Vol] 4.41 106/mcL Normal 4.20 - 5.4 0 10^6/mcL AO Workflow SS Sodium [Moles/Vol] 135 mmol/L Low 136 - 145 mmol/L AO ADM SS TSH Qn 7.28 m[IU]/L High 0.36 - 3.74 mcIU/mL AO ADM SS Urea nitrogen [Mass/Vol] 15 mg/dL Normal 7 - 18 mg/dL AO ADM SS Urea nitrogen/Creatinine [Mass ratio] 25 ratio Normal 7 - 27 ratio AO ADM SS WBC (Bld) [#/Vol] 4.7 103/mcL Normal 4.6 - 10.8 10^3/mcL AO Workflow SS TSHon 05-25-2024 TSH Qn 7.28 m[IU]/L High 0.36-3.74 [facility] [place] ([place]) Comment on above: Performed By: #### A DIFF, GFR, ANEU, VIDH, CBC, TSH, BMP #### [address] [address] VIDHon 05-25-2024 Vit. D 25-Hydroxy 65.2 ng/mL Normal [facility] ([place]) Comment on above: Result Comment: Inte rpretive Values Based on Total 25(OH) Vitamin D: Deficient <20 ng/mL Insufficient 20 - <30 ng/mL Sufficient 30-100 ng/mL Performed By: #### A DIFF, GFR, ANEU, VIDH, CBC, TSH, BMP #### [address] [address] [place] MAMMOGRAM DIAGNOSTIC BILA TERAL W/TOMOon 04-22-2024 MA MAMMOGRAM DIAGNOSTIC BILATERAL W/SANDER ORIGINAL FROM: [place] [address] PROCEDURE FOR: MILLICENT SANDHU [address] [place] [id number] Home: PID#: [id number] Exam#: [id number] : 1955 Age: 68 TO: DIONNE BORRERO DO [address] [facility] [address] [place], [place] [address] Fax: NO FAX EXAMINATION: DIAGNOSTIC BILATERAL MAMMOGRAM WITH TOMOSYNTHESIS, 04/17/2024 1:09 pm TECHNIQUE: Tomosynthesis was performed as part of the diagnostic bilateral mammogram. 2D standard and 3D tomosynthesis combination imaging performed. Current study was also evaluated with a Computer Aided Detection (CAD) system. COMPARISON: 10/12/2023, 04/14/2023, 04/17/2022, 04/13/2022 HISTORY: ORDERING SYSTEM PROVIDED HISTORY: Reason for Exam: Abnormality found on mammogram of the left breast FINDINGS: BREAST DENSITY: Scattered fibroglandular tissue The 1.5 cm group of fine calcifications in the left breast at 4 o'clock middle depth described on the previous mammogram has demonstrated 2 years of stability and is considered benign. No significant masses, calcifications, or other findings. No significant interval change. IMPRESSION: No mammographic evidence of malignancy. The patient may return to annual mammographic screening. Nixon Monte risk calculations, generated with the history provided, report this patient's 10 year risk and lifetime risk for developing breast cancer at 2.2% and 4.4%, respectively. Based on this assessment tool, if the patient's calculated lifetime risk is below 20%, then the patient is considered at average risk for developing breast cancer. If the patient's calculated lifetime risk is at or above 20%, then the patient is considered high risk for developing breast cancer and may be a candidate for supplemental breast MRI screening in addition to annual mammographic screening per the [employer]. BIRADS: BI-RADS: 2: Benign RECALL: return to screening RECALL TYPE: mammo LETTER SENT: Normal BI-RADS 1 and 2 Interpreted by: Aiden Hernandez MD Preliminary Report By: Aiden Hernandez MD Electronically signed By Aiden Hernandez MD Dictated Date: 04/22/2024 8:50:27 AM Prelim Date: 04/22/2024 8:56:26 AM Sign Date: 04/22/2024 8:56:26 AM Ordering Provider: DIONNE BORRERO CLINICAL: CALCIFICATIONS LEFT BREAST. [employer] Sealer: MATHIEU SAUCEDO(R) RDMS letter sent: Normal BI-RADS 1 and 2 Mammogram BI-RADS: 2 Benign Normal [facility] ([place]) .Auto DiffOrdered By: SYSTEM SYSTEM on 04-17-2024 Basophil, Absolute 0.1 103/mcL Normal 0.0-0.2 AO Wo rkflow SS Comment on above: Performed By: #### A DIFF, GFR, ANEU, VIDH, CBC, TSH, BMP #### [address] [address] Basophils/100 WBC (Bld) 2.3 % Normal 0.0-2.5 AO Workflow SS Comment on above: Performed By: #### A DIFF, GFR, ANEU, VIDH, CBC, TSH, BMP #### [address] [address] Eosinophil, Absolute 0.2 103/mcL Normal 0.0-0.4 AO Workflow SS Comment on above: Performed By: #### A DIFF, GFR, ANEU, VIDH, CBC, TSH, BMP #### [address] [address] Eosinophils/100 WBC (Bld) 3.4 % Normal 0.0-7.0 AO Workflow SS Comment on above: Performed By: #### A DIFF, GFR, ANEU, VIDH, CBC, TSH, BMP #### [address] [address] Lymphocyte, Absolute 1.2 103/mcL Normal 0.8-3.9 AO Workflow SS Comment on above: Performed By: #### A DIFF, GFR, ANEU, VIDH, CBC, TSH, BMP #### [address] [address] Lymphocytes/100 WBC (Bld) 25.5 % Normal 10.0-50.0 AO Workflow SS Comment on above: Performed By: #### A DIFF, GFR, ANEU, VIDH, CBC, TSH, BMP #### [address] [address] Monocyte, Absolute 0.7 103/mcL Normal 0.2-1.0 AO Wo rkflow SS Comment on above: Performed By: #### A DIFF, GFR, ANEU, VIDH, CBC, TSH, BMP #### [address] [address] Monocytes/100 WBC (Bld) 15.9 % High 1.7-13.0 AO Workflow SS Comment on above: Performed By: #### A DIFF, GFR, ANEU, VIDH, CBC, TSH, BMP #### [address] [address] Neutrophils/100 WBC (Bld) 52.9 % Normal 37.0-80.0 AO Workflow SS Comment on above: Performed By: #### A DIFF, GFR, ANEU, VIDH, CBC, TSH, BMP #### [address] [address] .GFRon 04-17-2024 GFR Non- 111 ml/min/1.73sqm [facility] Comment on above: Result Comment: GFR Population mean for , Non- Americans Ages 20-29 = 116 mL/min/1.73 sq.m. Ages 30-39 = 107 mL/min/1.73 sq.m. Ages 40-49 = 99 mL/min/1.73 sq.m. Ages 50-59 = 93 mL/min/1.73 sq.m. Ages 60-69 = 85 mL/min/1.73 sq.m. Ages 70+ = 75 mL/min/1.73 sq.m. Chronic Kidney Disease: Less than 60 mL/min/1.73 square meters End Stage Renal Disease: Less than 15 mL/min/1.73 square meters Performed By: #### A DIFF, GFR, ANEU, VIDH, CBC, TSH, BMP #### [address] [address] GFR 134 ml/min/1.73sqm Normal [facility] ([place]) Comment on above: Result Comment: GFR Population mean for , Non- Americans Ages 20-29 = 116 mL/min/1.73 sq.m. Ages 30-39 = 107 mL/min/1.73 sq.m. Ages 40-49 = 99 mL/min/1.73 sq.m. Ages 50-59 = 93 mL/min/1.73 sq.m. Ages 60-69 = 85 mL/min/1.73 sq.m. Ages 70+ = 75 mL/min/1.73 sq.m. Chronic Kidney Disease: Less than 60 mL/min/1.73 square meters End Stage Renal Disease: Less than 15 mL/min/1.73 square meters Performed By: #### A DIFF, GFR, ANEU, VIDH, CBC, TSH, BMP #### [address] [address] .NEUABSOrdered By: SYSTEM SY STEM on 04-17-2024 Neutrophil, Absolute 2.5 103/mcL Low 2.9-6.2 AO Workflow SS Comment on above: Performed By: #### A DIFF, GFR, ANEU, VIDH, CBC, TSH, BMP #### [address] [address] BD BONE DENSITY DEXA AXIAL S [facility] 04-17-2024 BD BONE DENSITY DEXA AXIAL SKELETON ORIGINAL EXAMINATION: BONE DENSITOMETRY 04/17/2024 1:57 pm TECHNIQUE: A bone density dual x-ray absorptiometry (DEXA) scan was performed of the axial (e.g. hips, spine) and/or appendicular (e.g. radius) skeleton as appropriate. COMPARISON: 04/13/2022. HISTORY: ORDERING SYSTEM PROVIDED HISTORY: Reason for Exam: Osteoporosis Screening FINDINGS: T Score Right Femoral Neck: -3.3 Right Femoral Neck: 0.481 (g/cm2) T Score Right Hip: -3.1 Right Hip: 0.567 (g/cm2) T Score Lumbar Spine: -2.0 Lumbar Spine: 0.828 (g/cmd2) BMD Change from previous Lumbar Spine:-2.5 % IMPRESSION: Osteoporosis by WHO criteria. World Health Organization criteria: (Comparing with young normal sex matched population) - Normal: T-score at or above -1 SD (standard deviation) - Osteopenia: T-score between -1 and -2.5 SD - Osteoporosis: T-score at or below -2.5 SD The NOF recommends that FDA-approved medical therapies be considered in post-menopausal women and men age >/= 50 years with a: * Hip or vertebral fracture, or * T-score of /= 20% for major osteoporotic fractures or * >/= 3% for hip fractures All treatment decisions require clinical judgement and consideration of individual patient factors, including patient preferences, comorbidities, previous drug use, risk factors not captured in the FRAX registered model (e.g., frailty, falls, vitamin D deficiency, increased bone turnover, interval significant decline in bone density) and possible under- or over-estimation of fracture risk by FRAX. Interpreted by: Aiden Hung DO Preliminary Report By: Aiden Hung DO Electronically signed By Aiden Hung DO Dictated Date: 04/17/2024 4:15:36 PM Prelim Date: 04/17/2024 4:16:17 PM Sign Date: 04/17/2024 4:16:17 PM Ordering Provider: DIONNE Blakely [facility] ([place]) BMPon 04-17-2024 BUN/Creatinine Ratio 25 ratio Normal 04-22 [facility] ([place]) Comment on above: Performed By: #### A DIFF, GFR, ANEU, VIDH, CBC, TSH, BMP #### [place] [id number] [place] [id number] BMPOrdered By: SYSTEM SYSTEM on 04-17-2024 Calcium [Mass/Vol] 9.6 mg/dL Normal 8.4-10.2 AO ADM SS Comment on above: Performed By: #### A DIFF, GFR, ANEU, VIDH, CBC, TSH, BMP #### [address] [address] Chloride [Moles/Vol] 103 mmol/L Normal 98-107 AO A DM SS Comment on above: Performed By: #### A DIFF, GFR, ANEU, VIDH, CBC, TSH, BMP #### [address] [address] CO2 [Moles/Vol] 30 mmol/L Normal 23-31 AO ADM SS Comment on above: Performed By: #### A DIFF, GFR, ANEU, VIDH, CBC, TSH, BMP #### [address] [address] Creatinine [Mass/Vol] 0.55 mg/dL Normal 0.55-1.02 AO ADM SS Comment on above: Performed By: #### A DIFF, GFR, ANEU, VIDH, CBC, TSH, BMP #### [address] [address] Electrolyte Balance 4.0 mEq/L Normal 4.0-15.0 AO AD M SS Comment on above: Performed By: #### A DIFF, GFR, ANEU, VIDH, CBC, TSH, BMP #### [address] [address] Glucose [Mass/Vol] 64 mg/dL Low 80-115 AO ADM SS Comment on above: Performed By: #### A DIFF, GFR, ANEU, VIDH, CBC, TSH, BMP #### [address] [address] Potassium [Moles/Vol] 4.5 mmol/L Normal 3.5-5.1 AO ADM SS Comment on above: Performed By: #### A DIFF, GFR, ANEU, VIDH, CBC, TSH, BMP #### [address] [address] Sodium [Moles/Vol] 137 mmol/L Normal 136-145 AO ADM SS Comment on above: Performed By: #### A DIFF, GFR, ANEU, VIDH, CBC, TSH, BMP #### [place] [address] Urea nitrogen [Mass/Vol] 14 mg/dL Normal 7-18 AO ADM SS Comment on above: Performed By: #### A DIFF, GFR, ANEU, VIDH, CBC, TSH, BMP #### [place] [id number] CBCOrdered By: SYSTEM SYSTEM on 04-17-2024 Erythrocyte distribution width (RBC) [Ratio] 15.5 % High 11.5-14.5 AO Workflow SS Comment on above: Performed By: #### A DIFF, GFR, ANEU, VIDH, CBC, TSH, BMP #### [place] [id number] Hematocrit (Bld) [Volume fraction] 37.4 % Normal 37.0-47.0 AO Workflow SS Comment on above: Performed By: #### A DIFF, GFR, ANEU, VIDH, CBC, TSH, BMP #### [place] [address] MCH (RBC) [Entitic mass] 28.7 pg Normal 27.0-31.2 AO Workflow SS Comment on above: Performed By: #### A DIFF, GFR, ANEU, VIDH, CBC, TSH, BMP #### [place] [id number] MCHC 32.9 G/dL Low 33.0-37.0 AO Workflow SS Comment on above: Performed By: #### A DIFF, GFR, ANEU, VIDH, CBC, TSH, BMP #### [place] [id number] MCV (RBC) [Entitic vol] 87.3 fL Normal 80.0-94.0 AO Workflow SS Comment on above: Performed By: #### A DIFF, GFR, ANEU, VIDH, CBC, TSH, BMP #### [place] [id number] Platelet mean volume (Bld) [Entitic vol] 8.5 fL Normal 7.4-10.4 AO Workflow SS Comment on above: Performed By: #### A DIFF, GFR, ANEU, VIDH, CBC, TSH, BMP #### [address] [address] CBCon 04-17-2024 Hgb 12.3 G/dL Normal 12.0-16.0 [facility] ([place]) Comment on above: Performed By: #### A DIFF, GFR, ANEU, VIDH, CBC, TSH, BMP #### [address] [address] Platelet 218 10 3/mcL Normal 130-400 [facility] ([place] Comment on above: Performed By: #### A DIFF, GFR, ANEU, VIDH, CBC, TSH, BMP #### [address] [address] RBC 4.29 10 6/mcL Normal 4.20-5.40 [facility] ([place]) Comment on above: Performed By: #### A DIFF, GFR, ANEU, VIDH, CBC, TSH, BMP #### [address] [address] WBC 4.6 10 3/mcL Normal 4.6-10.8 [facility] Comment on above: Performed By: #### A DIFF, GFR, ANEU, VIDH, CBC, TSH, BMP #### [address] [address] LABORATORYOrdered By: SYSTEM SYSTEM on 04-17-2024 25-hydroxyvitamin D3 [Mass/Vol] 69.7 ng/mL Invalid Interpretation Code AO ADM SS Comment on above: Interpretive Data: I nterpretive Values Based on Total 25(OH) Vitamin D: Deficient <20 ng/mL Insufficient 20 - <30 ng/mL Sufficient 30-100 ng/mL GFR/1.73 sq M.predicted among blacks MDRD (S/P/Bld) [Vol rate/Area] 134 ml/min/1.73sqm Invalid Interpretation Code AO Chemistry S Comment on above: Interpretive Data: GFR Population mean for , Non- Americans Ages 20-29 = 116 mL/min/1.73 sq.m. Ages 30-39 = 107 mL/min/1.73 sq.m. Ages 40-49 = 99 mL/min/1.73 sq.m. Ages 50-59 = 93 mL/min/1.73 sq.m. Ages 60-69 = 85 mL/min/1.73 sq.m. Ages 70+ = 75 mL/min/1.73 sq.m. Chronic Kidney Disease: Less than 60 mL/min/1.73 square meters End Stage Renal Disease: Less than 15 mL/min/1.73 square meters GFR/1.73 sq M.predicted among non-blacks MDRD (S/P/Bld) [Vol rate/Area] 111 ml/min/1.73sqm Invalid Interpretation Code AO Chemistry S Comment on above: Interpretive Data: GFR Population mean for , Non- Americans Ages 20-29 = 116 mL/min/1.73 sq.m. Ages 30-39 = 107 mL/min/1.73 sq.m. Ages 40-49 = 99 mL/min/1.73 sq.m. Ages 50-59 = 93 mL/min/1.73 sq.m. Ages 60-69 = 85 mL/min/1.73 sq.m. Ages 70+ = 75 mL/min/1.73 sq.m. Chronic Kidney Disease: Less than 60 mL/min/1.73 square meters End Stage Renal Disease: Less than 15 mL/min/1.73 square meters Hemoglobin (Bld) [Mass/Vol] 12.3 G/dL Normal 12.0 - 16.0 G/dL AO Workflow SS Platelets (Bld) [#/Vol] 218 103/mcL Normal 130 - 400 10^3/mcL AO Workflow SS RBC (Bld) [#/Vol] 4.29 106/mcL Normal 4.20 - 5.4 0 10^6/mcL AO Workflow SS Urea nitrogen/Creatinine [Mass ratio] 25 ratio Normal 7 - 27 ratio AO ADM SS WBC (Bld) [#/Vol] 4.6 103/mcL Normal 4.6 - 10.8 10^3/mcL AO Workflow SS TSHOrdered By: SYSTEM SYSTEM on 04-17-2024 TSH Qn 5.00 m[IU]/L High 0.36-3.74 AO ADM SS Comment on above: Performed By: #### A DIFF, GFR, ANEU, VIDH, CBC, TSH, BMP #### [facility] [address] [place], [place] [address] VIDHon 04-17-2024 Vit. D 25-Hydroxy 69.7 ng/mL Normal [facility] ([place]) Comment on above: Result Comment: Inte rpretive Values Based on Total 25(OH) Vitamin D: Deficient <20 ng/mL Insufficient 20 - <30 ng/mL Sufficient 30-100 ng/mL Performed By: #### A DIFF, GFR, ANEU, VIDH, CBC, TSH, BMP #### [facility] [address] [place], [place] [address] Cardiology Visit Reporton Cardiology Visit Report [facility] [place] [address] OFFICE VISIT Date of Service: 03/20/24 MR#: [id number] Acct: [id number] Name: MILLICENT SANDHU Rep #: [id number] : 1955 Provider: AISHWARYA sebastian Age/Sex: 68/F Location: [facility] Status: Signed HPI [facility] History of Present Illness Details: MILLICENT SANDHU, is a 68 F who presents for a cardiovascular follow-up office visit.??? She does have a history of atrial fibrillation and MRDD.??? She is accompanied by her caregiver. In July of 2022, she fell and fractured her left hip. Her caregiver states that her Eliquis was held at that time during surgery, and was resumed. From a cardiac standpoint, the patient is doing well. She presents to the office in a wheel chair. She denies any palpitations, chest pain, pressure or heaviness. She denies SOB, Orthopnea, and PND. She does not have bleeding issues; no blood in urine, stool or nosebleeds. She denies any decrease in energy level, myalgias, or claudication. She does not have edema, or sudden weight gain. She denies dizziness, lightheadedness, syncopal or near syncopal episodes, and headaches. 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 Education Required: No Is patient in pain?: No Allergies Penicillins Allergy (Verified 03/20/24 14:28) Unknown Sulfa (Sulfonamide Antibiotics) Allergy (Verified 03/20/24 14:28) Unknown Medications ???Medication ???Instructions ???Recorded ???Confirmed ???Type acetaminophen 500 mg tablet 500 - 1,000 mg (1 - 2 x 500 mg) PO 10/16/14 03/20/24 Rx Q6H PRN PRN Pain 4 days levothyroxine 88 mcg tablet 88 mcg PO .mon- sat thyroid 10/16/14 03/20/24 History lorazepam 0.5 mg tablet 0.5 mg PO Q12H mood 03/11/18 03/20/24 History cholecalciferol (vitamin D3) 25 1,000 unit PO QDAY supplement 03/17/18 03/20/24 History mcg (1,000 unit) capsule multivitamin (Daily Multi-Vitamin 1 tab PO QAM supplement 03/17/18 03/20/24 History tablet) polyethylene glycol 3350 8.5 gram 17 g PO QDAY constipation 03/17/18 03/20/24 History oral powder packet vitamin A 2,400 mcg capsule 8,000 unit PO QDAY supplement 03/17/18 03/20/24 History alendronate 35 mg tablet 35 mg PO QWEEK bone health 03/05/20 03/20/24 History risperidone 0.5 mg tablet 0.5 mg PO TID mood 03/05/20 03/20/24 History fluvoxamine 50 mg tablet 50 mg PO TID mood 04/11/21 03/20/24 History triamcinolone acetonide 0.025 % 1 applic topical BID PRN exzema 12/30/22 03/20/24 History topical cream carbamide peroxide 6.5 % ear drops 4 drp EACH EAR .Q24hr 11/20/23 03/20/24 History (Debrox) apixaban 5 mg tablet 5 mg PO BID a fib #180 tabs 03/20/24 03/20/24 Rx metoprolol succinate 25 mg 12.5 mg (1/2 x 25 mg) PO DAILY 03/20/24 03/20/24 Rx tablet,extended release 24 hr #180 tabs Have you fallen in the past year?: No PFSH Medical History Atrial fibrillation with RVR Glaucoma Cataract Developmental disability Longstanding persistent atrial fibrillation Schizophrenia Cerebral palsy Hypothyroidism Surgical History History of cataract surgery (02/2022) History of Achilles tendon repair Family History Father Cancer Mother Heart disease Social History household members: other details: half-way. Smoking Status: Never smoker alcohol intake: never substance use type: does not use what type of physical activity do you participate in: other details: senior chair exercises ROS Const Const: Negative for fatigue, weakness, fever(s), headache(s), chills, frequent falls, weight gain or weight loss Eyes Eyes: Negative for blind spots, loss of peripheral vision, transient loss of vision, blurry vision, change in vision, double vision, floaters or tunnel vision ENT ENT: Negative for headache(s), dizziness, Nosebleed/epistaxis , balance problems or neck pain Cardio Chest Pain: No Palpitations: No Edema: None Muscle aches with walking: None Resp Respiratory: Negative for SOB with activity, SOB at rest or SOB orthopnea SOB lying down GI GI: Negative nausea, vomiting, heartburn, bloating, vomiting blood/hematemesis, bright, red blood in stools or black,tarry stools Musc Musc: Negative for muscle aches/ myalgia, muscle weakness, joint pain or balance problems Neuro Neuro: Negative f (more content not included)... Normal [facility] Emergency Department Summary on 11-20-2023 Emergency Department Summary [facility] Medical Records Department [address] [place] [address] Emergency Department Summary 11/20/23 MR#: [id number] Acct: [id number] Name: MILLICENT SANDHU Rep #: [id number] : 1955 68 From: Pelon Daly MD PCP: Dr. Dionne Borrero, DO Status:REG ER Location: ED HPI History of Present Illness Chief Complaint: Lower Extremity Injury Narrative Narrative: 68-year-old female past medical history of developmental delay, presents with her caregiver because of right leg pain. Her history and physical is limited secondary to her chronic condition. She does have history of bilateral hip fractures with reported right hip replacement. Care worker states that patient has been refusing to bear weight on her right leg for the past 4 days. It started Wednesday evening. She does tend to walk on her toes a little bit, but they think that she is having pain when she tries to get up and transfer to her chair. She has had previous toes that were infected on her right, but is not having any fever or drainage currently. They present her for evaluation of reported pain in her right leg. No recent reported trauma or falls. [facility] Medical History Atrial fibrillation with RVR Cataract Cerebral palsy Developmental disability Glaucoma Hypothyroidism Longstanding persistent atrial fibrillation Schizophrenia Home Medications acetaminophen 500 mg tablet 500 - 1,000 mg (1 - 2 x 500 mg) PO Q6H PRN PRN Pain 4 days 10/16/14 [Rx Last Taken Unknown] levothyroxine 88 mcg tablet 88 mcg PO .mon- sat thyroid 10/16/14 [History Last Taken 08/25/22] lorazepam 0.5 mg tablet 0.5 mg PO Q12H mood 03/11/18 [History Last Taken 08/25/22] cholecalciferol (vitamin D3) 25 mcg (1,000 unit) capsule 1,000 unit PO QDAY supplement 03/17/18 [History Last Taken 08/25/22] multivitamin (Daily Multi-Vitamin tablet) 1 tab PO QAM supplement 03/17/18 [History Last Taken 08/25/22] polyethylene glycol 3350 8.5 gram oral powder packet 17 g PO QDAY constipation 03/17/18 [History Last Taken 08/24/22] vitamin A 2,400 mcg capsule 8,000 unit PO QDAY supplement 03/17/18 [History Last Taken 08/25/22] alendronate 35 mg tablet 35 mg PO QWEEK bone health 03/05/20 [History Last Taken 08/19/22] risperidone 0.5 mg tablet 0.5 mg PO TID mood 03/05/20 [History Last Taken 08/24/22] fluvoxamine 50 mg tablet 50 mg PO TID mood 04/11/21 [History Last Taken 08/25/22] triamcinolone acetonide 0.025 % topical cream 1 applic topical BID PRN exzema 12/30/22 [History Last Taken Unknown] metoprolol succinate 25 mg tablet,extended release 24 hr 12.5 mg (1/2 x 25 mg) PO DAILY #30 tabs 01/11/23 [Rx Last Taken Unknown] apixaban 5 mg tablet 5 mg PO BID a fib #60 tabs 09/06/23 [Rx Last Taken Unknown] carbamide peroxide 6.5 % ear drops (Debrox) 4 drp EACH EAR .Q24hr 11/20/23 [History Last Taken Unknown] Allergy/AdvReac Type Severity Reaction Status Date / Time Penicillins Allergy Unknown Verified 11/20/23 11:40 Sulfa (Sulfonamide Allergy Unknown Verified 11/20/23 11:40 Antibiotics) Family History Father Cancer Mother Heart disease Surgical History History of Achilles tendon repair History of cataract surgery (02/2022) Social History household members: other details: half-way. Smoking Status: Never smoker alcohol intake: never substance use type: does not use what type of physical activity do you participate in: other details: senior chair exercises ROS ROS ED ROS Narrative Limited secondary to patient's developmental delay/disability. Obtained through caregiver. Constitutional: No fever, no chills. Musculoskeletal: Right leg pain, refusal to bear weight on right leg. EXAM Physical Exam Narrative Exam Narrative: Afebrile. Vital signs noted. HEENT: Atraumatic. PERRL, EOMI. Neck soft and supple. No point tenderness or step off. Cardiovascular: Regular rate and rhythm with intermittent tachycardia no murmurs, rubs, or gallops appreciated. Respiratory: No tachypnea. Lungs clear to auscultation bilaterally. Gastrointestinal: Abdomen soft, nontender, with normoactive bowel sounds. No rebound or guarding. Neurological: Awake. Alert. Nonverbal at baseline. Skin: No rash. Normal color. No pallor. Musculoskeletal: No pedal edema. Positive contractures of bilateral feet. Const Vital Signs: 11/20/23 11:40 Temperature 98.4 F Temperature Source Temporal Pulse Rate 102 H Respiratory Rate 16 Blood Pressure 92/60 Blood Pressure Mean 70 Pulse Ox 100 Oxygen Delivery Method Room Air MDM MDM MDM Narrative Medical decision making narrative: Concern is for occult fracture versus (more content not included)... Normal [facility] Femur Min 2 Viewson 11-20-19 24 Femur Min 2 Views [facility] Imaging Services [address] [place] [address] Femur Min 2 Views MR#: [id number] Acct: [id number] Name: MILLICENT SANDHU Rep #: [id number] : 1955 F 68 From: Valarie beyer MD PCP: Dr. Dionne Borrero DO Status: REG ER Study: Femur Min 2 Views Date of Exam: 11/20/23 Exam# [id number] Ordering Dr: Pelon Daly MD [id number] HISTORY: Pain. TECHNIQUE: XR Femur Min 2 Views. COMPARISON: None. FINDINGS: BONES : No acute fracture identified. Greater trochanter osteophyte noted. JOINTS: No dislocation. Degenerative change of the hip in the. RAD/Femur Min 2 Views IMPRESSION: No acute fracture or dislocation identified in the right femur. Electronically Signed: Valarie Rowell MD at 12:46 EST , CC: Dr. Pelon Daly MD; Dr. Dionne Borrero DO Backend Python Developer: Signed Normal [facility] Foot min 3 Viewson 4 Foot min 3 Views [facility] Imaging Services [address] [place] [address] Foot min 3 Views MR#: [id number] Acct: [id number] Name: MILLICENT SANDHU Rep #: [id number] : 1955 F 68 From: Valarie beyer MD PCP: Dr. Dionne Borrero DO Status: REG ER Study: Foot min 3 Views Date of Exam: 11/20/23 Exam# [id number] Ordering Dr: Pelon Daly MD -[id number] HISTORY: Pain. TECHNIQUE: XR Foot Min 3 Views. COMPARISON: None. FINDINGS: BONES : No acute fracture identified. Generalized osteopenia. JOINTS: No dislocation. Calcaneal cuboid fusion hardware with subtalar and calcaneal cuboid fusion. Degenerative change. Chronic medial deviation of the first distal phalanx and flexion of the second through fifth toes. Chronic pes cavus. SOFT TISSUES: Soft tissue swelling of the ankle and hindfoot. RAD/Foot min 3 Views IMPRESSION: Soft tissue swelling of the right foot. No acute osseous abnormality identified. Electronically Signed: Valarie Rowell MD at 12:49 EST Reading Location ID and State: [facility] / [place] Tel , Service support , CC: Dr. Pelon Daly MD; Dr. Dionne Borrero DO Backend Python Developer: Signed Normal [facility] Tibia Fibula 2 Viewson 11-20 Tibia Fibula 2 Views [facility] Imaging Services [address] [place] [address] Tibia Fibula 2 Views MR#: [id number] Acct: [id number] Name: MILLICENT SANDHU Rep #: [id number] : 1955 68 From: Valarie beyer MD PCP: Dr. Dionne Borrero DO Status: REG ER Study: Tibia Fibula 2 Views Date of Exam: 11/20/23 Exam# [id number] Ordering Dr: Pelon Daly MD [id number] HISTORY: Pain. TECHNIQUE: XR Tibia/Fibula 2 Views. COMPARISON: None. FINDINGS: BONES : No acute fracture identified. Mild osteopenia. Fixation hardware in the hindfoot with subtalar fusion. JOINTS: No dislocation. Mild degenerative change. RAD/Tibia Fibula 2 Views IMPRESSION: No acute fracture or dislocation identified in the right leg. Electronically Signed: Valarie Rowell MD at 12:48 EST , CC: Dr. Pelon Daly MD; Dr. Dionne Borrero DO Backend Python Developer: Signed Normal [facility] Emergency Department Summary on 10-14-2023 Emergency Department Summary [facility] Medical Records Department [address] [place] [id number] Emergency Department Summary 10/14/23 MR#: [id number] Acct: [id number] Name: MILLICENT SANDHU Rep #: [id number] : 1955 68 From: Aiden Anderson DO PCP: Dr. 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 Chavez. Dr Chavez Saw and evaluated this patient in the office this morning, patient was sent to the ER for a second opinion. ER physician Dr. Lyn took the phone call from Dr. Chavez. Patient caregiver is at bedside, she knows patient very well. Patient caregiver has been with this patient for many years. Patient caregiver stated that they were in the podiatry office today, for reevaluation, patient had a small scab to her right dorsal second toe, PIP joint, it was picked off, and patient is in the office for normal evaluation. Patient right foot looks much better in the ER today than it did this morning in the podiatry office. Patient is nonverbal at baseline. Patient has no fever or chills, nausea, vomiting, no infectious symptoms. A scab was picked off the PIP joint of the right second toe, no signs of infection. Patient caregiver stated they had a x-ray and Dr. Chavez office, the matcher offbearer was uncertain if there may be a skin infection or not, No obvious bone infection, the right second toe is curled under itself, so patient was sent to the ER. Caregiver states the redness is significantly improved now than what it was in the podiatry office. Patient normally has red coloration to the dorsal aspect of her feet every morning, and caregiver believes this is what Dr. Chavez was seen in the office and was confused about normal redness versus infection. Patient was waiting in the ER for a lengthy amount of time secondary to other critical patients, patient caregiver very understanding. Patient's right foot looks much better than it did in the office this morning, and caregiver believes the redness to the dorsal aspect of the right foot was a normal redness the patient has every day, but it did look slightly more red on the right foot compared to left in the office today. Patient has no grimace or pain in the caregiver is aware of. No streaking, no other acute complaints. There is minimal redness of the dorsal aspect of bilateral feet at this time. The coloration of the right foot was toxic at 5-10 minutes and discussed with caregiver on the proper action needed in the ER during HPI. [facility] Medical History Atrial fibrillation with RVR Cataract Cerebral palsy Developmental disability Glaucoma Hypothyroidism Longstanding persistent atrial fibrillation Schizophrenia Home Medications acetaminophen 500 mg tablet 500 - 1,000 mg (1 - 2 x 500 mg) PO Q6H PRN PRN Pain 4 days 10/16/14 [Rx Last Taken Unknown] levothyroxine 88 mcg tablet 88 mcg PO DAILY thyroid 10/16/14 [History Last Taken 08/25/22] lorazepam 0.5 mg tablet 0.5 mg PO TID mood 03/11/18 [History Last Taken 08/25/22] cholecalciferol (vitamin D3) 25 mcg (1,000 unit) capsule 1,000 unit PO QDAY supplement 03/17/18 [History Last Taken 08/25/22] multivitamin (Daily Multi-Vitamin tablet) 1 tab PO QAM supplement 06/21/18 [History Last Taken 08/25/22] polyethylene glycol 3350 8.5 gram oral powder packet 17 g PO QDAY constipation 03/17/18 [History Last Taken 08/24/22] vitamin A 2,400 mcg capsule 8,000 unit PO QDAY supplement 03/17/18 [History Last Taken 08/25/22] alendronate 35 mg tablet 35 mg PO QWEEK bone health 03/05/20 [History Last Taken 08/19/22] risperidone 0.5 mg tablet 0.5 mg PO TID mood 03/05/20 [History Last Taken 08/24/22] fluvoxamine 50 mg tablet 50 mg PO TID mood 04/11/21 [History Last Taken 08/25/22] triamcinolone acetonide 0.025 % topical cream 1 applic topical BID PRN 12/30/22 [History Last Taken Unknown] metoprolol succinate 25 mg tablet,extended release 24 hr 12.5 mg (1/2 x 25 mg) PO DAILY #30 tabs 01/11/23 [Rx Last Taken Unknown] apixaban 5 mg tablet 5 mg PO BID a fib #60 tabs 09/06/23 [Rx Last Taken Unknown] cephalexin 500 mg capsule 500 mg PO 3XD 7 days #14 CAPSULES 10/13/23 [Rx Last Taken Unknown] mupirocin 2 % topical ointment 1 applic topical TID 14 days #1 tube 10/13/23 [Rx Last Taken Unknown] Allergy/AdvReac Type Severity Reaction Status Date / Time Penicillins Allergy Unknown Verified 10/13/23 11:19 Sulfa (Sulfonamide Allergy Unknown Verified 10/13/23 11:19 Antibiotics) Family History Father Cancer Mother Heart disease Surgical History ... Normal [facility] MA MAMMOGRAM DIAGNOSTIC LEFT on 10-13-2023 MA MAMMOGRAM DIAGNOSTIC LEFT ORIGINAL FROM: EMILY [address] [address] PROCEDURE FOR: MILLICENT SANDHU [address] [place] [id number] Home: PID#: [id number] Exam#: [id number] : 1955 Age: 68 TO: DIONNE BORRERO DO [address] [facility] [address] [place] [address] Fax: NO FAX EXAMINATION: DIAGNOSTIC DIGITAL LEFT BREAST MAMMOGRAM, 10/12/2023 12:59 pm TECHNIQUE: Diagnostic mammography of the left breast was performed. Current study was also evaluated with a Computer Aided Detection (CAD) system. COMPARISON: April 14, 2023, April 17, 2022, April 13, 2022, April 25, 2019 HISTORY: ORDERING SYSTEM PROVIDED HISTORY: Reason for Exam: Abnormal mammogram, left breast FINDINGS: BREAST DENSITY: Scattered fibroglandular tissue Evaluation is limited due to motion artifact on the MLO and spot magnification ML view. In the left breast at 4 o'clock middle depth, there is a 1.5 cm group of punctate calcifications not significantly changed. No other significant masses, calcifications, or other findings. IMPRESSION: Somewhat limited study due to motion artifact. Group of punctate calcifications in the left breast at 4 o'clock middle depth, probably benign. Follow-up left diagnostic mammogram in 6 months is recommended; this will be at the time of the patient's annual mammogram, which should be requested as a bilateral diagnostic mammogram. BIRADS: MAMMOGRAM BI-RADS: 3: Probably benign RECALL: 6 month follow-up RECALL TYPE: mammo LETTER SENT: Probably Benign BI-RADS 3 Interpreted by: Brianda Lange Preliminary Report By: Brianda Lange Electronically signed By Brianda Lange Dictated Date: 10/13/2023 2:56:57 PM Prelim Date: 10/13/2023 2:58:46 PM Sign Date: 10/13/2023 2:58:46 PM Ordering Provider: DIONNE BORRERO CLINICAL: 6 MONTHS FOLLOW-UP. [employer] Sealer: HALINA SAUCEDO (Lissy)(M) letter sent: Probably Benign BI-RADS 3 Mammogram BI-RADS: 3 Probably benign Normal [facility] Cardiology Visit Reporton Cardiology Visit Report [facility] [place] [address] [place], [place] [address] OFFICE VISIT Date of Service: 09/13/23 MR#: [id number] Acct: [id number] Name: MILLICENT SANDHU Rep #: [id number] : 1955 Provider: AISHWARYA sebastian Age/Sex: 68/F Location: [facility] Status: Signed [facility] History of Present Illness Details: MILLICENT SANDHU, is a 68 F who presents for a cardiovascular follow-up office visit.??? She does have a history of atrial fibrillation and MRDD.??? She is accompanied by her caregiver. In July of last year, she fell and fractured her left hip. Her caregiver states that her Eliquis was held at that time during surgery, and was resumed. From a cardiac standpoint, the patient is doing well. She presents in a wheel chair, accompanied by her vocational childcare teacher. The caregiver answers for patient. She denies any palpitations, chest pain, pressure or heaviness. She denies SOB, Orthopnea, and PND. She does not have bleeding issues; no blood in urine, stool or nosebleeds. She denies any decrease in energy level, myalgias, or claudication. She does not have edema, or sudden weight gain. She denies dizziness, lightheadedness, syncopal or near syncopal episodes, and headaches. Her blood pressures at home average 90-107/54-75. Unable to get blood pressure in office today. 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 Education Required: No Is patient in pain?: No Allergies Penicillins Allergy (Verified 09/13/23 14:52) Unknown Sulfa (Sulfonamide Antibiotics) Allergy (Verified 09/13/23 14:52) Unknown Medications acetaminophen 500 mg tablet 500 - 1,000 mg (1 - 2 x 500 mg) PO Q6H PRN PRN Pain 4 days 10/16/14 [Rx Confirmed 09/13/23] levothyroxine 88 mcg tablet 88 mcg PO DAILY thyroid 10/16/14 [History Confirmed 09/13/23] lorazepam 0.5 mg tablet 0.5 mg PO TID mood 03/11/18 [History Confirmed 09/13/23] cholecalciferol (vitamin D3) 25 mcg (1,000 unit) capsule 1,000 unit PO QDAY supplement 03/17/18 [History Confirmed 09/13/23] multivitamin (Daily Multi-Vitamin tablet) 1 tab PO QAM supplement 03/17/18 [History Confirmed 09/13/23] polyethylene glycol 3350 8.5 gram oral powder packet 17 g PO QDAY constipation 03/17/18 [History Confirmed 09/13/23] vitamin A 2,400 mcg capsule 8,000 unit PO QDAY supplement 03/17/18 [History Confirmed 09/13/23] alendronate 35 mg tablet 35 mg PO QWEEK bone health 03/05/20 [History Confirmed 09/13/23] risperidone 0.5 mg tablet 0.5 mg PO TID mood 03/05/20 [History Confirmed 09/13/23] fluvoxamine 50 mg tablet 50 mg PO TID mood 04/11/21 [History Confirmed 09/13/23] triamcinolone acetonide 0.025 % topical cream 1 applic topical BID PRN 12/30/22 [History Confirmed 09/13/23] metoprolol succinate 25 mg tablet,extended release 24 hr 12.5 mg (1/2 x 25 mg) PO DAILY #30 tabs 01/11/23 [Rx Confirmed 09/13/23] apixaban 5 mg tablet 5 mg PO BID a fib #60 tabs 09/06/23 [Rx Confirmed 09/13/23] Nurse's Note: Please take vitals [facility] Medical History Atrial fibrillation with RVR Cataract Cerebral palsy Developmental disability Glaucoma Hypothyroidism Longstanding persistent atrial fibrillation Schizophrenia Surgical History History of Achilles tendon repair History of cataract surgery (02/2022) Family History Father Cancer Mother Heart disease Social History household members: other details: half-way. Smoking Status: Never smoker alcohol intake: never substance use type: does not use what type of physical activity do you participate in: other details: senior chair exercises ROS Const Const: Negative for fatigue, weakness, fever(s), headache(s), chills, frequent falls, weight gain or weight loss Eyes Eyes: Negative for blind spots, loss of peripheral vision, transient loss of vision, blurry vision, change in vision, double vision, floaters or tunnel vision ENT ENT: Negative for headache(s), dizziness, Nosebleed/epistaxis , balance problems or neck pain Cardio Chest Pain: No Palpitations: No Edema: None Muscle aches with walking: None Resp Respiratory: Negative for SOB with activity, SOB at rest or SOB orthopnea SOB lying down GI GI: Negative nausea, vomiting, heartburn, bloating, vomiting blood/hematemesis, bright, red blood in stools or black,tarry stools Musc Musc: Negative for muscle aches/ myalgia, muscle weakness, joint pain or balance pro (more content not included)... Normal [facility] Basophil percentageon 2021 WBC (Bld) [#/Vol] 10.5 10*3/uL 4.4-11.0 [facility] Work Phone: Blood erythrocytes count (nu mber/volume)on 08-29-2022 RBC (Bld) [#/Vol] 3.56 10*6/uL 4.2-5.4 [facility] Work Phone: Blood hemoglobin measurement (mass/volume)on 08-29-2022 Hemoglobin (Bld) [Mass/Vol] 10.4 g/dL 12.0-15.0 [facility] Work Phone: Blood platelet mean volumeon 08-29-2022 Platelet mean volume (Bld) [Entitic vol] 10.9 fL 6.2-12.0 [facility] Work Phone: Determination of erythrocyte mean corpuscular volume (MCV)on 08-29-2022 MCV (RBC) [Entitic vol] 88.8 fL 81-99 [facility] Work Phone: Hematocrit Auto (Bld) [Volum e fraction]on 08-29-2022 Hematocrit (Bld) [Volume fraction] 31.6 % 37-47 [facility] Work Phone: Laboratory - Hematology and Cell countson 08-29-2022 Erythrocyte distribution width (RBC) [Entitic vol] 45.4 fL 35.1-43.9 [facility] Work Phone: Erythrocyte distribution width (RBC) [Ratio] 14.0 % 11.6-14.6 [facility] Work Phone: MCH (RBC) [Entitic mass] 29.2 pg 27.0-32.0 [facility] Work Phone: MCHC Auto (RBC) [Mass/Vol]on 08-29-2022 MCHC (RBC) [Mass/Vol] 32.9 g/dL 32-36 [facility] Work Phone: Platelets bldon 08-29-2022 Platelets (Bld) [#/Vol] 170 10*3/uL 150-450 [facility] Work Phone: Basophil percentageon 2021 Chloride [Moles/Vol] 110 mmol/L 98-107 [facility] Work Phone: Glucose [Mass/Vol] 89 mg/dL 74-106 [facility] Work Phone: Potassium [Moles/Vol] 3.7 mmol/L 3.5-5.1 [facility] Work Phone: Sodium [Moles/Vol] 139 mmol/L 136-145 [facility] Work Phone: Laboratory - Chemistry and C hemistry - challengeon 08-27-2022 CO2 [Moles/Vol] 25.0 mmol/L 21.0-32.0 [facility] Work Phone: Urea nitrogen/Creatinine [Mass ratio] 35.2 mg/mg 10-20 [facility] Work Phone: No Panel Informationon 08-27 Estimated Creatinine Clearance Calc 120.64 ml/min [facility] Work Phone: Estimated GFR (MDRD) Amer 207 mL/min >60 [facility] Work Phone: Comment on above: GFR Calc Estimated GFR (MDRD) Non-Af Amer 171 mL/min >60 [facility] Work Phone: Comment on above: Non- GFR Calc Serum or plasma calcium lori urement (mass/volume)on 08-27-2022 Calcium [Mass/Vol] 7.8 mg/dL 8.5-10.1 [facility] Work Phone: Serum or plasma creatinine m easurement (mass/volume)on 08-27-2022 Creatinine [Mass/Vol] 0.40 mg/dL 0.55-1.02 [facility] Work Phone: Comment on above: The validity of the calculated GFR & GFRAA in patients over 70 years has not been determined. Clinical correlation is essential. Serum or plasma urea nitroge n measurement (mass/volume)on 08-27-2022 Urea nitrogen [Mass/Vol] 14 mg/dL 7-18 [facility] Work Phone: Thin prep Papanicolaou smear with manual screeningon 08-27-2022 Thin prep Papanicolaou smear with manual screening 4 5-15 [facility] Work Phone: Absolute lymphocyte counton 08-26-2022 Lymphocytes Auto (Unsp spec) [#/Vol] 0.95 10*3/uL 0.83-4.51 [facility] Work Phone: Basophil percentageon 2021 Basophils/100 WBC (Bld) 0.3 % 0-1 [facility] Work Phone: Bilirubin [Mass/Vol] 0.60 mg/dL 0.20-1.00 [facility] Work Phone: Comment on above: For patients on eltr ombopag therapy, use of Dimension [place] TBIL is not recommended. Eosinophils/100 WBC (Bld) 0.0 % 0-5 [facility] Work Phone: Neutrophils (Bld) [#/Vol] 6.4 10*3/uL 2.0-7.7 [facility] Work Phone: Neutrophils/100 WBC (Bld) 65.9 % 47-70 [facility] Work Phone: Protein [Mass/Vol] 5.9 g/dL 6.4-8.2 [facility] Work Phone: Blood lymphocytes/100 leukoc yteson 08-26-2022 Lymphocytes/100 WBC (Bld) 9.7 % 19-41 [facility] Work Phone: Blood monocytes/100 leukocyt eson 08-26-2022 Monocytes/100 WBC (Bld) 23.8 % 0-10 [facility] Work Phone: Laboratory - Chemistry and C hemistry - challengeon 08-26-2022 ALP [Catalytic activity/Vol] 63 U/L 45-117 [facility] Work Phone: ALT [Catalytic activity/Vol] 19 U/L 13-56 [facility] Work Phone: Globulin (S) [Mass/Vol] 3.0 g/dL 2.2-4.2 [facility] Work Phone: Laboratory - Hematology and Cell countson 08-26-2022 Immature granulocytes/100 WBC (Bld) 0.300 % 0.0-0.9 [facility] Work Phone: Comment on above: IG% - Immature Granu locytes (promyelocytes, myelocytes and metamyelocytes) > 1% indicates that a LEFT SHIFT is Present. Nucleated RBC/100 WBC (Bld) [Ratio] 0 % 0-5 [facility] Work Phone: No Panel Informationon 08-26 Thyroid Stimulating Hormone (TSH) 2.75 uIU/mL 0.358-3.74 [facility] Work Phone: Serum or plasma albumin lori urement (mass/volume)on 08-26-2022 Albumin [Mass/Vol] 2.9 g/dL 3.2-5.0 [facility] Work Phone: Serum or plasma albumin/glob ulin mass ratioon 08-26-2022 Albumin/Globulin [Mass ratio] 1.0 {ratio} 0.9-2.4 [facility] Work Phone: Thin prep Papanicolaou smear with manual screeningon 08-26-2022 Thin prep Papanicolaou smear with manual screening 28 U/L 15-37 [facility] Work Phone: Absolute lymphocyte counton 08-25-2022 Lymphocytes Auto (Unsp spec) [#/Vol] 0.77 10*3/uL 0.83-4.51 [facility] Work Phone: Basophil percentageon 2021 Basophils/100 WBC (Bld) 0.3 % 0-1 [facility] Work Phone: Bilirubin [Mass/Vol] 0.40 mg/dL 0.20-1.00 [facility] Work Phone: Comment on above: For patients on eltr ombopag therapy, use of Dimension [place] TBIL is not recommended. Chloride [Moles/Vol] 104 mmol/L 98-107 [facility] Work Phone: Eosinophils/100 WBC (Bld) 0.1 % 0-5 [facility] Work Phone: Glucose [Mass/Vol] 130 mg/dL 74-106 [facility] Work Phone: Comment on above: Fasting Glucose resu lt greater than or equal to 126 mg/dL suggests DIABETES MELLITUS per A.D.A. criteria. Neutrophils (Bld) [#/Vol] 16.5 10*3/uL 2.0-7.7 [facility] Work Phone: Neutrophils/100 WBC (Bld) 84.4 % 47-70 [facility] Work Phone: Potassium [Moles/Vol] 4.0 mmol/L 3.5-5.1 [facility] Work Phone: Protein [Mass/Vol] 7.2 g/dL 6.4-8.2 [facility] Work Phone: Sodium [Moles/Vol] 139 mmol/L 136-145 [facility] Work Phone: WBC (Bld) [#/Vol] 19.5 10*3/uL 4.4-11.0 [facility] Work Phone: Blood erythrocytes count (nu mber/volume)on 08-25-2022 RBC (Bld) [#/Vol] 4.02 10*6/uL 4.2-5.4 [facility] Work Phone: Blood hemoglobin measurement (mass/volume)on 08-25-2022 Hemoglobin (Bld) [Mass/Vol] 11.9 g/dL 12.0-15.0 [facility] Work Phone: Blood lymphocytes/100 leukoc yteson 08-25-2022 Lymphocytes/100 WBC (Bld) 4.0 % 19-41 [facility] Work Phone: Blood manual differential co mment interpretation (narrative result)on 08-25-2022 Manual differential comment Lonnie (Bld) [Interp] COMMENT [facility] Work Phone: Comment on above: MONOCYTOSIS. Blood monocytes/100 leukocyt eson 08-25-2022 Monocytes/100 WBC (Bld) 10.7 % 0-10 [facility] Work Phone: Blood platelet mean volumeon 08-25-2022 Platelet mean volume (Bld) [Entitic vol] 10.7 fL 6.2-12.0 [facility] Work Phone: Determination of erythrocyte mean corpuscular volume (MCV)on 08-25-2022 MCV (RBC) [Entitic vol] 91.5 fL 81-99 [facility] Work Phone: Hematocrit Auto (Bld) [Volum e fraction]on 08-25-2022 Hematocrit (Bld) [Volume fraction] 36.8 % 37-47 [facility] Work Phone: Laboratory - Chemistry and C hemistry - challengeon 08-25-2022 ALP [Catalytic activity/Vol] 81 U/L 45-117 [facility] Work Phone: ALT [Catalytic activity/Vol] 20 U/L 13-56 [facility] Work Phone: CO2 [Moles/Vol] 31.0 mmol/L 21.0-32.0 [facility] Work Phone: Globulin (S) [Mass/Vol] 3.7 g/dL 2.2-4.2 [facility] Work Phone: Magnesium [Mass/Vol] 2.6 mg/dL 1.6-2.6 [facility] Work Phone: Urea nitrogen/Creatinine [Mass ratio] 27.2 mg/mg 10-20 [facility] Work Phone: Laboratory - Hematology and Cell countson 08-25-2022 Erythrocyte distribution width (RBC) [Entitic vol] 45.8 fL 35.1-43.9 [facility] Work Phone: Erythrocyte distribution width (RBC) [Ratio] 13.6 % 11.6-14.6 [facility] Work Phone: Immature granulocytes/100 WBC (Bld) 0.500 % 0.0-0.9 [facility] Work Phone: Comment on above: IG% - Immature Granu locytes (promyelocytes, myelocytes and metamyelocytes) > 1% indicates that a LEFT SHIFT is Present. MCH (RBC) [Entitic mass] 29.6 pg 27.0-32.0 [facility] Work Phone: Nucleated RBC/100 WBC (Bld) [Ratio] 0 % 0-5 [facility] Work Phone: MCHC Auto (RBC) [Mass/Vol]on 08-25-2022 MCHC (RBC) [Mass/Vol] 32.3 g/dL 32-36 [facility] Work Phone: No Panel Informationon 11-29 -2022 Estimated Creatinine Clearance Calc 75.93 ml/min [facility] Work Phone: Estimated GFR (MDRD) Amer 115 mL/min >60 [facility] Work Phone: Comment on above: GFR Calc Estimated GFR (MDRD) Non-Af Amer 95 mL/min >60 [facility] Work Phone: Comment on above: Non- GFR Calc Platelets bldon 08-25-2022 Platelets (Bld) [#/Vol] 292 10*3/uL 150-450 [facility] Work Phone: Review by pathologiston 07-29 Pathologist review Lonnie (Unsp spec) [Interp] Reviewed [facility] Work Phone: Comment on above: Previous reported re sult: Dilma rivera Edited by: ORLANDO on 08/26/22:1220Neutrophilic leukocytosis.Normocytic anemia.Clinical correlation suggested.Yemi Griggs D.O. 08/26/22 AMENDED REPORT 08/26/22 1220 PATH REV previously reported as: Dilma rivera Serum or plasma albumin lori urement (mass/volume)on 08-25-2022 Albumin [Mass/Vol] 3.5 g/dL 3.2-5.0 [facility] Work Phone: Serum or plasma albumin/glob ulin mass ratioon 08-25-2022 Albumin/Globulin [Mass ratio] 0.9 {ratio} 0.9-2.4 [facility] Work Phone: Serum or plasma calcium lori urement (mass/volume)on 08-25-2022 Calcium [Mass/Vol] 9.0 mg/dL 8.5-10.1 [facility] Work Phone: Serum or plasma creatinine m easurement (mass/volume)on 08-25-2022 Creatinine [Mass/Vol] 0.66 mg/dL 0.55-1.02 [facility] Work Phone: Comment on above: The validity of the calculated GFR & GFRAA in patients over 70 years has not been determined. Clinical correlation is essential. Serum or plasma urea nitroge n measurement (mass/volume)on 08-25-2022 Urea nitrogen [Mass/Vol] 18 mg/dL 7-18 [facility] Work Phone: Thin prep Papanicolaou smear with manual screeningon 08-25-2022 Thin prep Papanicolaou smear with manual screening 19 U/L 15-37 [facility] Work Phone: Thin prep Papanicolaou smear with manual screening 4 5-15 [facility] Work Phone: Basophil percentageon 2021 Bilirubin [Mass/Vol] 0.10 mg/dL 0.20-1.00 [facility] Work Phone: Comment on above: For patients on eltr ombopag therapy, use of Dimension [place] TBIL is not recommended. Chloride [Moles/Vol] 106 mmol/L 98-107 [facility] Work Phone: Cholesterol [Mass/Vol] 149 mg/dL <200 [facility] Work Phone: Comment on above: <200 mg/dL Desirable 200-240 mg/dL Borderline >240 mg/dL High Risk Glucose [Mass/Vol] 82 mg/dL 74-106 [facility] Work Phone: Potassium [Moles/Vol] 4.1 mmol/L 3.5-5.1 [facility] Work Phone: Protein [Mass/Vol] 7.2 g/dL 6.4-8.2 [facility] Work Phone: Sodium [Moles/Vol] 140 mmol/L 136-145 [facility] Work Phone: Triglyceride [Mass/Vol] 109 mg/dL <199 [facility] Work Phone: Comment on above: The drugs N-Acetylcy steine and Metamizole may falsely depress this assay.Serum Triglycerides Reference Interval Normal <150 mg/dL Borderline high 150 - 199 mg/dL High 200 - 499 mg/dL Very High > or = 500 mg/dL Laboratory - Chemistry and C hemistry - challengeon 04-13-2022 ALP [Catalytic activity/Vol] 101 U/L 45-117 [facility] Work Phone: ALT [Catalytic activity/Vol] 18 U/L 13-56 [facility] Work Phone: CO2 [Moles/Vol] 27.0 mmol/L 21.0-32.0 [facility] Work Phone: Globulin (S) [Mass/Vol] 3.8 g/dL 2.2-4.2 [facility] Work Phone: Urea nitrogen/Creatinine [Mass ratio] 24.4 mg/mg 10-20 [facility] Work Phone: No Panel Informationon 04-13 Estimated GFR (MDRD) Amer 109 mL/min >60 [facility] Work Phone: Comment on above: GFR Calc Estimated GFR (MDRD) Non-Af Amer 90 mL/min >60 [facility] Work Phone: Comment on above: Non- GFR Calc Thyroid Stimulating Hormone (TSH) 2.15 uIU/mL 0.358-3.74 [facility] Work Phone: Serum or plasma albumin lori urement (mass/volume)on 04-13-2022 Albumin [Mass/Vol] 3.4 g/dL 3.2-5.0 [facility] Work Phone: Serum or plasma albumin/glob ulin mass ratioon 04-13-2022 Albumin/Globulin [Mass ratio] 0.9 {ratio} 0.9-2.4 [facility] Work Phone: Serum or plasma calcium lori urement (mass/volume)on 04-13-2022 Calcium [Mass/Vol] 9.1 mg/dL 8.5-10.1 [facility] Work Phone: Serum or plasma cholesterol in HDL measurement (mass/volume)on 04-13-2022 Cholesterol in HDL [Mass/Vol] 65 mg/dL >40 [facility] Work Phone: Comment on above: The drugs N-Acetylcy steine and Metamizole may falsely depress this assay. Reference Range HDL <40 mg/dL Low HDL Cholesterol HDL >or= 60 mg/dL High HDL Cholesterol Serum or plasma cholesterol in VLDL measurement (mass/volume)on 04-13-2022 Cholesterol in VLDL [Mass/Vol] 22 mg/dL 5-40 [facility] Work Phone: Serum or plasma creatinine m easurement (mass/volume)on 04-13-2022 Creatinine [Mass/Vol] 0.70 mg/dL 0.55-1.02 [facility] Work Phone: Comment on above: The validity of the calculated GFR & GFRAA in patients over 70 years has not been determined. Clinical correlation is essential. Serum or plasma low density lipoprotein (LDL) cholesterol measurement (mass/volume)on 04-13-2022 Cholesterol in LDL [Mass/Vol] 62 mg/dL 0-130 [facility] Work Phone: Serum or plasma urea nitroge n measurement (mass/volume)on 04-13-2022 Urea nitrogen [Mass/Vol] 17 mg/dL 7-18 [facility] Work Phone: Thin prep Papanicolaou smear with manual screeningon 04-13-2022 Thin prep Papanicolaou smear with manual screening 21 U/L 15-37 [facility] Work Phone: Thin prep Papanicolaou smear with manual screening 7 5-15 [facility] Work Phone: XR Foot - left AP and Latera l and obliqueon 04-09-2021 IMPRESSION: Acute minimally displaced intra-articular fracture base of the LEFT fifth proximal phalanx. 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 Best possible films. Pt. has limited mobility. Xrays done on table. CLINICAL INFORMATION: 65 years old Female with Foot injury, left, initial encounter TECHNIQUE: XR FOOT 3V AP/LAT/OBL LT Laterality: LEFT Number of different views (projections): 3 COMPARISON: None RESULT: Hammertoe deformities somewhat limit evaluation of the distal toes. Dorsal forefoot soft tissue swelling. Minimally displaced intra-articular fracture medial base of the fifth proximal phalanx with adjacent soft tissue swelling. No other fractures identified. Osteopenia. Joint spaces are otherwise maintained. DIVISION OF RADIOLOGY Provider, [facility] [place] - 04/09/2021 * * *Final Report* * * DATE OF EXAM: Apr 09 2021 11:50AM WOX [id number] - XR FOOT 3V AP/LAT/OBL LT / PROCEDURE REASON: Foot injury, left, initial encounter * * * * Physician Interpretation * * * * EXAMINATION: XR FOOT 3V AP/LAT/OBL LT PATIENT/TECHNOLOGIS T PROVIDED HISTORY: barrel brander states possibly lt foot was ran over by wheelchair 1 day ago. Best possible films. Pt. has limited mobility. Xrays done on table. CLINICAL INFORMATION: 65 years old Female with Foot injury, left, initial encounter TECHNIQUE: XR FOOT 3V AP/LAT/OBL LT Laterality: LEFT Number of different views (projections): 3 COMPARISON: None RESULT: Hammertoe deformities somewhat limit evaluation of the distal toes. Dorsal forefoot soft tissue swelling. Minimally displaced intra-articular fracture medial base of the fifth proximal phalanx with adjacent soft tissue swelling. No other fractures identified. Osteopenia. Joint spaces are otherwise maintained. IMPRESSION IMPRESSION: Acute minimally displaced intra-articular fracture base of the LEFT fifth proximal phalanx. Backend Python Developer: JOSE MARIA Transcribe Date/Time: Apr 09 2021 11:57A Dictated by : RACHAEL RANADLL DO This examination was interpreted and the report reviewed and electronically signed by: RACHAEL RANDALL DO on Apr 09 2021 12:01PM EST [facility] Radiology Study observation (narrative) [facility] XR Foot - left AP and Latera l and obliqueOrdered By: [facility] Provider on 04-09-2021 [facility] XR Femur - right AP and Late ralon 11-06-2020 IMPRESSION: Minimally displaced fracture of the RIGHT greater trochanter Backend Python Developer: JOSE MARIA Transcribe Date/Time: Nov 06 2020 12:26P Dictated by : TWILA SHAIKH MD This examination was interpreted and the report reviewed and electronically signed by: TWILA SHAIKH MD on Nov 06 2020 12:29PM EST DIVISION OF RADIOLOGY * * *Final Report* * * DATE OF EXAM: Nov 06 2020 12:17PM WOX [id number] - XR FEMUR 2V AP/LAT RT / PROCEDURE REASON: Right leg pain * * * * Physician Interpretation * * * * EXAMINATION: XR FEMUR 2V AP/LAT RT CLINICAL HISTORY: [employer] Technical Lead Senior Developer states pt. fell 1 day ago on Rt side. Just wants to make sure no fracture. Right leg pain Technique: XR FEMUR 2V AP/LAT RT -- RIGHT femur with 4 views on 4 images Comparison: None RESULT: There is cortical disruption of the greater trochanter consistent with minimally displaced fracture. No dislocation. There is narrowing of the RIGHT hip joint space. The RIGHT knee joint is intact. DIVISION OF RADIOLOGY Provider, [facility] [place] - 11/06/2020 * * *Final Report* * * DATE OF EXAM: Nov 06 2020 12:17PM WOX [id number] - XR FEMUR 2V AP/LAT RT / PROCEDURE REASON: Right leg pain * * * * Physician Interpretation * * * * EXAMINATION: XR FEMUR 2V AP/LAT RT CLINICAL HISTORY: [employer] Technical Lead Senior Developer states pt. fell 1 day ago on Rt side. Just wants to make sure no fracture. Right leg pain Technique: XR FEMUR 2V AP/LAT RT -- RIGHT femur with 4 views on 4 images Comparison: None RESULT: There is cortical disruption of the greater trochanter consistent with minimally displaced fracture. No dislocation. There is narrowing of the RIGHT hip joint space. The RIGHT knee joint is intact. IMPRESSION IMPRESSION: Minimally displaced fracture of the RIGHT greater trochanter Backend Python Developer: PSCB Transcribe Date/Time: Nov 06 2020 12:26P Dictated by : TWILA SHAIKH MD This examination was interpreted and the report reviewed and electronically signed by: TWILA SHAIKH MD on Nov 06 2020 12:29PM EST [facility] Radiology Study observation (narrative) [facility] XR Femur - right AP and Late ralOrdered By: [facility] Provider on 11-06-2020 [facility] Office Visiton 03-17-2017 Documentation of current medications (procedure) Done Invalid Interpretation Code [email or web address] Work Phone: Fall risk assessment Yes Invalid Interpretation Code [email or web address] Work Phone: Protein mass conc Done [email or web address] Work Phone: No Panel Information [facility] Vital Signs Date Time Vital Sign Value Performing Clinician Facility 11-29-2024 12:49-0500 Body temperature 97.52 [degF] DIONNE GISSELL DO [facility] 11-29-2024 12:49-0500 Diastolic Blood Pressure Non-Invasive 74 mm[Hg] DIONNE GISSELL DO [facility] 11-29-2024 12:49-0500 Heart rate 74 /min DIONNE GISSELL DO [facility] 11-29-2024 12:49-0500 Reason For Taking VItal Signs DIONNE GISSELL DO [facility] 11-29-2024 12:49-0500 Respiratory rate 18 /min DIONNE GISSELL DO [facility] 11-29-2024 12:49-0500 Systolic Blood Pressure Non-Invasive 88 mm[Hg] DIONNE GISSELL DO [facility] 05-25-2024 13:12-0400 Diastolic Blood Pressure Non-Invasive 72 mm[Hg] DIONNE GISSELL DO [facility] 05-25-2024 13:12-0400 Heart rate 73 /min DIONNE BORRERO DO [facility] 05-25-2024 13:12-0400 Reason For Taking VItal Signs DIONNE BORRERO DO [facility] 05-25-2024 13:12-0400 Respiratory rate 16 /min DIONNE BORRERO DO [facility] 05-25-2024 13:12-0400 Systolic Blood Pressure Non-Invasive 118 mm[Hg] DIONNE BORRERO DO [facility] 11-20-2023 11:40-0500 Body height 165.[address] Dionne Borrero Work Phone: [facility] 11-20-2023 11:40-0500 Body temperature 98.4 [degF] Dr. Dionne Borrero Work Phone: [facility] 11-20-2023 11:40-0500 Diastolic blood pressure 60 mm[Hg] Dr. Dionne Borrero Work Phone: [facility] 11-20-2023 11:40-0500 Heart rate 102 /min Dr. Dionne Borrero Work Phone: [facility] 11-20-2023 11:40-0500 Respiratory rate 16 /min Dr. Dionne Borrero Work Phone: [facility] 11-20-2023 11:40-0500 SaO2% (BldA) [Mass fraction] 100 % Dr. Dionne Borrero Work Phone: [facility] 11-20-2023 11:40-0500 Systolic blood pressure 92 mm[Hg] Dr. Dionne Borrero Work Phone: [facility] 10-13-2023 13:36-0500 Body mass index (BMI) [Ratio] 20 kg/m2 Dr. Dionne Borrero Work Phone: [facility] 10-13-2023 13:36-0500 Body weight 54.[address] Dionne Borrero Work Phone: [facility] 10-13-2023 11:19-0500 Body height 165.[address] Dionne Borrero Work Phone: [facility] 10-13-2023 11:19-0500 Body temperature 96.1 [degF] Dr. Dionne Borrero Work Phone: [facility] 10-13-2023 11:19-0500 Diastolic blood pressure 68 mm[Hg] Dr. Dionne Borrero Work Phone: [facility] 10-13-2023 11:19-0500 Heart rate 92 /min Dr. Dionne Borrero Work Phone: [facility] 10-13-2023 11:19-0500 Respiratory rate 18 /min Dr. Dionne Borrero Work Phone: [facility] 10-13-2023 11:19-0500 SaO2% (BldA) [Mass fraction] 98 % Dr. Dionne Borrero Work Phone: [facility] 10-13-2023 11:19-0500 Systolic blood pressure 109 mm[Hg] Dr. Dionne Borrero Work Phone: [facility] 09-13-2023 14:37-0500 Body mass index (BMI) [Ratio] 19.4 kg/m2 Dr. Dionne Borrero Work Phone: [facility] 09-13-2023 14:37-0500 Body weight 53.[address] Dionne Borrero Work Phone: [facility] 09-13-2023 14:37-0500 Heart rate 88 /min Dr. Dionne Borrero Work Phone: [facility] 09-13-2023 14:37-0500 Respiratory rate 18 /min Dr. Dionne Borrero Work Phone: [facility] 08-29-2022 16:00-0500 Body temperature 98.4 [degF] Dr. Dionne Borrero Work Phone: [facility] Work Phone: 08-29-2022 16:00-0500 Diastolic blood pressure 61 mm[Hg] Dr. Dionne Borrero Work Phone: [facility] Work Phone: 08-29-2022 16:00-0500 Heart rate 114 /min Dr. Dionne Borrero Work Phone: [facility] Work Phone: 08-29-2022 16:00-0500 Respiratory rate 16 /min Dr. Dionne Borrero Work Phone: [facility] Work Phone: 08-29-2022 16:00-0500 SaO2% (BldA) [Mass fraction] 100 % Dr. Dionne Borrero Work Phone: [facility] Work Phone: 08-29-2022 16:00-0500 Systolic blood pressure 101 mm[Hg] Dr. Dionne Borrero Work Phone: [facility] Work Phone: 08-29-2022 06:00-0500 Body weight 60.[address] Dionne Borrero Work Phone: [facility] Work Phone: 08-26-2022 12:31-0500 Body height 165.[address] Dionne Borrero Work Phone: [facility] Work Phone: 08-26-2022 12:31-0500 Body mass index (BMI) [Ratio] 19.3 kg/m2 Dr. Dionne Borrero Work Phone: [facility] Work Phone: 08-25-2022 15:02-0500 Heart rate 107 /min [facility] Work Phone: 08-25-2022 14:39-0500 Body temperature 97.5 [degF] [facility] Work Phone: 08-25-2022 14:39-0500 Diastolic blood pressure 72 mm[Hg] [facility] Work Phone: 08-25-2022 14:39-0500 Respiratory rate 16 /min [facility] Work Phone: 08-25-2022 14:39-0500 Systolic blood pressure 110 mm[Hg] [facility] Work Phone: 08-25-2022 14:18-0500 SaO2% (BldA) [Mass fraction] 99 % [facility] Work Phone: 08-25-2022 11:08-0500 Body height 165.1 cm [facility] Work Phone: 08-25-2022 11:08-0500 Body mass index (BMI) [Ratio] 20.7 kg/m2 [facility] Work Phone: 08-25-2022 11:08-0500 Body weight 56.6 kg [facility] Work Phone: 04-29-2022 15:19-0400 Body height 162.6 cm Brinda Garcia MD Work Phone: [facility] 04-29-2022 15:19-0400 Body temperature 97.7 [degF] Brinda Garcia MD Work Phone: [facility] 04-29-2022 15:19-0400 Body weight 48.44 kg Brinda Garcia MD Work Phone: [facility] 04-29-2022 15:19-0400 Diastolic blood pressure 68 mm[Hg] Brinda Garcia MD Work Phone: [facility] 04-29-2022 15:19-0400 Heart rate 95 /min Brinda Garcia MD Work Phone: [facility] 04-29-2022 15:19-0400 SaO2% (BldA) [Mass fraction] 97 % Brinda Garcia MD Work Phone: [facility] 04-29-2022 15:19-0400 Systolic blood pressure 100 mm[Hg] Brinda Garcia MD Work Phone: [facility] 04-13-2022 12:47-0400 Body height 160.[address] Dionne Borrero Work Phone: [facility] Work Phone: 04-13-2022 12:47-0400 Body mass index (BMI) [Ratio] 19.1 kg/m2 Dr. Dionne Borrero Work Phone: [facility] Work Phone: 04-13-2022 12:47-0400 Body weight 48.[address] Dionne Borrero Work Phone: [facility] Work Phone: 04-13-2022 12:47-0400 Diastolic blood pressure 62 mm[Hg] Dr. Dionne Borrero Work Phone: [facility] Work Phone: 04-13-2022 12:47-0400 Heart rate 84 /min Dr. Dionne Borrero Work Phone: [facility] Work Phone: 04-13-2022 12:47-0400 Respiratory rate 14 /min Dr. Dionne Borrero Work Phone: [facility] Work Phone: 04-13-2022 12:47-0400 SaO2% (BldA) [Mass fraction] 96 % Dr. Dionne Borrero Work Phone: [facility] Work Phone: 04-13-2022 12:47-0400 Systolic blood pressure 108 mm[Hg] Dr. Dionne Borrero Work Phone: [facility] Work Phone: 02-18-2022 13:33-0400 Body temperature 97.81 [degF] Pac 1 Work Phone: [facility] 02-18-2022 13:33-0400 Body weight 47.17 kg Pacc 1 Work Phone: [facility] 02-18-2022 13:33-0400 Diastolic blood pressure 54 mm[Hg] Pacc 1 Work Phone: [facility] 02-18-2022 13:33-0400 Heart rate 77 /min Pacc 1 Work Phone: [facility] 02-18-2022 13:33-0400 Respiratory rate 14 /min Pacc 1 Work Phone: [facility] 02-18-2022 13:33-0400 SaO2% (BldA) [Mass fraction] 100 % Pacc 1 Work Phone: [facility] 02-18-2022 13:33-0400 Systolic blood pressure 84 mm[Hg] Pacc 1 Work Phone: [facility] 03-17-2017 15:03-0400 BMI (Body Mass Index) 23 kg/m2 [facility] Work Phone: 03-17-2017 15:03-0400 BP Diastolic 60 mm[Hg] [facility] Work Phone: 03-17-2017 15:03-0400 BP Systolic 100 mm[Hg] [facility] Work Phone: 03-17-2017 15:03-0400 Height 162.56 cm [facility] Work Phone: 03-17-2017 15:03-0400 Pulse (Heart Rate) 84 /min [facility] Work Phone: 03-17-2017 15:03-0400 Respiratory Rate 20 /min [facility] Work Phone: 03-17-2017 15:03-0400 Weight 60.78 kg [facility] Work Phone: Encounters Encounter Date Encounter Type Care Provider Facility Start: 11-29-2024 End: 11-29-2024 ambulatory DIONNE BORRERO DO Facility:[facility] Start: 11-29-2024 End: 11-29-2024 SAME DAY STAY DIONNE BORRERO DO [facility] Start: 11-22-2024 End: 11-22-2024 ambulatory ANTHONY MARQUEZ Facility:[facility] Start: 11-22-2024 End: 11-22-2024 Patient encounter procedure Anthony Marquez MD Work Phone: Ophthalmology Comment on above: Chronic primary angl e-closure glaucoma of both eyes, severe stage Start: 09-05-2024 End: 09-05-2024 ambulatory Dionne Borrero Facility:[facility] Start: 05-25-2024 End: 05-25-2024 SAME DAY STAY DIONNE BORRERO DO [facility] [facility] Start: 05-25-2024 End: 05-25-2024 ambulatory DIONNE BORRERO DO Facility:B Start: 05-25-2024 End: 05-25-2024 Patient encounter procedure DIONNE BORRERO DO [facility] Start: 04-17-2024 End: 04-17-2024 ambulatory DIONNE BORRERO DO Facility:B Start: 04-17-2024 End: 04-17-2024 Patient encounter procedure DIONNE BORRERO DO [facility] Start: 03-20-2024 End: 03-20-2024 ambulatory Dionne Borrero Facility:[facility] Start: 11-20-2023 ambulatory Barbara Rivas RN NURSE CREDIT CONTROL MANAGER Comment on above: Information ([facility]/) Start: 11-20-2023 End: 11-20-2023 Emergency department patient visit Dr. Dionne Borrero Work Phone: [facility]-Emergency Department Work Phone: Start: 10-13-2023 End: 10-13-2023 Emergency department patient visit Dr. Dionne Borrero Work Phone: [facility]-Emergency Department Work Phone: Start: 10-12-2023 End: 10-12-2023 ambulatory DIONNE BORRERO DO Facility:B Start: 10-12-2023 End: 10-12-2023 Patient encounter procedure DIONNE BORRERO DO [facility] Start: 09-13-2023 End: 09-13-[address] Dionne Borrero Work Phone: [facility] Work Phone: Start: 09-13-2023 End: 09-13-2023 ambulatory Dionne Borrero Facility:[facility] Start: 04-14-2023 End: 04-14-2023 Patient encounter procedure DIONNE AVALOSY [facility] Start: 04-02-2023 End: 04-02-2023 Patient encounter procedure Anthony Marquez MD Work Phone: Ophthalmology Comment on above: Chronic primary angl e-closure glaucoma of both eyes, severe stage (Primary Dx) Start: 08-29-2022 Non-patient / Non-visit Dr. Mariah Borrero Work Phone: [facility] Start: 08-28-2022 Non-patient / Non-visit Dr. Mariah Borrero Work Phone: [facility] Start: 08-27-2022 Non-patient / Non-visit Dr. Mariah Borrero Work Phone: [facility] Start: 08-27-2022 Non-patient / Non-visit Dr. Mariah Borrero Work Phone: [facility] Start: 08-26-2022 Non-patient / Non-visit Dr. Mariah Borrero Work Phone: [facility] Start: 08-26-2022 Non-patient / Non-visit Dr. Mariah Borrero Work Phone: [facility] Start: 08-25-2022 Non-patient / Non-visit Dr. Mariah Borrero Work Phone: [facility] Start: 08-25-2022 End: 08-29-2022 Evaluation and management of inpatient [facility]-Progressive Care Unit Start: 05-25-2022 End: 05-25-2022 Patient encounter procedure Anthony Marquez MD Work Phone: Ophthalmology Comment on above: Dermatitis (Primary Dx); Postoperative follow-up; Bilateral chronic primary angle-closure glaucoma, indeterminate stage Start: 05-19-2022 End: 05-19-[address] Dionne Borrero Work Phone: [facility] Work Phone: Start: 05-19-2022 End: 05-19-[address] Dionne Borrero Work Phone: [facility]-Breast Imaging - Biopsy/Stero Start: 05-04-2022 End: 05-04-2022 Patient encounter procedure Anthony Marquez MD Work Phone: Ophthalmology Comment on above: Postoperative follow -up (Primary Dx) Start: 04-29-2022 End: 04-29-2022 Patient encounter procedure Brinda Garcia MD Work Phone: General Surgery Comment on above: Abnormal mammogram ( Primary Dx); alf (current) use of antithrombotics/antiplatelets Start: 04-27-2022 Non-patient / Non-visit Dr. Mariah Borrero Work Phone: [facility] Start: 04-27-2022 End: 04-27-[address] Dionne Borrero Work Phone: [facility]-Cardiovascular Services Start: 04-17-2022 End: 04-17-2022 Patient encounter procedure DIONNE BORRERO DO [facility] Start: 04-13-2022 End: 04-13-[address] Dionne Borrero Work Phone: [facility] Start: 04-13-2022 End: 04-13-2022 Patient encounter procedure DIONNE BORRERO DO [facility] Start: 04-07-2022 End: 04-07-2022 Patient encounter procedure Anthony Marquez MD Work Phone: Ophthalmology Comment on above: Postoperative follow -up (Primary Dx) Refill Request Start: 03-05-2022 Refill Anthony Marquez MD Work Phone: Ophthalmology Comment on above: Refill Request; Refi ll Request; Refill Request Start: 02-19-2022 ambulatory Raegan saldaña APRN.IT SUPPORT CONSULTANT Work Phone: Pre Anesthesia Comment on above: Eliquis Start: 02-19-2022 E-mail encounter fro m caregiver Raegan Malone APRN.IT SUPPORT CONSULTANT Work Phone: [facility] Start: 02-19-2022 Telephone encounter Raegan Malone APRN.IT SUPPORT CONSULTANT Work Phone: Pre Anesthesia Comment on above: Orders Start: 02-18-2022 Telephone encounter Devika barajas MD Work Phone: Ophthalmology Comment on above: 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 - O ther Start: 02-18-2022 End: 02-18-2022 Admission to establishment [facility] 1 Work Phone: [facility] Start: 02-18-2022 End: 02-18-2022 ambulatory [facility] 1 Work Phone: Pre Anesthesia Comment on above: Pre-operative examin ation (Primary Dx); Cataract, unspecified cataract type, unspecified laterality; Bilateral chronic angle-closure glaucoma, indeterminate stage; Unspecified hypothyroidism; Urinary incontinence, unspecified type; Atrial fibrillation, unspecified type (HCC); Cerebral palsy, unspecified type (HCC); Anxiety and depression; Schizophrenia, unspecified type (HCC) Start: 02-18-2022 End: 02-18-2022 Preprocedural examination done [place] [id number] Work Phone: Pre Anesthesia Start: 02-10-2022 End: 02-10-2022 Orders Only Sorin Thomas MD Work Phone: Ophthalmology Comment on above: Acute angle-closure glaucoma of right eye (Primary Dx); Nuclear senile cataract of right eye; Total, mature senile cataract Nuclear sclerotic ca taract of both eyes (Primary Dx); Total, mature senile cataract Nuclear senile catar act of both eyes (Primary Dx); Bilateral chronic primary angle-closure glaucoma, indeterminate stage Start: 04-09-2021 End: 04-09-2021 Subsequent hospital visit by physician [facility] Work Phone: Radiology Comment on above: Foot injury, left, i nitial encounter [S99.922A] Start: 11-06-2020 End: 11-06-2020 Subsequent hospital visit by physician X[facility] Work Phone: Radiology Comment on above: Right leg pain [M79. 604] Procedures Date Procedure Procedure Detail Performing Clinician Start: 11-20-2023 Plain X-ray of femur Dr Stephan Borrero Work Phone: Start: 11-20-2023 Plain X-ray of tibia and fibula Dr. Dionne Borrero Work Phone: Start: 11-20-2023 X-ray of both feet Dr. Dionne Borrero Work Phone: Start: 08-26-2022 Fluoroscopic guidance D mansi Borrero Work Phone: Start: 08-26-2022 Plain x-ray of pelvi s and lower extremity Dr. Dionne Borrero Work Phone: Start: 08-26-2022 Trochanteric Fixatio n Nail, Synthes (Left) Dr. Dionne Borrero Work Phone: Start: 08-25-2022 Plain chest X-ray Dr. Lissy Borrero Work Phone: Start: 08-25-2022 Plain X-ray of femur Dr Stephan Borrero Work Phone: Start: 08-25-2022 Plain x-ray of pelvi s and lower extremity Start: 08-25-2022 CT cervical spine wi thout contrast Start: 08-25-2022 CT of head without contrast Start: 02-10-2022 Ophthalmic ultrasoun d dx b-scan w/wo a-scan Thomas Cook MD Work Phone: Start: 02-10-2022 IOL BIOMETRY W/ IOL CALC OU (BOTH EYES) Thomas Cook MD Work Phone: Start: 04-09-2021 Radex foot complete minimum 3 views Yu Balderas PA-C Work Phone: Start: 11-06-2020 Radiologic examinati on femur minimum 2 views Jad Fagan PREPARATION PLANT SUPERVISOR.IT SUPPORT CONSULTANT Work Phone: Start: 03-17-2017 End: 04-27-2017 Echocardiography Raghav Pitts MD Start: 03-17-2017 End: 03-17-2017 Follow Up Appt 1 year Raghav Pitts MD Start: 03-17-2017 End: 03-17-2017 MMM Raghav Pitts MD Structure of yue s tendon (body structure) DIONNE BORRERO DO Comment on above: bilateral Plan of Treatment Date Care Activity Detail Author Start: 2032 RSV Vaccine (1 - 1-dose 75+ series) RSV Vaccine (1 - 1-dose 75+ series) [facility] Start: 10-16-2024 Urine microalbumin profile DTaP,Tdap,Td Vaccine (2 - Td or Tdap) [facility] Start: 09-27-2024 Advance Directive Discussion Advance Directive Discussion [facility] Start: 09-06-2024 End: 09-06-2024 Patient encounter procedure 09/06/2024 1:15 PM EST Office Visit [facility] [address] [address] Anthony Marquez MD [address] [place] [address] Return in about 1 year (around 10/06/2024). (per pt request return in May) Ophthalmology Comment on above: Return in about 1 year (around 10/06/2024 ). (per pt request return in May) Start: 05-28-2024 Covid-19 Vaccine ( season) Covid-19 Vaccine () [facility] Start: 05-28-2024 Influenza vaccination Influenza Vaccine (#1) [facility] Start: 11-20-2023 [facility] Start: 10-15-2023 [facility] Start: 09-27-2023 Advance Directive Discussion Advance Directive Discussion [facility] Start: 05-28-2023 Covid-19 Vaccine () Covid-19 Vaccine () [facility] Start: 05-28-2023 Influenza vaccination INFLUENZA (#1) [facility] Start: 09-27-2022 ADVANCE DIRECTIVE DISCUSSION ADVANCE DIRECTIVE DISCUSSION [facility] Start: 08-29-2022 Patient discharge [facility] Work Phone: Start: 08-28-2022 Referral to service [facility] Work Phone: Start: 08-28-2022 Speech therapy assessment [facility] Work Phone: Start: 08-28-2022 Administration of blood product [facility] Work Phone: Start: 08-26-2022 Ambulation therapy management [facility] Work Phone: Start: 08-26-2022 Application of device [facility] Work Phone: Start: 08-26-2022 Exercises [facility] Work Phone: Start: 08-26-2022 Following clinical pathway protocol [facility] Work Phone: Start: 08-26-2022 Introduction of urinary catheter [facility] Work Phone: Start: 08-26-[address] [facility] Work Phone: Start: 08-26-2022 Patient education [facility] Work Phone: Start: 08-26-2022 Provision of activity privileges [facility] Work Phone: Start: 08-26-2022 Referral to occupational therapist [facility] Work Phone: Start: 08-26-2022 Referral to service [facility] Work Phone: Start: 08-26-[address] [facility] Work Phone: Start: 08-26-2022 Wound care [facility] Work Phone: Start: 08-26-2022 [facility] Work Phone: Start: 08-26-2022 Trochanteric Fixation Nail, Synthes (Left) Trochanteric Fixation Nail, Synthes (Left) [facility] Work Phone: Start: 08-26-2022 Measuring intake and output [facility] Work Phone: Start: 08-26-2022 Thyroid stimulating hormone measurement [facility] Work Phone: Start: 08-26-2022 End: 08-26-2022 [facility] Work Phone: Start: 08-26-2022 Measuring intake and output [facility] Work Phone: Start: 08-25-2022 Measuring intake and output [facility] Work Phone: Start: 08-25-2022 [facility] Work Phone: Start: 08-25-2022 Application of intermittent pneumatic compression device [facility] Work Phone: Start: 08-25-2022 Incentive spirometry [facility] Work Phone: Start: 08-25-2022 Application of ice collar, cap or bag [facility] Work Phone: Start: 08-25-2022 Aspiration precautions [facility] Work Phone: Start: 08-25-2022 Assessment of risk of venous thromboembolism [facility] Work Phone: Start: 08-25-2022 Bedrest [facility] Work Phone: Start: 08-25-2022 Consultation [facility] Work Phone: Start: 08-25-2022 Fall prevention [facility] Work Phone: Start: 08-25-2022 Inhalation therapy procedure [facility] Work Phone: Start: 08-25-2022 Insertion of catheter into peripheral vein [facility] Work Phone: Start: 08-25-[address] [facility] Work Phone: Start: 08-25-2022 Oxygen therapy [facility] Work Phone: Start: 08-25-2022 Providing care according to standard [facility] Work Phone: Start: 08-25-2022 Referral to occupational therapist [facility] Work Phone: Start: 08-25-2022 Referral to service [facility] Work Phone: Start: 08-25-2022 Skin care [facility] Work Phone: Start: 08-25-2022 Measuring intake and output [facility] Work Phone: Start: 08-25-2022 Following clinical pathway protocol [facility] Work Phone: Start: 08-25-2022 Verification routine [facility] Work Phone: Start: 08-25-2022 End: 08-25-2022 [facility] Work Phone: Start: 08-25-2022 Admission procedure [facility] Work Phone: Start: 08-25-2022 Plain X-ray of femur Femur Min 2 Views [facility] Work Phone: Start: 08-25-2022 Plain chest X-ray Chest 1 View (Portable) [facility] Work Phone: Start: 08-25-2022 Application of mechanical traction on skin [facility] Work Phone: Start: 08-25-2022 Patient referral to dietitian [facility] Work Phone: Start: 08-25-2022 [facility] Work Phone: Start: 2022 BONE DENSITY BONE DENSITY [facility] Start: 2022 Pneumococcal Vaccine: 65+ (1 of 1 - PCV) Pneumococcal Vaccine: 65+ (1 of 1 - PCV) [facility] Start: 2022 PNEUMOCOCCAL: 65+ (1 - PCV) PNEUMOCOCCAL: 65+ (1 - PCV) [facility] Start: 2022 Screening for osteoporosis Bone Density Screening [facility] Start: 05-28-2022 Influenza vaccination [facility] Start: 01-21-2022 COVID-19 VACCINE (4 - Booster for Moderna series) COVID-19 VACCINE (4 - Booster for Moderna series) [facility] Start: 11-17-2021 COVID-19 VACCINE (4 - Booster for Moderna series) COVID-19 VACCINE (4 - Booster for Moderna series) [facility] Start: 03-17-2018 End: 03-17-2018 Appointment [facility] Work Phone: Start: 2017 RSV Vaccine (1 - 1-dose 60+ series) RSV Vaccine (1 - 1-dose 60+ series) [facility] Start: 03-17-2017 End: 03-17-2017 Appointment Appointment [facility] Work Phone: Start: 03-17-2017 End: 03-17-2017 Echocardiography Echocardiogram (complete) [facility] Work Phone: Start: 03-17-2017 End: 03-17-2017 Follow Up Appt 1 year Follow Up Appt 1 year [facility] Work Phone: Start: 03-17-2017 End: 03-17-2017 MMM MMM [facility] Work Phone: Start: 2007 Pneumococcal Vaccine: 50+ (1 of 1 - PCV) Pneumococcal Vaccine: 50+ (1 of 1 - PCV) [facility] Start: 2007 SHINGRIX VACCINE (1 of 2) SHINGRIX VACCINE (1 of 2) [facility] Start: 2002 COLOGUARD (FIT-DNA) COLOGUARD (FIT-DNA) [facility] Start: 2002 Colonoscopy COLONOSCOPY [facility] Start: 2002 COLORECTAL CANCER SCREENING COLORECTAL CANCER SCREENING [facility] Start: [address] COLONOGRAPHY [facility] Start: 2002 DIABETES SCREEN DIABETES SCREEN [facility] Start: 2002 Diabetes Screening Diabetes Screening [facility] Start: 2002 FECAL OCCULT BLOOD FECAL OCCULT BLOOD [facility] Start: 2002 Lipid panel Lipid Screening [facility] Start: 2002 LIPID SCREEN LIPID SCREEN [facility] Start: 2002 Screening for malignant neoplasm of colon [facility] Start: 2002 SIGMOIDOSCOPY SIGMOIDOSCOPY [facility] Start: 1997 Mammography MAMMOGRAM [facility] Start: 1997 Screening for malignant neoplasm of breast Mammogram Screening [facility] Start: 1987 HPV TESTING HPV TESTING [facility] Start: 1978 PAP TESTING PAP TESTING [facility] Start: 1976 Urine microalbumin profile DTAP,TDAP,TD (1 - Tdap) [facility] Start: 1975 ANNUAL PCP TEAM CHRONIC DISEASE VISIT ANNUAL PCP TEAM CHRONIC DISEASE VISIT [facility] Start: 1975 HEPATITIS C SCREENING HEPATITIS C SCREENING [facility] Start: 1975 Hepatitis C screening Hepatitis C Screening [facility] Start: 1975 HIV SCREENING HIV SCREENING [facility] Start: 1969 Adult depression screening assessment DEPRESSION SCREENING [facility] Anion gap measurement [facility] Work Phone: BUN/Creatinine ratio [facility] Work Phone: Calcium [Mass/volume ] in Serum or Plasma [facility] Work Phone: Carbon dioxide, tota l [Moles/volume] in Serum or Plasma [facility] Work Phone: Chloride [Moles/volu me] in Serum or Plasma [facility] Work Phone: Creatinine [Moles/vo lume] in Serum or Plasma [facility] Work Phone: Glucose [Mass/volume ] in Serum or Plasma [facility] Work Phone: Hematocrit [Volume Fraction] of Blood [facility] Work Phone: Hemoglobin [Mass/vol ume] in Blood [facility] Work Phone: Leukocytes [#/volume ] in Blood [facility] Work Phone: Mean corpuscular hemoglobin concentration determination [facility] Work Phone: Mean corpuscular hemoglobin determination [facility] Work Phone: Measurement of renal function [facility] Work Phone: Patient Education [facility] Work Phone: Patient referral [facility] Work Phone: Platelets [#/volume] in Blood [facility] Work Phone: Potassium [Moles/vol ume] in Serum or Plasma [facility] Work Phone: Red blood cell count [facility] Work Phone: Red cell distributio n width determination [facility] Work Phone: Sodium [Moles/volume ] in Serum or Plasma [facility] Work Phone: Urea nitrogen [Mass/volume] in Serum or Plasma [facility] Work Phone: [facility] Work Phone: XR Knee - right 4 Views XR KNEE GENERAL 4V AP BOTH/PA BOTH/LAT/MERC RT Radiology STAT Right leg pain Ordered: 11/06/2020 [facility] Comment on above: Ordered: 11/06/2020 XR Pelvis and Hip - right AP and Lateral frog XR HIP GENERAL 3V PELV/AP/LAT RT Radiology STAT Right leg pain Ordered: 11/06/2020 [facility] Work Phone: Comment on above: Ordered: 11/06/2020 [facility] E[facility] INS T[facility] Immunizations Immunization Date Immunization Notes Care Provider Fa cili 09-15-2023 influenza, high dose seasonal, preservative-free; Translations: [Fluad Quadrivalent PF ] DIONNE BORRERO DO [facility] 09-15-2023 influenza virus vaccine, unspecified formulation [facility] Work Phone: [facility] 09-22-2021 SARS-CoV-2 (COVID-19 ) mRNA-1273 vaccine DIONNE AVALOSY DO [facility] 12-04-2020 SARS-CoV-2 (COVID-19 ) mRNA-1273 vaccine DIONNE GISSELL DO [facility] [place] Comment on above: Result Comment: 2021: [id number] 11-07-2020 SARS-CoV-2 (COVID-19 ) mRNA-1273 vaccine DIONNE HONGSAY DO [facility] [place] 08-06-2017 influenza virus vaccine, unspecified formulation DIONNE GISSELL DO [facility] 10-16-2014 tetanus toxoid, redu hiwot diphtheria toxoid, and acellular pertussis vaccine, adsorbed DIONNE GISSELL DO [facility] Payers Date Payer Category Payer Self-pay [id number] 2023 [employer] ( and others) [id number] 2020 Unknown FOR LIFE [id number] 2020-Present [phone] [address] [place] [address] Indemnity [id number] 2018 Medicaid MEDICAID [facility] MEDICAID [id number] 2018-Present [phone] [address] [place] [address] Medicaid [id number] 2018 Medicaid [id number] 2017 Unknown [id number] 2017 Medicaid [id number] 1977 Medicare MEDICARE MEDICAR E A AND B [id number] 1977-Present [phone] [place] [address] Medicare [id number] 1977 Medicare [id number] 1977 Medicare [id number] 1957 Unknown [id number] 627 1957 Unknown [id number] 627 1957 Unknown [id number]. 627 1957 Unknown [id number] 627 1957 Unknown [id number] 627 [employer] ( and others) S FOR LIFE [id number] [employer] ( and others) [id number] Unknown [id number] 462 Unknown [id number] 462 Unknown [id number] 462 Unknown [id number] 462 Unknown [id number] 462 Social History Date Type Detail Facility Start: 08-16-2018 End: 08-29-2019 Tobacco smoking status NHIS Never smoked tobacco [facility] Work Phone: Start: 02-10-2022 End: 11-22-2024 Alcohol intake Current non-drinker of alcohol (finding) [facility] Start: 1955 Sex Assigned At Not on file C [facility] Start: 10-07-2020 End: 05-25-2022 Exposure to SARS-CoV-2 (event) Not sure [facility] Start: 1955 Sex Assigned At Female A [facility] Start: 04-13-2022 End: 11-20-2023 Tobacco smoking status NHIS Unknown if ever smoked [facility] Start: 08-16-2018 Tobacco use and exposure Smoke less tobacco non-user [facility] Start: 04-02-2023 End: 10-06-2023 History of Social function [facility] Start: 04-02-2023 End: 10-06-2023 Tobacco use panel [facility] National Score (1-10 0), lower number is lower risk 71 [facility] Sexual Orientation Emily [facility]man [facility] Start: 03-22-2019 Sex Female (finding) [facility] Equipment Procedure Code Equipment Code Equipment Origin al Text Equipment Identifier Dates Lens Iol 0d +27 Belén Uv Abs - [id number] Start: 03-06-2022 Comment on above: Description: -0.31 11MM/130DEG TI C LINDA TFNA 360MM/LEFT FDA Start: 08-26-2022 ([id number]) Orthopaedic bone screw, non-bioabsorbable, sterile ()[id number] FDA Start: 08-26-2022 ([id number]) Spiral blade ()[id number] FDA Start: 08-26-2022 11MM/130DEG TI C LINDA TFNA 360MM/LEFT FDA Start: 08-26-2022 11MM/130DEG TI C LINDA TFNA 360MM/LEFT FDA Start: 08-26-2022 Goals Date Patient Goal Desired Activity /State Functional Status Date Assessment Result Facility 08-29-2022 Functional status [facility] Work Phone: Mental Status Date Assessment Result Facility 08-29-2022 Cognitive function Voice/Name;Touch/[place] [facility] Work Phone: Clinical Notes 11-06-2020 to 11-29-2024 Anthony Marquez MD - 11/22/2024 1:48 PM ESTTelephone Encounter - Barbara Rivas RN - 11/20/2023 9:26 AM ESTPatient InstructionsAng MD Alma - 04/02/2023 2:39 PM EDTPatient InstructionsPatient Instructions Note Date & Type Note Facility 11-29-2024 Nurse Progress note patient tolerated prolia injection without signs or symptoms of a reaction Digitally Signed by Anyi Willis RN on 11/29/2024 01:09 PM [facility] 11-22-2024 Note HNO ID: [id number] Author: ANTHONY MARQUEZ MD Service: ? Author Type: Physician Type: Progress Notes Filed: 11/22/2024 13:57 Note Text: POA Jocy White (aunt) Tmax 54(acute angle [...] developmental disability and cerebral palsy -seen at [facility], unable to perform LPI due to cooperation/positioning at slit lamp -IOP responded very nicely to max drops +DMX -s/p CEIOL + goniosynechiolysis + KDB + Dextenza right eye 03/06/22 -last visit - long discussion regarding whether or not to operate on left eye, caregiver reports that she had very poor vision left eye years even before onset of cataract. Caregiver / POA will think about phacoemulsification + KDB left eye and let me know - revisited discussion of goals for left eye -> caregiver electing for comfort left eye, able to function [...] Dry eye syndrome, both eyes - AT [facility] PRN - warm compresses and lid scrubs [...] agree with all of its relevant components. [facility] 11-22-2024 History of Present illness Narrative POA Jocy [...] developmental disability and cerebral palsy -seen at [facility], unable to perform LPI due to cooperation/positioning at slit lamp -IOP responded very nicely to max drops +DMX -s/p CEIOL + goniosynechiolysis + KDB + Dextenza right eye 03/06/22 -last visit - long discussion regarding whether or not to operate on left eye, caregiver reports that she had very poor vision left eye years even before onset of cataract. Caregiver / POA will think about phacoemulsification + KDB left eye and let me know - revisited discussion of goals for left eye -> caregiver electing for comfort left eye, able to function [...] agree with all of its relevant components. documented in this encounter [facility] 05-25-2024 Nurse Progress note patient tolerated prolia injection without signs or symptoms of an injection Digitally Signed by Anyi Willis RN on 05/25/2024 01:34 PM [facility] 04-17-2024 Note ORIGINAL EXAMINATION: BONE DENSITOMETRY 04/17/2024 1:57 pm TECHNIQUE: A bone density dual x-ray absorptiometry (DEXA) scan was performed of the axial (e.g. hips, spine) and/or appendicular (e.g. radius) skeleton as appropriate. COMPARISON: 04/13/2022. HISTORY: ORDERING SYSTEM PROVIDED HISTORY: Reason for Exam: Osteoporosis Screening FINDINGS: T Score Right Femoral Neck: -3.3 Right Femoral Neck: 0.481 (g/cm2) T Score Right Hip: -3.1 Right Hip: 0.567 (g/cm2) T Score Lumbar Spine: -2.0 Lumbar Spine: 0.828 (g/cmd2) BMD Change from previous Lumbar Spine:-2.5 % IMPRESSION: Osteoporosis by WHO criteria. World Health Organization criteria: (Comparing with young normal sex matched population) - Normal: T-score at or above -1 SD (standard deviation) - Osteopenia: T-score between -1 and -2.5 SD - Osteoporosis: T-score at or below -2.5 SD The NOF recommends that FDA-approved medical therapies be considered in post-menopausal women and men age >/= 50 years with a: * Hip or vertebral fracture, or * T-score of /= 20% for major osteoporotic fractures or * >/= 3% for hip fractures All treatment decisions require clinical judgement and consideration of individual patient factors, including patient preferences, comorbidities, previous drug use, risk factors not captured in the FRAX registered model (e.g., frailty, falls, vitamin D deficiency, increased bone turnover, interval significant decline in bone density) and possible under- or over-estimation of fracture risk by FRAX. Interpreted by: Aiden Hung DO Preliminary Report By: Aiden Hung DO Electronically signed By Aiden Hung DO Dictated Date: 04/17/2024 4:15:36 PM Prelim Date: 04/17/2024 4:16:17 PM Sign Date: 04/17/2024 4:16:17 PM Ordering Provider[facility] 11-20-2023 Miscellaneous Notes Daughter calling with health information: Daughter requesting health information about xray at [facility]. Already spoke to office this morning and advised to take her to get xrays done. Daughter denies any new or worsening symptoms of which a provider is not aware:Yes . Will take patient to ED. documented in this encounter [facility] 04-02-2023 Instructions Anthony Marquez MD - 04/02/2023 2:41 PM EDT You will be dilated on your next visit. This will likely make your vision blurry for several hours, and you should strongly consider bringing a straddle bug driver. documented in this encounter [facility] 04-02-2023 History of Present illness Narrative MARCELINO [...] developmental disability and cerebral palsy -seen at [facility], unable to perform LPI due to [...] Anthony Marquez MD documented in this encounter [facility] 05-25-2022 Instructions Anthony Marquez MD - 05/25/2022 11:51 AM EDT You will be dilated on your next visit. This will likely make your vision blurry for several hours, and you should strongly consider bringing a straddle bug driver. documented in this encounter [facility] 05-25-2022 History of Present illness Narrative POA Jocy White (aunt) Tmax 54(acute angle closure), 51(in chronic angle closure) Pachy -, - Past Ocular Surgical/Laser History OD: 03/06/22 CEIOL + goniosynechiolysis + KDB + Dextenza for PACG OS: - Medication Intolerance/Inefficacy/Barriers Timolol, Simbrinza (dermatitis) Now on Predforte 0/2 Next on Predforte 0/ HVF - OD: - OS: - OCT RNFL/GCL - OD - OS - B-Scan 02/10/22 1. Dense anterior lens echo Both eyes 2. Mild Vitreous opacities Left eye >Right eye 3. No Retinal detachment / Retinal tear 4. Macula flat 5. Peripapillary thickening Right eye PACG both eyes severe -non-verbal patient limited by developmental disability and cerebral palsy -seen at [facility], unable to perform LPI due to [...] Anthony Marquez MD documented in this encounter [facility] 05-04-2022 Instructions Anthony Marquez MD - 05/04/2022 11:39 AM EDT Medication Eye # times daily Simbrinza (light green cap) STOP 2x daily Prednisolone (pink or white cap) LEFT 2x daily *please remember to wait at least 3 minutes between different drops in the same eye. documented in this encounter [facility] 05-04-2022 History of Present illness Narrative [...] developmental disability and cerebral palsy -seen at [facility], unable to perform LPI due to [...] Anthony Marquez MD documented in this encounter [facility] 04-30-2022 History of Present illness Narrative HISTORY AND PHYSICAL Millicent Valiente 1955 REFERRING PHYSICIAN: Dionne Borrero DO CHIEF COMPLAINT: Consult (abnormal mammogram) HPI: The patient is a 66 year old female presents with abnormal left breast radiographs. 04/13/2022 Mammograms report - 2.8 cm area of left breast with punctate calcifications at 3:00 middle depth of left breast. She has cerebral palsy and is non verbal. She is here with her POA - her aunt, and a financial market dealer. Her sister had breast cancer. Her aunt had breast cancer. No ovarian cancer known in family. She has had no previous breast surgeries. She has had previous examinations with no findings of breast masses or nipple discharge. She will need to hold eliquis for three days prior to procedure. She is on Eliquis for chronic atrial fibrillation. Her financial market dealer states that a recent ECHO was OK. She did not bring any films to review - from [facility] Her gynecological history as follows: menarche onset [...] Take by mouth. multivitamin with folic acid (DAILY-JASMINE, WITH FOLIC ACID,) 400 mcg Take 1 [...] entered by the nurse and reviewed by mi Nursing Notes: Gabriela Grayson RN 04/29/2022 3:22 PM Signed REVIEW [...] last Mammogram screening? 2021 Last Colonoscopy: NONE Gabriela Grayson RN PHYSICAL EXAMINATION: General: The patient is 66 year old female, well nourished, well hydrated in no acute distress. The patient is oriented to time, place, and person. VITALS: Blood pressure 100/68, pulse 95, temperature 36.5 C (97.7 F), height 162.6 cm (5' 4), weight 48.4 kg (106 lb 12.8 oz), [...] by others. Consultation requested by Dr. Dionne Borrero for an opinion regarding patient's abnormal mammograms. My final recommendations will be communicated back to the requesting physician by way of shared Medical record or letter to requesting physician via US mail. . Diagnoses: (R92.8) Abnormal mammogram (primary encounter diagnosis) (Z79.02) alf (current) use of antithrombotics/antiplatelets Return to Clinic: The patient will be scheduled for left stereotactic breast biopsy at [facility]. Medical Decision Making: Problems: Moderate: New problem with uncertain prognosis Data: Unique test result(s) reviewed: 1 Risk: Low: Low risk from testing/treatment Medical Decision Making Level: 3 - Low Brinda Garcia MD documented in this encounter [facility] 04-29-2022 Nurse Note REVIEW OF SYSTEMS: [...] last Mammogram screening? 2021 Last Colonoscopy: NONE Gabriela Grayson RN documented in this encounter [facility] 04-17-2022 Note ORIGINAL FROM: [place] [address] [place], [place] [address] PROCEDURE FOR: MILLICENT VALIENTE [address] [place] [address] Home: PID#: [id number] Exam#: [id number] : 1955 Age: 66 TO: DIONNE BORRERO DO [address] [facility] [address] [place], [place] [address] Fax: NO FAX EXAMINATION: DIAGNOSTIC DIGITAL LEFT [...] to the patient regarding the results. A authorization representative from the radiology department will be contacting your office and assisting the patient in getting appropriate follow-up. Interpreted by: Sandeep Larson MD Preliminary Report By: Sandeep Larson MD Electronically signed By Sandeep Larson MD Dictated Date: 04/17/2022 3:24:02 PM Prelim Date: 04/17/2022 3:36:15 PM Sign Date: 04/17/2022 3:36:15 PM Ordering Provider: DIONNE BORRERO [employer] Sealer: HALINA ACOSTA RT (R)(M) letter sent: Biopsy Recommended BI-RADS 4 and 5 Mammogram BI-RADS: 4 Suspicious for malignancy [facility] 04-17-2022 Note ORIGINAL FROM: [facility] [address] [place], [place] [address] PROCEDURE FOR: MILLICENT Martinez [address] [address] Home: PID#: [id number] Exam#: [id number] : 1955 Age: 66 TO: DIONNE BORRERO DO [address] [facility] [place], [place] [address] Fax: NO FAX EXAMINATION: DIAGNOSTIC DIGITAL LEFT [...] to the patient regarding the results. A authorization representative from the radiology department will be contacting your office and assisting the patient in getting appropriate follow-up. Interpreted by: Sandeep Larson MD Preliminary Report By: Sandeep Larson MD Electronically signed By Sandeep Larson MD Dictated Date: 04/17/2022 3:24:02 PM Prelim Date: 04/17/2022 3:36:15 PM Sign Date: 04/17/2022 3:36:15 PM Ordering Provider: DIONNE BORRERO [employer] Sealer: HALINA SAUCEDO (Lissy)(M) letter sent: Biopsy Recommended BI-RADS 4 and 5 Mammogram BI-RADS: 4 Suspicious for malignancy [facility] 04-13-2022 Note ORIGINAL EXAMINATION: BONE DENSITOMETRY04/13/2022 2:25 [...] Sign Date: 04/13/2022 2:49:55 PM Ordering Provider[facility] 04-13-2022 Note ORIGINAL EXAMINATION: BONE DENSITOMETRY04/13/2022 2:25 [...] Sign Date: 04/13/2022 2:49:55 PM Ordering Provider: [facility] 04-07-2022 Miscellaneous Notes original script was wrong eye should be left eye twice daily documented in this encounter [facility] 04-07-2022 History of Present illness Narrative [...] developmental disability and cerebral palsy -seen at [facility], unable to perform LPI due to [...] not operate on for now -may need MORTGAGE LOAN REVIEWER for comfort, will reassess I have confirmed [...] Anthony Marquez MD documented in this encounter [facility] 03-05-2022 Miscellaneous Notes Pharmacy is accurate... pt. is scheduled for surgery tomorrow. documented in this encounter [facility] 02-19-2022 Miscellaneous Notes Called patient, spoke with caregiver, Melly, made aware of order. Requested that [employer] message be sent as well. Verbalizes understanding. Kathleen Moreno LPN ----- Message from Raegan Malone APRN.IT SUPPORT CONSULTANT sent at 02/19/2022 12:44 PM EDT ----- Regarding: RE: Pre-op eliquis Okay thank you. I will have my nurses call and have her hold 3 days prior to surgery. ----- Message ----- From: Anthony Marquez MD Sent: 02/18/2022 2:49 PM EDT To: Raegan Malone APRN.DONNA Subject: RE: Pre-op eliquis Hold eliquis if possible ----- Message ----- From: Raegan Malone APRN.IT SUPPORT CONSULTANT Sent: 02/18/2022 2:41 PM EDT To: Anthony Marquez MD Subject: Pre-op eliquis Pt is scheduled for a aqueous shunt and cataract surgery 03/06/2022 at [facility]. She takes eliquis for persistent afib. Would you want her to hold this or continue for upcoming surgery. documented in this encounter [facility] 02-18-2022 Miscellaneous Notes Telephone consent obtained today from Shanon Buckner, patients aunt and power of bindery operator. Devika Morel MD Glaucoma Fellow PGY5 Ophthalmology documented in this encounter [facility] 02-18-2022 History and physical note HISTORY [...] developmental disability and cerebral palsy -seen at [facility], unable to perform LPI due to [...] not operate on for now -may need [facility] for comfort, will reassess Cataract Presurgical Documentation [...] as other activities of daily living. Millicent Valinete has confirmed that she is no longer [...] palsy +non-verbal. No history of TIA's, stroke, COUNTY SURVEYOR tumor, impaired sensorium, hemiplegia, paraplegia or quadraplegia. No neurological symptoms or problems. Respiratory: No history of current cough or dyspnea, or pneumonia in the past 6 weeks. No history of respiratory/pulmonary symptoms or problems. Cardiovascular: Positive for: anticoagulation therapy (on rx) and atrial fibrillation (following [facility]) Negative for: arrhythmia, CAD, chest pain, CHF, congenital heart defect, DVT/PE, hyperlipidemia, hypertension, recent VA, murmur/valvular heart disease, open heart surgery and valve surgery. GI: No history of GI symptoms or problems. No history of esophageal varices, recent ascites, or ETOH greater than 2 drinks per day. : Positive for: urinary incontinence. Negative for: nephrolithiasis, renal failure and urinary tract infection. SLD EDUCATIONAL AIDE: Negative for abnormal vaginal bleeding, abnormal vaginal [...] daily. Taking Yes multivitamin with folic acid (DAILY-JASMINE, WITH FOLIC ACID,) 400 mcg Take 1 [...] or any previous visit (from the past 18190 hour(s)). Assessment HYPOTHYROIDISM NOS Assessment: stable on [...] large neck Non-male patient STOP-Bang Score: 1 [id number] Score: Age: <65 Sex: female CHF history: No Hypertension history: No Stroke/TIA/thromboembolism history: No Vascular disease history: No Diabetes history: No [id number] Score: 1 ARISCAT Score: Age: 51-80 Preoperative [...] and consent discussed: yes. Patient / Responsible Republican agrees to proceed: yes Patient / Surrogate [...] Drop twice daily. multivitamin with folic acid (DAILY-JASMINE, WITH FOLIC ACID,) 400 mcg Sig: Take [...] PM PAGER/CONTACT #: documented in this encounter [facility] 02-18-2022 Instructions Raegan Malone APRN.CNP - 02/18/2022 1:44 PM EDT PATIENT PREOPERATIVE INSTRUCTIONS Anthony Marquez MD has scheduled you for your procedure at this surgery center: [facility]: [phone] --[facility] [id number]. Please read below carefully for your personalized [...] Procedures: - YOU MUST HAVE A RESPONSIBLE ORGANIC LAB WORKER TAKE YOU HOME. A VISITOR SERVICES ASSISTANT OR MANAGER CREDIT RISK CANNOT BE MADE A RESPONSIBLE ORGANIC LAB WORKER. - We recommend that a responsible person [...] Advance Directive, please fax a copy to [phone] or email to for it to be [...] into your chart that day. Raegan Malone APRN.DONNA documented in this encounter [facility] 02-10-2022 History of Present illness Narrative I had telephone encounter today with Jocy Itzel who had confirmed for me that she is power of bindery operator for Millicent Osullivan. Louis. I explained patients condition as outlined in the note dated today authored by Dr. Marquez. I explained the plan to perform cataract surgery right eye and potentially additional glaucoma surgery if it is deemed necessary after intraoperative exam under anesthesia. I discussed risks including need for additional surgery, infection, bleeding, pain, loss of vision, or loss of eye. Kaylatonya Itzel gave me her verbal understanding. I will plan to call again with a witness to review again the above and obtain a telephone consent document for Millicent Penaloza' planned surgery. Devika Morel MD Glaucoma Fellow PGY5 Ophthalmology JUAN MANUELA Jocy White (aunt) Tmax 54(acute angle closure), [...] developmental disability and cerebral palsy -seen at [facility], unable to perform LPI due to [...] not operate on for now -may need MORTGAGE LOAN REVIEWER for comfort, will reassess Cataract Presurgical Documentation [...] Anthony Marquez MD documented in this encounter [facility] 02-10-2022 History of Present illness Narrative [...] developmental disability and cerebral palsy -seen at [facility], unable to perform LPI due to [...] not operate on for now -may need MORTGAGE LOAN REVIEWER for comfort, will reassess Cataract Presurgical Documentation [...] Anthony Marquez MD documented in this encounter [facility] 02-10-2022 Instructions Devika Morel MD - [...] possibly glaucoma tube shunt Call Kinga Denise (director medical science): [phone] Dr. Anthony Marquez's office: [phone] if you have any questions. Dextenza is [...] surgical suite on the first floor of [facility] i[facility]. You will check in at the desk [...] you to be aware of over the assisted. First, and most important, people with tube [...] option and should be fitted by an document advisor with a knowledge of fitting contact lenses [...] bleeding and infection. documented in this encounter [facility] 02-10-2022 Miscellaneous Notes Addended by: SORIN THOMAS on: 02/10/2022 07:02 AM Modules accepted: Orders documented in this encounter [facility] 04-09-2021 History of Present illness Narrative Radiology Service Progress Note PATIENT NAME: Millicent Valiente DATE OF SERVICE: April 09, 2021 TIME: 11:39 AM PATIENT IDENTITY VERIFICATION COMPLETED USING TWO (2) IDENTIFIERS: Name and Date of confirmed by patient verbally. FALL SCREENING: Has the patient had 2 falls in the last year or 1 fall with injury or currently using an Ambulatory Assistive Device (Walker, Cane, Wheelchair, Crutches, etc.)? No PATIENT GENDER DATA: Female. status: : No status: NO. PATIENT RELEVANT IMPLANT DATA REVIEWED: Not Applicable RADIOLOGY DEPARTMENT: General X-ray: Exam(s) Completed: Lower Extremity X-Ray(s): Foot, Left PERIPHERAL IV DATA: Not applicable SIGNED BY: RT Brenna(R) April 09, 2021 11:39 AM documented in this encounter [facility] 11-06-2020 History of Present illness Narrative Radiology Service Progress Note PATIENT NAME: Millicent Valiente DATE OF SERVICE: November 06, 2020 TIME: 12:03 PM PATIENT IDENTITY VERIFICATION COMPLETED USING TWO (2) IDENTIFIERS: Name and Date of confirmed by patient verbally. FALL SCREENING: Has the patient had 2 falls in the last year or 1 fall with injury or currently using an Ambulatory Assistive Device (Walker, Cane, Wheelchair, Crutches, etc.)? Yes, Patient High Risk for Falls What interventions were put in place to prevent falls during this visit? [employer] Technical Lead Senior Developer assisted patient at all times. PATIENT GENDER DATA: Female. status: : No status: NO. PATIENT RELEVANT IMPLANT DATA REVIEWED: Not Applicable RADIOLOGY DEPARTMENT: General X-ray: Exam(s) Completed: Lower Extremity X-Ray(s): Femur, Right: PERIPHERAL IV DATA: Not applicable SIGNED BY: RT Brenna November 06, 2020 12:03 PM documented in this encounter [facility] Discharge summary Note Date/Time November 20, 2023 12:00pm [facility] Medical Records Department [address] [place] [address] Emergency Department Summary 11/20/23 MR#: [id number] Acct: [id number] Name: MILLICENT SANDHU Rep #:[id number] : 1955 68 From: Pelon Daly MD PCP: Dr. Dionne Borrero, DO Status:REG ER Location: ED HPI History of Present Illness Chief Complaint: Lower Extremity Injury Narrative Narrative: 68-year-old female past medical history of developmental delay, presents with her caregiver because of right leg pain. Her history and physical is limited secondary to her chronic condition. She does have history of bilateral hip fractures with reported right hip replacement. Care worker states that patient has been refusing to bear weight on her right leg for the past 4 days. It started Wednesday evening. She does tend to walk on her toes a little bit, but they think that she is having pain when she tries to get up and transfer to her chair. She has had previous toes that were infected on her right, but is not having any fever or drainage currently. They present her for evaluation of reported pain in her right leg. No recent reported trauma or falls. [facility] Medical History Atrial fibrillation with RVR Cataract Cerebral palsy Developmental disability Glaucoma Hypothyroidism Longstanding persistent atrial fibrillation Schizophrenia Home Medications acetaminophen 500 mg tablet 500 - 1,000 mg (1 - 2 x 500 mg) PO Q6H PRN PRN Pain 4 days 10/16/14 [Rx Last Taken Unknown] levothyroxine 88 mcg tablet 88 mcg PO .mon- sat thyroid 10/16/14 [History Last Taken 08/25/22] lorazepam 0.5 mg tablet 0.5 mg PO Q12H mood 03/11/18 [History Last Taken 08/25/22] cholecalciferol (vitamin D3) 25 mcg (1,000 unit) capsule 1,000 unit PO QDAY supplement 03/17/18 [History Last Taken 08/25/22] multivitamin (Daily Multi-Vitamin tablet) 1 tab PO QAM supplement 03/17/18 [History Last Taken 08/25/22] polyethylene glycol 3350 8.5 gram oral powder packet 17 g PO QDAY constipation 03/17/18 [History Last Taken 08/24/22] vitamin A 2,400 mcg capsule 8,000 unit PO QDAY supplement 03/17/18 [History Last Taken 08/25/22] alendronate 35 mg tablet 35 mg PO QWEEK bone health 03/05/20 [History Last Taken 08/19/22] risperidone 0.5 mg tablet 0.5 mg PO TID mood 03/05/20 [History Last Taken 08/24/22] fluvoxamine 50 mg tablet 50 mg PO TID mood 04/11/21 [History Last Taken 08/25/22] triamcinolone acetonide 0.025 % topical cream 1 applic topical BID PRN exzema 12/30/22 [History Last Taken Unknown] metoprolol succinate 25 mg tablet,extended release 24 hr 12.5 mg (1/2 x 25 mg) PO DAILY #30 tabs 01/11/23 [Rx Last Taken Unknown] apixaban 5 mg tablet 5 mg PO BID a fib #60 tabs 09/06/23 [Rx Last Taken Unknown] carbamide peroxide 6.5 % ear drops (Debrox) 4 drp EACH EAR .Q24hr 11/20/23 [History Last Taken Unknown] Allergy/AdvReac Type Severity Reaction Status Date / Time Penicillins Allergy Unknown Verified 11/20/23 11:40 Sulfa (Sulfonamide Allergy Unknown Verified 11/20/23 11:40 Antibiotics) Family History Father Cancer Mother Heart disease Surgical History History of Achilles tendon repair History of cataract surgery (02/2022) Social History household members: other details: half-way. Smoking Status: Never smoker alcohol intake: never substance use type: does not use what type of physical activity do you participate in: other details: senior chair exercises ROS ROS ED ROS Narrative Limited secondary to patient's developmental delay/disability. Obtained throughcaregiver. Constitutional: No fever, no chills. Musculoskeletal: Right leg pain, refusal to bear weight on right leg. EXAM Physical Exam Narrative Exam Narrative: Afebrile. Vital signs noted. HEENT: Atraumatic. PERRL, EOMI. Neck soft and supple. No point tenderness or step off. Cardiovascular: Regular rate and rhythm with intermittent tachycardia no murmurs, rubs, or gallops appreciated. Respiratory: No tachypnea. Lungs clear to auscultation bilaterally. Gastrointestinal: Abdomen soft, nontender, with normoactive bowel sounds. No rebound or guarding. Neurological: Awake. Alert. Nonverbal at baseline. Skin: No rash. Normal color. No pallor. Musculoskeletal: No pedal edema. Positive contractures of bilateral feet. Const Vital Signs: 11/20/23 11:40 Temperature 98.4 F Temperature Source Temporal Pulse Rate 102 H Respiratory Rate 16 Blood Pressure 92/60 Blood Pressure Mean 70 Pulse Ox 100 Oxygen Delivery Method Room Air MDM MDM MDM Narrative Medical decision making narrative: Concern is for occult fracture versus contusion of foot as she tends to walk on her toes. X-rays were obtained of the right lower extremity including femur, tibia and fibula, and foot. I offered Tylenol for the patient, but caregiver refused. She states its only when the patient tries to bear weight that she is refusing. X-rays obtained were interpreted by myself independently, I see no evidence of fracture or dislocation in 2 views of the right femur. I also see no evidence of fracture in 2 views of the right tibia/fibula. 3 views of the x-rays show some soft tissue swelling that I think is more consistent with contusion but no evidence of an acute fracture. I reviewed the radiology reports which confirmedmy independent interpretations. At this point in time, caregiver was reassured. She will be given Tylenol as needed and can be weightbearing as tolerated. I do not feel that she requires observation. Return instructions reviewed. Disposition is discharged home in stable condition. Radiography Diagnostic Testing: Clinical Impression(s) from Imaging Studies Femur X-Ray 11/20/23 11:54 IMPRESSION: No acute fracture or dislocation identified in the right femur. Electronically Signed: Valarie Rowell MD at 12:46 EST , Foot X-Ray 11/20/23 11:54 IMPRESSION: Soft tissue swelling of the right foot. No acute osseous abnormality identified. Electronically Signed: Valarie Rowell MD at 12:49 EST , Tibia/Fibula X-Ray 11/20/23 11:54 IMPRESSION: No acute fracture or dislocation identified in the right leg. Electronically Signed: Valarie Rowell MD at 12:48 EST , Discharge Plan Triage Chief Complaint: Lower Extremity Injury ED Provider: Pelon Daly Dx/Rx/DC Orders Clinical Impression: Foot swelling, Pain of right leg Instructions: ED Foot Contusion, ED Pain, Acute, Uncertain Cause Prescriptions: No Action multivitamin [Daily Multi-Vitamin] tablet 1 tab PO QAM polyethylene glycol 3350 8.5 gram oral powder packet 8.5 gram powder in packet 17 g PO QDAY vitamin A 8,000 unit capsule 8,000 unit PO QDAY cholecalciferol (vitamin D3) 1,000 unit capsule 1,000 unit PO QDAY lorazepam 0.5 mg tablet 0.5 mg PO Q12H risperidone 0.5 mg tablet 0.5 mg PO TID alendronate 35 mg tablet 35 mg PO QWEEK triamcinolone acetonide 0.025 % cream 1 applic topical BID PRN (Reason: exzema) levothyroxine 88 MCG tablet 88 mcg PO .mon- sat acetaminophen 500 MG tablet 500 - 1,000 mg PO Q6H PRN PRN (Reason: Pain) 4 Days 0RF Rx Instructions: fluvoxamine 50 mg tablet 50 mg PO TID Debrox 6.5 % drops 4 drp EACH EAR .Q24hr Rx Instructions: 4 drps into Each EAR; metoprolol succinate 25 mg tablet extended release 24 hr 12.5 mg PO DAILY Qty: 30 11RF apixaban 5 mg tablet 5 mg PO BID Qty: 60 11RF Primary Care Provider: Dionne Borrero Referrals: Dionne Borrero DO [Primary Care Provider] - As soon as possible Activity Restrictions/Additional Instructions: Tylenol as needed for pain. X-rays of the right leg were negative for fracture or dislocation today. Weightbearing as tolerated. Disposition Disposition: Home, Self Care What to do if you have Problems For any increased pain, shortness of breath, bleeding, nausea or vomiting, chestpain, or any unexpected problems, contact your Primary Care Provider. Call [facility] ([phone]) or report to the closest Emergency Room. Call 911 if necessary. 11/20/23 1307 <Electronically signed by Pelon Daly MD> Cosigner Signature (if applicable): CC: Dr. Dionne Borrero DO ~ Signed [facility] Work Phone: Evaluation + Plan note Future Appointments Appointment Date:09/09/2022 02:00:00 PM Scheduled Provider:DIONNE BORRERO DO Location:[employer] Appointment Type: OV Future Scheduled Tests Laboratory* Basic Metabolic Panel 03/11/22 * Thyroid Stimulating Hormone 03/11/22 * Thyroid Stimulating Hormone 04/25/21 * Complete Blood Count 03/11/22 * Vitamin D Level 03/11/22 * Vitamin A Level 03/11/22 [facility] Evaluation + Plan note Future Appointments Appointment Date:09/15/2023 02:30:00 PM Scheduled Provider:DIONNE BORRERO DO Location:[facility] [facility] Appointment Type: OV Follow Up Future Scheduled Tests Laboratory* Basic Metabolic Panel 03/17/23 * Thyroid Stimulating Hormone 03/17/23 * Vitamin D Level 03/17/23 * Vitamin A Level 03/17/23 [facility] Evaluation + Plan note Future Appointments Appointment Date:03/15/2024 02:00:00 PM Scheduled Provider:DIONNE BORRERO DO Location:[facility] [facility] Appointment Type: OV Future Scheduled Tests Laboratory* Vitamin A, Serum 09/15/23 * Basic Metabolic Panel 03/17/23 * Thyroid Stimulating Hormone 03/17/23 * Thyroid Stimulating Hormone 09/15/23 * Complete Blood Count 09/15/23 * Vitamin D Level 03/17/23 * Vitamin D Level 09/15/23 * Vitamin A Level 03/17/23 * Complete Metabolic Panel 09/15/23 [facility] evaluation + Plan note Future Appointments Appointment Date:09/13/2024 02:00:00 PM Scheduled Provider:DIONNE BORRERO DO Location:[facility] [facility] Appointment Type:PC OV Follow Up Future Scheduled Tests Laboratory* Vitamin A, Serum 09/15/23 * Thyroid Stimulating Hormone 09/15/23 * Complete Blood Count 09/15/23 * Vitamin D Level 09/15/23 * Complete Metabolic Panel 09/15/23 [facility] + Plan note Future Appointments Appointment Date:09/13/2024 02:00:00 PM Scheduled Provider:DIONNE BORRERO DO Location:[facility] [facility] Appointment Type:PC OV Follow Up Diagnostic Tests Pending * Vitamin A, Serum 05/25/24 [facility] yepptaluation + Plan note Future Appointments Appointment Date:09/13/2024 02:00:00 PM Scheduled Provider:DIONNE BORRERO DO Location:[facility] [facility] Appointment Type:PC OV Follow Up [facility] yepptaluation + Plan note Future Appointments Appointment Date:03/23/2025 02:00:00 PM Scheduled Provider:KEREN MENDES Location:[facility] Appointment Type:PC OV Follow Up Future Scheduled Tests Laboratory* Thyroid Stimulating Hormone 10/04/24 [facility] [employer] note* Diagnosis Acute angle-closure glaucoma of right eye- Primary Acute angle-closure glaucoma Nuclear senile cataract of right eye Total, mature senile cataract Total or mature senile cataract [facility] Diagnosis Nuclear sclerotic cataract of both eyes- Primary Senile nuclear sclerosis Total, mature senile cataract Total or mature senile cataract [facility] Diagnosis Nuclear senile cataract of both eyes- Primary Bilateral chronic primary angle-closure glaucoma, indeterminate stage documented in this encounter [facility] note* Diagnosis Pre-operative examination- Primary Preoperative [...] of both eyes documented in this encounter [facility] note* Diagnosis Postoperative follow-up- Primary Follow-up examination, following unspecified surgery documented in this encounter [facility] note* Diagnosis Onset Date Resolution Status Longstanding persistent atrial fibrillation [facility] Work Phone: Evaluation note* Diagnosis Abnormal mammogram- Primary Abnormal mammogram, unspecified alf (current) use of antithrombotics/antiplatelets documented in this encounter [facility] note* Diagnosis Postoperative follow-up- Primary Follow-up examination, following unspecified surgery documented in this encounter [facility] note* Diagnosis Dermatitis- Primary Contact dermatitis and other eczema, due to unspecified cause Postoperative follow-up Follow-up examination, following unspecified surgery Bilateral chronic primary angle-closure glaucoma, indeterminate stage documented in this encounter [facility] note* Diagnosis Onset Date Resolution Status Hip fracture [facility] Work Phone: Evaluation note* Diagnosis Onset Date Resolution Status Atrial fibrillation with RVR acute Developmental disability acu te Hip fracture [facility] Work Phone: Evaluation note* Diagnosis Chronic primary angle-closure glaucoma of both eyes, severe stage- Primary documented in this encounter [facility] note* Diagnosis Foot injury, left, initial encounter Pre-operative examination- Primary Preoperative examination, unspecified Cataract, unspecified cataract type, unspecified laterality Bilateral chronic angle-closure glaucoma, indeterminate stage Chronic angle-closure glaucoma Unspecified hypothyroidism Urinary incontinence, unspecified type Atrial fibrillation, unspecified type (HCC) Cerebral palsy, unspecified type (HCC) Anxiety and depression Dysthymic disorder Schizophrenia, unspecified type (HCC) [facility] Pre-operative examination- Primary Preoperative examination, unspecified Cataract, unspecified cataract type, unspecified laterality Bilateral chronic angle-closure glaucoma, indeterminate stage Chronic angle-closure glaucoma Unspecified hypothyroidism Urinary incontinence, unspecified type Atrial fibrillation, unspecified type (HCC) Cerebral palsy, unspecified type (HCC) Anxiety and depression Dysthymic disorder Schizophrenia, unspecified type (HCC) Chronic primary angle-closure glaucoma of both eyes, severe stage documented in this encounter [facility] course Narrative No data available for this section [facility] Discharge instructions No data available for this section [facility] Discharge instructions Additional Instructions If the redness is 2 finger widths outside the line that we jolly on patient's foot, return to ER for further testing. Take antibiotic pill and use the ointment. Finish all of the antibiotic pills, use the ointment for the next 2 weeks if redness persists. Follow-up with Dr. Chavez if any other acute concerns. THank you for your time and patience today.[facility] Work Phone: Hospital Discharge instructions Additional Instructions Tylenol as needed for pain. X-rays of the right leg were negative for fracture or dislocation today. Weightbearing as tolerated.[facility] Work Phone: Progress note No data available for this section [facility] Advance Directives No Advanced Directives Records FoundDocuments on File Type Date Recorded Patient Armor Reconnaissance Specialist Expl anation Advance Directive(s) 02/10/2022 12:51 AM Documents on File Type Date Recorded Patient Armor Reconnaissance Specialist Expl anation Advance Directive(s) 02/19/2022 12:02 PM Advance Directive(s) 02/10/2022 12:51 AM Advance Directive Response Recorded Date/ Time Living Will No January 30, 2019 9: 32pm Power of Show Host No January 30, 2019 9:32pm Advance Directive Response Recorded Date/ Time Living Will No August 25 11:12am Power of Show Host No August 25, 2022 11:12am Advance Directive Response Recorded Date/ Time Living Will No August 25, 2 022 3:10pm Power of Show Host No August 25, 2022 3:10pm Advance Directive Response Recorded Date/ Time Living Will No October 13 1:37pm Power of Show Host No October 13, 2023 1:37pm Advance Directive Response Recorded Date/ Time Name of Medical Power of Show Host gabriela buckner November 20, 2023 12:18pm Living Will No November 20, 2 024 12:18pm Power of Show Host Yes November 20, 2023 12:18pm Chief Complaint and Reason for Visit Chief Complaint 1 Y FU E ORDER Reason for Visit Longstanding persist ent atrial fibrillation Chief Complaint 1 Y FU E ORDER AFIB Reason for Visit Longstanding persist ent atrial fibrillation Chief Complaint 1 Y FU E ORDER AFIB ABN MAMM Reason for Visit Longstanding persist ent atrial fibrillation Chief Complaint ABN MAMM L HIP FRACTURE, FALL Reason for Visit Hip fracture Chief Complaint ABN MAMM L HIP FRACTURE, FALL L HIP FRACTURE, FALL L HIP FRACTURE, FALL L HIP FRACTURE, FALL L HIP FRACTURE, FALL L HIP FRACTURE, FALL L HIP FRACTURE, FALL L HIP FRACTURE, FALL Reason for Visit Atrial fibrillation with RVR Developmental disability Hip fracture Chief Complaint 1 Y FU WOUND Reason for Visit Longstanding persist ent atrial fibrillation Chief Complaint 1 Y FU WOUND LOWER EXTREM Reason for Visit Longstanding persist ent atrial fibrillation Family History No Family History Records Found Relationship Condition Age at Onset Recorded Date/T luis father Malignant neoplasm Unknown mother Cardiac disease Unknown Summary Purpose Additional Source Comments Source Comments (unrecognize d section and content) In the event this informatio n is protected by the Federal Confidentiality of Alcohol and Drug Abuse Patient Records regulations: The Federal rules restrict any use of the information to criminally investigate or prosecute any alcohol or drug abuse patient.[facility] the event this information is protected by the Federal Confidentiality of Alcohol and Drug Abuse Patient Records regulations: The Federal rules restrict any use of the information to criminally investigate or prosecute any alcohol or drug abuse patient.[facility] the event this information is protected by the Federal Confidentiality of Alcohol and Drug Abuse Patient Records regulations: The Federal rules restrict any use of the information to criminally investigate or prosecute any alcohol or drug abuse patient.[facility] the event this information is protected by the Federal Confidentiality of Alcohol and Drug Abuse Patient Records regulations: The Federal rules restrict any use of the information to criminally investigate or prosecute any alcohol or drug abuse patient.[facility] the event this information is protected by the Federal Confidentiality of Alcohol and Drug Abuse Patient Records regulations: The Federal rules restrict any use of the information to criminally investigate or prosecute any alcohol or drug abuse patient.[facility] the event this information is protected by the Federal Confidentiality of Alcohol and Drug Abuse Patient Records regulations: The Federal rules restrict any use of the information to criminally investigate or prosecute any alcohol or drug abuse patient.[facility] the event this information is protected by the Federal Confidentiality of Alcohol and Drug Abuse Patient Records regulations: The Federal rules restrict any use of the information to criminally investigate or prosecute any alcohol or drug abuse patient.[facility] the event this information is protected by the Federal Confidentiality of Alcohol and Drug Abuse Patient Records regulations: The Federal rules restrict any use of the information to criminally investigate or prosecute any alcohol or drug abuse patient.[facility] the event this information is protected by the Federal Confidentiality of Alcohol and Drug Abuse Patient Records regulations: The Federal rules restrict any use of the information to criminally investigate or prosecute any alcohol or drug abuse patient.[facility] the event this information is protected by the Federal Confidentiality of Alcohol and Drug Abuse Patient Records regulations: The Federal rules restrict any use of the information to criminally investigate or prosecute any alcohol or drug abuse patient.[facility] the event this information is protected by the Federal Confidentiality of Alcohol and Drug Abuse Patient Records regulations: The Federal rules restrict any use of the information to criminally investigate or prosecute any alcohol or drug abuse patient.[facility] the event this information is protected by the Federal Confidentiality of Alcohol and Drug Abuse Patient Records regulations: The Federal rules restrict any use of the information to criminally investigate or prosecute any alcohol or drug abuse patient.[facility] the event this information is protected by the Federal Confidentiality of Alcohol and Drug Abuse Patient Records regulations: The Federal rules restrict any use of the information to criminally investigate or prosecute any alcohol or drug abuse patient.[facility] the event this information is protected by the Federal Confidentiality of Alcohol and Drug Abuse Patient Records regulations: The Federal rules restrict any use of the information to criminally investigate or prosecute any alcohol or drug abuse patient.[facility] the event this information is protected by the Federal Confidentiality of Alcohol and Drug Abuse Patient Records regulations: The Federal rules restrict any use of the information to criminally investigate or prosecute any alcohol or drug abuse patient.[facility] the event this information is protected by the Federal Confidentiality of Alcohol and Drug Abuse Patient Records regulations: The Federal rules restrict any use of the information to criminally investigate or prosecute any alcohol or drug abuse patient.[facility] the event this information is protected by the Federal Confidentiality of Alcohol and Drug Abuse Patient Records regulations: The Federal rules restrict any use of the information to criminally investigate or prosecute any alcohol or drug abuse patient.[facility] the event this information is protected by the Federal Confidentiality of Alcohol and Drug Abuse Patient Records regulations: The Federal rules restrict any use of the information to criminally investigate or prosecute any alcohol or drug abuse patient.[facility] Reason for Visit (unrecogniz ed section and content) Reason Comments B-scan OU Pre-Op Exam IOL Calculations Reason Comments Glaucoma Evaluation patient coming from ED with elevated IOP Reason Comments Consult Reason Comments 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 - Other Reason Comments Orders Reason Onset Date Comments Refill Request 03/05/2022 Refill Request 03/06/2022 Refill Request 03/10/2022 Reason Comments Post-op (Ophthalmology) Right Eye Reason Onset Date Comments Refill Request 04/07/2022 Reason Comments Consult abnormal mammogram Reason Comments Red Eye Left Eye Reason Comments Follow Up For Surgery Of Eye Reason Comments 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 Reason Comments Information Express [facility] Reason Comments chronic primary angle- colosure Glaucoma F/U Lv -10/06/2023 Yearly Exam Care Teams (unrecognized sec tion and content) Boom Conveyor Operator Relationship Specialty Start Date End Date Dionne Borrero [address] [place] [id number] PCP - General Family Practice 02/19/22 Boom Conveyor Operator Relationship Specialty Start Date End Date Dionne Borrero [address] [place] [id number] PCP - General Family Practice 02/19/22 Boom Conveyor Operator Relationship Specialty Start Date End Date Dionne Borrero [address] [place] [id number] PCP - General Family Practice 02/19/22 Boom Conveyor Operator Relationship Specialty Start Date End Date Dionne Borrero [address] [place] [address] PCP - General Family Practice 02/19/22 Boom Conveyor Operator Relationship Specialty Start Date End Date Dionne Borrero [address] [place] [address] PCP - General Family Practice 02/19/22 Boom Conveyor Operator Relationship Specialty Start Date End Date Dionne Borrero [address] [place] [address] PCP - [facility] 02/19/22 Boom Conveyor Operator Relationship Specialty Start Date End Date Dionne Borrero [address] [place] [id number] PCP - [facility] 02/19/22 Boom Conveyor Operator Relationship Specialty Start Date End Date Dionne Borrero DO PCP - General Family Medicine 02/19/22 Team Status: Active Member Role Status Dates Dr. Narayan Freitas DO Family Provider Active Dr. Dionne Borrero DO Primary Care Provider Active Team Status: Inactive Member Role Status Dates Dr. Dionne Borrero DO Primary Care Provider, Referri ng Provider Active Blanche Stevens CARPET BINDER, CARPET BINDER-C Attending Provider Active Team Status: Inactive Member Role Status Dates Dr. Dionne Borrero DO Primary Care Provider Active Dr. Aiden Anderson DO Emergency Provider Active Boom Conveyor Operator Relationship Specialty Start Date End Date Dionne Borrero DO PCP - General Family Medicine 02/19/22 Team Status: Inactive Member Role Status Dates Dr. Dionne Borrero DO Primary Care Provider Active Dr. Aiden Anderson DO Attending Provider, Emergency Pro vider Active Team Status: Inactive Member Role Status Dates Dr. Dionne Borrero DO Primary Care Provider Active Pelon Daly MD Emergency Provider Active Boom Conveyor Operator Relationship Specialty Start Date End Date Dionne Borrero DO [phone] (work) PCP - General Family Medicine 02/19/22 Care Team (unrecognized sect ion and content) Care Team Personnel Name: DIONNE BORRERO DO Position: P4 Physician - Primary Care Med Service: Active Provider Member Role: Primary Care Physician Address: Address: [address] [place] [address] Care Team Related Persons Name: ELIE MELLY Care Team Personnel Name: GISSELL DIONNE Position: P4 Physician - Primary Care Med Service: Active Provider Member Role: Primary Care Physician Address: Address: [address] [place] [address] Care Team Related Persons Name: MELLY DELGADILLO Goals (unrecognized section and content) Goals may be documented in a n alternate section INFORMATION SOURCE (unrecogn ized section and content) DATE CREATED AUTHOR 05/27/2024 [facility] ([place] DATE CREATED AUTHOR AUTHOR'S ORGANIZ ATION 09/08/2024 [facility] DATE CREATED AUTHOR AUTHOR'S ORGANIZ ATION 11/24/2024 [facility] DATE CREATED AUTHOR AUTHOR'S ORGANIZ ATION 12/01/2024 [facility] FOR RECORDS PERTAINING TO PATIENTS WHO ARE [...] BE BASED ON THE PRIMARY CLINICAL RECORDS. [employer] [facility]. provides no warranty or guarantee of the accuracy or completeness of information in this document.
--- NOTE | 2025-04-06 20:55 | RAD_ITS ---
PROCEDURE: CHEST 1 VIEW (PORTABLE) 04/06/2025 REASON FOR EXAM: COUGH TECHNIQUE: Frontal view of the chest. COMPARISON: Chest radiograph on 08/25/2022 FINDINGS: Hardware: None Heart: Cardiac and mediastinal contours are stable. Aortic atherosclerosis. Lungs: No focal consolidation or significant pleural effusion. Bones: Degenerative changes are identified within the thoracic spine. RAD/Chest 1 View (Portable) IMPRESSION: No acute cardiopulmonary abnormality. Reading Location: [facility]
== END 2025-04-06 21:41 | disposition home or self-care (01) ==
PROVIDERS: Emergency Provider Emergency Medicine; PCP Nurse Practitioner Family; Referring Provider Emergency Medicine; Visit Provider Emergency Medicine
DX: T17.928A Food in respiratory tract, part unspecified causing other injury, initial encounter (principal); F20.9 Schizophrenia, unspecified; G80.9 Cerebral palsy, unspecified; I48.11 Longstanding persistent atrial fibrillation; W44.F3XA Food entering into or through a natural orifice, initial encounter; E03.9 Hypothyroidism, unspecified; Z79.01 Long term (current) use of anticoagulants; Z79.890 Hormone replacement therapy; Z79.899 Other long term (current) drug therapy
CPT/HCPCS: 71045; 99282

== ENCOUNTER 2025-05-16 15:52 | Outpatient (RCR) | payer MEDICARE, OTHER, MEDICAID, SELFPAY ==
--- NOTE | 2025-05-17 09:54 | HP.SP.EVAL ---
Visit History Visit Info Date of Eval: 05/16/25 Today is Visit #: 1 Membership Sales Advisor: JAMES History Attending Doctor: ALICE Referring Doctor: ALICE Reason for Referral: DYSPAGIA RX HERE Medical Diagnosis: Oropharyngeal dysphagia Date of Onset of Diagnosis: 30+ years ago (per caregiver) Previous speech therapy: No Other Relevant Medical History/Diagnoses/Surgery: Millicent is a 69F who was referred for a swallow evaluation after experiencing a choking incident, and needing to have the Heimlich maneuver in March 2025. Her caregiver stated that she has been following safe swallowing strategies for several years, as the other women in her correction are on modified diets and they prepare the same meals for all residents. Millicent's caregiver also stated that Millicent does not chew most of her food, and has not for several years. Millicent has a developmental disability, which impairs her cognitive skills, as well as a cerebral palsy, schizophrenia, hypothyroidism, longstanding persistent atrial fibrillation, glaucoma, and cataracts. Medications related to this diagnosis: CALCIUM 600 MG-VIT D3 10 MCG TB, DAILY-BRETT TABLET, DEBROX 6.5% EAR DROPS, ELIQUIS 5 MG TABLET, FLUVOXAMINE MALEATE 50 MG TAB, IBUPROFEN 200 MG TABLET, LEVOTHYROXINE 100 MCG TABLET, METOPROLOL SUCC ER 25 MG TAB, POLYETHYLENE 3350 POWD, RISPERIDONE 0.5 MG TABLET, TRIAMCINOLONE 0.025 OINT, TYLENOL EX-STR 500 MG CAPLET, VITAMIN A 8,000 UNIT CAPSULE, VITAMIN D3 1,000 UNIT TABLET Smoking Status: Never smoker Diagnosis Diagnosis: Moderate oropharyngeal dysphagia Pain Is pain an issue with your current prescribed condition?: No Personal Preferred language: Arabic Patient Allergies Allergies Allergies: Allergies Penicillins Allergy (Verified 04/06/25 20:26) Unknown Sulfa (Sulfonamide Antibiotics) Allergy (Verified 04/06/25 20:26) Unknown Subjective Dysphagia Symptoms Reported Symptoms/Problems with: Choking Current Diet Solids Current Diet: Soft Current Diet Liquids Current Liquids: Thin Comments -: -: Caregiver reported that Millicent lives with 2 other women who are on modified diets, so the entire correction eats soft and bite sized foods. Millicent experienced a choking incident approximately 6 weeks ago, in March 2025, where she needed the Heimlich maneuver to dislodge the piece of food. Since then, the caregiver has made sure that she has 1:1 supervision while consuming all food and liquids. The caregiver also stated that she has been trialing thickener in [place] drinks to see if it helps her to slow down consumption, and it has been helping. Objective Dysphagia Administered by Administered by: CLAIMS MANAGER Thin Liquids Administred via: Cup Oral Transit: Delay > 1 seconds Bolus clearance: fully cleared Gagging: No Cough: delayed and wet Pharyngeal phase: laryngeal elevation mildly restricted slow initiation Slightly Thick Liquids Administred via: Cup Mildly Thick ([place]) Liquids Administered via: Cup Oral Preparation: minimal chew thrust gravity assisted Oral Transit: Delay > 1 seconds Bolus clearance: fully cleared Gagging: No Cough: none observed/unable to assess Pharyngeal phase: laryngeal elevation mildly restricted slow initiation Comments: Caregiver reports that she will thicken Millicent's liquids at home sometimes to slow her down when drinking because she will chug the liquid if she is not given cues to slow down. Pureed Administered via: Spoon Oral Preparation: minimal chew thrust gravity assisted and lip or tongue seal bolus escape Oral Transit: Delay > 5 seconds Bolus clearance: significant clearance/minimal residue Gagging: No Cough: none observed/unable to assess Pharyngeal phase: laryngeal elevation mildly restricted slow initiation Comments: Applesauce; pt with tongue pumping and multiple swallows Regular Oral Preparation: minimal chew thrust gravity assisted Oral Transit: Delay > 10 seconds Bolus clearance: significant clearance/minimal residue Gagging: No Cough: none observed/unable to assess Pharyngeal phase: laryngeal elevation mildly restricted slow initiation Comments: Disorganized chewing, tongue pumping, multiple swallows Swallowing Impairment Contributing Factors to Swallowing Impairment: Reduced Alertness or Attention, Difficulty Following Directions, Reduced Oral Strength/Coordination/Sensation, Mastication Inefficiency, Impaired Oral-Pharyngeal Transport and Reduced Laryngeal Excursion Impact Impact on Safety & Functioning: Risk for Aspiration Comments: Millicent is at risk for aspiration due to reduced oral strength and coordination, mastication inefficiency, reduced laryngeal excursion, as well as reduced attention and difficulty following directions. Recommendations Modified Barium Swallow/Cookie Swallow Recommended: No Swallowing Treatment: No Diet Texture Recommendations Solids: Soft & Bite sized (Level 6, Chopped) Liquids: Mildly thick (Level 2, [place]) Other liquids: [place] Thick Safety Saftey Precautions/Swallowing Recommendations (Check all that Apply): Supervision Needed All Meals, 1 to 1 Close Supervision, Reduce Distractions, Needs Verbal Cues to Use Recommended Strategies, Upright Position at Least 30 Minutes After Meals, Small Sips & Bites when Eating, No Straw and Multiple Swallows Results Swallowing Within Normal Limits: No Swallowing Diagnosis: Oropharyngeal Phase Dysphagia (R13.12) Severity: Moderate Subjective Oral Motor Comments Comments: Patient was unable to follow commands during the oral motor assessment and is nonverbal. Objective Oral Motor Oral Status Dentition: Lower Dentures Additional: Partials Labial Impairment: Mild Observation at Rest: Left Droop Closure: Drooling Labial Comments Comments: Patient was unable to follow commands to participate in this portion of the oral motor exam. Lingual Protrusion: WNL Retraction: WNL Involuntary Movement: No Lingual Comments Comments: Patient was unable to follow commands to participate in this portion of the oral motor exam, but did involuntarily demonstrate protrusion and retraction while eating applesauce. Jaw Impairment: WNL Observation at Rest: Open jaw at rest Opening: WNL Closing: WNL Involuntary Movement: No Respiratory Status Respiratory Status: Room Air Reference: Neuro-QoL instrument Radiation Oncology Patient Plan Plan Plan: After discussion of results, caregiver stated that she wants to attempt a modified diet prior to trialing speech therapy intervention. Due to Millicent's developmental delay and cerebral palsy, she experiences difficulty with following commands and muscle coordination, and may not benefit from oral motor strengthening exercises within a structured speech therapy setting. Caregiver agreed to the modified diet as well as the safe swallow precautions recommended by ST. Recommendations Treatment Warranted: No Education Patient Instruction Patient Education: Diagnosis and Safety Precautions Person Taught: Patient and Primary Caregiver Teaching Method: Discussion Response to teaching: Verbalize Understanding
== END 2025-05-16 19:00 | disposition home or self-care (01) ==
LOC: SP 15:52
PROVIDERS: PCP Nurse Practitioner Family; Referring Provider Nurse Practitioner Family; Visit Provider Nurse Practitioner Family
DX: R13.10 Dysphagia, unspecified (principal)
CPT/HCPCS: 92610